=== PATIENT | female | born 1930 | race Asian ===

== ENCOUNTER 2016-07-27 07:17 | Inpatient (IN) | payer OTHER ==
[2016-07-27 07:22] VITALS: BMI 31.5
[2016-07-27] MEDS ORDERED: ALBUTEROL SO4 2.5/IPRATROPIUM 0.5 INH SOL 3 ML VIAL.NEB. NEB ONE ×2 (07:46)
--- NOTE | 2016-07-27 07:49 | PDOC ---
History of Present Illness <Sosa Bean - Last Filed: 07/27/16 10:01> - General History Source: Patient Exam Limitations: No Limitations - History of Present Illness Initial Comments: 07/27/16 07:47 86y F hx of htn, dm, hl, ckd, presents with sob. The patient has beeen feeling SOB with SOTO for the psat 2 weeks, 2 weeks ago she had cp/sob, was admitted to [facility] for a cardiac workup, had a negative stress and was d/c home to fu with PMD. The pt fu with PMD a few days ago and was given a neb. The pt states her sob worsened significantly last night and there was no significant improvement with her nebulizer. Pt states he gets the wheezing and sob when she ambulates short distances as well as up stairs which is new. The pt denies any associated cp (no cp since last admission to [place]), fever/chills. pt does endorse a mild nonproductive cough, orthopnea, mild lower extermity edema. PMD dr. Mendoza <Ralph Angel - Last Filed: 07/28/16 09:26> - General Chief Complaint: Asthma Stated Complaint: ASTHMA Time Seen by Provider: 07/27/16 07:30 Past History <Sosa Bean - Last Filed: 07/27/16 10:01> - Past Medical History Asthma: Yes Diabetes: Yes Dialysis: No (cri) HTN: Yes Hypercholesterolemia: Yes - Psycho/Social/Smoking Cessation Hx Anxiety: No Suicidal Ideation: No Smoking History: Never smoked Have you smoked in the past 12 months: No Information on smoking cessation initiated: No Hx Alcohol Use: No Drug/Substance Use Hx: No Substance Use Type: None <Ralph Angel - Last Filed: 07/28/16 09:26> - Past Medical History Allergies/Adverse Reactions: Allergies Allergy/AdvReac Type Severity Reaction Status Date / Time No Known Allergies Allergy Verified 07/27/16 07:19 Home Medications: Ambulatory Orders Amlodipine Besylate 10 mg PO DAILY 07/27/16 Calcitriol [Rocaltrol] 0.5 mcg PO DAILY 07/27/16 Glipizide [Glipizide ER] 5 mg PO DAILY 07/27/16 Linagliptin [Tradjenta] 5 mg PO DAILY 07/27/16 Losartan/Hydrochlorothiazide [Losartan-Hctz 100-25 mg Tab] 1 tablet PO DAILY 04/02 Metoprolol Succinate [Toprol Xl] 100 mg PO DAILY 07/27/16 Simvastatin [Zocor] 10 mg PO HS 07/27/16 Review of Systems - Review of Systems Able to Perform ROS?: Yes Comments:: 07/27/16 08:10 Constitutional - no reported Fever, Chills, weakness, HEENT: no reported vision changes, sore throat Respiratory: +sob, SOTO, mild cough no reported hemoptysis Cardiac: no reported chest pain, palpitations, light headedness, leg swelling Abd/GI: no reported abd pain, nausea, vomiting, blood per rectum, melena, diarrhea : no reported dysuria, frequency, discharge Musculskelatal +leg swelling no reported back pain, joint swelling skin - no reported bruising, erythema, rash neurological: no reported headache, numbness, focal weakness, tingling, ataxia, weakness hematologic: no reported anemia, easy bruising, easy bleeding <Ralph Angel - Last Filed: 07/28/16 09:26> *Physical Exam - Vital Signs Last Vital Signs Temp Pulse Resp BP Pulse Ox 98.3 F 82 22 184/68 97 07/27/16 07:19 07/27/16 07:19 07/27/16 07:19 07/27/16 07:19 07/27/16 07:19 <Sosa Bean - Last Filed: 07/27/16 10:01> - Vital Signs Last Vital Signs Temp Pulse Resp BP Pulse Ox 98.3 F 82 22 184/68 97 07/27/16 07:19 07/27/16 07:19 07/27/16 07:19 07/27/16 07:19 07/27/16 07:19 - Physical Exam Comments: 07/27/16 08:24 GENERAL: The patient is awake, alert, and fully oriented, Nontoxic - in no acute distress. HEAD: Normocephalic, atraumatic. EYES: extraocular movements intact, sclera anicteric, conjunctiva clear. ENT: Normal voice, Moist mucous membranes. NECK: Normal range of motion, supple LUNGS: mild wheezing and deminished breath sounds bilaterally HEART: Regular rate and rhythm, normal S1 and S2 without murmur, rub or gallop. ABDOMEN: Soft, nontender, normoactive bowel sounds. No guarding, no rebound. . No CVA tenderness EXTREMITIES: Normal range of motion, +2pitting edema R>L with negative homans NEUROLOGICAL: No facial assymetry, Normal speech, PSYCH: Normal mood, normal affect. SKIN: Warm, Dry, normal turgor, <Ralph Angel - Last Filed: 07/28/16 09:26> Heart Score/ECG Review - ECG Impressions Comment:: 07/27/16 08:25 Twelve-lead EKG was performed and reviewed by me. There is normal sinus rhythm with a normal rate. Rate of 70 The axis is normal. The intervals are normal. There is normal R wave progression There are no ST or T wave abnormalities. Impression: Normal twelve-lead EKG <Ralph Angel - Last Filed: 07/28/16 09:26> ED Treatment Course - LABORATORY CBC & Chemistry Diagram: 07/27/16 07:56 07/27/16 07:56 - ADDITIONAL ORDERS Additional order review: Laboratory Results 07/27/16 07/27/16 07:56 07:56 INR 1.19 H Sodium 140 Potassium 3.9 Chloride 104 Carbon Dioxide 25 Anion Gap 11 BUN 43 H Creatinine 2.8 H Creat Clearance w eGFR 16.10 Random Glucose 227 H Calcium 8.9 Phosphorus 4.7 Magnesium 2.1 Total Bilirubin 0.3 AST 20 ALT 30 Alkaline Phosphatase 104 Creatine Kinase 146 Troponin I < 0.02 B-Natriuretic Peptide 1614.88 H Total Protein 6.8 Albumin 3.3 L 07/27/16 07:56 RBC 3.48 L MCV 83.7 MCHC 33.1 RDW 13.2 MPV 7.7 Neutrophils % 63.8 Lymphocytes % 24.8 Monocytes % 8.8 Eosinophils % 1.8 Basophils % 0.8 - Medications Given in the ED: ED Medications Discontinued Medications Generic Name Dose Route Start Last Admin Trade Name Freq PRN Reason Stop Dose Admin Albuterol/Ipratropium 2 amp 07/27/16 07:46 07/27/16 07:40 Duoneb - NEB 07/27/16 07:47 2 amp ONCE ONE Administration <Sosa Bean - Last Filed: 07/27/16 10:01> - LABORATORY CBC & Chemistry Diagram: 07/28/16 06:00 07/28/16 06:00 - RADIOLOGY Radiology Studies Ordered: Category Date Time Status CHEST X-RAY PORTABLE* [RAD] Stat Radiology 07/27/16 07:46 Ordered DUPLEX VASCUL US-2LEGS [US] Stat Ultrasound 07/27/16 07:46 Ordered <Ralph Angel - Last Filed: 07/28/16 09:26> Medical Decision Making - Medical Decision Making 07/27/16 09:31 A page was sent to Dr. Matti Leigh at [phone]. Awaiting call back. 07/27/16 09:[address] Matti Leigh. Case discussed at 09:40. Accept Case. Reuetss that Labor Standards Director,Dr. John Valerio and Developer Relations Manager, Dr. Duane Garcia to be consulted. 07/27/16 09:57 Placed a consult to Labor Standards Director, Dr. John Valerio. 07/27/16 09:57 Placed a call to Developer Relations Manager, Dr. Duane Garcia at [phone]. Immediate response. Case was discussed. Accepts case. <Sosa Bean - Last Filed: 07/27/16 10:01> - Medical Decision Making 07/27/16 08:25 86-year-old female history of hypertension, diabetes, high cholesterol, CAD presents with 2 weeks of sob/wheezing and SOTO, without associated chest pain. Recent cardiac workup when she was admitted to [facility]. On exam the pt is in no acute distress but does have deminished breath sounds with scattered wheezing and LE edema. ?CHF vs asthma vs fluid overload due to her ckd less likely acs, consider DVT/ PE as she also has some assymetric leg swelling however the pts daugther states her R side is always slightly larger than her left. will ck cbc, cmp, cxr, ekg, trops, duplex US will give a neb jade reassess 07/27/16 09:24 The patient's chest x-ray appears congested, bibasilar atelectasis,m more in the R than left. The patient clinically does not have any symptoms for pneumonia also without fever, white count. Suspect that the patient's symptoms are secondary to congestion/fluid overload. ?chf will give pt a dose of lasix Will discuss with Dr. Cosby regarding admission for further workup an dpt woul dlikely benefit from echo. 07/27/16 10:[address] alva and dr. garcia per dr. garcia, last echo was in 2013 and was normal lv function with mild pulm and mitral regurgitation dr. mendoza requests telemetry agree with management dr. mendoza requests consultation w/ dr. garcia, dr. valerio, and dr. pollard. Case discussed in detail with admitting physician including history, physical exam and ancillary studies. Admitting physician has assumed care for the patient, will follow all pending diagnostics and will complete the evaluation and treatment. <Ralph Angel - Last Filed: 07/28/16 09:26> *DC/Admit/Observation/Transfer - Attestations Scribe Attestion: 07/27/16 09:33 Documentation prepared by Sosa Bean, acting as medical payment poster for Ralph Angel MD. <Sosa Bean - Last Filed: 07/27/16 10:01> - Discharge Dispostion Admit: Yes <Ralph Angel - Last Filed: 07/28/16 09:26> Diagnosis at time of Disposition: SOB (shortness of breath) on exertion, Pulmonary vascular congestion CKD (chronic kidney disease) Qualifiers: Chronic kidney disease stage: unspecified stage Qualified Code(s): N18.9 - Chronic kidney disease, unspecified - Discharge Dispostion Condition at time of disposition: Stable
[2016-07-27 08:21] LABS: BASOPHIL 0.8 % (0-2.0); EOSINOPHIL 1.8 % (0-4.5); MCH 27.7 pg (25.7-33.7); MCHC 33.1 g/dl (32.0-36.0); MEAN CELL VOLUME 83.7 fl (80-96); MEAN PLT VOLUME 7.7 fl (7.5-11.1); NEUTROPHILS 63.8 % (42.8-82.8); PLATELET COUNT 272 K/MM3 (134-434); RDW 13.2 % (11.6-15.6); WHITE BLOOD COUNT 11.6 K/mm3 (4.0-10.0)
[2016-07-27 08:38] LABS: ALBUMIN 3.3 g/dl (3.4-5.0); ANION GAP 11 (8-16); BILIRUBIN,TOTAL 0.3 mg/dL (0.2-1.0); CALCIUM 8.9 mg/dL (8.5-10.1); CO2 25 mmol/L (21-32); CREATININE 2.8 mg/dL (0.55-1.02); GLUCOSE,RANDOM 227 mg/dL (74-106); MAGNESIUM 2.1 mg/dL (1.8-2.4); PHOSPHOROUS 4.7 mg/dL (2.5-4.9); SGOT/AST 20 U/L (15-37); SGPT/ALT 30 U/L (12-78); TOT PROT 6.8 g/dl (6.4-8.2)
[2016-07-27 08:41] LABS: ALK PHOS 104 U/L (45-117); TROPONIN I < 0.02 ng/ml (0.00-0.05)
[2016-07-27] MEDS ORDERED: FUROSEMIDE 40 MG/4 ML INJECTABLE VIAL IVPUSH ONE (08:46)
[2016-07-27 08:48] LABS: INR 1.19 (0.82-1.09); PROTHROMBIN TIME (PATIENT) 13.1 SEC (9.98-11.88)
[2016-07-27] MEDS ORDERED: FUROSEMIDE 40 MG/4 ML INJECTABLE VIAL ONE (09:25)
--- NOTE | 2016-07-27 10:29 | EKG ---
Test Reason : Blood Pressure : / mmHG Vent. Rate : 070 BPM Atrial Rate : 070 BPM P-R Int : 202 ms QRS Dur : 076 ms QT Int : 432 ms P-R-T Axes : 027 042 066 degrees QTc Int : 466 ms SINUS RHYTHM WITH PREMATURE ATRIAL COMPLEXES NO PREVIOUS ECGS AVAILABLE Confirmed by CARLOS BRITO MD ([id number]) on 07/27/2016 10:28:37 AM Referred By: Confirmed By:CARLOS BRITO MD
[2016-07-27 10:37] LABS: URINE APPEARANCE SLCLOUDY; URINE BILIRUBIN NEGATIVE (NEGATIVE); URINE COLOR STRAW; URINE GLUCOSE (UA) 1+ (NEGATIVE); URINE KETONE NEGATIVE (NEGATIVE); URINE LEUK ESTERASE NEGATIVE (NEGATIVE); URINE NITRITE NEGATIVE (NEGATIVE); URINE UROBILINOGEN NEGATIVE E.U./dl (0.2-1.0)
[2016-07-27 11:35] LABS: URINE BLOOD 1+ (NEGATIVE); URINE PROTEIN 2+ (NEGATIVE)
[2016-07-27 11:36] LABS: URINE BACTERIA RARE /hpf (NONE SEEN); URINE MUCUS RARE; URINE RBC 4 /hpf (0-3); URINE WBC 3 /hpf (3-5); YEAST RARE
--- NOTE | 2016-07-27 14:34 | CONSULT ---
Consult Consult Specialty:: Nephrology Reason for Consultation:: CKD - History of Present Illness Chief Complaint: shortness of breath History of Present Illness: Pt is an 86 year old female with pmhx of HTN, DM, CKD and hyperlipidemia who presents to the ER complaining of shortness of breath has been getting worse. She also complains of wheezing. She denies chest pain or palpitations. She took a nebulizer for the SOB however it did not improve. She feels more short of breath while ambulating. She was found to have elevated creatinine and I was called to see her. She follows with Dr Ayala in the office for CKD. Her baseline creatinine is about 2.7. She denies dysuria or hematuria. - History Source History Provided By: Patient, Family Member - Past Medical History Cardio/Vascular: Yes: HTN, Hyperlipdemia Renal/: Yes: Renal Inusuff Endocrine: Yes: Diabetes Mellitus - Alcohol/Substance Use Hx Alcohol Use: No - Smoking History Smoking history: Never smoked Have you smoked in the past 12 months: No Home Medications - Allergies Allergies/Adverse Reactions: Allergies Allergy/AdvReac Type Severity Reaction Status Date / Time No Known Allergies Allergy Verified 07/27/16 07:19 - Home Medications Home Medications: Ambulatory Orders Amlodipine Besylate 10 mg PO DAILY 07/27/16 Calcitriol [Rocaltrol] 0.5 mcg PO DAILY 07/27/16 Glipizide [Glipizide ER] 5 mg PO DAILY 07/27/16 Linagliptin [Tradjenta] 5 mg PO DAILY 07/27/16 Losartan/Hydrochlorothiazide [Losartan-Hctz 100-25 mg Tab] 1 tablet PO DAILY 04/02 Metoprolol Succinate [Toprol Xl] 100 mg PO DAILY 07/27/16 Simvastatin [Zocor] 10 mg PO HS 07/27/16 Family Disease History - Family Disease History Family History: Denies Review of Systems - Review of Systems Constitutional: denies: Chills, Fever Eyes: reports: No Symptoms HENT: reports: No Symptoms Neck: reports: No Symptoms Cardiovascular: reports: Shortness of Breath Respiratory: reports: Cough, SOB, SOB on Exertion, Wheezing Genitourinary: reports: No Symptoms Musculoskeletal: reports: No Symptoms Integumentary: reports: No Symptoms Neurological: reports: No Symptoms Endocrine: reports: No Symptoms Hematology/Lymphatic: reports: No Symptoms Psychiatric: reports: No Symptoms Physical Exam Vital Signs: Vital Signs Temperature 98.3 F 07/27/16 07:19 Pulse Rate 82 07/27/16 07:19 Respiratory Rate 22 07/27/16 07:19 Blood Pressure 184/68 07/27/16 07:19 O2 Sat by Pulse Oximetry (%) 99 07/27/16 07:20 Constitutional: Yes: Calm Eyes: Yes: Conjunctiva Clear HENT: Yes: Atraumatic Neck: Yes: Supple Cardiovascular: Yes: S1, S2 Respiratory: Yes: CTA Bilaterally, On Nasal O2 Gastrointestinal: Yes: Normal Bowel Sounds, Soft, Abdomen, Obese Renal/: Yes: WNL Musculoskeletal: Yes: WNL Edema: Yes Edema: LLE: Trace, RLE: Trace Neurological: Yes: Oriented Psychiatric: Yes: Oriented Labs: Laboratory Tests 07/27/16 07/27/16 07/27/16 07:56 07:56 10:15 WBC 11.6 H Hgb 9.6 L Plt Count 272 Sodium 140 Potassium 3.9 Chloride 104 Carbon Dioxide 25 Anion Gap 11 BUN 43 H Creatinine 2.8 H Creat Clearance w eGFR 16.10 Random Glucose 227 H Urine Color Straw Urine Appearance Slcloudy Urine pH 6.0 Ur Specific [place] 1.005 Urine Protein 2+ H Urine Glucose (UA) 1+ H Urine Ketones Negative Urine Blood 1+ H Urine Nitrite Negative Urine Bilirubin Negative Urine Urobilinogen Negative Ur Leukocyte Esterase Negative Imaging - Results Chest X-ray: Report Reviewed Ultrasound: Report Reviewed (neg for dvt) Problem List - Problems (1) CKD (chronic kidney disease) Code(s): N18.9 - CHRONIC KIDNEY DISEASE, UNSPECIFIED Qualifiers: Chronic kidney disease stage: unspecified stage Qualified Code(s): N18.9 - Chronic kidney disease, unspecified (2) Pulmonary vascular congestion Code(s): R09.89 - OTH SYMPTOMS AND SIGNS INVOLVING THE CIRC AND RESP SYSTEMS (3) SOB (shortness of breath) on exertion Code(s): R06.02 - SHORTNESS OF BREATH (4) Hypertension Code(s): I10 - ESSENTIAL (PRIMARY) HYPERTENSION (5) Diabetes 1.5, managed as type 1 Code(s): E13.9 - OTHER SPECIFIED DIABETES MELLITUS WITHOUT COMPLICATIONS Assessment/Plan Impression 1. CKD 2. HTN 3. DM 4. dyspnea 5. hyperlipidemia 6. anemia Plan - renal function is not far from baseline - recommend trial of lasix to see if shortness of breath improves - resume home meds - monitor pulse ox - repeat labs in am - admit for further workup - [address] Fleming
[2016-07-27] MEDS ORDERED: METOPROLOL SUCCINATE 100 MG TAB.SR.24H (FP) PO SCH (17:15)
[2016-07-27] MEDS ORDERED: LOSARTAN 50MG/HCTZ 12.5MG 1 TAB (FP) PO SCH (17:15)
--- NOTE | 2016-07-27 17:19 | CON.CARD ---
Consult Consult Specialty:: cardiology Reason for Consultation:: shortness of breath - History of Present Illness Chief Complaint: shortness of breath History of Present Illness: 86y woman (b. Maira) with PM hx of [id number] HTN; DM;hyperlipidemia ; CKD, who now presents with sob. The patient has been feeling SOB with SOTO which began two weeks ago; she was admitted to [facility] for a cardiac workup, had a negative EKG (per daughter)and was d/chinmay home from ER. The pt fu with PMD a few days ago and was given a nebulizer. The pt states her sob worsened significantly last night; here was no significant improvement with the nebulizer. Pt states she gets the wheezing and sob when she ambulates short distances as well as up stairs, which is new (pt's daughter says she was able to walk slowly in the house on a regular basis without dyspnea until the past few weeks). The pt denies any associated cp (no cp since last admission to [place]), fever/chills. pt does endorse a mild nonproductive cough, orthopnea, mild lower extermity edema; denies fever. Stress test 2 months ago negative for myocardial ischemia or arrhythmias. PMD dr. Mendoza Assistant Hairstylist: Dr. Ayala. - History Source History Provided By: Patient, Family Member, Medical Record Limitations to Obtaining History: Poor Historian - Past Medical History Cardio/Vascular: Yes: CHF (diastolic), HTN, Hyperlipdemia Renal/: Yes: Renal Inusuff Reproductive: Yes: Postmenopausal ...: No Heme/Onc: Yes: Anemia Endocrine: Yes: Diabetes Mellitus - Alcohol/Substance Use Hx Alcohol Use: No - Smoking History Smoking history: Never smoked Have you smoked in the past 12 months: No - Social History Usual Living Arrangement: With Child Place of : Other Home Medications - Allergies Allergies/Adverse Reactions: Allergies Allergy/AdvReac Type Severity Reaction Status Date / Time No Known Allergies Allergy Verified 07/27/16 07:19 - Home Medications Home Medications: Ambulatory Orders Amlodipine Besylate 10 mg PO DAILY 07/27/16 Calcitriol [Rocaltrol] 0.5 mcg PO DAILY 07/27/16 Glipizide [Glipizide ER] 5 mg PO DAILY 07/27/16 Linagliptin [Tradjenta] 5 mg PO DAILY 07/27/16 Losartan/Hydrochlorothiazide [Losartan-Hctz 100-25 mg Tab] 1 tablet PO DAILY 04/02 Metoprolol Succinate [Toprol Xl] 100 mg PO DAILY 07/27/16 Simvastatin [Zocor] 10 mg PO HS 07/27/16 Family Disease History - Family Disease History Family History: Denies Review of Systems - Review of Systems Constitutional: reports: Other (dyspnea) Eyes: reports: No Symptoms HENT: reports: No Symptoms Neck: reports: No Symptoms Cardiovascular: reports: Shortness of Breath Respiratory: reports: SOB on Exertion, Wheezing Gastrointestinal: reports: No Symptoms Genitourinary: reports: No Symptoms Breasts: reports: No Symptoms Reported Musculoskeletal: reports: Muscle Weakness Integumentary: reports: No Symptoms Neurological: reports: Weakness Psychiatric: reports: No Symptoms - Risk Factors Known Risk Factors: Yes: Age, Hypercholesterolemia, Hypertension, Physical Inactivity Vital Signs: Vital Signs Temperature 98.2 F 07/27/16 16:52 Pulse Rate 100 H 07/27/16 16:52 Respiratory Rate 18 07/27/16 16:52 Blood Pressure 180/93 07/27/16 16:52 O2 Sat by Pulse Oximetry (%) 100 07/27/16 16:52 Constitutional: Yes: Calm Eyes: Yes: WNL HENT: Yes: WNL Neck: Yes: WNL Respiratory: Yes: Diminished, Rales, Wheezes (mild; expiratory; clear with cough ) Gastrointestinal: Yes: Soft Renal/: No: Anuria Cardiovascular: Yes: Regular Rate and Rhythm (periocs of tachycardia) JVD: Yes Heart Sounds: Yes: S1, S2, S4 Murmur: Yes: Systolic Murmur, Grade 2 Musculoskeletal: Yes: Muscle Weakness Extremities: Yes: Cool Edema: Yes Edema: LLE: Trace, RLE: Trace Peripheral Pulses WNL: No Peripheral Pulses: 1+ Left Doralis Pedis, 1+ Right Dorsalis Pedis Neurological: Yes: Alert, Oriented, Weakness Psychiatric: Yes: Alert, Oriented - Other Data Labs, Other Data: INR, PTT INR 1.19 (0.82-1.09) H 07/27/16 07:56 Abnormal Lab Results 07/27/16 07/27/16 07/27/16 07:56 07:56 07:56 WBC 11.6 H RBC 3.48 L Hgb 9.6 L Hct 29.1 L INR 1.19 H BUN 43 H Creatinine 2.8 H Random Glucose 227 H CK-MB (CK-2) B-Natriuretic Peptide 1614.88 H Albumin 3.3 L Urine Protein Urine Glucose (UA) Urine Blood 07/27/16 07/27/16 10:15 18:55 WBC RBC Hgb Hct INR BUN Creatinine Random Glucose CK-MB (CK-2) 3.794 H B-Natriuretic Peptide Albumin Urine Protein 2+ H Urine Glucose (UA) 1+ H Urine Blood 1+ H Echo: Report Reviewed (normal LVEF; moderately severe pulmonary HTN) Ejection Fraction %: LVEF > or = 40 % Imaging - Results Chest X-ray: Image Reviewed (mild-moderate CHF; pleural effusion) EKG: Image Reviewed (NSR) Problem List - Problems (1) CKD (chronic kidney disease) Assessment/Plan: As discussed with Binu Fleming and Jamie, losartan (at 50 mg daily) may be continued while Cr remains at baseline (2.8). Furosemide IV bid 40 mg started, with good urine output and respiratory improvement; HCTZ held (likely less effective with increased Cr). Code(s): N18.9 - CHRONIC KIDNEY DISEASE, UNSPECIFIED Qualifiers: Chronic kidney disease stage: unspecified stage Qualified Code(s): N18.9 - Chronic kidney disease, unspecified (2) Hypertension Assessment/Plan: As discussed with Dr. Ayala, pt's HTN has proven difficult to control. Metoprolol held due to concern from family that wheezing started at some point after the medication was begun (however, she apparently had no respiratory distress until the past two weeks, and had been having upward titration from 25 mg to the present 100 mg without ill effect). Would carefully evaluate, and use it again if needed for HR and BP control. Hydralazine + Imdur started. Continue amlodipine. Now on furosemide. F/u BUN/Cr, electrolytes. ECHO: normal LVEF; moderate-severe pulmonary HTN. Code(s): I10 - ESSENTIAL (PRIMARY) HYPERTENSION (3) Pulmonary vascular congestion Code(s): R09.89 - OTH SYMPTOMS AND SIGNS INVOLVING THE CIRC AND RESP SYSTEMS (4) SOB (shortness of breath) on exertion Code(s): R06.02 - SHORTNESS OF BREATH (5) Acute on chronic diastolic CHF (congestive heart failure) Code(s): I50.33 - ACUTE ON CHRONIC DIASTOLIC (CONGESTIVE) HEART FAILURE
[2016-07-27] MEDS ORDERED: ALBUTEROL SO4 0.083% IH SOL 2.5 MG/3 ML VIAL.NEB. NEB PRN (17:54)
[2016-07-27] MEDS: ALBUTEROL SO4 0.083% IH SOL 2.5 MG/3 ML VIAL.NEB. NEB PRN ×2 (18:05→22:35)
[2016-07-27] MEDS: amLODIPine BESYLATE 10 MG TABLET (FP) PO SCH (18:49)
[2016-07-27] MEDS: sitaGLIPtin PHOSPHATE 25 MG TABLET (FP) PO SCH (18:49)
[2016-07-27] MEDS: CALCITRIOL 0.25 MCG CAPSULE (FP) PO SCH (18:49)
[2016-07-27] MEDS: LOSARTAN POTASSIUM 50 MG TABLET (FP) PO SCH (18:52)
[2016-07-27] MEDS: ISOSORBIDE MONONITRATE 30 MG TAB.SR.24H (FP) PO SCH (18:52)
[2016-07-27] MEDS: hydrALAZINE HCL 25 MG TABLET (FP) PO SCH ×2 (18:52→22:14)
[2016-07-27 19:50] LABS: TROPONIN I < 0.02 ng/ml (0.00-0.05)
[2016-07-27] MEDS: INSULIN DETEMIR 100 UNITS/ML MDV SQ SCH (22:14)
[2016-07-27] MEDS: ATORVASTATIN CA 10 MG TABLET (FP) PO SCH (22:14)
[2016-07-28] MEDS: ALBUTEROL SO4 0.083% IH SOL 2.5 MG/3 ML VIAL.NEB. NEB PRN ×2 (02:31→06:06)
[2016-07-28] MEDS: INSULIN SLIDING SCALE (NOVOLOG) 1 VIAL SQ SCH ×2 (06:44→17:19)
[2016-07-28] MEDS: INSULIN DETEMIR 100 UNITS/ML MDV SQ SCH ×2 (06:45→21:36)
[2016-07-28] MEDS: sitaGLIPtin PHOSPHATE 25 MG TABLET (FP) PO SCH (06:46)
[2016-07-28 07:47] LABS: BASOPHIL 0.7 % (0-2.0); EOSINOPHIL 2.5 % (0-4.5); MCH 27.7 pg (25.7-33.7); MCHC 33.3 g/dl (32.0-36.0); MEAN CELL VOLUME 83.3 fl (80-96); MEAN PLT VOLUME 7.9 fl (7.5-11.1); NEUTROPHILS 55.6 % (42.8-82.8); PLATELET COUNT 253 K/MM3 (134-434); RDW 13.2 % (11.6-15.6); WHITE BLOOD COUNT 10.8 K/mm3 (4.0-10.0)
[2016-07-28 08:17] LABS: ALBUMIN 2.9 g/dl (3.4-5.0); BILIRUBIN,TOTAL 0.3 mg/dL (0.2-1.0); CALCIUM 8.3 mg/dL (8.5-10.1); CREATININE 3.3 mg/dL (0.55-1.02); TOT PROT 6.1 g/dl (6.4-8.2)
[2016-07-28 08:21] LABS: TROPONIN I < 0.02 ng/ml (0.00-0.05)
--- NOTE | 2016-07-28 09:02 | PN ---
Progress Note, Physician Chief Complaint: Pt seen and examined Cardiology note appreciated - Current Medication List Current Medications: Active Medications Albuterol Sulfate (Ventolin 0.083% Nebulizer Soln -) 1 amp NEB Q4H PRN PRN Reason: SHORT OF BREATH/WHEEZING Last Admin: 07/28/16 06:06 Dose: 1 amp Amlodipine Besylate (Norvasc -) 10 mg PO DAILY [facility] Last Admin: 07/27/16 18:49 Dose: 10 mg Atorvastatin Calcium (Lipitor -) 10 mg PO HS [facility] Last Admin: 07/27/16 22:14 Dose: 10 mg Calcitriol (Rocaltrol -) 0.5 mcg PO DAILY [facility] Last Admin: 07/27/16 18:49 Dose: 0.5 mcg Hydralazine HCl (Apresoline -) 25 mg PO BID [facility] Last Admin: 07/27/16 22:14 Dose: 25 mg Insulin Aspart (Novolog Vial Sliding Scale -) 1 vial SQ BIDAC [facility] PRN Reason: Protocol Last Admin: 07/28/16 06:44 Dose: 6 units Insulin Detemir (Levemir Vial) 18 units SQ BID@0700,2200 [facility] Last Admin: 07/28/16 06:45 Dose: 18 units Isosorbide Mononitrate (Imdur -) 30 mg PO DAILY [facility] Last Admin: 07/27/16 18:52 Dose: 30 mg Losartan Potassium (Cozaar -) 50 mg PO DAILY [facility] Last Admin: 07/27/16 18:52 Dose: 50 mg Sitagliptin Phosphate (Januvia -) 25 mg PO DAILY@0700 [facility] Last Admin: 07/28/16 06:46 Dose: 25 mg - Objective Vital Signs: Vital Signs Temperature 98.8 F 07/28/16 07:43 Pulse Rate 72 07/28/16 07:43 Respiratory Rate 18 07/28/16 07:43 Blood Pressure 124/60 07/28/16 07:43 O2 Sat by Pulse Oximetry (%) 100 07/27/16 23:34 Constitutional: Yes: No Distress Eyes: Yes: Conjunctiva Clear HENT: Yes: Atraumatic Cardiovascular: Yes: Regular Rate and Rhythm Respiratory: Yes: Regular, Wheezes Gastrointestinal: Yes: Normal Bowel Sounds, Soft Musculoskeletal: Yes: WNL Extremities: Yes: WNL Edema: LLE: Trace, RLE: Trace Peripheral Pulses WNL: Yes Neurological: Yes: Oriented Psychiatric: Yes: Alert Labs: CBC, BMP 07/28/16 06:00 07/28/16 06:00 INR, PTT INR 1.19 (0.82-1.09) H 07/27/16 07:56 - ....Imaging Chest X-ray: Report Reviewed Ultrasound: Report Reviewed Assessment/Plan CKD SOB/acute on chronic CHF HTN,Hypercholestrolemia Pulmonary vascular congestion DM PLAN Continue albuteroll Continue BP medications Monitor BUN/creatinine Monitor sugar Will f/u cardiology and renal rec regarding Medidcation
[2016-07-28] MEDS: amLODIPine BESYLATE 10 MG TABLET (FP) PO SCH (09:45)
[2016-07-28] MEDS: LOSARTAN POTASSIUM 50 MG TABLET (FP) PO SCH (09:45)
[2016-07-28] MEDS: hydrALAZINE HCL 25 MG TABLET (FP) PO SCH ×2 (09:45→21:36)
[2016-07-28] MEDS: CALCITRIOL 0.25 MCG CAPSULE (FP) PO SCH (09:45)
[2016-07-28] MEDS: ISOSORBIDE MONONITRATE 30 MG TAB.SR.24H (FP) PO SCH (09:45)
--- NOTE | 2016-07-28 10:34 | PN ---
Progress Note, Physician Chief Complaint: Cardiology for Radha History of Present Illness: sitting in bed, family member at bedside Per family, she is feeling slightly better but still wheezing. TELE: NSR with rare APCs Beta blockers d/c'd yesterday for possible wheezing, BP stable on Imdur/Hydral combo - Current Medication List Current Medications: Active Medications Albuterol Sulfate (Ventolin 0.083% Nebulizer Soln -) 1 amp NEB Q4H PRN PRN Reason: SHORT OF BREATH/WHEEZING Last Admin: 07/28/16 06:06 Dose: 1 amp Amlodipine Besylate (Norvasc -) 10 mg PO DAILY [facility] Last Admin: 07/28/16 09:45 Dose: 10 mg Atorvastatin Calcium (Lipitor -) 10 mg PO HS [facility] Last Admin: 07/27/16 22:14 Dose: 10 mg Calcitriol (Rocaltrol -) 0.5 mcg PO DAILY [facility] Last Admin: 07/28/16 09:45 Dose: 0.5 mcg Hydralazine HCl (Apresoline -) 25 mg PO BID [facility] Last Admin: 07/28/16 09:45 Dose: 25 mg Insulin Aspart (Novolog Vial Sliding Scale -) 1 vial SQ BIDAC [facility] PRN Reason: Protocol Last Admin: 07/28/16 06:44 Dose: 6 units Insulin Detemir (Levemir Vial) 18 units SQ BID@0700,2200 [facility] Last Admin: 07/28/16 06:45 Dose: 18 units Isosorbide Mononitrate (Imdur -) 30 mg PO DAILY [facility] Last Admin: 07/28/16 09:45 Dose: 30 mg Losartan Potassium (Cozaar -) 50 mg PO DAILY [facility] Last Admin: 07/28/16 09:45 Dose: 50 mg Sitagliptin Phosphate (Januvia -) 25 mg PO DAILY@0700 [facility] Last Admin: 07/28/16 06:46 Dose: 25 mg - Objective Vital Signs: Vital Signs Temperature 98.8 F 07/28/16 07:43 Pulse Rate 72 07/28/16 07:43 Respiratory Rate 18 07/28/16 07:43 Blood Pressure 124/60 07/28/16 07:43 O2 Sat by Pulse Oximetry (%) 100 07/27/16 23:34 Constitutional: Yes: No Distress Cardiovascular: Yes: Regular Rate and Rhythm Respiratory: Yes: Other (decreased basilar breath sounds and mild expiratory wheezing) Gastrointestinal: Yes: Soft Edema: Yes Edema: LLE: 1+, RLE: 1+ Neurological: Yes: Alert ...Motor Strength: WNL Labs: CBC, BMP 07/28/16 06:00 07/28/16 06:00 INR, PTT INR 1.19 (0.82-1.09) H 07/27/16 07:56 Laboratory Tests 07/27/16 07/27/16 07/28/16 07:56 18:55 06:00 WBC 10.8 H Hgb 8.8 L Hct 26.3 L Plt Count 253 Sodium Potassium BUN Creatinine Creatine Kinase 170 Troponin I < 0.02 < 0.02 07/28/16 07/28/16 06:00 06:00 WBC Hgb Hct Plt Count Sodium 141 Potassium 4.0 BUN 49 H Creatinine 3.3 H Creatine Kinase 143 Troponin I < 0.02 - ....Imaging EKG: Image Reviewed Assessment/Plan Problem List - Problems (1) CKD (chronic kidney disease) Assessment/Plan: May need to d/c Losartan as creatinine up to 3.3. Given IV Lasix yesterday, now not ordered. (2) Hypertension Assessment/Plan: BP controlled with switch to Imdur + Hydral Beta amanda discontinued yesterday for possible wheezing, although wheezing likely due to CHF Code(s): I10 - ESSENTIAL (PRIMARY) HYPERTENSION (3) Pulmonary vascular congestion secondary to acute on chronic diastolic CHF Would probably hold ARB and give trial of daily Lasix IV with close monitoring of renal fxn as she still appears volume overloaded on exam.
--- NOTE | 2016-07-28 11:04 | PN ---
Progress Note (short form) - Note Progress Note: RENAL Pt is awake and alert daughter by bedside getting a nebulizer treatment Last Vital Signs Temp Pulse Resp BP Pulse Ox 98.8 F 72 18 124/60 100 07/28/16 07:43 07/28/16 07:43 07/28/16 07:43 07/28/16 07:43 07/27/16 23:34 Current Medications Generic Name Dose Route Start Last Admin Trade Name Freq PRN Reason Stop Dose Admin Albuterol Sulfate 1 amp 07/27/16 17:10 07/28/16 06:06 Ventolin 0.083% Nebulizer Soln - NEB 1 amp Q4H PRN Administration SHORT OF BREATH/WHEEZING Amlodipine Besylate 10 mg 07/27/16 17:15 07/28/16 09:45 Norvasc - PO 10 mg DAILY [facility] Administration Atorvastatin Calcium 10 mg 07/27/16 22:00 07/27/16 22:14 Lipitor - PO 10 mg HS [facility] Administration Calcitriol 0.5 mcg 07/27/16 18:00 07/28/16 09:45 Rocaltrol - PO 0.5 mcg DAILY [facility] Administration Hydralazine HCl 25 mg 07/27/16 18:30 07/28/16 09:45 Apresoline - PO 25 mg BID [facility] Administration Insulin Aspart 1 vial 07/28/16 07:00 07/28/16 06:44 Novolog Vial Sliding Scale - SQ 6 units BIDAC [facility] Administration Protocol Insulin Detemir 18 units 07/27/16 22:00 07/28/16 06:45 Levemir Vial SQ 18 units BID@0700,2200 [facility] Administration Isosorbide Mononitrate 30 mg 07/27/16 18:30 07/28/16 09:45 Imdur - PO 30 mg DAILY [facility] Administration Losartan Potassium 50 mg 07/27/16 18:30 07/28/16 09:45 Cozaar - PO 50 mg DAILY [facility] Administration Sitagliptin Phosphate 25 mg 07/27/16 18:00 07/28/16 06:46 Januvia - PO 25 mg DAILY@0700 [facility] Administration lungs some wheezing and rhonchi cvs s1s2 rr abd soft ext +edema neuro a+o skin no rash noted CBC, BMP 07/28/16 06:00 07/28/16 06:00 Impression 1. CKD ow with zachary 2. HTN 3. DM 4. dyspnea- ?asthma vs diastolic dysf 5. hyperlipidemia 6. anemia Plan -hold diuretics - anemia evaluation -?trial of steroids/pulm eval - 2 gram sodium diet MV
--- NOTE | 2016-07-28 11:21 | PN ---
Progress Note (short form) - Note Progress Note: PULMONARY CONSULTATION DICTATED 07/28/16 IMP DECOMPENSATED DIASTOLIC CHF PUL HTN ACUTE ON CHRONIC KIDNEY DISEASE DM HTN PLAN IV LASIX INHALED BRONCHODILATORS SUPPLEMENTAL O2 DVT PROPHYLAXIS CHEST CT DAILY WTS F/U CHEST X-RAYS DR ESPOSITO Problem List - Problems (1) Acute on chronic diastolic CHF (congestive heart failure) Code(s): I50.33 - ACUTE ON CHRONIC DIASTOLIC (CONGESTIVE) HEART FAILURE (2) CKD (chronic kidney disease) Code(s): N18.9 - CHRONIC KIDNEY DISEASE, UNSPECIFIED Qualifiers: Chronic kidney disease stage: unspecified stage Qualified Code(s): N18.9 - Chronic kidney disease, unspecified (3) Diabetes 1.5, managed as type 1 Code(s): E13.9 - OTHER SPECIFIED DIABETES MELLITUS WITHOUT COMPLICATIONS (4) Hypertension Code(s): I10 - ESSENTIAL (PRIMARY) HYPERTENSION (5) Pulmonary vascular congestion Code(s): R09.89 - OTH SYMPTOMS AND SIGNS INVOLVING THE CIRC AND RESP SYSTEMS (6) SOB (shortness of breath) on exertion Code(s): R06.02 - SHORTNESS OF BREATH (7) Pulmonary hypertension Code(s): I27.2 - OTHER SECONDARY PULMONARY HYPERTENSION
[2016-07-28] MEDS ORDERED: ALBUTEROL SO4 2.5/IPRATROPIUM 0.5 INH SOL 3 ML VIAL.NEB. NEB PRN (11:25)
[2016-07-28] MEDS ORDERED: HEPARIN NA (PORCINE) 5,000 UNITS/ML 1ML VIAL SQ SCH (11:30)
[2016-07-28] MEDS: ALBUTEROL SO4 2.5/IPRATROPIUM 0.5 INH SOL 3 ML VIAL.NEB. NEB SCH ×2 (17:49→21:40)
[2016-07-28] MEDS ORDERED: dilTIAZem HCL 50 MG/10 ML - 10 ML VIAL IVPUSH ONE (18:09)
[2016-07-28] MEDS ORDERED: FUROSEMIDE 40 MG/4 ML INJECTABLE VIAL IVPUSH ONE (18:10)
[2016-07-28] MEDS ORDERED: HEPARIN NA (PORCINE) 5,000 UNITS/ML 1ML VIAL IVPUSH PRN (18:11)
[2016-07-28] MEDS ORDERED: HEPARIN NA (PORCINE) 5,000 UNITS/ML 1ML VIAL IVPUSH ONE (18:13)
[2016-07-28] MEDS ORDERED: HEPARIN INFUSION - 500 ML IVPB ONE (18:30)
--- NOTE | 2016-07-28 18:32 | HOSP ---
Subjective - Review of Symptoms Events since last encounter: called to evaluate patient with tachycardia . pt seen and examined. HAs no SOB or CP , denies any palpitations. On exam : BP 148/78, HR 145 , RR 15 , afebrile . NAD , siting in bed eating . HEENT: MMM, no facial droop . JVD CV: irreg irreg. no murmurs appreciated , b/l JVD Lungs : generalized wheezes and crackles. Ext : 1+ pitting edema on feet and legs . TTP over R calf no erythema or increased circumference Labs reviewed. significant for Cr of 3.3 Cxray with evidence of pulm edema Echo reviewed: with NL EF . some valvular abnormalities EKG : Afib A/P: 86 y/o pleasant lady with h/o Dm , HTN, CHF , who is being admitted and treated for SAIDA and CHF impression : 1- New onset A fib with RVR 2- pulm edema 2/2 #1 plan : - Give 10 mg of IV cardizem . if response seen will place on 30 q 6 h - if no response will start cardizem gtt - [id number] score 6 ---> 9.7 % yearly risk for stroke . will start heparin gtt . - Risk of AC including spontaneous life threatening bleed is discussed . benefits of reducing stroke risk were also discussed. she had no GI bleed or other serious bleed before. family ( daughter and pt ) are agreeable to AC . - give 40 mg of IV lasix and start lasix daily - hold losartan - US of LE with no evidence of DVT. still PE might be in DDx as a cause of A fib. can't perform CTA due to renal failure . will order VQ scan . any way pt to be started on AC - case d/w Dr. Snyder - CCT 30 min Physical Examination Vital Signs: Vital Signs Temperature 98.8 F 07/28/16 07:43 Pulse Rate 63 07/28/16 10:00 Respiratory Rate 20 07/28/16 10:00 Blood Pressure 148/57 07/28/16 10:00 O2 Sat by Pulse Oximetry (%) 99 07/28/16 10:00 Labs: CBC, BMP 07/28/16 06:00 07/28/16 06:00
[2016-07-28] MEDS: dilTIAZem HCL 30 MG TABLET (FP) PO SCH (18:42)
[2016-07-28] MEDS: HEPARIN - 25,000 UNIT in SODIUM CHLORIDE 495 ML IV SCH (18:43)
[2016-07-28] MEDS: ATORVASTATIN CA 10 MG TABLET (FP) PO SCH (21:37)
[2016-07-29] MEDS: dilTIAZem HCL 30 MG TABLET (FP) PO SCH ×2 (00:04→06:26)
[2016-07-29] MEDS: ALBUTEROL SO4 2.5/IPRATROPIUM 0.5 INH SOL 3 ML VIAL.NEB. NEB SCH ×6 (02:15→21:45)
[2016-07-29] MEDS: sitaGLIPtin PHOSPHATE 25 MG TABLET (FP) PO SCH (06:26)
[2016-07-29] MEDS: INSULIN DETEMIR 100 UNITS/ML MDV SQ SCH ×2 (06:27→21:47)
[2016-07-29] MEDS: INSULIN SLIDING SCALE (NOVOLOG) 1 VIAL SQ SCH ×2 (08:51→17:52)
--- NOTE | 2016-07-29 10:04 | PN ---
Progress Note, Physician - Current Medication List Current Medications: Active Medications Albuterol/Ipratropium (Duoneb -) 1 amp NEB Q4HPO [facility] Last Admin: 07/29/16 06:35 Dose: 1 amp Amlodipine Besylate (Norvasc -) 10 mg PO DAILY [facility] Last Admin: 07/28/16 09:45 Dose: 10 mg Atorvastatin Calcium (Lipitor -) 10 mg PO HS [facility] Last Admin: 07/28/16 21:37 Dose: 10 mg Calcitriol (Rocaltrol -) 0.5 mcg PO DAILY [facility] Last Admin: 07/28/16 09:45 Dose: 0.5 mcg Diltiazem HCl (Cardizem -) 30 mg PO Q6HPO [facility] Last Admin: 07/29/16 06:26 Dose: 30 mg Furosemide (Lasix Injection -) 40 mg IVPUSH DAILY [facility] Heparin Sodium (Porcine) (Heparin -) 1,000 unit IVPUSH PRN PRN PRN Reason: Heparin Heparin Sodium (Porcine) (Heparin -) 5,000 unit IVPUSH PRN PRN PRN Reason: Heparin Hydralazine HCl (Apresoline -) 25 mg PO BID [facility] Last Admin: 07/28/16 21:36 Dose: 25 mg Heparin Sodium (Porcine) 25, (000 unit/ Sodium Chloride) 500 mls @ 20 mls/hr IV TITR [facility]; 1,000 UNIT/HR PRN Reason: Protocol Last Admin: 07/28/16 18:43 Dose: 20 mls/hr Insulin Aspart (Novolog Vial Sliding Scale -) 1 vial SQ BIDAC [facility] PRN Reason: Protocol Last Admin: 07/29/16 08:51 Dose: Not Given Insulin Detemir (Levemir Vial) 18 units SQ BID@0700,2200 [facility] Last Admin: 07/29/16 06:27 Dose: 18 units Isosorbide Mononitrate (Imdur -) 30 mg PO DAILY [facility] Last Admin: 07/28/16 09:45 Dose: 30 mg Sitagliptin Phosphate (Januvia -) 25 mg PO DAILY@0700 [facility] Last Admin: 07/29/16 06:26 Dose: 25 mg - Objective Vital Signs: Vital Signs Temperature 98.5 F 07/29/16 06:00 Pulse Rate 122 H 07/29/16 06:00 Respiratory Rate 18 07/29/16 06:00 Blood Pressure 128/69 07/29/16 06:00 O2 Sat by Pulse Oximetry (%) 99 07/28/16 21:00 Labs: CBC, BMP 07/28/16 06:00 07/28/16 06:00 INR, PTT INR 1.19 (0.82-1.09) H 07/27/16 07:56 Laboratory Tests 07/27/16 07/28/16 07/28/16 18:55 06:00 06:00 WBC 10.8 H Hgb 8.8 L Hct 26.3 L Plt Count 253 PTT (Actin FS) Troponin I < 0.02 < 0.02 07/29/16 08:22 WBC Hgb Hct Plt Count PTT (Actin FS) 71.1 H D Troponin I
[2016-07-29] MEDS: FUROSEMIDE 40 MG/4 ML INJECTABLE VIAL IVPUSH SCH (10:07)
[2016-07-29] MEDS: CALCITRIOL 0.25 MCG CAPSULE (FP) PO SCH (10:07)
[2016-07-29] MEDS: amLODIPine BESYLATE 10 MG TABLET (FP) PO SCH (10:07)
[2016-07-29] MEDS: hydrALAZINE HCL 25 MG TABLET (FP) PO SCH ×2 (10:07→21:43)
[2016-07-29] MEDS: ISOSORBIDE MONONITRATE 30 MG TAB.SR.24H (FP) PO SCH (10:07)
--- NOTE | 2016-07-29 10:09 | PN ---
Progress Note, Physician Chief Complaint: last evening developed rapid AF Started on heparin gtts, given cardizem for rate control and given additional dose IV Lasix as it was felt she was in worsened CHF Based on exam this morning, agree that volume status seems worse with rales on exam History of Present Illness: TELE: AF with average rate 118bpm, rare bursts to 140s - Current Medication List Current Medications: Active Medications Albuterol/Ipratropium (Duoneb -) 1 amp NEB Q4HPO [facility] Last Admin: 07/29/16 06:35 Dose: 1 amp Amlodipine Besylate (Norvasc -) 10 mg PO DAILY [facility] Last Admin: 07/28/16 09:45 Dose: 10 mg Atorvastatin Calcium (Lipitor -) 10 mg PO HS [facility] Last Admin: 07/28/16 21:37 Dose: 10 mg Calcitriol (Rocaltrol -) 0.5 mcg PO DAILY [facility] Last Admin: 07/28/16 09:45 Dose: 0.5 mcg Diltiazem HCl (Cardizem -) 30 mg PO Q6HPO [facility] Last Admin: 07/29/16 06:26 Dose: 30 mg Furosemide (Lasix Injection -) 40 mg IVPUSH DAILY [facility] Heparin Sodium (Porcine) (Heparin -) 1,000 unit IVPUSH PRN PRN PRN Reason: Heparin Heparin Sodium (Porcine) (Heparin -) 5,000 unit IVPUSH PRN PRN PRN Reason: Heparin Hydralazine HCl (Apresoline -) 25 mg PO BID [facility] Last Admin: 07/28/16 21:36 Dose: 25 mg Heparin Sodium (Porcine) 25, (000 unit/ Sodium Chloride) 500 mls @ 20 mls/hr IV TITR [facility]; 1,000 UNIT/HR PRN Reason: Protocol Last Admin: 07/28/16 18:43 Dose: 20 mls/hr Insulin Aspart (Novolog Vial Sliding Scale -) 1 vial SQ BIDAC [facility] PRN Reason: Protocol Last Admin: 07/29/16 08:51 Dose: Not Given Insulin Detemir (Levemir Vial) 18 units SQ BID@0700,2200 [facility] Last Admin: 07/29/16 06:27 Dose: 18 units Isosorbide Mononitrate (Imdur -) 30 mg PO DAILY [facility] Last Admin: 07/28/16 09:45 Dose: 30 mg Sitagliptin Phosphate (Januvia -) 25 mg PO DAILY@0700 [facility] Last Admin: 07/29/16 06:26 Dose: 25 mg - Objective Vital Signs: Vital Signs Temperature 98.5 F 07/29/16 06:00 Pulse Rate 122 H 07/29/16 06:00 Respiratory Rate 18 07/29/16 06:00 Blood Pressure 128/69 07/29/16 06:00 O2 Sat by Pulse Oximetry (%) 99 07/28/16 21:00 Constitutional: Yes: No Distress Eyes: Yes: Conjunctiva Clear Cardiovascular: Yes: Pulse Irregular Respiratory: Yes: Other (bibasilar rales 1/3 up) Gastrointestinal: Yes: Soft Edema: Yes Edema: LLE: 2+, RLE: 2+ Labs: CBC, BMP 07/28/16 06:00 07/28/16 06:00 INR, PTT INR 1.19 (0.82-1.09) H 07/27/16 07:56 - ....Imaging EKG: Image Reviewed Assessment/Plan IMP: Acute on chronic diatolic CHF CKD PAF REC: 1. Trial of IV lasix, check BMP today -Temporarily hold Losartan while we diurese 2. Heparin gtts (elevated CHADS 2- Vasc score) 3. Continue Cardizem, d/c Norvasc. Titrate Cardizem 60 q6 Beta blockers held initially for concern of wheezing, likely due to CHF. 4. Plan for V/Q scan to rule out PE
--- NOTE | 2016-07-29 11:06 | PN ---
Progress Note, Physician History of Present Illness: PULMONARY ALERT,NAD,LESS CONGESTED - Current Medication List Current Medications: Active Medications Albuterol/Ipratropium (Duoneb -) 1 amp NEB Q4HPO [facility] Last Admin: 07/29/16 06:35 Dose: 1 amp Atorvastatin Calcium (Lipitor -) 10 mg PO HS [facility] Last Admin: 07/28/16 21:37 Dose: 10 mg Calcitriol (Rocaltrol -) 0.5 mcg PO DAILY [facility] Last Admin: 07/29/16 10:07 Dose: 0.5 mcg Diltiazem HCl (Cardizem -) 60 mg PO QID [facility] Furosemide (Lasix Injection -) 40 mg IVPUSH DAILY [facility] Last Admin: 07/29/16 10:07 Dose: 40 mg Heparin Sodium (Porcine) (Heparin -) 1,000 unit IVPUSH PRN PRN PRN Reason: Heparin Heparin Sodium (Porcine) (Heparin -) 5,000 unit IVPUSH PRN PRN PRN Reason: Heparin Hydralazine HCl (Apresoline -) 25 mg PO BID [facility] Last Admin: 07/29/16 10:07 Dose: 25 mg Heparin Sodium (Porcine) 25, (000 unit/ Sodium Chloride) 500 mls @ 20 mls/hr IV TITR [facility]; 1,000 UNIT/HR PRN Reason: Protocol Last Admin: 07/28/16 18:43 Dose: 20 mls/hr Insulin Aspart (Novolog Vial Sliding Scale -) 1 vial SQ BIDAC [facility] PRN Reason: Protocol Last Admin: 07/29/16 08:51 Dose: Not Given Insulin Detemir (Levemir Vial) 18 units SQ BID@0700,2200 [facility] Last Admin: 07/29/16 06:27 Dose: 18 units Isosorbide Mononitrate (Imdur -) 30 mg PO DAILY [facility] Last Admin: 07/29/16 10:07 Dose: 30 mg Sitagliptin Phosphate (Januvia -) 25 mg PO DAILY@0700 [facility] Last Admin: 07/29/16 06:26 Dose: 25 mg - Objective Vital Signs: Vital Signs Temperature 98.5 F 07/29/16 06:00 Pulse Rate 122 H 07/29/16 06:00 Respiratory Rate 18 07/29/16 06:00 Blood Pressure 128/69 07/29/16 06:00 O2 Sat by Pulse Oximetry (%) 99 02/11/17 21:00 Constitutional: Yes: Well Nourished, Calm Eyes: Yes: WNL HENT: Yes: WNL Neck: Yes: WNL Cardiovascular: Yes: Pulse Irregular, S1, S2 Respiratory: Yes: Wheezes (SCATTERED AGUSTINA WHEEZES) Gastrointestinal: Yes: Normal Bowel Sounds, Soft Extremities: Yes: WNL Edema: No Labs: CBC, BMP Problem List - Problems (1) Acute on chronic diastolic CHF (congestive heart failure) Code(s): I50.33 - ACUTE ON CHRONIC DIASTOLIC (CONGESTIVE) HEART FAILURE (2) CKD (chronic kidney disease) Code(s): N18.9 - CHRONIC KIDNEY DISEASE, UNSPECIFIED Qualifiers: Chronic kidney disease stage: unspecified stage Qualified Code(s): N18.9 - Chronic kidney disease, unspecified (3) Diabetes 1.5, managed as type 1 Code(s): E13.9 - OTHER SPECIFIED DIABETES MELLITUS WITHOUT COMPLICATIONS (4) Hypertension Code(s): I10 - ESSENTIAL (PRIMARY) HYPERTENSION (5) Pulmonary vascular congestion Code(s): R09.89 - OTH SYMPTOMS AND SIGNS INVOLVING THE CIRC AND RESP SYSTEMS (6) SOB (shortness of breath) on exertion Code(s): R06.02 - SHORTNESS OF BREATH (7) Pulmonary hypertension Code(s): I27.2 - OTHER SECONDARY PULMONARY HYPERTENSION Assessment/Plan IMP DECOMPENSATED DIASTOLIC CHF PUL HTN ACUTE ON CHRONIC KIDNEY DISEASE DM HTN AFIB PLAN IV LASIX INHALED BRONCHODILATORS SUPPLEMENTAL O2 DVT PROPHYLAXIS ANTICOAGULATION RATE CONTROL CHEST CT DAILY WTS F/U CHEST X-RAYS DR ESPOSITO Problem List - Problems (1) Acute on chronic diastolic CHF (congestive heart failure) Code(s): I50.33 - ACUTE ON CHRONIC DIASTOLIC (CONGESTIVE) HEART FAILURE (2) CKD (chronic kidney disease) Code(s): N18.9 - CHRONIC KIDNEY DISEASE, UNSPECIFIED Qualifiers: Chronic kidney disease stage: unspecified stage Qualified Code(s): N18.9 - Chronic kidney disease, unspecified (3) Diabetes 1.5, managed as type 1 Code(s): E13.9 - OTHER SPECIFIED DIABETES MELLITUS WITHOUT COMPLICATIONS (4) Hypertension Code(s): I10 - ESSENTIAL (PRIMARY) HYPERTENSION (5) Pulmonary vascular congestion Code(s): R09.89 - OTH SYMPTOMS AND SIGNS INVOLVING THE CIRC AND RESP SYSTEMS (6) SOB (shortness of breath) on exertion Code(s): R06.02 - SHORTNESS OF BREATH (7) Pulmonary hypertension Code(s): I27.2 - OTHER SECONDARY PULMONARY HYPERTENSION
[2016-07-29 11:46] LABS: CALCIUM 8.4 mg/dL (8.5-10.1); CREATININE 3.6 mg/dL (0.55-1.02)
--- NOTE | 2016-07-29 11:51 | PN ---
Progress Note (short form) - Note Progress Note: RENAL Pt is awake and alert daughter by bedside comfortable Last Vital Signs Temp Pulse Resp BP Pulse Ox 98.5 F 122 H 18 128/69 99 07/29/16 06:00 07/29/16 06:00 07/29/16 06:00 07/29/16 06:00 07/28/16 21:00 Current Medications Generic Name Dose Route Start Last Admin Trade Name Freq PRN Reason Stop Dose Admin Albuterol/Ipratropium 1 amp 07/28/16 12:53 07/29/16 06:35 Duoneb - NEB 1 amp Q4HPO [facility] Administration Atorvastatin Calcium 10 mg 07/27/16 22:00 07/28/16 21:37 Lipitor - PO 10 mg HS [facility] Administration Calcitriol 0.5 mcg 07/27/16 18:00 07/29/16 10:07 Rocaltrol - PO 0.5 mcg DAILY [facility] Administration Diltiazem HCl 60 mg 07/29/16 14:00 Cardizem - PO QID [facility] Furosemide 40 mg 07/29/16 10:00 07/29/16 10:07 Lasix Injection - IVPUSH 40 mg DAILY [facility] Administration Heparin Sodium (Porcine) 1,000 unit 07/28/16 18:11 Heparin - IVPUSH PRN PRN Heparin Heparin Sodium (Porcine) 5,000 unit 07/28/16 18:11 Heparin - IVPUSH PRN PRN Heparin Hydralazine HCl 25 mg 07/27/16 18:30 07/29/16 10:07 Apresoline - PO 25 mg BID [facility] Administration Heparin Sodium (Porcine) 25, 500 mls @ 20 mls/hr 07/28/16 18:15 07/28/16 18:43 000 unit/ Sodium Chloride IV 20 mls/hr TITR [facility] Administration Protocol 1,000 UNIT/HR Insulin Aspart 1 vial 07/28/16 07:00 07/29/16 08:51 Novolog Vial Sliding Scale - SQ Not Given BIDAC [facility] Protocol Insulin Detemir 18 units 07/27/16 22:00 07/29/16 06:27 Levemir Vial SQ 18 units BID@0700,2200 [facility] Administration Isosorbide Mononitrate 30 mg 07/27/16 18:30 07/29/16 10:07 Imdur - PO 30 mg DAILY [facility] Administration Sitagliptin Phosphate 25 mg 07/27/16 18:00 07/29/16 06:26 Januvia - PO 25 mg DAILY@0700 [facility] Administration lungs crackles at left base cvs s1s2 rr abd soft ext +edema neuro a+o skin no rash noted CBC, BMP 07/28/16 06:00 07/29/16 06:20 Impression 1. CKD ow with zachary 2. HTN 3. DM 4. dyspnea- ?asthma vs diastolic dysf 5. hyperlipidemia 6. anemia Plan agree with diuretics in view of her dyspnea continue bronchodilators MV
[2016-07-29] MEDS: dilTIAZem HCL 60 MG TABLET (FP) PO SCH ×3 (14:16→21:43)
--- NOTE | 2016-07-29 14:44 | PN ---
Progress Note, Physician Chief Complaint: Pt seen and examined Last day evening pt developed atrial fibrillation ,rate controlled with cardiazem Pt is on IV heparin Cardiology,RENAl,pul note appreciated note appreciated Losartan on hold - Current Medication List Current Medications: Active Medications Albuterol/Ipratropium (Duoneb -) 1 amp NEB Q4HPO [facility] Last Admin: 07/29/16 14:19 Dose: 1 amp Atorvastatin Calcium (Lipitor -) 10 mg PO HS [facility] Last Admin: 07/28/16 21:37 Dose: 10 mg Calcitriol (Rocaltrol -) 0.5 mcg PO DAILY [facility] Last Admin: 07/29/16 10:07 Dose: 0.5 mcg Diltiazem HCl (Cardizem -) 60 mg PO QID [facility] Last Admin: 07/29/16 14:16 Dose: 60 mg Furosemide (Lasix Injection -) 40 mg IVPUSH DAILY [facility] Last Admin: 07/29/16 10:07 Dose: 40 mg Heparin Sodium (Porcine) (Heparin -) 1,000 unit IVPUSH PRN PRN PRN Reason: Heparin Heparin Sodium (Porcine) (Heparin -) 5,000 unit IVPUSH PRN PRN PRN Reason: Heparin Hydralazine HCl (Apresoline -) 25 mg PO BID [facility] Last Admin: 07/29/16 10:07 Dose: 25 mg Heparin Sodium (Porcine) 25, (000 unit/ Sodium Chloride) 500 mls @ 20 mls/hr IV TITR [facility]; 1,000 UNIT/HR PRN Reason: Protocol Last Admin: 07/28/16 18:43 Dose: 20 mls/hr Insulin Aspart (Novolog Vial Sliding Scale -) 1 vial SQ BIDAC [facility] PRN Reason: Protocol Last Admin: 07/29/16 08:51 Dose: Not Given Insulin Detemir (Levemir Vial) 18 units SQ BID@0700,2200 [facility] Last Admin: 07/29/16 06:27 Dose: 18 units Isosorbide Mononitrate (Imdur -) 30 mg PO DAILY [facility] Last Admin: 07/29/16 10:07 Dose: 30 mg Sitagliptin Phosphate (Januvia -) 25 mg PO DAILY@0700 [facility] Last Admin: 07/29/16 06:26 Dose: 25 mg - Objective Vital Signs: Vital Signs Temperature 98.5 F 07/29/16 06:00 Pulse Rate 104 H 07/29/16 10:00 Respiratory Rate 20 07/29/16 10:00 Blood Pressure 138/72 07/29/16 10:00 O2 Sat by Pulse Oximetry (%) 98 07/29/16 10:00 Constitutional: Yes: No Distress Eyes: Yes: Conjunctiva Clear HENT: Yes: Atraumatic Neck: Yes: Supple Cardiovascular: Yes: Pulse Irregular Respiratory: Yes: Regular, Diminished, Wheezes (Lung base) Gastrointestinal: Yes: Normal Bowel Sounds Musculoskeletal: Yes: WNL Edema: Yes Edema: LLE: Trace, RLE: Trace Peripheral Pulses WNL: Yes Neurological: Yes: Oriented Labs: CBC, BMP 07/28/16 06:00 07/29/16 06:20 INR, PTT INR 1.19 (0.82-1.09) H 07/27/16 07:56 - ....Imaging Chest X-ray: Report Reviewed Assessment/Plan CKD PAF SOB/acute on chronic CHF HTN,Hypercholestrolemia Pulmonary vascular congestion DM PLAN Continue bronchodialators Continue BP medications Monitor BUN/creatinine Monitor sugar Will f/u cardiology and renal rec regarding Medication Heparin as per protocol
--- NOTE | 2016-07-29 15:42 | HP ---
DATE OF ADMISSION: 07/27/2016 The patient is an 86-year-old female with a past medical history of chronic renal disease, diabetes, hypertension, hypercholesterolemia, coronary artery disease, came to the emergency room with complaints of shortness of breath. Patient has been feeling short of breath and for the past 2 weeks. Two weeks ago patient had chest pain and shortness of breath and was admitted to [facility] and had a cardiac workup and patient had a negative stress test and was discharged home and recommended to follow with cardiology and primary physician. The patient was seen in the office a few days ago with shortness of breath and prescribed albuterol nebulizer treatment but there was no relief even after the nebulizer treatment and, as per the patient, the shortness of breath was worsening significantly and the symptoms got worse and so patient returned to the emergency room for further evaluation. As per the patient, the shortness of breath is getting worse while she ambulates short distance and climbs up stairs. No chest pain, no palpitation, no fever, no nausea, no vomiting, no dizziness. Mild cough present. Regarding the past medical history, history of diabetes, chronic renal disease, hypertension, hypercholesterolemia. No known drug allergy. SURGICAL HISTORY: Nothing significant. The patient is taking medication: Calcitriol, amlodipine, glipizide ER, Trajenta, losartan, hydrochlorothiazide, metoprolol ER, simvastatin, Lantus, and Humalog sliding scale. Patient lives with the family. PERSONAL HISTORY: Nothing significant. REVIEW OF SYSTEMS: Constitutional: No reported fever, chills. Head and Neck: No reported vision change or sore throat. Respiratory: Shortness of breath present, mild cough present. No hemoptysis. Cardiac: No reported chest pain, palpitation, lightheadedness. Gastrointestinal: No abdominal pain, nausea, vomiting. Genitourinary: Nothing significant. Musculoskeletal: Patient has mild swelling, both feet. Neurological: No headache, no focal neurological symptoms. No bruising. PHYSICAL EXAMINATION: Vital Signs: Temperature 98.3. Pulse rate 82. Respiration 22. Blood pressure 184/68. Saturation 99% on oxygen. General: Patient alert, awake, and fully oriented, no apparent distress. Head and Neck: Normocephalic, atraumatic. Pupils equally reactive to light and accommodation. Neck supple. No JVD. Lungs: Mild wheezing and diminished breath sounds bilaterally, especially on the lung base. Heart: First and 2nd sound regular. No murmur, no gallop. Abdomen: Soft and nontender, normotensive. Bowel sounds present. No guarding, no rigidity. Extremities: Normal range of movement. Pitting edema present, right more than left. Neurological: No apparent motor or sensory deficit. Normal speech. Skin: Warm and dry. LABORATORIES: EKG shows sinus rhythm, with a normal rate, rate of [address]-T wave changes. Occasional paroxysmal atrial contractions present. Chest x-ray shows cardiomegaly with suggestion of mild pulmonary vascular congestion, bibasilar atelectasis, airspace disease, more on the right side than left, minimal pleural effusion present, cardiomegaly present. Venous Doppler of both legs: No evidence of DVT. Regarding the lab, sodium 140, potassium 3.9, chloride 104, bicarbonate 25, BUN 43, creatinine 2.8, sugar 227. CBC: WBC 11.6, hemoglobin 9.6, hematocrit 29.1, platelets 272. BNP 1614. Cardiac enzymes: Troponin x1 normal. ALT, AST normal. INR 1.19, Urine shows protein 2+, glucose 1+, urine blood 1+, WBCs 3. DIAGNOSES: Patient admitted with admitting diagnosis of pulmonary vascular congestion, chronic kidney disease, shortness of breath, hypertension, diabetes, anemia, hypercholesterolemia. PLAN: Patient admitted in telemetry. Continue the home medications. IV Lasix given. Pulmonary, Cardiology, and Renal consults called. Patient stable on the floor. Jeanette [id number]
[2016-07-29] MEDS: POLYETHYLENE GLYCOL 3350 119 GM BTL PO SCH (15:52)
[2016-07-29] MEDS ORDERED: HEPARIN INFUSION - 500 ML IVPB ONE (21:36)
[2016-07-29] MEDS: HEPARIN - 25,000 UNIT in SODIUM CHLORIDE 495 ML IV SCH (21:41)
[2016-07-29] MEDS: ATORVASTATIN CA 10 MG TABLET (FP) PO SCH (21:43)
[2016-07-30] MEDS: ALBUTEROL SO4 2.5/IPRATROPIUM 0.5 INH SOL 3 ML VIAL.NEB. NEB SCH ×3 (01:11→09:50)
[2016-07-30] MEDS: INSULIN DETEMIR 100 UNITS/ML MDV SQ SCH ×2 (06:24→22:02)
[2016-07-30] MEDS: sitaGLIPtin PHOSPHATE 25 MG TABLET (FP) PO SCH (06:24)
[2016-07-30] MEDS: INSULIN SLIDING SCALE (NOVOLOG) 1 VIAL SQ SCH ×2 (06:25→17:14)
[2016-07-30 07:12] LABS: MCH 27.8 pg (25.7-33.7); MCHC 33.6 g/dl (32.0-36.0); MEAN CELL VOLUME 82.7 fl (80-96); PLATELET COUNT 237 K/MM3 (134-434); RDW 13.1 % (11.6-15.6); WHITE BLOOD COUNT 12.9 K/mm3 (4.0-10.0)
[2016-07-30] MEDS: HEPARIN NA (PORCINE) 5,000 UNITS/ML 1ML VIAL IVPUSH PRN ×2 (08:11→16:36)
[2016-07-30] MEDS: HEPARIN - 25,000 UNIT in SODIUM CHLORIDE 495 ML IV SCH ×2 (08:12→16:36)
--- NOTE | 2016-07-30 09:34 | HP ---
DATE OF ADMISSION: DATE OF DICTATION: 07/27/2016 HISTORY OF PRESENT ILLNESS: The patient is an 86-year-old female with past medical history of hypertension, diabetes, hypercholesterolemia, chronic kidney disease, CAD, came to the emergency room with complaints of shortness of breath and dyspnea with exertion for the past 2 weeks. Two weeks ago, the patient had similar complaint and chest pain and was admitted to [facility] for a cardiac workup and it was negative. The patient had a cardiac stress test done on June 25, 2016 and it was negative. The patient was seen in the office for the shortness of breath and prescribed a nebulizer treatment, but even after using nebulizer treatment, the shortness of breath was worsening significantly and there was no significant improvement. Therefore, the patient states she gets the wheezing and shortness of breath when she ambulates just short distances, laughing or climbing stairs. There is no associated palpitation or chest pain. Mild nonproductive cough present and mild lower extremity edema and orthopnea present. No fever. No history of recent travel. 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 SOCIAL HISTORY: Nothing significant. PAST SURGICAL HISTORY: Nothing significant. ALLERGIES: No known allergies. MEDICATIONS: The patient is on calcitriol 0.5 mcg p.o. daily, simvastatin 10 mg daily, amlodipine 10 gm p.o. daily, glipizide ER 5 mg p.o. daily, Tradjenta 5 mg p.o. daily, losartan/hydrochlorothiazide 50/12.5 mg p.o. daily, metoprolol ER 50 mg 2 tablets p.o. daily, Lantus 18 units b.i.d. and Humalog sliding scale according to the blood sugar. PERSONAL HISTORY: No history of smoking. The patient lives with the family. On examination in the emergency room, vital signs were temperature 98.3, pulse rate 82, respirations 22, blood pressure 184/68, saturation 99% on oxygen. REVIEW OF SYSTEMS: Constitutional: No reported fever, no chills, no weakness. Head and Neck: No reported vision changes or sore throat. Respiratory: Shortness of breath and dyspnea with exertion, mild cough present. No hemoptysis. Cardiac: No chest pain or palpitations. No lightheadedness. Mild present. Gastrointestinal: No abdomen pain, nausea, vomiting. Genitourinary: No urinary symptom. Musculature: Mild leg swelling, nontender. Neurologic: No associated headache, numbness, focal weakness or dizziness, ataxia. Hematology: Mild anemia present. Renal: History of chronic kidney disease. PHYSICAL EXAMINATION: Vital Signs: Temperature 98.3, pulse 82, respirations 22, blood pressure 184/68, pulse oximetry 97%. General: The patient is awake, alert, and fully oriented. Head and Neck: Supple, no JVD. Pupils reactive to light and accommodation. Lungs: Mild wheezing and diminished breath sounds in the lung bases. Heart: Regular heart rhythm, S1 S2 normal without murmur. Abdomen: Soft, nontender, nondistended. Bowel sounds present. Extremities: Mild pedal edema present. Neurologic: Normal. No focal asymmetry. No apparent motor or sensory deficit. Deep tendon reflexes are normal. Skin: Warm. Normal turgor. EKG done shows sinus rhythm indeterminant with paroxysmal atrial contractions. Chest x-ray: Cardiomegaly, suggestive of mild pulmonary venous congestion, bibasilar atelectasis and airspace disease, right more than left with a small to moderate right and minimal left pleural effusion. Venous Doppler of both legs showed no evidence of DVT. Comprehensive panel: Sodium 140, potassium 3.9, BUN 43, creatinine 2.8, sugar 227. WBC 11.6, hemoglobin 9.6, hematocrit 29.1 and platelets 272. BMP 1,614.88, alkaline phosphatase 104, AST and ALT normal. INR 1.19. Troponin normal less than 0.2. Urine shows protein 2+, glucose 1+, urine blood 1+, WBC 3. ASSESSMENT: The patient is admitted to telemetry with admitting diagnoses of shortness of breath, dyspnea with exertion, pulmonary vascular congestion, chronic kidney disease, hypertension, diabetes, anemia. PLAN: Lasix was given in the emergency room. Renal, cardiology and pulmonology consults were called. Oxygen recommended. Home medications resumed. Monitor the blood sugar. Cardiac enzymes to be monitored. The patient admitted to telemetry, stable. KISHORE GOLDSTEIN M.D. [id number]
[2016-07-30] MEDS: ISOSORBIDE MONONITRATE 30 MG TAB.SR.24H (FP) PO SCH (09:38)
[2016-07-30] MEDS: dilTIAZem HCL 60 MG TABLET (FP) PO SCH ×4 (09:38→22:01)
[2016-07-30] MEDS: hydrALAZINE HCL 25 MG TABLET (FP) PO SCH ×2 (09:38→22:01)
[2016-07-30] MEDS: FUROSEMIDE 40 MG/4 ML INJECTABLE VIAL IVPUSH SCH (09:38)
[2016-07-30] MEDS: POLYETHYLENE GLYCOL 3350 119 GM BTL PO SCH (09:39)
[2016-07-30] MEDS: CALCITRIOL 0.25 MCG CAPSULE (FP) PO SCH (09:39)
--- NOTE | 2016-07-30 09:39 | PN ---
Progress Note, Physician Chief Complaint: Pt seen and examined Ct chest report pending Pt is on IV heparin Cardiology,RENAl,pul note appreciated note appreciated - Current Medication List Current Medications: Active Medications Albuterol/Ipratropium (Duoneb -) 1 amp NEB Q4HPO [facility] Last Admin: 07/30/16 05:39 Dose: 1 amp Atorvastatin Calcium (Lipitor -) 10 mg PO HS [facility] Last Admin: 07/29/16 21:43 Dose: 10 mg Calcitriol (Rocaltrol -) 0.5 mcg PO DAILY [facility] Last Admin: 07/29/16 10:07 Dose: 0.5 mcg Diltiazem HCl (Cardizem -) 60 mg PO QID [facility] Last Admin: 07/29/16 21:43 Dose: 60 mg Furosemide (Lasix Injection -) 40 mg IVPUSH DAILY [facility] Last Admin: 07/29/16 10:07 Dose: 40 mg Heparin Sodium (Porcine) (Heparin -) 1,000 unit IVPUSH PRN PRN PRN Reason: Heparin Last Admin: 07/30/16 08:11 Dose: 1,000 unit Heparin Sodium (Porcine) (Heparin -) 5,000 unit IVPUSH PRN PRN PRN Reason: Heparin Hydralazine HCl (Apresoline -) 25 mg PO BID [facility] Last Admin: 07/29/16 21:43 Dose: 25 mg Heparin Sodium (Porcine) 25, (000 unit/ Sodium Chloride) 500 mls @ 20 mls/hr IV TITR [facility]; 1,000 UNIT/HR PRN Reason: Protocol Last Admin: 07/30/16 08:12 Dose: 16 mls/hr Insulin Aspart (Novolog Vial Sliding Scale -) 1 vial SQ BIDAC [facility] PRN Reason: Protocol Last Admin: 07/30/16 06:25 Dose: 12 units Insulin Detemir (Levemir Vial) 18 units SQ BID@0700,2200 [facility] Last Admin: 07/30/16 06:24 Dose: 18 units Isosorbide Mononitrate (Imdur -) 30 mg PO DAILY [facility] Last Admin: 07/29/16 10:07 Dose: 30 mg Polyethylene Glycol (Miralax (For Daily Use) -) 17 gm PO DAILY [facility] Last Admin: 07/29/16 15:52 Dose: 17 gm Sitagliptin Phosphate (Januvia -) 25 mg PO DAILY@0700 [facility] Last Admin: 07/30/16 06:24 Dose: 25 mg - Objective Vital Signs: Vital Signs Temperature 97.2 F L 07/30/16 06:00 Pulse Rate 80 07/30/16 06:00 Respiratory Rate 20 07/30/16 06:00 Blood Pressure 155/65 07/30/16 06:00 O2 Sat by Pulse Oximetry (%) 97 07/29/16 21:00 Constitutional: Yes: No Distress Eyes: Yes: Conjunctiva Clear HENT: Yes: Atraumatic, Normocephalic Neck: Yes: Supple, Trachea Midline Cardiovascular: Yes: Pulse Irregular Respiratory: Yes: Regular, Diminished (Lung base), Wheezes Gastrointestinal: Yes: Normal Bowel Sounds, Soft Musculoskeletal: Yes: WNL Edema: Yes Edema: LLE: Trace, RLE: Trace Peripheral Pulses WNL: Yes Neurological: Yes: Alert, Oriented Psychiatric: Yes: Alert, Oriented Labs: CBC, BMP 07/30/16 05:35 07/29/16 06:20 INR, PTT INR 1.19 (0.82-1.09) H 07/27/16 07:56 Laboratory Results - last 24 hr 07/29/16 07/29/16 07/29/16 06:20 17:45 21:47 WBC RBC Hgb Hct MCV MCHC RDW Plt Count MPV PTT (Actin FS) Sodium 139 Potassium 3.7 Chloride 102 Carbon Dioxide 25 Anion Gap 12 BUN 53 H Creatinine 3.6 H POC Glucometer 337 186 Random Glucose 198 H Calcium 8.4 L 07/30/16 07/30/16 07/30/16 05:35 05:35 06:23 WBC 12.9 H RBC 3.16 L Hgb 8.8 L Hct 26.2 L MCV 82.7 MCHC 33.6 RDW 13.1 Plt Count 237 MPV 8.0 PTT (Actin FS) 43.8 H D Sodium Potassium Chloride Carbon Dioxide Anion Gap BUN Creatinine POC Glucometer 311 Random Glucose Calcium Assessment/Plan CKD PAF SOB/acute on chronic CHF HTN,Hypercholestrolemia Pulmonary vascular congestion DM PLAN Continue bronchodialators Continue BP medications Monitor BUN/creatinine Monitor sugar Will f/u cardiology and renal rec regarding Medication Heparin as per protocol will f/u CT chest report
--- NOTE | 2016-07-30 10:41 | PN ---
Progress Note, Physician History of Present Illness: PULMONARY ALERT,OOB-CHAIR,LESS DYSPNEIC - Current Medication List Current Medications: Active Medications Albuterol/Ipratropium (Duoneb -) 1 amp NEB Q4HPO [facility] Last Admin: 07/30/16 09:50 Dose: 1 amp Atorvastatin Calcium (Lipitor -) 10 mg PO HS [facility] Last Admin: 07/29/16 21:43 Dose: 10 mg Calcitriol (Rocaltrol -) 0.5 mcg PO DAILY [facility] Last Admin: 07/30/16 09:39 Dose: 0.5 mcg Diltiazem HCl (Cardizem -) 60 mg PO QID [facility] Last Admin: 07/30/16 09:38 Dose: 60 mg Furosemide (Lasix Injection -) 40 mg IVPUSH DAILY [facility] Last Admin: 07/30/16 09:38 Dose: 40 mg Heparin Sodium (Porcine) (Heparin -) 1,000 unit IVPUSH PRN PRN PRN Reason: Heparin Last Admin: 07/30/16 08:11 Dose: 1,000 unit Heparin Sodium (Porcine) (Heparin -) 5,000 unit IVPUSH PRN PRN PRN Reason: Heparin Hydralazine HCl (Apresoline -) 25 mg PO BID [facility] Last Admin: 07/30/16 09:38 Dose: 25 mg Heparin Sodium (Porcine) 25, (000 unit/ Sodium Chloride) 500 mls @ 20 mls/hr IV TITR [facility]; 1,000 UNIT/HR PRN Reason: Protocol Last Admin: 07/30/16 08:12 Dose: 16 mls/hr Insulin Aspart ([facility] Vial Sliding Scale -) [facility] Reason: [facility] Last Admin: 07/30/16 06:25 Dose: 12 units Insulin Detemir (Levemir Vial) 18 units SQ BID@0700,2200 [facility] Last Admin: 07/30/16 06:24 Dose: 18 units Isosorbide Mononitrate (Imdur -) 30 mg PO DAILY [facility] Last Admin: 07/30/16 09:38 Dose: 30 mg Polyethylene Glycol (Miralax (For Daily Use) -) 17 gm PO DAILY [facility] Last Admin: 07/30/16 09:39 Dose: 17 gm Sitagliptin Phosphate (Januvia -) 25 mg PO DAILY@0700 [facility] Last Admin: 07/30/16 06:24 Dose: 25 mg - Objective Vital Signs: Vital Signs Temperature 97.2 F L 07/30/16 06:00 Pulse Rate 85 07/30/16 09:50 Respiratory Rate 20 07/30/16 06:00 Blood Pressure 155/65 07/30/16 06:00 O2 Sat by Pulse Oximetry (%) 100 07/30/16 09:50 Constitutional: Yes: Well Nourished, Calm Eyes: Yes: WNL HENT: Yes: WNL Neck: Yes: WNL Cardiovascular: Yes: Pulse Irregular, S1, S2 Respiratory: Yes: Rales, Wheezes (FEW BIBASILAR CRACKLES,LESS WHEEZES) Gastrointestinal: Yes: Normal Bowel Sounds, Soft Extremities: Yes: WNL Edema: No Labs: CBC, BMP 07/30/16 05:35 07/29/16 06:20 INR, PTT INR 1.19 (0.82-1.09) H 07/27/16 07:56 - ....Imaging Cat Scan: Report Reviewed, Image Reviewed (BILATERAL PLEURAL EFFUSIONS) Problem List - Problems (1) Acute on chronic diastolic CHF (congestive heart failure) Code(s): I50.33 - ACUTE ON CHRONIC DIASTOLIC (CONGESTIVE) HEART FAILURE (2) CKD (chronic kidney disease) Code(s): N18.9 - CHRONIC KIDNEY DISEASE, UNSPECIFIED Qualifiers: Chronic kidney disease stage: unspecified stage Qualified Code(s): N18.9 - Chronic kidney disease, unspecified (3) Diabetes 1.5, managed as type 1 Code(s): E13.9 - OTHER SPECIFIED DIABETES MELLITUS WITHOUT COMPLICATIONS (4) Hypertension Code(s): I10 - ESSENTIAL (PRIMARY) HYPERTENSION (5) Pulmonary vascular congestion Code(s): R09.89 - OTH SYMPTOMS AND SIGNS INVOLVING THE CIRC AND RESP SYSTEMS (6) SOB (shortness of breath) on exertion Code(s): R06.02 - SHORTNESS OF BREATH (7) Pulmonary hypertension Code(s): I27.2 - OTHER SECONDARY PULMONARY HYPERTENSION Assessment/Plan IMP DECOMPENSATED DIASTOLIC CHF clinically improving PUL HTN ACUTE ON CHRONIC KIDNEY DISEASE DM HTN AFIB PLAN IV LASIX INHALED BRONCHODILATORS SUPPLEMENTAL O2 DVT PROPHYLAXIS MONITOR RENAL FUNCTION ANTICOAGULATION RATE CONTROL DAILY WTS F/U CHEST X-RAYS PFTS OUTPATIENT DR ESPOSITO Problem List - Problems (1) Acute on chronic diastolic CHF (congestive heart failure) Code(s): I50.33 - ACUTE ON CHRONIC DIASTOLIC (CONGESTIVE) HEART FAILURE (2) CKD (chronic kidney disease) Code(s): N18.9 - CHRONIC KIDNEY DISEASE, UNSPECIFIED Qualifiers: Chronic kidney disease stage: unspecified stage Qualified Code(s): N18.9 - Chronic kidney disease, unspecified (3) Diabetes 1.5, managed as type 1 Code(s): E13.9 - OTHER SPECIFIED DIABETES MELLITUS WITHOUT COMPLICATIONS (4) Hypertension Code(s): I10 - ESSENTIAL (PRIMARY) HYPERTENSION (5) Pulmonary vascular congestion Code(s): R09.89 - OTH SYMPTOMS AND SIGNS INVOLVING THE CIRC AND RESP SYSTEMS (6) SOB (shortness of breath) on exertion Code(s): R06.02 - SHORTNESS OF BREATH (7) Pulmonary hypertension Code(s): I27.2 - OTHER SECONDARY PULMONARY HYPERTENSION
[2016-07-30] MEDS: methylPREDNISolone NA SUCC 40 MG/1 ML VIAL IVPB SCH ×3 (11:25→22:02)
[2016-07-30] MEDS: ALBUTEROL SO4 2.5/IPRATROPIUM 0.5 INH SOL 3 ML VIAL.NEB. NEB PRN ×2 (14:18→23:09)
--- NOTE | 2016-07-30 14:34 | PN ---
Progress Note, Physician History of Present Illness: 86y woman (b. Maira) with PM hx of [id number] HTN; DM;hyperlipidemia ; CKD, who now presents with sob. The patient has been feeling SOB with SOTO which began two weeks ago; she was admitted to [facility] for a cardiac workup, had a negative EKG (per daughter)and was d/chinmay home from ER. The pt fu with PMD a few days ago and was given a nebulizer. The pt states her sob worsened significantly last night; here was no significant improvement with the nebulizer. Pt states she gets the wheezing and sob when she ambulates short distances as well as up stairs, which is new (pt's daughter says she was able to walk slowly in the house on a regular basis without dyspnea until the past few weeks). The pt denies any associated cp (no cp since last admission to [facility]), fever/chills. pt does endorse a mild nonproductive cough, orthopnea, mild lower extermity edema; denies fever. Stress test 2 months ago negative for myocardial ischemia or arrhythmias. - Current Medication List Current Medications: Active Medications Albuterol/Ipratropium (Duoneb -) 1 amp NEB Q4H PRN PRN Reason: SHORTNESS OF BREATH Last Admin: 07/30/16 14:18 Dose: 1 amp Atorvastatin Calcium (Lipitor -) 10 mg PO HS [facility] Last Admin: 07/29/16 21:43 Dose: 10 mg Calcitriol (Rocaltrol -) 0.5 mcg PO DAILY [facility] Last Admin: 07/30/16 09:39 Dose: 0.5 mcg Diltiazem HCl (Cardizem -) 60 mg PO QID [facility] Last Admin: 07/30/16 09:38 Dose: 60 mg Furosemide (Lasix Injection -) 40 mg IVPUSH DAILY [facility] Last Admin: 07/30/16 09:38 Dose: 40 mg Heparin Sodium (Porcine) (Heparin -) 1,000 unit IVPUSH PRN PRN PRN Reason: Heparin Last Admin: 07/30/16 08:11 Dose: 1,000 unit Heparin Sodium (Porcine) (Heparin -) 5,000 unit IVPUSH PRN PRN PRN Reason: Heparin Hydralazine HCl (Apresoline -) 25 mg PO BID [facility] Last Admin: 07/30/16 09:38 Dose: 25 mg Heparin Sodium (Porcine) 25, (000 unit/ Sodium Chloride) 500 mls @ 20 mls/hr IV TITR [facility]; 1,000 UNIT/HR PRN Reason: Protocol Last Admin: 07/30/16 08:12 Dose: 16 mls/hr Insulin Aspart (Novolog Vial Sliding Scale -) 1 vial SQ BIDAC [facility] PRN Reason: Protocol Last Admin: 07/30/16 06:25 Dose: 12 units Insulin Detemir (Levemir Vial) 18 units SQ BID@0700,2200 [facility] Last Admin: 07/30/16 06:24 Dose: 18 units Isosorbide Mononitrate (Imdur -) 30 mg PO DAILY [facility] Last Admin: 07/30/16 09:38 Dose: 30 mg Methylprednisolone Sodium Succinate (Solu-Medrol -) 40 mg IVPB Q6H-IV [facility] Stop: 08/01/16 12:00 Last Admin: 07/30/16 11:25 Dose: 40 mg Polyethylene Glycol (Miralax (For Daily Use) -) 17 gm PO DAILY [facility] Last Admin: 07/30/16 09:39 Dose: 17 gm Sitagliptin Phosphate (Januvia -) 25 mg PO DAILY@0700 [facility] Last Admin: 07/30/16 06:24 Dose: 25 mg - Objective Vital Signs: Vital Signs Temperature 98.2 F 07/30/16 10:00 Pulse Rate 84 07/30/16 10:00 Respiratory Rate 18 07/30/16 10:00 Blood Pressure 148/66 07/30/16 10:00 O2 Sat by Pulse Oximetry (%) 100 07/30/16 09:50 Eyes: Yes: WNL, Conjunctiva Clear, EOM Intact HENT: Yes: WNL, Atraumatic, Normocephalic Neck: Yes: WNL, Supple, Trachea Midline Cardiovascular: Yes: WNL, Regular Rate and Rhythm Respiratory: Yes: WNL, Regular, CTA Bilaterally Gastrointestinal: Yes: WNL, Normal Bowel Sounds Genitourinary: Yes: WNL Musculoskeletal: Yes: WNL Extremities: Yes: WNL Edema: No Integumentary: Yes: WNL Neurological: Yes: WNL, Alert, Oriented ...Motor Strength: WNL Psychiatric: Yes: WNL Labs: CBC, BMP 07/30/16 05:35 07/29/16 06:20 INR, PTT INR 1.19 (0.82-1.09) H 07/27/16 07:56 Problem List - Problems (1) Acute on chronic diastolic CHF (congestive heart failure) Code(s): I50.33 - ACUTE ON CHRONIC DIASTOLIC (CONGESTIVE) HEART FAILURE (2) CKD (chronic kidney disease) Code(s): N18.9 - CHRONIC KIDNEY DISEASE, UNSPECIFIED Qualifiers: Chronic kidney disease stage: unspecified stage Qualified Code(s): N18.9 - Chronic kidney disease, unspecified (3) Diabetes 1.5, managed as type 1 Code(s): E13.9 - OTHER SPECIFIED DIABETES MELLITUS WITHOUT COMPLICATIONS (4) Hypertension Code(s): I10 - ESSENTIAL (PRIMARY) HYPERTENSION (5) Pulmonary hypertension Code(s): I27.2 - OTHER SECONDARY PULMONARY HYPERTENSION (6) Pulmonary vascular congestion Code(s): R09.89 - OTH SYMPTOMS AND SIGNS INVOLVING THE CIRC AND RESP SYSTEMS (7) SOB (shortness of breath) on exertion Code(s): R06.02 - SHORTNESS OF BREATH Assessment/Plan Acute on chronic diatolic CHF CKD PAF REC: 1.cont IV lasix, check BMP today -Temporarily hold Losartan while we diurese 2. Heparin gtts (elevated CHADS 2- Vasc score) 3. Continue Cardizem, Titrate Cardizem 60 q6 Beta blockers held initially for concern of wheezing, likely due to CHF. 4. Plan for V/Q scan to rule out PE
--- NOTE | 2016-07-30 14:46 | PN ---
Progress Note, Physician History of Present Illness: Pt seen and examined at bedside. She is awake and alert. She complains of shortness of breath. - Current Medication List Current Medications: Active Medications Albuterol/Ipratropium (Duoneb -) 1 amp NEB Q4H PRN PRN Reason: SHORTNESS OF BREATH Last Admin: 07/30/16 14:18 Dose: 1 amp Atorvastatin Calcium (Lipitor -) 10 mg PO HS [facility] Last Admin: 07/29/16 21:43 Dose: 10 mg Calcitriol (Rocaltrol -) 0.5 mcg PO DAILY [facility] Last Admin: 07/30/16 09:39 Dose: 0.5 mcg Diltiazem HCl (Cardizem -) 60 mg PO QID [facility] Last Admin: 07/30/16 14:41 Dose: 60 mg Furosemide (Lasix Injection -) 40 mg IVPUSH DAILY [facility] Last Admin: 07/30/16 09:38 Dose: 40 mg Heparin Sodium (Porcine) (Heparin -) 1,000 unit IVPUSH PRN PRN PRN Reason: Heparin Last Admin: 07/30/16 08:11 Dose: 1,000 unit Heparin Sodium (Porcine) (Heparin -) 5,000 unit IVPUSH PRN PRN PRN Reason: Heparin Hydralazine HCl (Apresoline -) 25 mg PO BID [facility] Last Admin: 07/30/16 09:38 Dose: 25 mg Heparin Sodium (Porcine) 25, (000 unit/ Sodium Chloride) 500 mls @ 20 mls/hr IV TITR [facility]; 1,000 UNIT/HR PRN Reason: Protocol Last Admin: 07/30/16 08:12 Dose: 16 mls/hr Insulin Aspart (Novolog Vial Sliding Scale -) 1 vial SQ BIDAC [facility] PRN Reason: Protocol Last Admin: 07/30/16 06:25 Dose: 12 units Insulin Detemir (Levemir Vial) 18 units SQ BID@0700,2200 [facility] Last Admin: 07/30/16 06:24 Dose: 18 units Isosorbide Mononitrate (Imdur -) 30 mg PO DAILY [facility] Last Admin: 07/30/16 09:38 Dose: 30 mg Methylprednisolone Sodium Succinate (Solu-Medrol -) 40 mg IVPB Q6H-IV [facility] Stop: 08/01/16 12:00 Last Admin: 07/30/16 14:41 Dose: 40 mg Polyethylene Glycol (Miralax (For Daily Use) -) 17 gm PO DAILY [facility] Last Admin: 07/30/16 09:39 Dose: 17 gm Sitagliptin Phosphate (Januvia -) 25 mg PO DAILY@0700 [facility] Last Admin: 07/30/16 06:24 Dose: 25 mg - Objective Vital Signs: Vital Signs Temperature 98.2 F 07/30/16 10:00 Pulse Rate 84 07/30/16 10:00 Respiratory Rate 18 07/30/16 10:00 Blood Pressure 148/66 07/30/16 10:00 O2 Sat by Pulse Oximetry (%) 100 07/30/16 09:50 Constitutional: Yes: Anxious Eyes: Yes: Conjunctiva Clear Cardiovascular: Yes: S1, S2 Respiratory: Yes: Diminished, On Nasal O2 Gastrointestinal: Yes: Abdomen, Obese Genitourinary: Yes: WNL Musculoskeletal: Yes: WNL Edema: Yes Edema: LLE: 1+, RLE: 1+ Neurological: Yes: Oriented Psychiatric: Yes: Oriented Labs: CBC, BMP 07/30/16 05:35 07/29/16 06:20 INR, PTT INR 1.19 (0.82-1.09) H 07/27/16 07:56 Problem List - Problems (1) CKD (chronic kidney disease) Code(s): N18.9 - CHRONIC KIDNEY DISEASE, UNSPECIFIED Qualifiers: Chronic kidney disease stage: unspecified stage Qualified Code(s): N18.9 - Chronic kidney disease, unspecified (2) Pulmonary vascular congestion Code(s): R09.89 - OTH SYMPTOMS AND SIGNS INVOLVING THE CIRC AND RESP SYSTEMS (3) SOB (shortness of breath) on exertion Code(s): R06.02 - SHORTNESS OF BREATH (4) Hypertension Code(s): I10 - ESSENTIAL (PRIMARY) HYPERTENSION (5) Diabetes 1.5, managed as type 1 Code(s): E13.9 - OTHER SPECIFIED DIABETES MELLITUS WITHOUT COMPLICATIONS Assessment/Plan Current Medications Generic Name Dose Route Start Last Admin Trade Name Freq PRN Reason Stop Dose Admin Albuterol/Ipratropium 1 amp 07/30/16 10:41 07/30/16 14:18 Duoneb - NEB 1 amp Q4H PRN Administration SHORTNESS OF BREATH Atorvastatin Calcium 10 mg 07/27/16 22:00 07/29/16 21:43 Lipitor - PO 10 mg HS VANI Administration Calcitriol 0.5 mcg 07/27/16 18:00 07/30/16 09:39 Rocaltrol - PO 0.5 mcg DAILY [facility] Administration Diltiazem HCl 60 mg 07/29/16 14:00 07/30/16 14:41 Cardizem - PO 60 mg QID [facility] Administration Furosemide 40 mg 07/29/16 10:00 07/30/16 09:38 Lasix Injection - IVPUSH 40 mg DAILY [facility] Administration Heparin Sodium (Porcine) 1,000 unit 07/28/16 18:11 07/30/16 08:11 Heparin - IVPUSH 1,000 unit PRN PRN Administration Heparin Heparin Sodium (Porcine) 5,000 unit 07/28/16 18:11 Heparin - IVPUSH PRN PRN Heparin Hydralazine HCl 25 mg 07/27/16 18:30 07/30/16 09:38 Apresoline - PO 25 mg BID [facility] Administration Heparin Sodium (Porcine) 25, 500 mls @ 20 mls/hr 07/28/16 18:15 07/30/16 08:12 000 unit/ Sodium Chloride IV 16 mls/hr TITR [facility]ANI Administration Protocol 1,000 UNIT/HR Insulin Aspart 1 vial 07/28/16 07:00 07/30/16 06:25 Novolog Vial Sliding Scale - SQ 12 units BIDAC [facility] Administration Protocol Insulin Detemir 18 units 07/27/16 22:00 07/30/16 06:24 Levemir Vial SQ 18 units BID@0700,2200 [facility] Administration Isosorbide Mononitrate 30 mg 07/27/16 18:30 07/30/16 09:38 Imdur - PO 30 mg DAILY [facility] Administration Methylprednisolone Sodium Succinate 40 mg 07/30/16 11:00 07/30/16 14:41 Solu-Medrol - IVPB 08/01/16 12:00 40 mg Q6H-IV [facility] Administration Polyethylene Glycol 17 gm 07/29/16 15:15 07/30/16 09:39 Miralax (For Daily Use) - PO 17 gm DAILY [facility] Administration Sitagliptin Phosphate 25 mg 07/27/16 18:00 07/30/16 06:24 Januvia - PO 25 mg DAILY@0700 [facility] Administration Impression 1. CKD 2. HTN 3. DM 4. dyspnea 5. hyperlipidemia 6. anemia Plan - renal function continues to worsen - place [facility] - check bmp as no labs today, will need to monitor renal function daily - cardio input appreciated - cont with lasix - will follow Dr Fleming
--- NOTE | 2016-07-30 16:16 | EKG ---
Test Reason : Blood Pressure : / mmHG Vent. Rate : 121 BPM Atrial Rate : 111 BPM P-R Int : 000 ms QRS Dur : 070 ms QT Int : 338 ms P-R-T Axes : 000 065 -06 degrees QTc Int : 479 ms ATRIAL FIBRILLATION WITH RAPID VENTRICULAR RESPONSE NONSPECIFIC ST AND T WAVE ABNORMALITY ABNORMAL ECG WHEN COMPARED WITH ECG OF 27-JUL-2016 08:00, ATRIAL FIBRILLATION HAS REPLACED SINUS RHYTHM VENT. RATE HAS INCREASED BY 51 BPM Confirmed by AROLDO RESENDEZ MD ([id number]) on 07/30/2016 4:16:03 PM Referred By: JOHNNIE Confirmed By:AROLDO RESENDEZ MD
[2016-07-30 16:44] LABS: CALCIUM 8.5 mg/dL (8.5-10.1)
[2016-07-30 16:46] LABS: CREATININE 3.8 mg/dL (0.55-1.02)
[2016-07-30] MEDS: ATORVASTATIN CA 10 MG TABLET (FP) PO SCH (22:02)
[2016-07-30] MEDS: ZOLPIDEM TARTRATE 5 MG TABLET PO PRN (23:48)
[2016-07-31] MEDS: ALBUTEROL SO4 2.5/IPRATROPIUM 0.5 INH SOL 3 ML VIAL.NEB. NEB PRN ×4 (04:31→22:41)
[2016-07-31] MEDS: methylPREDNISolone NA SUCC 40 MG/1 ML VIAL IVPB SCH ×3 (04:53→14:06)
[2016-07-31] MEDS: HEPARIN - 25,000 UNIT in SODIUM CHLORIDE 495 ML IV SCH (04:56)
[2016-07-31] MEDS: INSULIN DETEMIR 100 UNITS/ML MDV SQ SCH ×2 (06:42→22:05)
[2016-07-31] MEDS: sitaGLIPtin PHOSPHATE 25 MG TABLET (FP) PO SCH (06:42)
[2016-07-31] MEDS: INSULIN SLIDING SCALE (NOVOLOG) 1 VIAL SQ SCH ×3 (06:43→22:00)
[2016-07-31 08:21] LABS: BASOPHIL 0.2 % (0-2.0); MCHC 33.7 g/dl (32.0-36.0); MEAN CELL VOLUME 83.1 fl (80-96); MEAN PLT VOLUME 8.2 fl (7.5-11.1); NEUTROPHILS 83.8 % (42.8-82.8); PLATELET COUNT 244 K/MM3 (134-434); RDW 13.1 % (11.6-15.6); WHITE BLOOD COUNT 10.3 K/mm3 (4.0-10.0)
[2016-07-31 08:49] LABS: ALBUMIN 3.4 g/dl (3.4-5.0); BILIRUBIN,TOTAL 0.4 mg/dL (0.2-1.0); CALCIUM 8.3 mg/dL (8.5-10.1); CREATININE 4.4 mg/dL (0.55-1.02); TOT PROT 7.2 g/dl (6.4-8.2)
--- NOTE | 2016-07-31 10:04 | PN ---
Progress Note, Physician Chief Complaint: Pt seen and examined Ct chest report noted Pt is on IV heparin Cardiology,RENAl,pul note appreciated note appreciated - Current Medication List Current Medications: Active Medications Acetaminophen (Tylenol -) 650 mg PO Q6H PRN PRN Reason: FEVER OR PAIN Albuterol/Ipratropium (Duoneb -) 1 amp NEB Q4H PRN PRN Reason: SHORTNESS OF BREATH Last Admin: 07/31/16 04:31 Dose: 1 amp Atorvastatin Calcium (Lipitor -) 10 mg PO HS [facility] Last Admin: 07/30/16 22:02 Dose: 10 mg Calcitriol (Rocaltrol -) 0.5 mcg PO DAILY [facility] Last Admin: 07/30/16 09:39 Dose: 0.5 mcg Diltiazem HCl (Cardizem -) 60 mg PO QID [facility] Last Admin: 07/30/16 22:01 Dose: 60 mg Furosemide (Lasix Injection -) 40 mg IVPUSH DAILY [facility] Last Admin: 07/30/16 09:38 Dose: 40 mg Heparin Sodium (Porcine) (Heparin -) 1,000 unit IVPUSH PRN PRN PRN Reason: Heparin Last Admin: 07/30/16 16:36 Dose: 1,000 unit Heparin Sodium (Porcine) (Heparin -) 5,000 unit IVPUSH PRN PRN PRN Reason: Heparin Hydralazine HCl (Apresoline -) 25 mg PO BID [facility] Last Admin: 07/30/16 22:01 Dose: 25 mg Heparin Sodium (Porcine) 25, (000 unit/ Sodium Chloride) 500 mls @ 20 mls/hr IV TITR VANI; 1,000 UNIT/HR PRN Reason: Protocol Last Admin: 07/31/16 04:56 Dose: 18 mls/hr Insulin Aspart (Novolog Vial Sliding Scale -) 1 vial SQ BIDAC [facility] PRN Reason: Protocol Last Admin: 07/31/16 06:43 Dose: 15 units Insulin Detemir (Levemir Vial) 18 units SQ BID@0700,2200 [facility] Last Admin: 07/31/16 06:42 Dose: 18 units Isosorbide Mononitrate (Imdur -) 30 mg PO DAILY [facility] Last Admin: 07/30/16 09:38 Dose: 30 mg Methylprednisolone Sodium Succinate (Solu-Medrol -) 40 mg IVPB Q6H-IV [facility] Stop: 08/01/16 12:00 Last Admin: 07/31/16 08:17 Dose: 40 mg Polyethylene Glycol (Miralax (For Daily Use) -) 17 gm PO DAILY [facility] Last Admin: 07/30/16 09:39 Dose: 17 gm Sitagliptin Phosphate (Januvia -) 25 mg PO DAILY@0700 [facility] Last Admin: 07/31/16 06:42 Dose: 25 mg Zolpidem Tartrate (Ambien -) 5 mg PO HS PRN Last Admin: 07/30/16 23:48 Dose: 5 mg - Objective Vital Signs: Vital Signs Temperature 98.1 F 07/31/16 08:58 Pulse Rate 80 07/31/16 08:58 Respiratory Rate 18 07/31/16 08:58 Blood Pressure 143/63 07/31/16 08:58 O2 Sat by Pulse Oximetry (%) 95 07/31/16 08:58 Constitutional: Yes: No Distress Eyes: Yes: Conjunctiva Clear HENT: Yes: Atraumatic Neck: Yes: Supple, Trachea Midline Cardiovascular: Yes: Pulse Irregular Respiratory: Yes: Regular, Diminished (lung base), Wheezes Gastrointestinal: Yes: Normal Bowel Sounds, Soft Edema: Yes Edema: LLE: Trace, RLE: Trace Peripheral Pulses WNL: Yes Psychiatric: Yes: Alert, Oriented Labs: CBC, BMP 07/31/16 05:45 07/31/16 05:45 INR, PTT INR 1.19 (0.82-1.09) H 07/27/16 07:56 Assessment/Plan CKD PAF SOB/acute on chronic CHF HTN,Hypercholestrolemia Pulmonary vascular congestion DM PLAN Continue bronchodialators Continue BP medications Monitor BUN/creatinine Monitor sugar Will f/u cardiology and renal rec regarding Medication Heparin as per protocol endocrine consult
[2016-07-31] MEDS: CALCITRIOL 0.25 MCG CAPSULE (FP) PO SCH (10:07)
[2016-07-31] MEDS: POLYETHYLENE GLYCOL 3350 119 GM BTL PO SCH (10:08)
[2016-07-31] MEDS: hydrALAZINE HCL 25 MG TABLET (FP) PO SCH ×2 (10:08→22:05)
[2016-07-31] MEDS: ISOSORBIDE MONONITRATE 30 MG TAB.SR.24H (FP) PO SCH (10:08)
[2016-07-31] MEDS: dilTIAZem HCL 60 MG TABLET (FP) PO SCH ×4 (10:08→22:05)
[2016-07-31] MEDS: FUROSEMIDE 40 MG/4 ML INJECTABLE VIAL IVPUSH SCH (10:47)
[2016-07-31] MEDS ORDERED: INSULIN (NOVOLOG) ASPART 100 UNITS/ML 10ML VIAL SQ ONE (11:00)
--- NOTE | 2016-07-31 12:37 | CONSULT ---
Consult Consult Specialty:: Endocrinology Referred by:: Dr Leigh Reason for Consultation:: Hyperglycemia - History of Present Illness Chief Complaint: SOB History of Present Illness: This is an 86y F with hx of HTN, T2DM for 29 years, HLD, CKD who presented to ED with c/o SOB. The patient had been feeling SOB with SOTO for the past 2 weeks. Two weeks ago she was admitted to [facility] for a cardiac workup, had a negative stress and was d/chinmay home to fu with PMD. She was seen by her PMD a few days ago and was given a nebulizer. Pt came to ED as SOB worsened. Pt started on steroid with worsening of hyperglycemia and referred for mangaement. Pt's last A1C in the office was 9.1 down from 10.2 a few months ago. Pt still SOB with wheezing but feels better. BGM at home 100 to 200s with no hypos recently. - History Source History Provided By: Patient, Family Member, Medical Record Limitations to Obtaining History: Language Barrier - Past Medical History Cardio/Vascular: Yes: CHF (diastolic), HTN, Hyperlipdemia Renal/: Yes: Renal Inusuff ...: No Endocrine: Yes: Diabetes Mellitus - Alcohol/Substance Use Hx Alcohol Use: No - Smoking History Smoking history: Never smoked Have you smoked in the past 12 months: No - Social History Usual Living Arrangement: With Child Home Medications - Allergies Allergies/Adverse Reactions: Allergies Allergy/AdvReac Type Severity Reaction Status Date / Time No Known Allergies Allergy Verified 07/27/16 07:19 - Home Medications Home Medications: Ambulatory Orders Amlodipine Besylate 10 mg PO DAILY 07/27/16 Calcitriol [Rocaltrol] 0.5 mcg PO DAILY 07/27/16 Glipizide [Glipizide ER] 5 mg PO DAILY 07/27/16 Linagliptin [Tradjenta] 5 mg PO DAILY 07/27/16 Losartan/Hydrochlorothiazide [Losartan-Hctz 100-25 mg Tab] 1 tablet PO DAILY 04/02 Metoprolol Succinate [Toprol Xl] 100 mg PO DAILY 07/27/16 Simvastatin [Zocor] 10 mg PO HS 07/27/16 Review of Systems - Review of Systems Constitutional: reports: Malaise Eyes: reports: No Symptoms HENT: reports: No Symptoms Neck: reports: No Symptoms Cardiovascular: reports: Shortness of Breath Respiratory: reports: SOB, SOB on Exertion, Wheezing Gastrointestinal: reports: No Symptoms Genitourinary: reports: No Symptoms Breasts: reports: No Symptoms Reported Musculoskeletal: reports: No Symptoms Endocrine: reports: No Symptoms Psychiatric: reports: No Symptoms Physical Exam Vital Signs: Vital Signs Temperature 98.1 F 07/31/16 08:58 Pulse Rate 99 H 07/31/16 10:20 Respiratory Rate 18 07/31/16 08:58 Blood Pressure 143/63 07/31/16 08:58 O2 Sat by Pulse Oximetry (%) 95 07/31/16 10:20 Constitutional: Yes: Mild Distress Eyes: Yes: Conjunctiva Clear, EOM Intact HENT: Yes: Atraumatic, Normocephalic Neck: Yes: Supple, Trachea Midline Cardiovascular: Yes: Regular Rate and Rhythm Respiratory: Yes: Regular, Rhonchi (Bilateral and scattered), Wheezes Gastrointestinal: Yes: WNL Renal/: Yes: WNL Musculoskeletal: Yes: WNL Edema: Yes Neurological: Yes: Alert, Oriented Labs: CBC, BMP 07/31/16 05:45 07/31/16 05:45 Imaging - Results Chest X-ray: Report Reviewed Problem List - Problems (1) CKD (chronic kidney disease) Code(s): N18.9 - CHRONIC KIDNEY DISEASE, UNSPECIFIED Qualifiers: Chronic kidney disease stage: unspecified stage Qualified Code(s): N18.9 - Chronic kidney disease, unspecified (2) Hypertension Code(s): I10 - ESSENTIAL (PRIMARY) HYPERTENSION (3) SOB (shortness of breath) on exertion Code(s): R06.02 - SHORTNESS OF BREATH Assessment/Plan AP: DM CHF CKD HTN HLD Januvia 25 mg QD Levemir 18 BID Increase Novolog coverage ACHS Monitor BGM ACHS, Adjust Insulin dose as necessary depending on BGM and Steroid dosing. Will F/U
--- NOTE | 2016-07-31 14:01 | PN ---
Progress Note, Physician Chief Complaint: Pt's daughters at bedside. Shehas cough with phlegm; anxious. History of Present Illness: 86y woman (b. Maira) with PM hx of [id number] HTN; DM;hyperlipidemia ; CKD, who now presents with SOB. The patient has been feeling SOB with SOTO which began two weeks ago; she was admitted to [facility] for a cardiac workup, had a negative EKG (per daughter)and was d/chinmay home from ER. The pt fu with PMD a few days ago and was given a nebulizer. The pt states her sob worsened significantly last night; here was no significant improvement with the nebulizer. Pt states she gets the wheezing and sob when she ambulates short distances as well as up stairs, which is new (pt's daughter says she was able to walk slowly in the house on a regular basis without dyspnea until the past few weeks). The pt denies any associated cp (no cp since last admission to [place]), fever/chills. pt does endorse a mild nonproductive cough, orthopnea, mild lower extermity edema; denies fever. Stress test 2 months ago negative for myocardial ischemia or arrhythmias. PMD dr. Mendoza Quantitative Analyst: Dr. Ayala. - Current Medication List Current Medications: Active Medications Acetaminophen (Tylenol -) 650 mg PO Q6H PRN PRN Reason: FEVER OR PAIN Albuterol/Ipratropium (Duoneb -) 1 amp NEB Q4H PRN PRN Reason: SHORTNESS OF BREATH Last Admin: 07/31/16 10:20 Dose: 1 amp Atorvastatin Calcium (Lipitor -) 10 mg PO HS [facility] Last Admin: 07/30/16 22:02 Dose: 10 mg Calcitriol (Rocaltrol -) 0.5 mcg PO DAILY [facility] Last Admin: 07/31/16 10:07 Dose: 0.5 mcg Diltiazem HCl (Cardizem -) 60 mg PO QID [facility] Last Admin: 07/31/16 10:08 Dose: 60 mg Furosemide (Lasix Injection -) 40 mg IVPUSH DAILY [facility] Last Admin: 07/31/16 10:47 Dose: 40 mg Heparin Sodium (Porcine) (Heparin -) 1,000 unit IVPUSH PRN PRN PRN Reason: Heparin Last Admin: 07/30/16 16:36 Dose: 1,000 unit Heparin Sodium (Porcine) (Heparin -) 5,000 unit IVPUSH PRN PRN PRN Reason: Heparin Hydralazine HCl (Apresoline -) 25 mg PO BID [facility] Last Admin: 07/31/16 10:08 Dose: 25 mg Heparin Sodium (Porcine) 25, (000 unit/ Sodium Chloride) 500 mls @ 20 mls/hr IV TITR [facility]; 1,000 UNIT/HR PRN Reason: Protocol Last Admin: 07/31/16 04:56 Dose: 18 mls/hr Insulin Aspart (Novolog Vial Sliding Scale -) 1 vial SQ TIDAC [facility] PRN Reason: Protocol Insulin Aspart (Novolog Vial Sliding Scale -) 1 vial SQ HS [facility] PRN Reason: Protocol Insulin Detemir (Levemir Vial) 18 units SQ BID@0700,2200 [facility] Last Admin: 07/31/16 06:42 Dose: 18 units Isosorbide Mononitrate (Imdur -) 30 mg PO DAILY [facility] Last Admin: 07/31/16 10:08 Dose: 30 mg Methylprednisolone Sodium Succinate (Solu-Medrol -) 40 mg IVPB Q6H-IV [facility] Stop: 08/01/16 12:00 Last Admin: 07/31/16 08:17 Dose: 40 mg Polyethylene Glycol (Miralax (For Daily Use) -) 17 gm PO DAILY [facility] Last Admin: 07/31/16 10:08 Dose: 17 gm Sitagliptin Phosphate (Januvia -) 25 mg PO DAILY@0700 [facility] Last Admin: 07/31/16 06:42 Dose: 25 mg Zolpidem Tartrate (Ambien -) 5 mg PO HS [facility] Last Admin: 07/30/16 23:48 Dose: 5 mg - Objective Vital Signs: Vital Signs Temperature 98.1 F 07/31/16 08:58 Pulse Rate 99 H 07/31/16 10:20 Respiratory Rate 18 07/31/16 08:58 Blood Pressure 143/63 07/31/16 08:58 O2 Sat by Pulse Oximetry (%) 95 07/31/16 10:20 Constitutional: Yes: Anxious, Mild Distress Eyes: Yes: WNL HENT: Yes: WNL Neck: Yes: WNL Cardiovascular: Yes: Pulse Irregular Respiratory: Yes: Diminished Gastrointestinal: Yes: Soft, Abdomen, Obese, Tenderness (mildly) ...Rectal Exam: Yes: Deferred Genitourinary: No: Anuria Breast(s): Yes: WNL Musculoskeletal: Yes: Muscle Weakness Extremities: Yes: Cool Edema: No Peripheral Pulses WNL: No Peripheral Pulses: Left Doralis Pedis: 1+, Right Dorsalis Pedis: 1+ Integumentary: Yes: WNL Neurological: Yes: Alert, Weakness Psychiatric: Yes: Other (anxious) Labs: CBC, BMP 07/31/16 05:45 07/31/16 05:45 INR, PTT INR 1.19 (0.82-1.09) H 07/27/16 07:56 Abnormal Lab Results 07/30/16 07/30/16 07/30/16 14:35 15:15 22:00 WBC RBC Hgb Hct Neutrophils % Monocytes % PTT (Actin FS) 47.6 H 67.2 H D Sodium 131 L Chloride 93 L BUN 52 H Creatinine 3.8 H Random Glucose 316 H* D Calcium 07/31/16 07/31/16 07/31/16 05:45 05:45 05:45 WBC 10.3 H RBC 3.14 L Hgb 8.8 L Hct 26.1 L Neutrophils % 83.8 H D Monocytes % 1.6 L D PTT (Actin FS) 64.6 H Sodium 127 L Chloride 90 L BUN 62 H Creatinine 4.4 H Random Glucose 420 H* D Calcium 8.3 L - ....Imaging Chest X-ray: Image Reviewed (shallow breath makes interpretation problematic; ? small pleural effusion) Problem List - Problems (1) CKD (chronic kidney disease) Assessment/Plan: Increasing BUN/Cr has led to stopping losartan. Hyponatremic (though elevated glucose a contributor). As discused with Dr. Fleming, will hold furosemide. Code(s): N18.9 - CHRONIC KIDNEY DISEASE, UNSPECIFIED Qualifiers: Chronic kidney disease stage: unspecified stage Qualified Code(s): N18.9 - Chronic kidney disease, unspecified (2) Hypertension Assessment/Plan: Now well-controlled on diltiazem, Hydralazine + Imdur, and amlodipine. Losartan and furosemide held, however, due to deteriorating renal function. F/u BP and HR. ECHO: normal LVEF; moderate-severe pulmonary HTN. Code(s): I10 - ESSENTIAL (PRIMARY) HYPERTENSION (3) Pulmonary vascular congestion Code(s): R09.89 - OTH SYMPTOMS AND SIGNS INVOLVING THE CIRC AND RESP SYSTEMS (4) SOB (shortness of breath) on exertion Assessment/Plan: leukocytosis (on steroids); afebrile; still with productive cough. No JVD. CXR: shallow inspiration makes interpretation problematic; ?infiltrated and pleural effusion. Code(s): R06.02 - SHORTNESS OF BREATH (5) Acute on chronic diastolic CHF (congestive heart failure) Code(s): I50.33 - ACUTE ON CHRONIC DIASTOLIC (CONGESTIVE) HEART FAILURE (6) Diabetes Assessment/Plan: markedly elevated glucose; now on steroids. F/u with aerospace mechanic. Code(s): E11.9 - TYPE 2 DIABETES MELLITUS WITHOUT COMPLICATIONS
--- NOTE | 2016-07-31 15:12 | PN ---
Progress Note, Physician History of Present Illness: Pt seen and examined at bedside. She is awake and appears more comfortable than she did yesterday. She still gets shortness of breath. - Current Medication List Current Medications: Active Medications Acetaminophen (Tylenol -) 650 mg PO Q6H PRN PRN Reason: FEVER OR PAIN Albuterol/Ipratropium (Duoneb -) 1 amp NEB Q4H PRN PRN Reason: SHORTNESS OF BREATH Last Admin: 07/31/16 14:23 Dose: 1 amp Atorvastatin Calcium (Lipitor -) 10 mg PO HS [facility] Last Admin: 07/30/16 22:02 Dose: 10 mg Calcitriol (Rocaltrol -) 0.5 mcg PO DAILY [facility] Last Admin: 07/31/16 10:07 Dose: 0.5 mcg Diltiazem HCl (Cardizem -) 60 mg PO QID [facility] Last Admin: 07/31/16 14:06 Dose: 60 mg Furosemide (Lasix Injection -) 40 mg IVPUSH DAILY [facility] Last Admin: 07/31/16 10:47 Dose: 40 mg Heparin Sodium (Porcine) (Heparin -) 1,000 unit IVPUSH PRN PRN PRN Reason: Heparin Last Admin: 07/30/16 16:36 Dose: 1,000 unit Heparin Sodium (Porcine) (Heparin -) 5,000 unit IVPUSH PRN PRN PRN Reason: Heparin Hydralazine HCl (Apresoline -) 25 mg PO BID [facility] Last Admin: 07/31/16 10:08 Dose: 25 mg Heparin Sodium (Porcine) 25, (000 unit/ Sodium Chloride) 500 mls @ 20 mls/hr IV TITR VANI; 1,000 UNIT/HR PRN Reason: Protocol Last Admin: 07/31/16 04:56 Dose: 18 mls/hr Insulin Aspart (Novolog Vial Sliding Scale -) 1 vial SQ TIDAC [facility] PRN Reason: Protocol Insulin Aspart (Novolog Vial Sliding Scale -) 1 vial SQ HS [facility] PRN Reason: Protocol Insulin Detemir (Levemir Vial) 18 units SQ BID@0700,2200 [facility] Last Admin: 07/31/16 06:42 Dose: 18 units Isosorbide Mononitrate (Imdur -) 30 mg PO DAILY [facility] Last Admin: 07/31/16 10:08 Dose: 30 mg Methylprednisolone Sodium Succinate (Solu-Medrol -) 40 mg IVPB Q6H-IV [facility]ANI Stop: 08/01/16 12:00 Last Admin: 07/31/16 14:06 Dose: 40 mg Polyethylene Glycol (Miralax (For Daily Use) -) 17 gm PO DAILY [facility] Last Admin: 07/31/16 10:08 Dose: 17 gm Sitagliptin Phosphate (Januvia -) 25 mg PO DAILY@0700 [facility] Last Admin: 07/31/16 06:42 Dose: 25 mg Zolpidem Tartrate (Ambien -) 5 mg PO HS PRN Last Admin: 07/30/16 23:48 Dose: 5 mg - Objective Vital Signs: Vital Signs Temperature 98.1 F 07/31/16 08:58 Pulse Rate 99 H 07/31/16 10:20 Respiratory Rate 18 07/31/16 08:58 Blood Pressure 143/63 07/31/16 08:58 O2 Sat by Pulse Oximetry (%) 95 07/31/16 10:20 Constitutional: Yes: Anxious Eyes: Yes: Conjunctiva Clear HENT: Yes: Atraumatic Neck: Yes: Supple Cardiovascular: Yes: S1, S2 Respiratory: Yes: Diminished, On Nasal O2 Gastrointestinal: Yes: Soft, Abdomen, Obese Genitourinary: Yes: Blount Present Musculoskeletal: Yes: WNL Edema: Yes Edema: LLE: Trace, RLE: Trace Neurological: Yes: Oriented Psychiatric: Yes: Oriented Labs: CBC, BMP 07/31/16 05:45 07/31/16 05:45 INR, PTT INR 1.19 (0.82-1.09) H 07/27/16 07:56 - ....Imaging Chest X-ray: Report Reviewed Problem List - Problems (1) CKD (chronic kidney disease) Code(s): N18.9 - CHRONIC KIDNEY DISEASE, UNSPECIFIED Qualifiers: Chronic kidney disease stage: unspecified stage Qualified Code(s): N18.9 - Chronic kidney disease, unspecified (2) Pulmonary vascular congestion Code(s): R09.89 - OTH SYMPTOMS AND SIGNS INVOLVING THE CIRC AND RESP SYSTEMS (3) SOB (shortness of breath) on exertion Code(s): R06.02 - SHORTNESS OF BREATH (4) Hypertension Code(s): I10 - ESSENTIAL (PRIMARY) HYPERTENSION (5) Diabetes 1.5, managed as type 1 Code(s): E13.9 - OTHER SPECIFIED DIABETES MELLITUS WITHOUT COMPLICATIONS Assessment/Plan Current Medications Generic Name Dose Route Start Last Admin Trade Name Freq PRN Reason Stop Dose Admin Acetaminophen 650 mg 07/30/16 15:50 Tylenol - PO Q6H PRN FEVER OR PAIN Albuterol/Ipratropium 1 amp 07/30/16 10:41 07/31/16 14:23 Duoneb - NEB 1 amp Q4H PRN Administration SHORTNESS OF BREATH Atorvastatin Calcium 10 mg 07/27/16 22:00 07/30/16 22:02 Lipitor - PO 10 mg HS [facility]ANI Administration Calcitriol 0.5 mcg 07/27/16 18:00 07/31/16 10:07 Rocaltrol - PO 0.5 mcg DAILY [facility] Administration Diltiazem HCl 60 mg 07/29/16 14:00 07/31/16 14:06 Cardizem - PO 60 mg QID [facility]ANI Administration Furosemide 40 mg 07/29/16 10:00 07/31/16 10:47 Lasix Injection - IVPUSH 40 mg DAILY [facility] Administration Heparin Sodium (Porcine) 1,000 unit 07/28/16 18:11 07/30/16 16:36 Heparin - IVPUSH 1,000 unit PRN PRN Administration Heparin Heparin Sodium (Porcine) 5,000 unit 07/28/16 18:11 Heparin - IVPUSH PRN PRN Heparin Hydralazine HCl 25 mg 07/27/16 18:30 07/31/16 10:08 Apresoline - PO 25 mg BID [facility]ANI Administration Heparin Sodium (Porcine) 25, 500 mls @ 20 mls/hr 07/28/16 18:15 07/31/16 04:56 000 unit/ Sodium Chloride IV 18 mls/hr TITR VANI Administration Protocol 1,000 UNIT/HR Insulin Aspart 1 vial 07/31/16 16:30 Novolog Vial Sliding Scale - SQ TIDAC [facility] Protocol Insulin Aspart 1 vial 07/31/16 22:00 Novolog Vial Sliding Scale - SQ HS [facility] Protocol Insulin Detemir 18 units 07/27/16 22:00 07/31/16 06:42 Levemir Vial SQ 18 units BID@0700,2200 [facility] Administration Isosorbide Mononitrate 30 mg 07/27/16 18:30 07/31/16 10:08 Imdur - PO 30 mg DAILY [facility] Administration Methylprednisolone Sodium Succinate 40 mg 07/30/16 11:00 07/31/16 14:06 Solu-Medrol - IVPB 08/01/16 12:00 40 mg Q6H-IV [facility]ANI Administration Polyethylene Glycol 17 gm 07/29/16 15:15 07/31/16 10:08 Miralax (For Daily Use) - PO 17 gm DAILY [facility] Administration Sitagliptin Phosphate 25 mg 07/27/16 18:00 07/31/16 06:42 Januvia - PO 25 mg DAILY@0700 [facility] Administration Zolpidem Tartrate 5 mg 07/30/16 23:27 07/30/16 23:48 Ambien - PO 5 mg HS PRN Administration Impression 1. CKD 2. HTN 3. DM 4. dyspnea 5. hyperlipidemia 6. anemia 7. hyponatremia - corrected serum sodium is about 132 Plan - renal function is worse today - will repeat urine studies and lytes - monitor blount output - discussed with cardiology today, will hold lasix - will need better glucose control - repeat labs in am - will follow Dr Fleming
--- NOTE | 2016-07-31 15:16 | PN ---
Progress Note (short form) - Note Progress Note: Resting in NAD on NC O2. Some dry cough. No CP. Intake & Output 07/28/16 07/29/16 07/30/16 07/31/16 23:59 23:59 23:59 23:59 Intake Total 200 884 728 50 Output Total 450 100 Balance 200 884 278 -50 Weight 158 lb 12.8 oz Last Vital Signs Temp Pulse Resp BP Pulse Ox 98.1 F 99 H 18 143/63 95 07/31/16 08:58 07/31/16 10:20 07/31/16 08:58 07/31/16 08:58 07/31/16 10:20 Active Medications Acetaminophen (Tylenol -) 650 mg PO Q6H PRN PRN Reason: FEVER OR PAIN Albuterol/Ipratropium (Duoneb -) 1 amp NEB Q4H PRN PRN Reason: SHORTNESS OF BREATH Last Admin: 07/31/16 14:23 Dose: 1 amp Atorvastatin Calcium (Lipitor -) 10 mg PO HS [facility] Last Admin: 07/30/16 22:02 Dose: 10 mg Calcitriol (Rocaltrol -) 0.5 mcg PO DAILY [facility] Last Admin: 07/31/16 10:07 Dose: 0.5 mcg Diltiazem HCl (Cardizem -) 60 mg PO QID [facility] Last Admin: 07/31/16 14:06 Dose: 60 mg Furosemide (Lasix Injection -) 40 mg IVPUSH DAILY [facility] Last Admin: 07/31/16 10:47 Dose: 40 mg Heparin Sodium (Porcine) (Heparin -) 1,000 unit IVPUSH PRN PRN PRN Reason: Heparin Last Admin: 07/30/16 16:36 Dose: 1,000 unit Heparin Sodium (Porcine) (Heparin -) 5,000 unit IVPUSH PRN PRN PRN Reason: Heparin Hydralazine HCl (Apresoline -) 25 mg PO BID [facility] Last Admin: 07/31/16 10:08 Dose: 25 mg Heparin Sodium (Porcine) 25, (000 unit/ Sodium Chloride) 500 mls @ 20 mls/hr IV TITR VANI; 1,000 UNIT/HR PRN Reason: Protocol Last Admin: 07/31/16 04:56 Dose: 18 mls/hr Insulin Aspart (Novolog Vial Sliding Scale -) 1 vial SQ TIDAC [facility] PRN Reason: Protocol Insulin Aspart (Novolog Vial Sliding Scale -) 1 vial SQ [facility] PRN Reason: Protocol Insulin Detemir (Levemir Vial) 18 units SQ BID@0700,2200 [facility] Last Admin: 07/31/16 06:42 Dose: 18 units Isosorbide Mononitrate (Imdur -) 30 mg PO DAILY [facility] Last Admin: 07/31/16 10:08 Dose: 30 mg Polyethylene Glycol (Miralax (For Daily Use) -) 17 gm PO DAILY [facility] Last Admin: 07/31/16 10:08 Dose: 17 gm Sitagliptin Phosphate (Januvia -) 25 mg PO DAILY@0700 [facility] Last Admin: 07/31/16 06:42 Dose: 25 mg Zolpidem Tartrate (Ambien -) 5 mg PO PRN Last Admin: 07/30/16 23:48 Dose: 5 mg Constitutional: Yes: NAD Eyes: Yes: WNL HENT: Yes: WNL Neck: Yes: WNL Cardiovascular: Yes: Pulse Irregular, S1, S2 Respiratory: Yes: Bibasilar Rales / rhonchi Gastrointestinal: Yes: Normal Bowel Sounds, Soft Extremities: Yes: WNL Edema: No Labs: Laboratory Results - last 24 hr 07/30/16 07/30/16 07/30/16 14:35 15:15 17:12 WBC RBC Hgb Hct MCV MCHC RDW Plt Count MPV Neutrophils % Lymphocytes % Monocytes % Eosinophils % Basophils % PTT (Actin FS) 47.6 H Sodium 131 L Potassium 4.1 Chloride 93 L Carbon Dioxide 25 Anion Gap 13 BUN 52 H Creatinine 3.8 H Creat Clearance w eGFR POC Glucometer 367 Random Glucose 316 H* D Calcium 8.5 Total Bilirubin AST ALT Alkaline Phosphatase Total Protein Albumin 07/30/16 07/30/16 07/31/16 21:15 22:00 05:45 WBC RBC Hgb Hct MCV MCHC RDW Plt Count MPV Neutrophils % Lymphocytes % Monocytes % Eosinophils % Basophils % PTT (Actin FS) 67.2 H D 64.6 H Sodium Potassium Chloride Carbon Dioxide Anion Gap BUN Creatinine Creat Clearance w eGFR POC Glucometer 370 Random Glucose Calcium Total Bilirubin AST ALT Alkaline Phosphatase Total Protein Albumin 07/31/16 07/31/16 05:45 05:45 WBC 10.3 H RBC 3.14 L Hgb 8.8 L Hct 26.1 L MCV 83.1 MCHC 33.7 RDW 13.1 Plt Count 244 MPV 8.2 Neutrophils % 83.8 H D Lymphocytes % 14.4 D Monocytes % 1.6 L D Eosinophils % 0.0 D Basophils % 0.2 PTT (Actin FS) Sodium 127 L Potassium 4.5 Chloride 90 L Carbon Dioxide 22 Anion Gap 15 BUN 62 H Creatinine 4.4 H Creat Clearance w eGFR 9.56 POC Glucometer Random Glucose 420 H* D Calcium 8.3 L Total Bilirubin 0.4 D AST 15 ALT 22 Alkaline Phosphatase 95 Total Protein 7.2 Albumin 3.4 Problem List - Problems (1) Acute on chronic diastolic CHF (congestive heart failure) Code(s): I50.33 - ACUTE ON CHRONIC DIASTOLIC (CONGESTIVE) HEART FAILURE (2) CKD (chronic kidney disease) Code(s): N18.9 - CHRONIC KIDNEY DISEASE, UNSPECIFIED Qualifiers: Chronic kidney disease stage: unspecified stage Qualified Code(s): N18.9 - Chronic kidney disease, unspecified (3) Diabetes 1.5, managed as type 1 Code(s): E13.9 - OTHER SPECIFIED DIABETES MELLITUS WITHOUT COMPLICATIONS (4) Hypertension Code(s): I10 - ESSENTIAL (PRIMARY) HYPERTENSION (5) Pulmonary vascular congestion Code(s): R09.89 - OTH SYMPTOMS AND SIGNS INVOLVING THE CIRC AND RESP SYSTEMS (6) SOB (shortness of breath) on exertion Code(s): R06.02 - SHORTNESS OF BREATH (7) Pulmonary hypertension Code(s): I27.2 - OTHER SECONDARY PULMONARY HYPERTENSION Assessment/Plan IMP DECOMPENSATED DIASTOLIC CHF clinically improving PUL HTN ACUTE ON CHRONIC KIDNEY DISEASE DM HTN AFIB PLAN IV LASIX INHALED BRONCHODILATORS SUPPLEMENTAL O2 MONITOR RENAL FUNCTION ANTICOAGULATION RATE CONTROL DAILY WTS D/C SYSTEMIC STEROIDS PFTS OUTPATIENT DR KAUFMAN
[2016-07-31] MEDS: ATORVASTATIN CA 10 MG TABLET (FP) PO SCH (22:05)
[2016-07-31] MEDS: ZOLPIDEM TARTRATE 5 MG TABLET PO PRN (22:05)
[2016-07-31 22:31] LABS: URINE APPEARANCE CLOUDY; URINE BILIRUBIN NEGATIVE (NEGATIVE); URINE COLOR YELLOW; URINE GLUCOSE (UA) 3+ (NEGATIVE); URINE KETONE NEGATIVE (NEGATIVE); URINE NITRITE NEGATIVE (NEGATIVE); URINE UROBILINOGEN NEGATIVE E.U./dl (0.2-1.0)
[2016-07-31 22:32] LABS: URINE BLOOD 3+ (NEGATIVE); URINE LEUK ESTERASE 1+ (NEGATIVE); URINE PROTEIN 3+ (NEGATIVE)
[2016-07-31 22:37] LABS: URINE BACTERIA RARE /hpf (NONE SEEN); URINE HYALINE CAST 4 /lpf; URINE MUCUS RARE; URINE RBC 352 /hpf (0-3); URINE WBC 26 /hpf (3-5)
[2016-07-31 22:41] LABS: CHLORIDE,RANDOM URINE < 10 MMOL/L; SODIUM,RANDOM URINE 9 MMOL/L
[2016-08-01] MEDS: ALBUTEROL SO4 2.5/IPRATROPIUM 0.5 INH SOL 3 ML VIAL.NEB. NEB PRN ×4 (04:06→22:45)
[2016-08-01] MEDS: INSULIN SLIDING SCALE (NOVOLOG) 1 VIAL SQ SCH ×3 (06:59→22:55)
[2016-08-01] MEDS: INSULIN DETEMIR 100 UNITS/ML MDV SQ SCH (06:59)
[2016-08-01] MEDS: sitaGLIPtin PHOSPHATE 25 MG TABLET (FP) PO SCH (06:59)
[2016-08-01 07:18] LABS: MCH 27.6 pg (25.7-33.7); MCHC 33.4 g/dl (32.0-36.0); MEAN CELL VOLUME 82.7 fl (80-96); MEAN PLT VOLUME 8.4 fl (7.5-11.1); PLATELET COUNT 235 K/MM3 (134-434); WHITE BLOOD COUNT 15.3 K/mm3 (4.0-10.0)
[2016-08-01 08:15] LABS: ALBUMIN 3.6 g/dl (3.4-5.0); BILIRUBIN,TOTAL 0.4 mg/dL (0.2-1.0); CALCIUM 7.8 mg/dL (8.5-10.1); CREATININE 5.1 mg/dL (0.55-1.02)
--- NOTE | 2016-08-01 09:11 | PN ---
Progress Note (short form) - Note Progress Note: mild SOB,cough BGM 300s No hypos Off Steroids since yesterday Vital Signs Period Temp Pulse Resp BP Sys/[place] Pulse Ox Last 24 Hr 97 F-98.2 F 74-99 18-20 133-154/66-77 95-98 PE: AOX3 Neck: Supple, No JVD HEENT: PERRL, EOMI Lungs: B/L scattered rhonchi CVS: S1S2 Abd: Benign Ext: 1+Edema Neuro: No focal deficit CMP Sodium 124 mmol/L (136-145) L* 08/01/16 05:35 Potassium 5.0 mmol/L (3.5-5.1) 08/01/16 05:35 Chloride 88 mmol/L (98-107) L 08/01/16 05:35 Carbon Dioxide 23 mmol/L (21-32) 08/01/16 05:35 Anion Gap 13 (8-16) 08/01/16 05:35 BUN 79 mg/dL (7-18) H D 08/01/16 05:35 Creatinine 5.1 mg/dL (0.55-1.02) H 08/01/16 05:35 Creat Clearance w eGFR 8.06 (>60) 08/01/16 05:35 POC Glucometer 375 UNITS (()) 08/01/16 05:36 Random Glucose 355 mg/dL (74-106) H* 08/01/16 05:35 Calcium 7.8 mg/dL (8.5-10.1) L 08/01/16 05:35 Phosphorus 4.7 mg/dL (2.5-4.9) 07/27/16 07:56 Magnesium 2.1 mg/dL (1.8-2.4) 07/27/16 07:56 Total Bilirubin 0.4 mg/dL (0.2-1.0) 08/01/16 05:35 AST 20 U/L (15-37) D 08/01/16 05:35 ALT 26 U/L (12-78) 08/01/16 05:35 Alkaline Phosphatase 81 U/L (45-117) 08/01/16 05:35 Creatine Kinase 143 IU/L (26-192) 07/28/16 06:00 CK-MB (CK-2) 3.794 ng/ml (0.5-3.6) H 07/27/16 18:55 Troponin I < 0.02 ng/ml (0.00-0.05) 07/28/16 06:00 B-Natriuretic Peptide 1614.88 pg/ml (5-450) H 07/27/16 07:56 Total Protein 7.0 g/dl (6.4-8.2) 08/01/16 05:35 Albumin 3.6 g/dl (3.4-5.0) 08/01/16 05:35 TSH 3.03 uIU/ml (0.358-3.74) 07/27/16 18:55 Current Medications Generic Name Dose Route Start Last Admin Trade Name Freq PRN Reason Stop Dose Admin Acetaminophen 650 mg 07/30/16 15:50 Tylenol - PO Q6H PRN FEVER OR PAIN Albuterol/Ipratropium 1 amp 07/30/16 10:41 08/01/16 04:06 Duoneb - NEB 1 amp Q4H PRN Administration SHORTNESS OF BREATH Atorvastatin Calcium 10 mg 07/27/16 22:00 07/31/16 22:05 Lipitor - PO 10 mg HS [facility]ANI Administration Calcitriol 0.5 mcg 07/27/16 18:00 07/31/16 10:07 Rocaltrol - PO 0.5 mcg DAILY [facility] Administration Diltiazem HCl 60 mg 07/29/16 14:00 07/31/16 22:05 Cardizem - PO 60 mg QID [facility] Administration Heparin Sodium (Porcine) 1,000 unit 07/28/16 18:11 07/30/16 16:36 Heparin - IVPUSH 1,000 unit PRN PRN Administration Heparin Heparin Sodium (Porcine) 5,000 unit 07/28/16 18:11 Heparin - IVPUSH PRN PRN Heparin Hydralazine HCl 25 mg 07/27/16 18:30 07/31/16 22:05 Apresoline - PO 25 mg BID [facility] Administration Heparin Sodium (Porcine) 25, 500 mls @ 20 mls/hr 07/28/16 18:15 07/31/16 04:56 000 unit/ Sodium Chloride IV 18 mls/hr TITR [facility]ANI Administration Protocol 1,000 UNIT/HR Insulin Aspart 1 vial 07/31/16 16:30 02/15/17 06:59 Novolog Vial Sliding Scale - SQ 14 units TIDAC [facility]ANI Administration Protocol Insulin Aspart 1 vial 07/31/16 22:00 07/31/16 22:00 Novolog Vial Sliding Scale - SQ 10 units HS [facility] Administration Protocol Insulin Detemir 18 units 07/27/16 22:00 08/01/16 06:59 Levemir Vial SQ 18 units BID@0700,2200 [facility] Administration Isosorbide Mononitrate 30 mg 07/27/16 18:30 07/31/16 10:08 Imdur - PO 30 mg DAILY [facility] Administration Polyethylene Glycol 17 gm 07/29/16 15:15 07/31/16 10:08 Miralax (For Daily Use) - PO 17 gm DAILY [facility] Administration Sitagliptin Phosphate 25 mg 07/27/16 18:00 08/01/16 06:59 Januvia - PO 25 mg DAILY@0700 [facility] Administration Zolpidem Tartrate 5 mg 07/30/16 23:27 07/31/16 22:05 Ambien - PO 5 mg HS PRN Administration AP: DM: uncontrolled Monitor BGM Levemir 18 BID Increase Novolog Coverage Will F/U CHF CKD HTN HLD Problem List - Problems (1) CKD (chronic kidney disease) Code(s): N18.9 - CHRONIC KIDNEY DISEASE, UNSPECIFIED Qualifiers: Chronic kidney disease stage: unspecified stage Qualified Code(s): N18.9 - Chronic kidney disease, unspecified (2) Hypertension Code(s): I10 - ESSENTIAL (PRIMARY) HYPERTENSION (3) SOB (shortness of breath) on exertion Code(s): R06.02 - SHORTNESS OF BREATH
[2016-08-01] MEDS: HEPARIN - 25,000 UNIT in SODIUM CHLORIDE 495 ML IV SCH (09:50)
[2016-08-01] MEDS: POLYETHYLENE GLYCOL 3350 119 GM BTL PO SCH (09:51)
[2016-08-01] MEDS: hydrALAZINE HCL 25 MG TABLET (FP) PO SCH ×2 (09:51→22:51)
[2016-08-01] MEDS: dilTIAZem HCL 60 MG TABLET (FP) PO SCH ×4 (09:51→22:51)
[2016-08-01] MEDS: CALCITRIOL 0.25 MCG CAPSULE (FP) PO SCH (09:51)
[2016-08-01] MEDS: ISOSORBIDE MONONITRATE 30 MG TAB.SR.24H (FP) PO SCH (09:51)
--- NOTE | 2016-08-01 09:54 | PN ---
Progress Note, Physician Chief Complaint: Pt seen and examined chest x farrar report noted pt is OFF steroids and lasix Worsening renal function Pt is on IV heparin Cardiology,RENAl,pul note appreciated note appreciated - Current Medication List Current Medications: Active Medications Acetaminophen (Tylenol -) 650 mg PO Q6H PRN PRN Reason: FEVER OR PAIN Albuterol/Ipratropium (Duoneb -) 1 amp NEB Q4H PRN PRN Reason: SHORTNESS OF BREATH Last Admin: 08/01/16 04:06 Dose: 1 amp Atorvastatin Calcium (Lipitor -) 10 mg PO HS [facility] Last Admin: 07/31/16 22:05 Dose: 10 mg Calcitriol (Rocaltrol -) 0.5 mcg PO DAILY [facility] Last Admin: 07/31/16 10:07 Dose: 0.5 mcg Diltiazem HCl (Cardizem -) 60 mg PO QID [facility] Last Admin: 07/31/16 22:05 Dose: 60 mg Heparin Sodium (Porcine) (Heparin -) 1,000 unit IVPUSH PRN PRN PRN Reason: Heparin Last Admin: 07/30/16 16:36 Dose: 1,000 unit Heparin Sodium (Porcine) (Heparin -) 5,000 unit IVPUSH PRN PRN PRN Reason: Heparin Hydralazine HCl (Apresoline -) 25 mg PO BID [facility] Last Admin: 07/31/16 22:05 Dose: 25 mg Heparin Sodium (Porcine) 25, (000 unit/ Sodium Chloride) 500 mls @ 20 mls/hr IV TITR VANI; 1,000 UNIT/HR PRN Reason: Protocol Last Admin: 07/31/16 04:56 Dose: 18 mls/hr Insulin Aspart (Novolog Vial Sliding Scale -) 1 vial SQ TIDAC [facility] PRN Reason: Protocol Last Admin: 08/01/16 06:59 Dose: 14 units Insulin Aspart (Novolog Vial Sliding Scale -) 1 vial SQ HS [facility] PRN Reason: Protocol Last Admin: 07/31/16 22:00 Dose: 10 units Insulin Detemir (Levemir Vial) 18 units SQ BID@0700,2200 [facility] Last Admin: 08/01/16 06:59 Dose: 18 units Isosorbide Mononitrate (Imdur -) 30 mg PO DAILY [facility] Last Admin: 07/31/16 10:08 Dose: 30 mg Polyethylene Glycol (Miralax (For Daily Use) -) 17 gm PO DAILY [facility] Last Admin: 07/31/16 10:08 Dose: 17 gm Sitagliptin Phosphate (Januvia -) 25 mg PO DAILY@0700 [facility] Last Admin: 08/01/16 06:59 Dose: 25 mg Zolpidem Tartrate (Ambien -) 5 mg PO HS PRN Last Admin: 07/31/16 22:05 Dose: 5 mg - Objective Vital Signs: Vital Signs Temperature 98 F 08/01/16 05:54 Pulse Rate 80 08/01/16 05:54 Respiratory Rate 20 08/01/16 05:54 Blood Pressure 144/70 08/01/16 05:54 O2 Sat by Pulse Oximetry (%) 98 07/31/16 21:00 Constitutional: Yes: No Distress Eyes: Yes: Conjunctiva Clear HENT: Yes: Atraumatic, Normocephalic Neck: Yes: Supple, Trachea Midline Cardiovascular: Yes: Pulse Irregular Respiratory: Yes: Regular, On Nasal O2, Rales (bilateral lung base) Gastrointestinal: Yes: Normal Bowel Sounds, Soft Edema: Yes Edema: LLE: Trace, RLE: Trace Peripheral Pulses WNL: Yes Neurological: Yes: Alert Psychiatric: Yes: Alert, Oriented Labs: CBC, BMP 08/01/16 05:35 08/01/16 05:35 INR, PTT INR 1.19 (0.82-1.09) H 07/27/16 07:56 Laboratory Results - last 24 hr 07/31/16 07/31/16 07/31/16 21:27 21:45 21:45 WBC RBC Hgb Hct MCV MCHC RDW Plt Count MPV PTT (Actin FS) Sodium Potassium Chloride Carbon Dioxide Anion Gap BUN Creatinine Creat Clearance w eGFR POC Glucometer 382 Random Glucose Calcium Total Bilirubin AST ALT Alkaline Phosphatase Total Protein Albumin Urine Color Yellow Urine Appearance Cloudy Urine pH 5.0 Ur Specific [place] 1.012 Urine Protein 3+ H Urine Glucose (UA) 3+ H D Urine Ketones Negative Urine Blood 3+ H Urine Nitrite Negative Urine Bilirubin Negative Urine Urobilinogen Negative Ur Leukocyte Esterase 1+ H Urine RBC 352 Urine WBC 26 Ur Epithelial Cells Rare Urine Bacteria Rare Hyaline Casts 4 Urine Mucus Rare Ur Random Sodium 9 Ur Random Potassium 35.1 Ur Random Chloride < 10 Urine Creatinine 07/31/16 08/01/16 08/01/16 21:45 05:35 05:35 WBC 15.3 H D RBC 3.02 L Hgb 8.3 L Hct 25.0 L MCV 82.7 MCHC 33.4 RDW 13.0 Plt Count 235 MPV 8.4 PTT (Actin FS) 49.2 H Sodium Potassium Chloride Carbon Dioxide Anion Gap BUN Creatinine Creat Clearance w eGFR POC Glucometer Random Glucose Calcium Total Bilirubin AST ALT Alkaline Phosphatase Total Protein Albumin Urine Color Urine Appearance Urine pH Ur Specific [place] Urine Protein Urine Glucose (UA) Urine Ketones Urine Blood Urine Nitrite Urine Bilirubin Urine Urobilinogen Ur Leukocyte Esterase Urine RBC Urine WBC Ur Epithelial Cells Urine Bacteria Hyaline Casts Urine Mucus Ur Random Sodium Ur Random Potassium Ur Random Chloride Urine Creatinine 145.0 08/01/16 08/01/16 05:35 05:36 WBC RBC Hgb Hct MCV MCHC RDW Plt Count MPV PTT (Actin FS) Sodium 124 L* Potassium 5.0 Chloride 88 L Carbon Dioxide 23 Anion Gap 13 BUN 79 H D Creatinine 5.1 H Creat Clearance w eGFR 8.06 POC Glucometer 375 Random Glucose 355 H* Calcium 7.8 L Total Bilirubin 0.4 AST 20 D ALT 26 Alkaline Phosphatase 81 Total Protein 7.0 Albumin 3.6 Urine Color Urine Appearance Urine pH Ur Specific [place] Urine Protein Urine Glucose (UA) Urine Ketones Urine Blood Urine Nitrite Urine Bilirubin Urine Urobilinogen Ur Leukocyte Esterase Urine RBC Urine WBC Ur Epithelial Cells Urine Bacteria Hyaline Casts Urine Mucus Ur Random Sodium Ur Random Potassium Ur Random Chloride Urine Creatinine Assessment/Plan Acute on chronic ckd PAF SOB/acute on chronic CHF HTN,Hypercholestrolemia Pulmonary vascular congestion DM PLAN Continue bronchodialators Continue BP medications Monitor BUN/creatinine Monitor sugar Will f/u cardiology and renal rec regarding Medication Heparin as per protocol endocrine F/u
--- NOTE | 2016-08-01 11:09 | PN ---
Progress Note, Physician History of Present Illness: 86y woman (b. Maira) with PM hx of [id number] HTN; DM;hyperlipidemia ; CKD, who now presents with sob. The patient has been feeling SOB with SOTO which began two weeks ago; she was admitted to [facility] for a cardiac workup, had a negative EKG (per daughter)and was d/chinmay home from ER. The pt fu with PMD a few days ago and was given a nebulizer. The pt states her sob worsened significantly last night; here was no significant improvement with the nebulizer. Pt states she gets the wheezing and sob when she ambulates short distances as well as up stairs, which is new (pt's daughter says she was able to walk slowly in the house on a regular basis without dyspnea until the past few weeks). The pt denies any associated cp (no cp since last admission to [place]), fever/chills. pt does endorse a mild nonproductive cough, orthopnea, mild lower extermity edema; denies fever. Stress test 2 months ago negative for myocardial ischemia or arrhythmias. - Current Medication List Current Medications: Active Medications Acetaminophen (Tylenol -) 650 mg PO Q6H PRN PRN Reason: FEVER OR PAIN Albuterol/Ipratropium (Duoneb -) 1 amp NEB Q4H PRN PRN Reason: SHORTNESS OF BREATH Last Admin: 08/01/16 10:33 Dose: 1 amp Atorvastatin Calcium (Lipitor -) 10 mg PO HS [facility] Last Admin: 07/31/16 22:05 Dose: 10 mg Calcitriol (Rocaltrol -) 0.5 mcg PO DAILY [facility] Last Admin: 08/01/16 09:51 Dose: 0.5 mcg Diltiazem HCl (Cardizem -) 60 mg PO QID [facility] Last Admin: 08/01/16 09:51 Dose: 60 mg Heparin Sodium (Porcine) (Heparin -) 1,000 unit IVPUSH PRN PRN PRN Reason: Heparin Last Admin: 07/30/16 16:36 Dose: 1,000 unit Heparin Sodium (Porcine) (Heparin -) 5,000 unit IVPUSH PRN PRN PRN Reason: Heparin Hydralazine HCl (Apresoline -) 25 mg PO BID [facility] Last Admin: 08/01/16 09:51 Dose: 25 mg Heparin Sodium (Porcine) 25, (000 unit/ Sodium Chloride) 500 mls @ 20 mls/hr IV TITR VANI; 1,000 UNIT/HR PRN Reason: Protocol Last Admin: 08/01/16 09:50 Dose: 18 mls/hr Insulin Aspart (Novolog Vial Sliding Scale -) 1 vial SQ TIDAC [facility] PRN Reason: Protocol Last Admin: 08/01/16 06:59 Dose: 14 units Insulin Aspart (Novolog Vial Sliding Scale -) 1 vial SQ HS [facility] PRN Reason: Protocol Last Admin: 07/31/16 22:00 Dose: 10 units Insulin Detemir (Levemir Vial) 18 units SQ BID@0700,2200 [facility] Last Admin: 08/01/16 06:59 Dose: 18 units Isosorbide Mononitrate (Imdur -) 30 mg PO DAILY [facility] Last Admin: 08/01/16 09:51 Dose: 30 mg Polyethylene Glycol (Miralax (For Daily Use) -) 17 gm PO DAILY [facility] Last Admin: 08/01/16 09:51 Dose: 17 gm Sitagliptin Phosphate (Januvia -) 25 mg PO DAILY@0700 [facility] Last Admin: 08/01/16 06:59 Dose: 25 mg Zolpidem Tartrate (Ambien -) 5 mg PO PRN Last Admin: 07/31/16 22:05 Dose: 5 mg - Objective Vital Signs: Vital Signs Temperature 98 F 08/01/16 05:54 Pulse Rate 81 08/01/16 10:01 Respiratory Rate 20 08/01/16 05:54 Blood Pressure 144/70 08/01/16 05:54 O2 Sat by Pulse Oximetry (%) 96 08/01/16 10:01 Eyes: Yes: WNL, Conjunctiva Clear, EOM Intact HENT: Yes: WNL, Atraumatic, Normocephalic Neck: Yes: WNL, Supple, Trachea Midline Cardiovascular: Yes: WNL, Regular Rate and Rhythm Respiratory: Yes: WNL, Regular, CTA Bilaterally Gastrointestinal: Yes: WNL, Normal Bowel Sounds Genitourinary: Yes: WNL Musculoskeletal: Yes: WNL Extremities: Yes: WNL Edema: No Integumentary: Yes: WNL Neurological: Yes: WNL, Alert, Oriented ...Motor Strength: WNL Psychiatric: Yes: WNL Labs: CBC, BMP 08/01/16 05:35 08/01/16 05:35 INR, PTT INR 1.19 (0.82-1.09) H 07/27/16 07:56 Problem List - Problems (1) Acute on chronic diastolic CHF (congestive heart failure) Code(s): I50.33 - ACUTE ON CHRONIC DIASTOLIC (CONGESTIVE) HEART FAILURE (2) CKD (chronic kidney disease) Code(s): N18.9 - CHRONIC KIDNEY DISEASE, UNSPECIFIED Qualifiers: Chronic kidney disease stage: unspecified stage Qualified Code(s): N18.9 - Chronic kidney disease, unspecified (3) Diabetes 1.5, managed as type 1 Code(s): E13.9 - OTHER SPECIFIED DIABETES MELLITUS WITHOUT COMPLICATIONS (4) Hypertension Code(s): I10 - ESSENTIAL (PRIMARY) HYPERTENSION (5) Pulmonary hypertension Code(s): I27.2 - OTHER SECONDARY PULMONARY HYPERTENSION (6) Pulmonary vascular congestion Code(s): R09.89 - OTH SYMPTOMS AND SIGNS INVOLVING THE CIRC AND RESP SYSTEMS (7) SOB (shortness of breath) on exertion Code(s): R06.02 - SHORTNESS OF BREATH Assessment/Plan - Problems (1) CKD (chronic kidney disease) Assessment/Plan: Increasing BUN/Cr has led to stopping losartan. Hyponatremic (though elevated glucose a contributor). As discused with Dr. Fleming, will hold furosemide. Code(s): N18.9 - CHRONIC KIDNEY DISEASE, UNSPECIFIED Qualifiers: Chronic kidney disease stage: unspecified stage Qualified Code(s): N18.9 - Chronic kidney disease, unspecified (2) Hypertension Assessment/Plan: Now well-controlled on diltiazem, Hydralazine + Imdur, and amlodipine. Losartan and furosemide held, however, due to deteriorating renal function. F/u BP and HR. ECHO: normal LVEF; moderate-severe pulmonary HTN. Code(s): I10 - ESSENTIAL (PRIMARY) HYPERTENSION (3) Pulmonary vascular congestion Code(s): R09.89 - OTH SYMPTOMS AND SIGNS INVOLVING THE CIRC AND RESP SYSTEMS (4) SOB (shortness of breath) on exertion Assessment/Plan: leukocytosis (on steroids); afebrile; still with productive cough. No JVD. CXR: shallow inspiration makes interpretation problematic; ?infiltrated and pleural effusion. Code(s): R06.02 - SHORTNESS OF BREATH (5) Acute on chronic diastolic CHF (congestive heart failure) Code(s): I50.33 - ACUTE ON CHRONIC DIASTOLIC (CONGESTIVE) HEART FAILURE (6) Diabetes Assessment/Plan: markedly elevated glucose; now on steroids. F/u with corporate administrator. Code(s): E11.9 - TYPE 2 DIABETES MELLITUS WITHOUT COMPLICATIONS
[2016-08-01] MEDS ORDERED: INSULIN (NOVOLOG) ASPART 100 UNITS/ML 10ML VIAL ONE ×2 (11:56→16:54)
[2016-08-01] MEDS ORDERED: SODIUM CHLORIDE 250 ML IV STA (12:30)
--- NOTE | 2016-08-01 12:30 | PN ---
Progress Note, Physician History of Present Illness: Pt seen and examined at bedside. She still has shortness of breath that has not changed much despite diuretics and steroids. - Current Medication List Current Medications: Active Medications Acetaminophen (Tylenol -) 650 mg PO Q6H PRN PRN Reason: FEVER OR PAIN Albuterol/Ipratropium (Duoneb -) 1 amp NEB Q4H PRN PRN Reason: SHORTNESS OF BREATH Last Admin: 08/01/16 10:33 Dose: 1 amp Atorvastatin Calcium (Lipitor -) 10 mg PO HS [facility] Last Admin: 07/31/16 22:05 Dose: 10 mg Calcitriol (Rocaltrol -) 0.5 mcg PO DAILY [facility] Last Admin: 08/01/16 09:51 Dose: 0.5 mcg Diltiazem HCl (Cardizem -) 60 mg PO QID [facility] Last Admin: 08/01/16 09:51 Dose: 60 mg Heparin Sodium (Porcine) (Heparin -) 1,000 unit IVPUSH PRN PRN PRN Reason: Heparin Last Admin: 07/30/16 16:36 Dose: 1,000 unit Heparin Sodium (Porcine) (Heparin -) 5,000 unit IVPUSH PRN PRN PRN Reason: Heparin Hydralazine HCl (Apresoline -) 25 mg PO BID [facility] Last Admin: 08/01/16 09:51 Dose: 25 mg Heparin Sodium (Porcine) 25, (000 unit/ Sodium Chloride) 500 mls @ 20 mls/hr IV TITR VANI; 1,000 UNIT/HR PRN Reason: Protocol Last Admin: 08/01/16 09:50 Dose: 18 mls/hr Insulin Aspart (Novolog Vial Sliding Scale -) 1 vial SQ TIDAC [facility] PRN Reason: Protocol Last Admin: 08/01/16 11:46 Dose: 14 units Insulin Aspart (Novolog Vial Sliding Scale -) 1 vial SQ HS [facility] PRN Reason: Protocol Last Admin: 07/31/16 22:00 Dose: 10 units Insulin Detemir (Levemir Vial) 18 units SQ BID@0700,2200 [facility] Last Admin: 08/01/16 06:59 Dose: 18 units Isosorbide Mononitrate (Imdur -) 30 mg PO DAILY [facility] Last Admin: 08/01/16 09:51 Dose: 30 mg Polyethylene Glycol (Miralax (For Daily Use) -) 17 gm PO DAILY [facility] Last Admin: 08/01/16 09:51 Dose: 17 gm Sitagliptin Phosphate (Januvia -) 25 mg PO DAILY@0700 [facility] Last Admin: 08/01/16 06:59 Dose: 25 mg Zolpidem Tartrate (Ambien -) 5 mg PO HS PRN Last Admin: 07/31/16 22:05 Dose: 5 mg - Objective Vital Signs: Vital Signs Temperature 98.3 F 08/01/16 10:00 Pulse Rate 81 08/01/16 10:01 Respiratory Rate 20 08/01/16 10:00 Blood Pressure 117/64 08/01/16 10:00 O2 Sat by Pulse Oximetry (%) 96 08/01/16 10:01 Constitutional: Yes: Calm Eyes: Yes: Conjunctiva Clear HENT: Yes: Atraumatic Neck: Yes: Supple Cardiovascular: Yes: S1, S2 Respiratory: Yes: Diminished, On Nasal O2 Gastrointestinal: Yes: Soft, Abdomen, Obese Genitourinary: Yes: Blount Present, Oliguria Musculoskeletal: Yes: WNL Edema: Yes Edema: LLE: Trace, RLE: Trace Neurological: Yes: Oriented Psychiatric: Yes: Oriented Labs: CBC, BMP 08/01/16 05:35 08/01/16 05:35 INR, PTT INR 1.19 (0.82-1.09) H 07/27/16 07:56 Problem List - Problems (1) CKD (chronic kidney disease) Code(s): N18.9 - CHRONIC KIDNEY DISEASE, UNSPECIFIED Qualifiers: Chronic kidney disease stage: unspecified stage Qualified Code(s): N18.9 - Chronic kidney disease, unspecified (2) Pulmonary vascular congestion Code(s): R09.89 - OTH SYMPTOMS AND SIGNS INVOLVING THE CIRC AND RESP SYSTEMS (3) SOB (shortness of breath) on exertion Code(s): R06.02 - SHORTNESS OF BREATH (4) Hypertension Code(s): I10 - ESSENTIAL (PRIMARY) HYPERTENSION (5) Diabetes 1.5, managed as type 1 Code(s): E13.9 - OTHER SPECIFIED DIABETES MELLITUS WITHOUT COMPLICATIONS Assessment/Plan Current Medications Generic Name Dose Route Start Last Admin Trade Name Freq PRN Reason Stop Dose Admin Acetaminophen 650 mg 07/30/16 15:50 Tylenol - PO Q6H PRN FEVER OR PAIN Albuterol/Ipratropium 1 amp 07/30/16 10:41 08/01/16 10:33 Duoneb - NEB 1 amp Q4H PRN Administration SHORTNESS OF BREATH Atorvastatin Calcium 10 mg 07/27/16 22:00 07/31/16 22:05 Lipitor - PO 10 mg HS VANI Administration Calcitriol 0.5 mcg 07/27/16 18:00 08/01/16 09:51 Rocaltrol - PO 0.5 mcg DAILY VANI Administration Diltiazem HCl 60 mg 07/29/16 14:00 08/01/16 09:51 Cardizem - PO 60 mg QID VANI Administration Heparin Sodium (Porcine) 1,000 unit 07/28/16 18:11 07/30/16 16:36 Heparin - IVPUSH 1,000 unit PRN PRN Administration Heparin Heparin Sodium (Porcine) 5,000 unit 07/28/16 18:11 Heparin - IVPUSH PRN PRN Heparin Hydralazine HCl 25 mg 07/27/16 18:30 08/01/16 09:51 Apresoline - PO 25 mg BID VANI Administration Heparin Sodium (Porcine) 25, 500 mls @ 20 mls/hr 07/28/16 18:15 08/01/16 09:50 000 unit/ Sodium Chloride IV 18 mls/hr TITR VANI Administration Protocol 1,000 UNIT/HR Insulin Aspart 1 vial 07/31/16 16:30 08/01/16 11:46 Novolog Vial Sliding Scale - SQ 14 units TIDAC [facility] Administration Protocol Insulin Aspart 1 vial 07/31/16 22:00 07/31/16 22:00 Novolog Vial Sliding Scale - SQ 10 units HS [facility] Administration Protocol Insulin Detemir 18 units 07/27/16 22:00 08/01/16 06:59 Levemir Vial SQ 18 units BID@0700,2200 [facility] Administration Isosorbide Mononitrate 30 mg 07/27/16 18:30 08/01/16 09:51 Imdur - PO 30 mg DAILY [facility] Administration Polyethylene Glycol 17 gm 07/29/16 15:15 08/01/16 09:51 Miralax (For Daily Use) - PO 17 gm DAILY [facility] Administration Sitagliptin Phosphate 25 mg 07/27/16 18:00 08/01/16 06:59 Januvia - PO 25 mg DAILY@0700 [facility] Administration Zolpidem Tartrate 5 mg 07/30/16 23:27 07/31/16 22:05 Ambien - PO 5 mg HS PRN Administration Impression 1. CKD 2. HTN 3. DM 4. dyspnea 5. hyperlipidemia 6. anemia 7. hyponatremia 8. pulmonary htn Plan - renal function continues to worsen - renal workup is in progress - urine sodium is low which suggests pre-renal disease - monitor blount output - pt did get a ramirez of lasix yesterday however it is held today - she has poor PO intake, will give 250 cc of saline - will need better control of glucose as it is contributing to the hyponatremia - pulmonary input appreciated - get stat CXR - discussed possibility of dialysis with family, will re-evaluate daily - will follow through the course of the day as well - repeat labs in am - will follow Dr Fleming
--- NOTE | 2016-08-01 16:27 | PN ---
Progress Note (short form) - Note Progress Note: PULMONARY AWAKE/APPEARS UNCOMFORTABLE COUGH/SOB OOB TO CHAIR/COMPLAINING ABOUT FOLES VSS/AFEBRILE ANICTERIC DIMINSHED BREATH SOUNDS BILATERALLY S1S2 OBESE EDEMA LOWER EXT LABS/MEDS/NOTES/IMAGING/MICRO REVIEWED IMP DECOMPENSATED DIASTOLIC CHF PUL HTN ACUTE ON CHRONIC KIDNEY DISEASE WORSENING HYPONATREMIA DM POORLY CONTROLLED HTN AFIB PLAN IV LASIX ON HOLD INHALED BRONCHODILATORS SUPPLEMENTAL O2 MONITOR RENAL FUNCTION ANTICOAGULATION RATE CONTROL DAILY WTS MAY NEED DIALYSIS/ICU CLOSE MONITORING ON TELE John WEST MD
[2016-08-01] MEDS ORDERED: INSULIN SLIDING SCALE (NOVOLOG) 1 VIAL SQ SCH (16:59)
[2016-08-01] MEDS: ATORVASTATIN CA 10 MG TABLET (FP) PO SCH (22:51)
[2016-08-01] MEDS: ZOLPIDEM TARTRATE 5 MG TABLET PO PRN (22:51)
[2016-08-02] MEDS: ALBUTEROL SO4 2.5/IPRATROPIUM 0.5 INH SOL 3 ML VIAL.NEB. NEB PRN ×4 (02:31→22:31)
[2016-08-02] MEDS ORDERED: PT OWN MED DRAWER 7, Y5N ONE (05:50)
[2016-08-02] MEDS: HEPARIN - 25,000 UNIT in SODIUM CHLORIDE 495 ML IV SCH ×2 (06:00→10:30)
[2016-08-02 06:57] LABS: MCH 27.4 pg (25.7-33.7); MCHC 33.2 g/dl (32.0-36.0); MEAN CELL VOLUME 82.4 fl (80-96); MEAN PLT VOLUME 8.5 fl (7.5-11.1); PLATELET COUNT 250 K/MM3 (134-434); RDW 13.2 % (11.6-15.6); WHITE BLOOD COUNT 18.2 K/mm3 (4.0-10.0)
[2016-08-02 07:32] LABS: ALBUMIN 3.7 g/dl (3.4-5.0); BILIRUBIN,TOTAL 0.3 mg/dL (0.2-1.0); CALCIUM 7.7 mg/dL (8.5-10.1); CREATININE 5.3 mg/dL (0.55-1.02); TOT PROT 6.9 g/dl (6.4-8.2)
--- NOTE | 2016-08-02 08:46 | PN ---
Progress Note (short form) - Note Progress Note: Still SOB with wheezing BGM improving No hypos Apetite poor Vital Signs Period Temp Pulse Resp BP Sys/[place] Pulse Ox Last 24 Hr 97.0 F-98.3 F 74-97 18-20 117-152/61-81 96-98 PE: AOX3 Neck: Supple, No JVD HEENT: PERRL, EOMI Lungs: B/L scattered rhonchi CVS: S1S2 Abd: Benign Ext: 1+Edema Neuro: No focal deficit CMP Sodium 125 mmol/L (136-145) L 08/02/16 05:35 Potassium 4.6 mmol/L (3.5-5.1) 08/02/16 05:35 Chloride 88 mmol/L (98-107) L 08/02/16 05:35 Carbon Dioxide 22 mmol/L (21-32) 08/02/16 05:35 Anion Gap 15 (8-16) 08/02/16 05:35 BUN 85 mg/dL (7-18) H 08/02/16 05:35 Creatinine 5.3 mg/dL (0.55-1.02) H 08/02/16 05:35 Creat Clearance w eGFR 7.71 (>60) 08/02/16 05:35 POC Glucometer 218 UNITS (()) 08/02/16 05:47 Random Glucose 198 mg/dL (74-106) H D 08/02/16 05:35 Calcium 7.7 mg/dL (8.5-10.1) L 08/02/16 05:35 Phosphorus 4.7 mg/dL (2.5-4.9) 07/27/16 07:56 Magnesium 2.1 mg/dL (1.8-2.4) 07/27/16 07:56 Total Bilirubin 0.3 mg/dL (0.2-1.0) D 08/02/16 05:35 AST 29 U/L (15-37) D 08/02/16 05:35 ALT 36 U/L (12-78) D 08/02/16 05:35 Alkaline Phosphatase 74 U/L (45-117) 08/02/16 05:35 Creatine Kinase 143 IU/L (26-192) 07/28/16 06:00 CK-MB (CK-2) 3.794 ng/ml (0.5-3.6) H 07/27/16 18:55 Troponin I < 0.02 ng/ml (0.00-0.05) 07/28/16 06:00 B-Natriuretic Peptide 1614.88 pg/ml (5-450) H 07/27/16 07:56 Total Protein 6.9 g/dl (6.4-8.2) 08/02/16 05:35 Albumin 3.7 g/dl (3.4-5.0) 08/02/16 05:35 Ywbuq-9-Mipoixdbf (%) Cancelled 08/01/16 13:02 Oxjlk-8-Cdhfljdcr (%) Cancelled 08/01/16 13:02 Beta Globulins (%) Cancelled 08/01/16 13:02 Gamma Globulins (%) Cancelled 08/01/16 13:02 M-Constantin % Cancelled 08/01/16 13:02 TSH 3.03 uIU/ml (0.358-3.74) 07/27/16 18:55 Current Medications Generic Name Dose Route Start Last Admin Trade Name Freq PRN Reason Stop Dose Admin Acetaminophen 650 mg 07/30/16 15:50 Tylenol - PO Q6H PRN FEVER OR PAIN Albuterol/Ipratropium 1 amp 07/30/16 10:41 08/02/16 02:31 Duoneb - NEB 1 amp Q4H PRN Administration SHORTNESS OF BREATH Atorvastatin Calcium 10 mg 07/27/16 22:00 08/01/16 22:51 Lipitor - PO 10 mg HS [facility]ANI Administration Calcitriol 0.5 mcg 07/27/16 18:00 08/01/16 09:51 Rocaltrol - PO 0.5 mcg DAILY [facility] Administration Diltiazem HCl 60 mg 07/29/16 14:00 08/01/16 22:51 Cardizem - PO 60 mg QID [facility] Administration Heparin Sodium (Porcine) 1,000 unit 07/28/16 18:11 07/30/16 16:36 Heparin - IVPUSH 1,000 unit PRN PRN Administration Heparin Heparin Sodium (Porcine) 5,000 unit 07/28/16 18:11 Heparin - IVPUSH PRN PRN Heparin Hydralazine HCl 25 mg 07/27/16 18:30 08/01/16 22:51 Apresoline - PO 25 mg BID [facility] Administration Heparin Sodium (Porcine) 25, 500 mls @ 20 mls/hr 07/28/16 18:15 08/02/16 06:00 000 unit/ Sodium Chloride IV 18 mls/hr TITR [facility]ANI Administration Protocol 1,000 UNIT/HR Insulin Aspart 1 vial 07/31/16 22:00 08/01/16 22:55 Novolog Vial Sliding Scale - SQ Not Given HS [facility] Protocol Insulin Aspart 1 vial 08/01/16 17:15 Novolog Vial Sliding Scale - SQ TIDAC [facility] Protocol Insulin Detemir 18 units 07/27/16 22:00 08/01/16 06:59 Levemir Vial SQ 18 units BID@0700,2200 [facility] Administration Isosorbide Mononitrate 30 mg 07/27/16 18:30 08/01/16 09:51 Imdur - PO 30 mg DAILY [facility] Administration Polyethylene Glycol 17 gm 07/29/16 15:15 08/01/16 09:51 Miralax (For Daily Use) - PO 17 gm DAILY [facility] Administration Sitagliptin Phosphate 25 mg 07/27/16 18:00 08/01/16 06:59 Januvia - PO 25 mg DAILY@0700 [facility] Administration Zolpidem Tartrate 5 mg 07/30/16 23:27 08/01/16 22:51 Ambien - PO 5 mg HS PRN Administration AP: DM: uncontrolled Monitor BGM Levemir 18 BID Continue Novolog Coverage Will F/U CHF Acute on Chronic renal insufficiency HTN HLD Problem List - Problems (1) CKD (chronic kidney disease) Code(s): N18.9 - CHRONIC KIDNEY DISEASE, UNSPECIFIED Qualifiers: Chronic kidney disease stage: unspecified stage Qualified Code(s): N18.9 - Chronic kidney disease, unspecified (2) Hypertension Code(s): I10 - ESSENTIAL (PRIMARY) HYPERTENSION (3) SOB (shortness of breath) on exertion Code(s): R06.02 - SHORTNESS OF BREATH
--- NOTE | 2016-08-02 09:08 | PN ---
Progress Note, Physician Chief Complaint: Pt seen and examined SOB present,cough present chest x farrar report noted pt is OFF steroids and lasix,leukocytosis Worsening renal function Pt is on IV heparin abdominal distention present,lack of appetite Cardiology,RENAl,pul note appreciated note appreciated - Current Medication List Current Medications: Active Medications Acetaminophen (Tylenol -) 650 mg PO Q6H PRN PRN Reason: FEVER OR PAIN Albuterol/Ipratropium (Duoneb -) 1 amp NEB Q4H PRN PRN Reason: SHORTNESS OF BREATH Last Admin: 08/02/16 02:31 Dose: 1 amp Atorvastatin Calcium (Lipitor -) 10 mg PO HS [facility] Last Admin: 08/01/16 22:51 Dose: 10 mg Calcitriol (Rocaltrol -) 0.5 mcg PO DAILY [facility] Last Admin: 08/01/16 09:51 Dose: 0.5 mcg Diltiazem HCl (Cardizem -) 60 mg PO QID [facility] Last Admin: 08/01/16 22:51 Dose: 60 mg Heparin Sodium (Porcine) (Heparin -) 1,000 unit IVPUSH PRN PRN PRN Reason: Heparin Last Admin: 07/30/16 16:36 Dose: 1,000 unit Heparin Sodium (Porcine) (Heparin -) 5,000 unit IVPUSH PRN PRN PRN Reason: Heparin Hydralazine HCl (Apresoline -) 25 mg PO BID [facility] Last Admin: 08/01/16 22:51 Dose: 25 mg Heparin Sodium (Porcine) 25, (000 unit/ Sodium Chloride) 500 mls @ 20 mls/hr IV TITR VANI; 1,000 UNIT/HR PRN Reason: Protocol Last Admin: 08/02/16 06:00 Dose: 18 mls/hr Insulin Aspart (Novolog Vial Sliding Scale -) 1 vial SQ HS [facility] PRN Reason: Protocol Last Admin: 08/01/16 22:55 Dose: Not Given Insulin Aspart (Novolog Vial Sliding Scale -) 1 vial SQ TIDAC [facility] PRN Reason: Protocol Insulin Detemir (Levemir Vial) 18 units SQ BID@0700,2200 [facility] Last Admin: 08/01/16 06:59 Dose: 18 units Isosorbide Mononitrate (Imdur -) 30 mg PO DAILY [facility] Last Admin: 08/01/16 09:51 Dose: 30 mg Polyethylene Glycol (Miralax (For Daily Use) -) 17 gm PO DAILY [facility] Last Admin: 08/01/16 09:51 Dose: 17 gm Sitagliptin Phosphate (Januvia -) 25 mg PO DAILY@0700 [facility] Last Admin: 08/01/16 06:59 Dose: 25 mg Zolpidem Tartrate (Ambien -) 5 mg PO HS PRN Last Admin: 08/01/16 22:51 Dose: 5 mg - Objective Vital Signs: Vital Signs Temperature 97.9 F 08/02/16 06:20 Pulse Rate 97 H 08/02/16 06:20 Respiratory Rate 20 08/02/16 06:20 Blood Pressure 150/66 08/02/16 06:20 O2 Sat by Pulse Oximetry (%) 98 08/02/16 03:01 Constitutional: Yes: No Distress Eyes: Yes: Conjunctiva Clear HENT: Yes: Atraumatic, Normocephalic Neck: Yes: Supple, Trachea Midline Cardiovascular: Yes: Pulse Irregular Respiratory: Yes: Regular, Diminished, Rales (LUNG base) Gastrointestinal: Yes: Soft, Abdomen, Obese Edema: Yes Edema: LLE: Trace, RLE: Trace Peripheral Pulses WNL: Yes Neurological: Yes: Alert, Oriented Psychiatric: Yes: Alert, Oriented Labs: CBC, BMP 08/02/16 05:35 08/02/16 05:35 INR, PTT INR 1.19 (0.82-1.09) H 07/27/16 07:56 Laboratory Results - last 24 hr 07/31/16 07/31/16 07/31/16 06:34 10:38 16:54 WBC RBC Hgb Hct MCV MCHC RDW Plt Count MPV PTT (Actin FS) Sodium Potassium Chloride Carbon Dioxide Anion Gap BUN Creatinine Creat Clearance w eGFR POC Glucometer 425 423 409 Random Glucose Calcium Total Bilirubin AST ALT Alkaline Phosphatase Total Protein Albumin Xaqsu-5-Cxlgztpau (%) Vwsgu-7-Trtripyoe (%) Beta Globulins (%) Gamma Globulins (%) M-Constantin % Ref Test Comments 08/01/16 08/01/16 08/01/16 13:02 17:05 21:28 WBC RBC Hgb Hct MCV MCHC RDW Plt Count MPV PTT (Actin FS) Sodium Potassium Chloride Carbon Dioxide Anion Gap BUN Creatinine Creat Clearance w eGFR POC Glucometer 354 198 Random Glucose Calcium Total Bilirubin AST ALT Alkaline Phosphatase Total Protein Albumin Ksaii-3-Jbvzrqbxu (%) Cancelled Cqnlr-8-Vimknhimg (%) Cancelled Beta Globulins (%) Cancelled Gamma Globulins (%) Cancelled M-Constantin % Cancelled Ref Test Comments Cancelled 08/02/16 08/02/16 08/02/16 05:35 05:35 05:35 WBC 18.2 H RBC 3.14 L Hgb 8.6 L Hct 25.8 L MCV 82.4 MCHC 33.2 RDW 13.2 Plt Count 250 MPV 8.5 PTT (Actin FS) 41.0 H Sodium 125 L Potassium 4.6 Chloride 88 L Carbon Dioxide 22 Anion Gap 15 BUN 85 H Creatinine 5.3 H Creat Clearance w eGFR 7.71 POC Glucometer Random Glucose 198 H D Calcium 7.7 L Total Bilirubin 0.3 D AST 29 D ALT 36 D Alkaline Phosphatase 74 Total Protein 6.9 Albumin 3.7 Pidhb-2-Urhbbqzou (%) Uhuye-5-Nihfsiumr (%) Beta Globulins (%) Gamma Globulins (%) M-Constantin % Ref Test Comments 08/02/16 05:47 WBC RBC Hgb Hct MCV MCHC RDW Plt Count MPV PTT (Actin FS) Sodium Potassium Chloride Carbon Dioxide Anion Gap BUN Creatinine Creat Clearance w eGFR POC Glucometer 218 Random Glucose Calcium Total Bilirubin AST ALT Alkaline Phosphatase Total Protein Albumin Jxmix-9-Hamhvrrys (%) Oczfu-7-Eylmbsagq (%) Beta Globulins (%) Gamma Globulins (%) M-Constantin % Ref Test Comments - ....Imaging X-ray: Report Reviewed Assessment/Plan Acute on chronic ckd PAF Leukocytosis abdominal distention SOB/acute on chronic CHF HTN,Hypercholestrolemia Pulmonary vascular congestion DM PLAN Continue bronchodialators Continue BP medications Monitor BUN/creatinine Monitor sugar Will f/u cardiology and renal rec regarding Medication Heparin as per protocol GI and ID consult
--- NOTE | 2016-08-02 09:49 | PN ---
Progress Note, Physician Chief Complaint: Pt's daughter at bedside. OOB in chair; easily dyspneic. History of Present Illness: 86y woman (b. Maira) with PM hx of [id number] HTN; DM;hyperlipidemia ; CKD, who now presents with SOB. The patient has been feeling SOB with SOTO which began two weeks ago; she was admitted to [facility] for a cardiac workup, had a negative EKG (per daughter)and was d/chinmay home from ER. The pt fu with PMD a few days ago and was given a nebulizer. The pt states her sob worsened significantly last night; here was no significant improvement with the nebulizer. Pt states she gets the wheezing and sob when she ambulates short distances as well as up stairs, which is new (pt's daughter says she was able to walk slowly in the house on a regular basis without dyspnea until the past few weeks). The pt denies any associated cp (no cp since last admission to [place]), fever/chills. pt does endorse a mild nonproductive cough, orthopnea, mild lower extermity edema; denies fever. Stress test 2 months ago negative for myocardial ischemia or arrhythmias. PMD dr. Mendoza Wrapper Stemmer Hand: Dr. Ayala. - Current Medication List Current Medications: Active Medications Acetaminophen (Tylenol -) 650 mg PO Q6H PRN PRN Reason: FEVER OR PAIN Albuterol/Ipratropium (Duoneb -) 1 amp NEB Q4H PRN PRN Reason: SHORTNESS OF BREATH Last Admin: 08/02/16 02:31 Dose: 1 amp Atorvastatin Calcium (Lipitor -) 10 mg PO HS [facility] Last Admin: 08/01/16 22:51 Dose: 10 mg Calcitriol (Rocaltrol -) 0.5 mcg PO DAILY [facility] Last Admin: 08/01/16 09:51 Dose: 0.5 mcg Diltiazem HCl (Cardizem -) 60 mg PO QID [facility] Last Admin: 08/01/16 22:51 Dose: 60 mg Heparin Sodium (Porcine) (Heparin -) 1,000 unit IVPUSH PRN PRN PRN Reason: Heparin Last Admin: 07/30/16 16:36 Dose: 1,000 unit Heparin Sodium (Porcine) (Heparin -) 5,000 unit IVPUSH PRN PRN PRN Reason: Heparin Hydralazine HCl (Apresoline -) 25 mg PO BID [facility] Last Admin: 08/01/16 22:51 Dose: 25 mg Heparin Sodium (Porcine) 25, (000 unit/ Sodium Chloride) 500 mls @ 20 mls/hr IV TITR [facility]; 1,000 UNIT/HR PRN Reason: Protocol Last Admin: 08/02/16 06:00 Dose: 18 mls/hr Insulin Aspart (Novolog Vial Sliding Scale -) 1 vial SQ HS [facility] PRN Reason: Protocol Last Admin: 08/01/16 22:55 Dose: Not Given Insulin Aspart (Novolog Vial Sliding Scale -) 1 vial SQ TIDAC [facility] PRN Reason: Protocol Insulin Detemir (Levemir Vial) 18 units SQ BID@0700,2200 [facility] Last Admin: 08/01/16 06:59 Dose: 18 units Isosorbide Mononitrate (Imdur -) 30 mg PO DAILY [facility] Last Admin: 08/01/16 09:51 Dose: 30 mg Polyethylene Glycol (Miralax (For Daily Use) -) 17 gm PO DAILY [facility] Last Admin: 08/01/16 09:51 Dose: 17 gm Sitagliptin Phosphate (Januvia -) 25 mg PO DAILY@0700 [facility] Last Admin: 08/01/16 06:59 Dose: 25 mg Zolpidem Tartrate (Ambien -) 5 mg PO PRN Last Admin: 08/01/16 22:51 Dose: 5 mg - Objective Vital Signs: Vital Signs Temperature 97.9 F 08/02/16 06:20 Pulse Rate 97 H 08/02/16 06:20 Respiratory Rate 20 08/02/16 06:20 Blood Pressure 150/66 08/02/16 06:20 O2 Sat by Pulse Oximetry (%) 98 08/02/16 03:01 Constitutional: Yes: Calm Eyes: Yes: WNL HENT: Yes: WNL Neck: Yes: Supple Cardiovascular: Yes: Pulse Irregular Respiratory: Yes: Diminished, SOB, Tachypnea Gastrointestinal: Yes: Soft ...Rectal Exam: Yes: Deferred Genitourinary: No: Anuria Breast(s): Yes: WNL Musculoskeletal: Yes: Muscle Weakness Extremities: Yes: Cool Edema: No Peripheral Pulses WNL: No Peripheral Pulses: Left Doralis Pedis: 1+, Right Dorsalis Pedis: 1+ Integumentary: Yes: WNL Neurological: Yes: Alert, Weakness Psychiatric: Yes: Alert Labs: CBC, BMP 08/02/16 05:35 08/02/16 05:35 INR, PTT INR 1.19 (0.82-1.09) H 07/27/16 07:56 Abnormal Lab Results 08/02/16 08/02/16 08/02/16 05:35 05:35 05:35 WBC 18.2 H RBC 3.14 L Hgb 8.6 L Hct 25.8 L PTT (Actin FS) 41.0 H Sodium 125 L Chloride 88 L BUN 85 H Creatinine 5.3 H Random Glucose 198 H D Calcium 7.7 L - ....Imaging Chest X-ray: Image Reviewed (mkld pulmonary vascular congestion; small bilateral pleural effusions) Other: Image Reviewed (telemetry: AF; periods of RVR) Problem List - Problems (1) CKD (chronic kidney disease) Assessment/Plan: Increasing BUN/Cr has led to stopping losartan. Hyponatremic (though elevated glucose a contributor). As discussed with Dr. Fleming, plans for hemodialysis tomorrow if pt does not respond well to furosemide today. Code(s): N18.9 - CHRONIC KIDNEY DISEASE, UNSPECIFIED Qualifiers: Chronic kidney disease stage: unspecified stage Qualified Code(s): N18.9 - Chronic kidney disease, unspecified (2) Hypertension Assessment/Plan: Now well-controlled on diltiazem, Hydralazine + Imdur, and amlodipine. Losartan held due to deteriorating renal function. F/u BP and HR; after holding furosemide for 48 hrs, it was restarted today. ECHO: normal LVEF; moderate-severe pulmonary HTN. Code(s): I10 - ESSENTIAL (PRIMARY) HYPERTENSION (3) Pulmonary vascular congestion Code(s): R09.89 - OTH SYMPTOMS AND SIGNS INVOLVING THE CIRC AND RESP SYSTEMS (4) SOB (shortness of breath) on exertion Assessment/Plan: leukocytosis (on steroids); afebrile; still with productive cough. Furosemide restarted; may require hemodialysis. Code(s): R06.02 - SHORTNESS OF BREATH (5) Acute on chronic diastolic CHF (congestive heart failure) Code(s): I50.33 - ACUTE ON CHRONIC DIASTOLIC (CONGESTIVE) HEART FAILURE (6) Diabetes Assessment/Plan: markedly elevated glucose; now on steroids again for pulmonary dysfunction. F/u with tier lift operator. Code(s): E11.9 - TYPE 2 DIABETES MELLITUS WITHOUT COMPLICATIONS (7) Atrial fibrillation Assessment/Plan: On diltiazem for HR control. On IV heparin for systemic anticoagulation. Code(s): I48.91 - UNSPECIFIED ATRIAL FIBRILLATION (8) Pulmonary hypertension Assessment/Plan: Moderate to severe pulmonary HTN; pt with mild MR and MA, (+) diastolic dysfunction; leukocytosis (on steroids earlier). Consider PE, though on IV heparin. Code(s): I27.2 - OTHER SECONDARY PULMONARY HYPERTENSION
[2016-08-02] MEDS: hydrALAZINE HCL 25 MG TABLET (FP) PO SCH ×2 (10:31→21:27)
[2016-08-02] MEDS: dilTIAZem HCL 60 MG TABLET (FP) PO SCH ×4 (10:31→21:27)
[2016-08-02] MEDS: ISOSORBIDE MONONITRATE 30 MG TAB.SR.24H (FP) PO SCH (10:31)
[2016-08-02] MEDS: INSULIN DETEMIR 100 UNITS/ML MDV SQ SCH ×2 (10:36→21:28)
[2016-08-02] MEDS: CALCITRIOL 0.25 MCG CAPSULE (FP) PO SCH (10:36)
[2016-08-02] MEDS: POLYETHYLENE GLYCOL 3350 119 GM BTL PO SCH (10:36)
[2016-08-02] MEDS: sitaGLIPtin PHOSPHATE 25 MG TABLET (FP) PO SCH (10:36)
[2016-08-02] MEDS: HEPARIN NA (PORCINE) 5,000 UNITS/ML 1ML VIAL IVPUSH PRN (10:36)
--- NOTE | 2016-08-02 10:49 | PN ---
Progress Note, Physician History of Present Illness: pulmnonary awake,oob-chair,+ramirez,+bronchospasm - Current Medication List Current Medications: Active Medications Acetaminophen (Tylenol -) 650 mg PO Q6H PRN PRN Reason: FEVER OR PAIN Albuterol/Ipratropium (Duoneb -) 1 amp NEB Q4H PRN PRN Reason: SHORTNESS OF BREATH Last Admin: 08/02/16 02:31 Dose: 1 amp Atorvastatin Calcium (Lipitor -) 10 mg PO HS [facility] Last Admin: 08/01/16 22:51 Dose: 10 mg Calcitriol (Rocaltrol -) 0.5 mcg PO DAILY [facility] Last Admin: 08/02/16 10:36 Dose: 0.5 mcg Diltiazem HCl (Cardizem -) 60 mg PO QID [facility] Last Admin: 08/02/16 10:31 Dose: 60 mg Heparin Sodium (Porcine) (Heparin -) 1,000 unit IVPUSH PRN PRN PRN Reason: Heparin Last Admin: 08/02/16 10:36 Dose: 1,000 unit Heparin Sodium (Porcine) (Heparin -) 5,000 unit IVPUSH PRN PRN PRN Reason: Heparin Hydralazine HCl (Apresoline -) 25 mg PO BID [facility] Last Admin: 08/02/16 10:31 Dose: 25 mg Heparin Sodium (Porcine) 25, (000 unit/ Sodium Chloride) 500 mls @ 20 mls/hr IV TITR [facility]; 1,000 UNIT/HR PRN Reason: Protocol Last Admin: 08/02/16 10:30 Dose: 20 mls/hr Insulin Aspart (Novolog Vial Sliding Scale -) 1 vial SQ HS [facility] PRN Reason: Protocol Last Admin: 08/01/16 22:55 Dose: Not Given Insulin Aspart (Novolog Vial Sliding Scale -) 1 vial SQ TIDAC [facility] PRN Reason: Protocol Insulin Detemir (Levemir Vial) 18 units SQ BID@0700,2200 [facility] Last Admin: 08/02/16 10:36 Dose: Not Given Isosorbide Mononitrate (Imdur -) 30 mg PO DAILY [facility] Last Admin: 08/02/16 10:31 Dose: 30 mg Polyethylene Glycol (Miralax (For Daily Use) -) 17 gm PO DAILY [facility] Last Admin: 08/02/16 10:36 Dose: Not Given Sitagliptin Phosphate (Januvia -) 25 mg PO DAILY@0700 [facility] Last Admin: 08/02/16 10:36 Dose: Not Given Zolpidem Tartrate (Ambien -) 5 mg PO HS PRN Last Admin: 08/01/16 22:51 Dose: 5 mg - Objective Vital Signs: Vital Signs Temperature 97.9 F 08/02/16 06:20 Pulse Rate 97 H 08/02/16 06:20 Respiratory Rate 20 08/02/16 06:20 Blood Pressure 150/66 08/02/16 06:20 O2 Sat by Pulse Oximetry (%) 98 08/02/16 03:01 Constitutional: Yes: Well Nourished, Calm Eyes: Yes: WNL HENT: Yes: WNL Neck: Yes: WNL Cardiovascular: Yes: Pulse Irregular, S1, S2 Respiratory: Yes: Wheezes (scattered jenny wheezes) Gastrointestinal: Yes: Normal Bowel Sounds, Soft Extremities: Yes: WNL Edema: Yes Labs: CBC, BMP 08/02/16 05:35 08/02/16 05:35 INR, PTT INR 1.19 (0.82-1.09) H 07/27/16 07:56 - ....Imaging Chest X-ray: Report Reviewed, Image Reviewed Problem List - Problems (1) Acute on chronic diastolic CHF (congestive heart failure) Code(s): I50.33 - ACUTE ON CHRONIC DIASTOLIC (CONGESTIVE) HEART FAILURE (2) CKD (chronic kidney disease) Code(s): N18.9 - CHRONIC KIDNEY DISEASE, UNSPECIFIED Qualifiers: Chronic kidney disease stage: unspecified stage Qualified Code(s): N18.9 - Chronic kidney disease, unspecified (3) Diabetes 1.5, managed as type 1 Code(s): E13.9 - OTHER SPECIFIED DIABETES MELLITUS WITHOUT COMPLICATIONS (4) Hypertension Code(s): I10 - ESSENTIAL (PRIMARY) HYPERTENSION (5) Pulmonary vascular congestion Code(s): R09.89 - OTH SYMPTOMS AND SIGNS INVOLVING THE CIRC AND RESP SYSTEMS (6) SOB (shortness of breath) on exertion Code(s): R06.02 - SHORTNESS OF BREATH (7) Pulmonary hypertension Code(s): I27.2 - OTHER SECONDARY PULMONARY HYPERTENSION Assessment/Plan IMP DECOMPENSATED DIASTOLIC CHF clinically improving PUL HTN ACUTE ON CHRONIC KIDNEY DISEASE DM HTN AFIB PLAN INHALED BRONCHODILATORS SUPPLEMENTAL O2 DVT PROPHYLAXIS MONITOR RENAL FUNCTION ANTICOAGULATION RATE CONTROL DAILY WTS F/U CHEST X-RAYS SOLUMEDROL X 48Hrs DR ESPOSITO Problem List - Problems (1) Acute on chronic diastolic CHF (congestive heart failure) Code(s): I50.33 - ACUTE ON CHRONIC DIASTOLIC (CONGESTIVE) HEART FAILURE (2) CKD (chronic kidney disease) Code(s): N18.9 - CHRONIC KIDNEY DISEASE, UNSPECIFIED Qualifiers: Chronic kidney disease stage: unspecified stage Qualified Code(s): N18.9 - Chronic kidney disease, unspecified (3) Diabetes 1.5, managed as type 1 Code(s): E13.9 - OTHER SPECIFIED DIABETES MELLITUS WITHOUT COMPLICATIONS (4) Hypertension Code(s): I10 - ESSENTIAL (PRIMARY) HYPERTENSION (5) Pulmonary vascular congestion Code(s): R09.89 - OTH SYMPTOMS AND SIGNS INVOLVING THE CIRC AND RESP SYSTEMS (6) SOB (shortness of breath) on exertion Code(s): R06.02 - SHORTNESS OF BREATH (7) Pulmonary hypertension Code(s): I27.2 - OTHER SECONDARY PULMONARY HYPERTENSION
--- NOTE | 2016-08-02 10:53 | PN ---
Progress Note (short form) - Note Progress Note: ID Consult dictated Leukocytosis- likely steroid-induced CHF/ COPD Doubt pneumonia Renal failure Will obtain blood c/s Observe off antibiotics
--- NOTE | 2016-08-02 13:06 | CONS ---
INFECTIOUS DISEASE CONSULTATION DATE OF CONSULTATION: DATE OF DICTATION: 08/02/2016 The patient is an 86-year-old female evaluated for leukocytosis. History was obtained from the chart and patient's daughter present at the time of the examination. She was recently admitted to [facility] with shortness of breath. She was treated for COPD and congestive heart failure. A stress test at that time was reportedly negative. She was admitted to [facility] on July 27, 2016, with worsening shortness of breath for 1-2 weeks prior to admission. She was again diagnosed with congestive heart failure and COPD. Her course has now been complicated by elevated white blood cell count to 18,000. She did receive a short course of corticosteroids. She is awake and alert. She is mildly short of breath at rest with audible wheezing. She denies any chest pain, cough, sputum production, or hemoptysis. No reported fever or chills. A CAT scan of the chest performed this admission shows bilateral pleural effusions with no evidence of pneumonia. She denies any vomiting or diarrhea. No dysuria or hematuria. PAST MEDICAL HISTORY: Positive for hypertension, pulmonary hypertension, diabetes mellitus, hyperlipidemia, chronic kidney disease. ALLERGIES: No known allergies. MEDICATIONS: Norvasc, glipizide, losartan, Toprol, Zocor. SOCIAL HISTORY: She lives at home with family members. No tobacco or alcohol use. SYSTEMS REVIEW: Neurologic: No loss of consciousness, seizure activity, or focal weakness. Cardiac: Negative chest pain, palpitations. Respiratory: As per HPI. Gastrointestinal: Negative vomiting or diarrhea. Genitourinary: Negative for urinary tract infection. LABORATORY DATA: White count 18.2, hematocrit 25.8, platelet count 251. BUN 85, creatinine 5.3. Urinalysis 26 white cells. Chest x-ray shows increased markings bilaterally. CAT scan of the chest shows bilateral pleural effusions. No infiltrate. PHYSICAL EXAMINATION: General: She is out of bed to chair. She is short of breath at rest on nasal cannula O2 with audible wheezing. Vital Signs: Temperature 97.9; blood pressure 150/66; pulse 97, regular; respirations 20 per minute. HEENT: Sclerae are anicteric. Dry mucous membranes. Heart: Sounds S1 and S2. Lungs: Diminished breath sounds at the bases bilaterally. Scattered rhonchi and wheeze. Abdomen: Obese. No tenderness elicited. No mass, rebound, or rigidity. Extremities: Positive for edema. IMPRESSION: 1. Decompensated congestive heart failure. 2. Acute exacerbation of chronic obstructive pulmonary disease. 3. Leukocytosis, likely steroid induced. 4. Renal failure. No clinical or radiographic evidence to suggest acute pneumonia. No obvious secondary focus of infection. Will obtain blood cultures, observe off antibiotic therapy, continue treatment for CHF and COPD. Thank you for the kind referral. CARLOS VALERIO M.D. [id number]
--- NOTE | 2016-08-02 13:09 | PN ---
Progress Note, Physician History of Present Illness: Pt seen and examined at bedside. No acute changes overnight. - Current Medication List Current Medications: Active Medications Acetaminophen (Tylenol -) 650 mg PO Q6H PRN PRN Reason: FEVER OR PAIN Albuterol/Ipratropium (Duoneb -) 1 amp NEB Q4H PRN PRN Reason: SHORTNESS OF BREATH Last Admin: 08/02/16 02:31 Dose: 1 amp Atorvastatin Calcium (Lipitor -) 10 mg PO HS [facility] Last Admin: 08/01/16 22:51 Dose: 10 mg Calcitriol (Rocaltrol -) 0.5 mcg PO DAILY [facility] Last Admin: 08/02/16 10:36 Dose: 0.5 mcg Diltiazem HCl (Cardizem -) 60 mg PO QID [facility] Last Admin: 08/02/16 10:31 Dose: 60 mg Heparin Sodium (Porcine) (Heparin -) 1,000 unit IVPUSH PRN PRN PRN Reason: Heparin Last Admin: 08/02/16 10:36 Dose: 1,000 unit Heparin Sodium (Porcine) (Heparin -) 5,000 unit IVPUSH PRN PRN PRN Reason: Heparin Hydralazine HCl (Apresoline -) 25 mg PO BID [facility] Last Admin: 08/02/16 10:31 Dose: 25 mg Heparin Sodium (Porcine) 25, (000 unit/ Sodium Chloride) 500 mls @ 20 mls/hr IV TITR [facility]; 1,000 UNIT/HR PRN Reason: Protocol Last Admin: 08/02/16 10:30 Dose: 20 mls/hr Insulin Aspart (Novolog Vial Sliding Scale -) 1 vial SQ HS [facility] PRN Reason: Protocol Last Admin: 08/01/16 22:55 Dose: Not Given Insulin Aspart (Novolog Vial Sliding Scale -) 1 vial SQ TIDAC [facility] PRN Reason: Protocol Insulin Detemir (Levemir Vial) 18 units SQ BID@0700,2200 [facility] Last Admin: 08/02/16 10:36 Dose: Not Given Isosorbide Mononitrate (Imdur -) 30 mg PO DAILY [facility] Last Admin: 08/02/16 10:31 Dose: 30 mg Methylprednisolone Sodium Succinate (Solu-Medrol -) 40 mg IVPB Q6H-IV [facility] Polyethylene Glycol (Miralax (For Daily Use) -) 17 gm PO DAILY [facility] Last Admin: 08/02/16 10:36 Dose: Not Given Sitagliptin Phosphate (Januvia -) 25 mg PO DAILY@0700 [facility] Last Admin: 08/02/16 10:36 Dose: Not Given Zolpidem Tartrate (Ambien -) 5 mg PO HS [facility] Last Admin: 08/01/16 22:51 Dose: 5 mg - Objective Vital Signs: Vital Signs Temperature 97.9 F 08/02/16 06:20 Pulse Rate 97 H 08/02/16 06:20 Respiratory Rate 20 08/02/16 06:20 Blood Pressure 150/66 08/02/16 06:20 O2 Sat by Pulse Oximetry (%) 98 08/02/16 03:01 Constitutional: Yes: Calm Eyes: Yes: Conjunctiva Clear HENT: Yes: Atraumatic Cardiovascular: Yes: S1, S2 Respiratory: Yes: On Nasal O2, Wheezes Gastrointestinal: Yes: Soft, Abdomen, Obese Genitourinary: Yes: [place] Present Edema: Yes Edema: LLE: 2+, RLE: 2+ Neurological: Yes: Oriented Psychiatric: Yes: Oriented Labs: CBC, BMP 08/02/16 05:35 08/02/16 05:35 INR, PTT INR 1.19 (0.82-1.09) H 07/27/16 07:56 Problem List - Problems (1) CKD (chronic kidney disease) Code(s): N18.9 - CHRONIC KIDNEY DISEASE, UNSPECIFIED Qualifiers: Chronic kidney disease stage: unspecified stage Qualified Code(s): N18.9 - Chronic kidney disease, unspecified (2) Pulmonary vascular congestion Code(s): R09.89 - OTH SYMPTOMS AND SIGNS INVOLVING THE CIRC AND RESP SYSTEMS (3) SOB (shortness of breath) on exertion Code(s): R06.02 - SHORTNESS OF BREATH (4) Hypertension Code(s): I10 - ESSENTIAL (PRIMARY) HYPERTENSION (5) Diabetes 1.5, managed as type 1 Code(s): E13.9 - OTHER SPECIFIED DIABETES MELLITUS WITHOUT COMPLICATIONS Assessment/Plan Current Medications Generic Name Dose Route Start Last Admin Trade Name Freq PRN Reason Stop Dose Admin Acetaminophen 650 mg 07/30/16 15:50 Tylenol - PO Q6H PRN FEVER OR PAIN Albuterol/Ipratropium 1 amp 07/30/16 10:41 08/02/16 02:31 Duoneb - NEB 1 amp Q4H PRN Administration SHORTNESS OF BREATH Atorvastatin Calcium 10 mg 07/27/16 22:00 08/01/16 22:51 Lipitor - PO 10 mg HS [facility] Administration Calcitriol 0.5 mcg 07/27/16 18:00 08/02/16 10:36 Rocaltrol - PO 0.5 mcg DAILY [facility] Administration Diltiazem HCl 60 mg 07/29/16 14:00 08/02/16 10:31 Cardizem - PO 60 mg QID [facility] Administration Heparin Sodium (Porcine) 1,000 unit 07/28/16 18:11 08/02/16 10:36 Heparin - IVPUSH 1,000 unit PRN PRN Administration Heparin Heparin Sodium (Porcine) 5,000 unit 07/28/16 18:11 Heparin - IVPUSH PRN PRN Heparin Hydralazine HCl 25 mg 07/27/16 18:30 08/02/16 10:31 Apresoline - PO 25 mg BID [facility] Administration Heparin Sodium (Porcine) 25, 500 mls @ 20 mls/hr 07/28/16 18:15 08/02/16 10:30 000 unit/ Sodium Chloride IV 20 mls/hr TITR [facility] Administration Protocol 1,000 UNIT/HR Insulin Aspart 1 vial 07/31/16 22:00 08/01/16 22:55 Novolog Vial Sliding Scale - SQ Not Given HS [facility] Protocol Insulin Aspart 1 vial 08/01/16 17:15 Novolog Vial Sliding Scale - SQ TIDAC [facility] Protocol Insulin Detemir 18 units 07/27/16 22:00 08/02/16 10:36 Levemir Vial SQ Not Given BID@0700,2200 [facility] Isosorbide Mononitrate 30 mg 07/27/16 18:30 08/02/16 10:31 Imdur - PO 30 mg DAILY [facility] Administration Methylprednisolone Sodium Succinate 40 mg 08/02/16 11:00 Solu-Medrol - IVPB Q6H-IV [facility] Polyethylene Glycol 17 gm 07/29/16 15:15 08/02/16 10:36 Miralax (For Daily Use) - PO Not Given DAILY [facility] Sitagliptin Phosphate 25 mg 07/27/16 18:00 08/02/16 10:36 Januvia - PO Not Given DAILY@0700 [facility] Zolpidem Tartrate 5 mg 07/30/16 23:27 08/01/16 22:51 Ambien - PO 5 mg HS PRN Administration Laboratory Tests 08/01/16 13:02 Prot Electrophoresis Pending Serum Total Protein Pending EITAN M-Constantin Pending KRISTEN Screen Pending Double Strand DNA Ab Pending Glomerular Base Memb Ab Pending Hepatitis A Ab Total Pending Hep Bs Antigen Pending Hep Bs Antibody Pending Hep B Core Total Ab Pending Impression 1. CKD 2. HTN 3. DM 4. dyspnea 5. hyperlipidemia 6. anemia 7. hyponatremia 8. pulmonary htn Plan - renal function worsening - I offered HD to the family. I had a long discussion with Manny (pts son) and they would like to hold off for now - repeat labs in am - discussed with cardiology and will restart lasix - cont steroids for now, spoke to pulmonary - hyponatremia workup in progress - renal workup is in progress - will need better control of glucose as it is contributing to the hyponatremia - stat CXR reviewed - repeat labs in am - will follow Dr Fleming
[2016-08-02] MEDS: INSULIN SLIDING SCALE (NOVOLOG) 1 VIAL SQ SCH ×3 (13:32→21:28)
[2016-08-02] MEDS: methylPREDNISolone NA SUCC 40 MG/1 ML VIAL IVPB SCH ×3 (13:32→21:28)
--- NOTE | 2016-08-02 13:36 | CON.GI ---
Consult Consult Specialty:: GI Referred by:: Dr. Matti Leigh Reason for Consultation:: Poor appetite and ? abdominal distention - History of Present Illness Chief Complaint: Shortness of breath History of Present Illness: Patient's son and niece present at bedside. They helped translate and give history as she speaks Malayalam. 86F admitted on 07/27 for SOB. She is being evaluated by pulmonary and cardiology and being treated for COPD / CHF / episodes of A. Fib w/ RVR. She is being evaluated by Nephrology for renal failure and family is contemplating HD. Called to evaluate poor appetite. Also with ? of abdominal distention. She denies abdominal pain. there has been no reported vomiting. She is having small formed bowel movements. There has been no reported rectal bleeding or melena. She has never had an upper endoscopy or colonoscopy. She continues to be quite dyspnic with audible wheezing and cough. - History Source History Provided By: Family Member, Medical Record Limitations to Obtaining History: Language Barrier - Past Medical History Cardio/Vascular: Yes: CHF (diastolic), HTN, Hyperlipdemia Renal/: Yes: Renal Inusuff ...: No Endocrine: Yes: Diabetes Mellitus - Past Surgical History Additional Surgical History: None - Alcohol/Substance Use Hx Alcohol Use: No - Smoking History Smoking history: Never smoked Have you smoked in the past 12 months: No - Social History Usual Living Arrangement: With Child ADL: Family Assistance Place of : Other ([place]) Came to [place]year[place] multiple years prior History of Recent Travel: No Home Medications - Allergies Allergies/Adverse Reactions: Allergies Allergy/AdvReac Type Severity Reaction Status Date / Time No Known Allergies Allergy Verified 07/27/16 07:19 - Home Medications Home Medications: Ambulatory Orders Amlodipine Besylate 10 mg PO DAILY 07/27/16 Calcitriol [Rocaltrol] 0.5 mcg PO DAILY 07/27/16 Glipizide [Glipizide ER] 5 mg PO DAILY 07/27/16 Linagliptin [Tradjenta] 5 mg PO DAILY 07/27/16 Losartan/Hydrochlorothiazide [Losartan-Hctz 100-25 mg Tab] 1 tablet PO DAILY 04/02 Metoprolol Succinate [Toprol Xl] 100 mg PO DAILY 07/27/16 Simvastatin [Zocor] 10 mg PO HS 07/27/16 Family Disease History - Family Disease History Family Disease History: Other: Son (1 son: healthy), Daughter (5 daughters: some with DM II) Other Family History: No family history of colorectal cancer or other GI malignancy Review of Systems - Review of Systems Constitutional: reports: Loss of Appetite. denies: Unintentional Wgt. Loss Cardiovascular: reports: Shortness of Breath Respiratory: reports: Cough, SOB, Wheezing Gastrointestinal: denies: Abdominal Pain, Diarrhea, Rectal Bleeding, Vomiting Physical Exam-GI Vital Signs: Vital Signs Temperature 97.9 F 08/02/16 06:20 Pulse Rate 97 H 08/02/16 06:20 Respiratory Rate 20 08/02/16 06:20 Blood Pressure 150/66 08/02/16 06:20 O2 Sat by Pulse Oximetry (%) 98 08/02/16 03:01 Constitutional: Yes: Calm Eyes: No: Sclera Icterus Cardiovascular: Yes: Regular Rate and Rhythm. No: Murmur Respiratory: Yes: Accessory Muscle Use, Rhonchi (bases b/l), Wheezes ( expiratory B/L) Gastrointestinal Inspection: Yes: Other (protuberant abdomen). No: Scars ...Auscultate: Yes: Normoactive Bowel Sounds ...Palpate: No: Hepatomegaly, Splenomegaly, Tenderness ...Percussion: No: Fluid Wave, Tympanitic ...Rectal Exam: Yes: Guaiac Negative (light mclean stool) Edema: Yes (trace b/l LE edema) Labs: CBC, BMP 08/02/16 05:35 08/02/16 05:35 INR, PTT INR 1.19 (0.82-1.09) H 07/27/16 07:56 Hepatic Panel Total Bilirubin 0.3 mg/dL (0.2-1.0) D 08/02/16 05:35 AST 29 U/L (15-37) D 08/02/16 05:35 ALT 36 U/L (12-78) D 08/02/16 05:35 Alkaline Phosphatase 74 U/L (45-117) 08/02/16 05:35 Albumin 3.7 g/dl (3.4-5.0) 08/02/16 05:35 Problem List - Problems (1) Lack of appetite Assessment/Plan: Question if secondary to the multiple ongoing systemic processes she is dealing with right now I have ordered and abdominal X-Ray to assess bowel anatomy as well as abdominal US to assess for ascites in the setting of renal failure Liquid dietary supplements with meals Added Ranitidine 150mg once daily Code(s): R63.0 - ANOREXIA
[2016-08-02] MEDS ORDERED: FUROSEMIDE 40 MG/4 ML INJECTABLE VIAL IVPB ONE (14:00)
[2016-08-02] MEDS: ATORVASTATIN CA 10 MG TABLET (FP) PO SCH (21:27)
[2016-08-02] MEDS: ACETAMINOPHEN 325 MG TABLET (FP) PO PRN (23:40)
[2016-08-03 00:07] LABS: A/G RATIO 0.9 (0.7-1.7); ALBUMIN 3.3 g/dL (2.9-4.4); GLOBULIN, TOTAL 3.6 g/dL (2.2-3.9); M-SPIKE Not Observed g/dL (Not Observed); TOTAL PROTEIN 6.9 g/dL (6.0-8.5)
[2016-08-03] MEDS: methylPREDNISolone NA SUCC 40 MG/1 ML VIAL IVPB SCH ×4 (03:53→17:27)
[2016-08-03 06:06] LABS: HEP B SURFACE AB Reactive (.)
[2016-08-03] MEDS: ALBUTEROL SO4 2.5/IPRATROPIUM 0.5 INH SOL 3 ML VIAL.NEB. NEB PRN (06:30)
[2016-08-03] MEDS: sitaGLIPtin PHOSPHATE 25 MG TABLET (FP) PO SCH (06:50)
[2016-08-03] MEDS: INSULIN DETEMIR 100 UNITS/ML MDV SQ SCH ×2 (06:51→22:25)
[2016-08-03] MEDS: INSULIN SLIDING SCALE (NOVOLOG) 1 VIAL SQ SCH ×5 (06:51→22:26)
[2016-08-03] MEDS ORDERED: PT OWN MED DRAWER 7, Y5N ONE (07:47)
[2016-08-03 08:15] LABS: MCH 27.6 pg (25.7-33.7); MCHC 33.4 g/dl (32.0-36.0); MEAN CELL VOLUME 82.7 fl (80-96); MEAN PLT VOLUME 8.7 fl (7.5-11.1); PLATELET COUNT 247 K/MM3 (134-434); RDW 13.2 % (11.6-15.6); WHITE BLOOD COUNT 13.8 K/mm3 (4.0-10.0)
--- NOTE | 2016-08-03 08:46 | PN ---
Progress Note, Physician Chief Complaint: Pt's daughter at bedside; pt had a "bad night", with insomnia, dyspnea on minimal exertion. History of Present Illness: 86y woman (b. Maira) with PM hx of xfshxdidf-tg-ntodlyf HTN; DM;hyperlipidemia ; CKD, who now presents with SOB. The patient has been feeling SOB with SOTO which began two weeks ago; she was admitted to [facility] for a cardiac workup, had a negative EKG (per daughter)and was d/chinmay home from ER. The pt fu with PMD a few days ago and was given a nebulizer. The pt states her sob worsened significantly last night; here was no significant improvement with the nebulizer. Pt states she gets the wheezing and sob when she ambulates short distances as well as up stairs, which is new (pt's daughter says she was able to walk slowly in the house on a regular basis without dyspnea until the past few weeks). The pt denies any associated cp (no cp since last admission to [place]), fever/chills. pt does endorse a mild nonproductive cough, orthopnea, mild lower extermity edema; denies fever. Stress test 2 months ago negative for myocardial ischemia or arrhythmias. PMD dr. Mendoza Brass Chaser: Dr. Ayala. - Current Medication List Current Medications: Active Medications Acetaminophen (Tylenol -) 650 mg PO Q6H PRN PRN Reason: FEVER OR PAIN Last Admin: 08/02/16 23:40 Dose: 650 mg Albuterol/Ipratropium (Duoneb -) 1 amp NEB Q4H PRN PRN Reason: SHORTNESS OF BREATH Last Admin: 08/03/16 06:30 Dose: 1 amp Atorvastatin Calcium (Lipitor -) 10 mg PO HS [facility] Last Admin: 08/02/16 21:27 Dose: 10 mg Calcitriol (Rocaltrol -) 0.5 mcg PO DAILY VANI Last Admin: 08/02/16 10:36 Dose: 0.5 mcg Diltiazem HCl (Cardizem -) 60 mg PO QID [facility] Last Admin: 08/02/16 21:27 Dose: 60 mg Heparin Sodium (Porcine) (Heparin -) 1,000 unit IVPUSH PRN PRN PRN Reason: Heparin Last Admin: 08/02/16 10:36 Dose: 1,000 unit Heparin Sodium (Porcine) (Heparin -) 5,000 unit IVPUSH PRN PRN PRN Reason: Heparin Hydralazine HCl (Apresoline -) 25 mg PO BID [facility] Last Admin: 08/02/16 21:27 Dose: 25 mg Heparin Sodium (Porcine) 25, (000 unit/ Sodium Chloride) 500 mls @ 20 mls/hr IV TITR VANI; 1,000 UNIT/HR PRN Reason: Protocol Last Admin: 08/02/16 10:30 Dose: 20 mls/hr Insulin Aspart (Novolog Vial Sliding Scale -) 1 vial SQ HS VANI PRN Reason: Protocol Last Admin: 08/02/16 21:28 Dose: 6 units Insulin Aspart (Novolog Vial Sliding Scale -) 1 vial SQ TIDAC VANI PRN Reason: Protocol Last Admin: 08/03/16 06:51 Dose: 16 units Insulin Detemir (Levemir Vial) 20 units SQ BID@0700,2200 [facility] Last Admin: 08/03/16 06:51 Dose: 20 units Isosorbide Mononitrate (Imdur -) 30 mg PO DAILY [facility] Last Admin: 08/02/16 10:31 Dose: 30 mg Methylprednisolone Sodium Succinate (Solu-Medrol -) 40 mg IVPB Q6H-IV [facility] Last Admin: 08/03/16 03:53 Dose: 40 mg Polyethylene Glycol (Miralax (For Daily Use) -) 17 gm PO DAILY [facility] Last Admin: 08/02/16 10:36 Dose: Not Given Sitagliptin Phosphate (Januvia -) 25 mg PO DAILY@0700 [facility] Last Admin: 08/03/16 06:50 Dose: 25 mg - Objective Vital Signs: Vital Signs Temperature 98.7 F 08/03/16 07:58 Pulse Rate 76 08/03/16 07:58 Respiratory Rate 18 08/03/16 07:58 Blood Pressure 147/67 08/03/16 07:58 O2 Sat by Pulse Oximetry (%) 97 08/03/16 07:00 Constitutional: Yes: Anxious, Moderate Distress Eyes: Yes: WNL HENT: Yes: Nasal Congestion Neck: Yes: WNL Cardiovascular: Yes: Regular Rate and Rhythm, S1 (split) Respiratory: Yes: Diminished. No: Wheezes Gastrointestinal: Yes: Soft ...Rectal Exam: Yes: Deferred Genitourinary: No: Anuria Breast(s): Yes: WNL Extremities: Yes: Cool Edema: Yes Edema: LLE: Trace, RLE: Trace Peripheral Pulses WNL: No Peripheral Pulses: Left Doralis Pedis: 1+, Right Dorsalis Pedis: 1+ Neurological: Yes: Alert, Weakness Psychiatric: Yes: Alert, Other (anxious) Labs: INR, PTT INR 1.19 (0.82-1.09) H 07/27/16 07:56 Abnormal Lab Results 08/01/16 08/03/16 08/03/16 13:02 06:10 06:10 WBC RBC Hgb Hct Neutrophils % PTT (Actin FS) 64.9 H Sodium 128 L Chloride 91 L Carbon Dioxide 19 L Anion Gap 18 H BUN 97 H Creatinine 5.1 H Random Glucose 300 H D Calcium 7.7 L Guzpa-2-Iajeohvdm 1.1 H Hepatitis A Ab Total Positive H 08/03/16 06:10 WBC 13.8 H RBC 3.20 L Hgb 8.8 L Hct 26.5 L Neutrophils % 87.0 H PTT (Actin FS) Sodium Chloride Carbon Dioxide Anion Gap BUN Creatinine Random Glucose Calcium Bdnjm-7-Lmorqinnn Hepatitis A Ab Total - ....Imaging EKG: Image Reviewed (NSR; 1st degree AV block; no acute ST-T changes) Problem List - Problems (1) CKD (chronic kidney disease) Assessment/Plan: Increasing BUN/Cr has led to stopping losartan. On furosemide again; f/u electrolytes, BUN/Cr, daily weight, Is and Os. Family defers hemodialysis presently. Code(s): N18.9 - CHRONIC KIDNEY DISEASE, UNSPECIFIED Qualifiers: Chronic kidney disease stage: unspecified stage Qualified Code(s): N18.9 - Chronic kidney disease, unspecified (2) Hypertension Assessment/Plan: Now well-controlled on diltiazem, Hydralazine + Imdur, and amlodipine. Losartan held due to deteriorating renal function. F/u BP and HR; after holding furosemide for 48 hrs, it was restarted today. ECHO: normal LVEF; moderate-severe pulmonary HTN. Code(s): I10 - ESSENTIAL (PRIMARY) HYPERTENSION (3) Pulmonary vascular congestion Code(s): R09.89 - OTH SYMPTOMS AND SIGNS INVOLVING THE CIRC AND RESP SYSTEMS (4) SOB (shortness of breath) on exertion Assessment/Plan: leukocytosis (on steroids); afebrile; still with productive cough. Furosemide restarted; may require hemodialysis (family presently not in favor of this). Code(s): R06.02 - SHORTNESS OF BREATH (5) Acute on chronic diastolic CHF (congestive heart failure) Code(s): I50.33 - ACUTE ON CHRONIC DIASTOLIC (CONGESTIVE) HEART FAILURE (6) Diabetes Code(s): E11.9 - TYPE 2 DIABETES MELLITUS WITHOUT COMPLICATIONS (7) Atrial fibrillation Assessment/Plan: On diltiazem for HR control. On IV heparin for systemic anticoagulation. Code(s): I48.91 - UNSPECIFIED ATRIAL FIBRILLATION (8) Pulmonary hypertension Assessment/Plan: Moderate to severe pulmonary HTN; pt with mild MR and NH, (+) diastolic dysfunction; leukocytosis (on steroids earlier). Consider PE, though on IV heparin. Code(s): I27.2 - OTHER SECONDARY PULMONARY HYPERTENSION
--- NOTE | 2016-08-03 08:52 | PN ---
Progress Note (short form) - Note Progress Note: Still SOB. No wheezing BGM still 200 to 300s on steroids again No hypos Apetite poor Vital Signs Period Temp Pulse Resp BP Sys/Clayton Pulse Ox Last 24 Hr 97.2 F-98.7 F 64-80 18-20 134-152/61-89 96-97 PE: AOX3 Neck: Supple, No JVD HEENT: PERRL, EOMI Lungs: CTA CVS: S1S2 Abd: Benign Ext: 1+Edema Neuro: No focal deficit CMP Sodium 125 mmol/L (136-145) L 08/02/16 05:35 Potassium 4.6 mmol/L (3.5-5.1) 08/02/16 05:35 Chloride 88 mmol/L (98-107) L 08/02/16 05:35 Carbon Dioxide 22 mmol/L (21-32) 08/02/16 05:35 Anion Gap 15 (8-16) 08/02/16 05:35 BUN 85 mg/dL (7-18) H 08/02/16 05:35 Creatinine 5.3 mg/dL (0.55-1.02) H 08/02/16 05:35 Creat Clearance w eGFR 7.71 (>60) 08/02/16 05:35 POC Glucometer 311 UNITS (()) 08/03/16 05:28 Random Glucose 198 mg/dL (74-106) H D 08/02/16 05:35 Calcium 7.7 mg/dL (8.5-10.1) L 08/02/16 05:35 Phosphorus 4.7 mg/dL (2.5-4.9) 07/27/16 07:56 Magnesium 2.1 mg/dL (1.8-2.4) 07/27/16 07:56 Total Bilirubin 0.3 mg/dL (0.2-1.0) D 08/02/16 05:35 AST 29 U/L (15-37) D 08/02/16 05:35 ALT 36 U/L (12-78) D 08/02/16 05:35 Alkaline Phosphatase 74 U/L (45-117) 08/02/16 05:35 Creatine Kinase 143 IU/L (26-192) 07/28/16 06:00 CK-MB (CK-2) 3.794 ng/ml (0.5-3.6) H 07/27/16 18:55 Troponin I < 0.02 ng/ml (0.00-0.05) 07/28/16 06:00 B-Natriuretic Peptide 1614.88 pg/ml (5-450) H 07/27/16 07:56 Prot Electrophoresis (.) 08/01/16 13:02 Serum Total Protein 6.9 g/dL (6.0-8.5) 08/01/16 13:02 Total Protein 6.9 g/dl (6.4-8.2) 08/02/16 05:35 Albumin 3.7 g/dl (3.4-5.0) 08/02/16 05:35 Globulin 3.6 g/dL (2.2-3.9) 08/01/16 13:02 Albumin/Globulin Ratio 0.9 (0.7-1.7) 08/01/16 13:02 Xtchj-4-Gtdpfcrhu 0.3 gm/dL (0.0-0.4) 08/01/16 13:02 Iyjbk-6-Fycvnygva 1.1 gm/dL (0.4-1.0) H 08/01/16 13:02 Beta Globulins 1.0 gm/dL (0.7-1.3) 08/01/16 13:02 Gamma Globulins 1.2 gm/dL (0.4-1.8) 08/01/16 13:02 TSH 3.03 uIU/ml (0.358-3.74) 07/27/16 18:55 Current Medications Generic Name Dose Route Start Last Admin Trade Name Freq PRN Reason Stop Dose Admin Acetaminophen 650 mg 07/30/16 15:50 08/02/16 23:40 Tylenol - PO 650 mg Q6H PRN Administration FEVER OR PAIN Albuterol/Ipratropium 1 amp 07/30/16 10:41 08/03/16 06:30 Duoneb - NEB 1 amp Q4H PRN Administration SHORTNESS OF BREATH Atorvastatin Calcium 10 mg 07/27/16 22:00 08/02/16 21:27 Lipitor - PO 10 mg HS VANI Administration Calcitriol 0.5 mcg 07/27/16 18:00 08/02/16 10:36 Rocaltrol - PO 0.5 mcg DAILY VANI Administration Diltiazem HCl 60 mg 07/29/16 14:00 08/02/16 21:27 Cardizem - PO 60 mg QID VANI Administration Heparin Sodium (Porcine) 1,000 unit 07/28/16 18:11 08/02/16 10:36 Heparin - IVPUSH 1,000 unit PRN PRN Administration Heparin Heparin Sodium (Porcine) 5,000 unit 07/28/16 18:11 Heparin - IVPUSH PRN PRN Heparin Hydralazine HCl 25 mg 07/27/16 18:30 08/02/16 21:27 Apresoline - PO 25 mg BID VANI Administration Heparin Sodium (Porcine) 25, 500 mls @ 20 mls/hr 07/28/16 18:15 08/02/16 10:30 000 unit/ Sodium Chloride IV 20 mls/hr TITR VANI Administration Protocol 1,000 UNIT/HR Insulin Aspart 1 vial 07/31/16 22:00 08/02/16 21:28 Novolog Vial Sliding Scale - SQ 6 units HS VANI Administration Protocol Insulin Aspart 1 vial 08/01/16 17:15 08/03/16 06:51 Novolog Vial Sliding Scale - SQ 16 units TIDAC [facility] Administration Protocol Insulin Detemir 20 units 08/02/16 22:00 08/03/16 06:51 Levemir Vial SQ 20 units BID@0700,2200 VANI Administration Isosorbide Mononitrate 30 mg 07/27/16 18:30 08/02/16 10:31 Imdur - PO 30 mg DAILY VANI Administration Methylprednisolone Sodium Succinate 40 mg 08/02/16 11:00 08/03/16 03:53 Solu-Medrol - IVPB 40 mg Q6H-IV VANI Administration Polyethylene Glycol 17 gm 07/29/16 15:15 08/02/16 10:36 Miralax (For Daily Use) - PO Not Given DAILY VANI Sitagliptin Phosphate 25 mg 07/27/16 18:00 08/03/16 06:50 Januvia - PO 25 mg DAILY@0700 VANI Administration AP: DM: uncontrolled Monitor BGM Increase Levemir 22 BID Increase Novolog Coverage Will F/U CHF Acute on Chronic renal insufficiency HTN HLD Problem List - Problems (1) CKD (chronic kidney disease) Code(s): N18.9 - CHRONIC KIDNEY DISEASE, UNSPECIFIED Qualifiers: Chronic kidney disease stage: unspecified stage Qualified Code(s): N18.9 - Chronic kidney disease, unspecified (2) Hypertension Code(s): I10 - ESSENTIAL (PRIMARY) HYPERTENSION (3) SOB (shortness of breath) on exertion Code(s): R06.02 - SHORTNESS OF BREATH
[2016-08-03 09:01] LABS: ALBUMIN 3.5 g/dl (3.4-5.0); BILIRUBIN,TOTAL 0.5 mg/dL (0.2-1.0); CALCIUM 7.7 mg/dL (8.5-10.1); CREATININE 5.1 mg/dL (0.55-1.02); TOT PROT 7.1 g/dl (6.4-8.2)
[2016-08-03] MEDS: dilTIAZem HCL 60 MG TABLET (FP) PO SCH ×4 (09:51→22:25)
[2016-08-03] MEDS: ISOSORBIDE MONONITRATE 30 MG TAB.SR.24H (FP) PO SCH (09:51)
[2016-08-03] MEDS: hydrALAZINE HCL 25 MG TABLET (FP) PO SCH ×2 (09:51→22:25)
[2016-08-03] MEDS: HEPARIN - 25,000 UNIT in SODIUM CHLORIDE 495 ML IV SCH (09:52)
[2016-08-03] MEDS: CALCITRIOL 0.25 MCG CAPSULE (FP) PO SCH (09:53)
[2016-08-03] MEDS: POLYETHYLENE GLYCOL 3350 119 GM BTL PO SCH (09:53)
--- NOTE | 2016-08-03 09:59 | EKG ---
Test Reason : Blood Pressure : / mmHG Vent. Rate : 076 BPM Atrial Rate : 076 BPM P-R Int : 214 ms QRS Dur : 086 ms QT Int : 422 ms P-R-T Axes : 070 053 079 degrees QTc Int : 474 ms SINUS RHYTHM WITH 1ST DEGREE A-V BLOCK WHEN COMPARED WITH ECG OF 28-JUL-2016 17:50, SINUS RHYTHM HAS REPLACED ATRIAL FIBRILLATION VENT. RATE HAS DECREASED BY 45 BPM NON-SPECIFIC CHANGE IN ST SEGMENT IN ANTERIOR LEADS NONSPECIFIC T WAVE ABNORMALITY NO LONGER EVIDENT IN LATERAL LEADS Confirmed by CARLOS BRITO MD ([id number]) on 08/03/2016 9:58:52 AM Referred By: CHARLA BURTON Confirmed By:CARLOS BRITO MD
[2016-08-03 10:10] LABS: PLATELET ESTIMATE ADEQUATE (NORMAL)
--- NOTE | 2016-08-03 10:13 | PN ---
Progress Note, Physician Chief Complaint: Pt seen and examined SOB present,cough present chest x farrar report noted pt is OFF steroids and lasix,leukocytosis Worsening renal function Pt is on IV heparin abdominal distention present,lack of appetite Cardiology,RENAl,pul note appreciated note appreciated GI f/u and ID rec noted - Current Medication List Current Medications: Active Medications Acetaminophen (Tylenol -) 650 mg PO Q6H PRN PRN Reason: FEVER OR PAIN Last Admin: 08/02/16 23:40 Dose: 650 mg Albuterol/Ipratropium (Duoneb -) 1 amp NEB Q4H PRN PRN Reason: SHORTNESS OF BREATH Last Admin: 08/03/16 06:30 Dose: 1 amp Atorvastatin Calcium (Lipitor -) 10 mg PO HS [facility] Last Admin: 08/02/16 21:27 Dose: 10 mg Calcitriol (Rocaltrol -) 0.5 mcg PO DAILY [facility] Last Admin: 08/03/16 09:53 Dose: 0.5 mcg Diltiazem HCl (Cardizem -) 60 mg PO QID [facility] Last Admin: 08/03/16 09:51 Dose: 60 mg Heparin Sodium (Porcine) (Heparin -) 1,000 unit IVPUSH PRN PRN PRN Reason: Heparin Last Admin: 08/02/16 10:36 Dose: 1,000 unit Heparin Sodium (Porcine) (Heparin -) 5,000 unit IVPUSH PRN PRN PRN Reason: Heparin Hydralazine HCl (Apresoline -) 25 mg PO BID [facility] Last Admin: 08/03/16 09:51 Dose: 25 mg Heparin Sodium (Porcine) 25, (000 unit/ Sodium Chloride) 500 mls @ 20 mls/hr IV TITR VANI; 1,000 UNIT/HR PRN Reason: Protocol Last Admin: 08/03/16 09:52 Dose: 20 mls/hr Insulin Aspart (Novolog Vial Sliding Scale -) 1 vial SQ HS VANI PRN Reason: Protocol Last Admin: 08/02/16 21:28 Dose: 6 units Insulin Aspart (Novolog Vial Sliding Scale -) 1 vial SQ TIDAC VANI PRN Reason: Protocol Last Admin: 08/03/16 09:51 Dose: Not Given Insulin Detemir (Levemir Vial) 22 units SQ BID@0700,2200 [facility] Isosorbide Mononitrate (Imdur -) 30 mg PO DAILY [facility] Last Admin: 08/03/16 09:51 Dose: 30 mg Methylprednisolone Sodium Succinate (Solu-Medrol -) 40 mg IVPB Q6H-IV [facility] Last Admin: 08/03/16 09:51 Dose: 40 mg Polyethylene Glycol (Miralax (For Daily Use) -) 17 gm PO DAILY [facility] Last Admin: 08/03/16 09:53 Dose: 17 gm Sitagliptin Phosphate (Januvia -) 25 mg PO DAILY@0700 [facility] Last Admin: 08/03/16 06:50 Dose: 25 mg - Objective Vital Signs: Vital Signs Temperature 98.7 F 08/03/16 07:58 Pulse Rate 76 08/03/16 07:58 Respiratory Rate 18 08/03/16 07:58 Blood Pressure 147/67 08/03/16 07:58 O2 Sat by Pulse Oximetry (%) 97 08/03/16 07:00 Constitutional: Yes: No Distress Eyes: Yes: Conjunctiva Clear HENT: Yes: Atraumatic Neck: Yes: Supple, Trachea Midline Cardiovascular: Yes: Pulse Irregular Respiratory: Yes: Regular, CTA Bilaterally Gastrointestinal: Yes: Normal Bowel Sounds, Abdomen, Obese Extremities: Yes: WNL Edema: LLE: Trace, RLE: Trace Peripheral Pulses WNL: Yes Neurological: Yes: Alert, Oriented Labs: CBC, BMP 08/03/16 06:10 08/03/16 06:10 INR, PTT INR 1.19 (0.82-1.09) H 07/27/16 07:56 Laboratory Results - last 24 hr 08/01/16 08/01/16 08/02/16 11:41 13:02 12:52 WBC RBC Hgb Hct MCV MCHC RDW Plt Count MPV Neutrophils % Lymphocytes % Myelocytes Platelet Estimate PTT (Actin FS) Sodium Potassium Chloride Carbon Dioxide Anion Gap BUN Creatinine Creat Clearance w eGFR POC Glucometer 411 294 Random Glucose Calcium Total Bilirubin AST ALT Alkaline Phosphatase Prot Electrophoresis Serum Total Protein 6.9 Total Protein Albumin 3.3 Globulin 3.6 Albumin/Globulin Ratio 0.9 Sdpij-9-Cfquioyke 0.3 Zehtx-5-Gmmagnfsp (%) Cancelled Uesrj-3-Rmxmblbob 1.1 H Vlobb-1-Bjgotpoix (%) Cancelled Beta Globulins 1.0 Beta Globulins (%) Cancelled Gamma Globulins 1.2 Gamma Globulins (%) Cancelled M-Constantin % Cancelled EITAN M-Constantin Not observed KRISTEN Screen Negative Double Strand DNA Ab <1 Hep A IgM Ab Confirm Negative Hepatitis A Ab Total Positive H Hep Bs Antigen Negative Hep Bs Antibody Reactive Hep B Core Total Ab Negative Ref Test Comments Cancelled 08/02/16 08/02/16 08/02/16 17:00 17:16 21:24 WBC RBC Hgb Hct MCV MCHC RDW Plt Count MPV Neutrophils % Lymphocytes % Myelocytes Platelet Estimate PTT (Actin FS) 52.0 H Sodium Potassium Chloride Carbon Dioxide Anion Gap BUN Creatinine Creat Clearance w eGFR POC Glucometer 286 270 Random Glucose Calcium Total Bilirubin AST ALT Alkaline Phosphatase Prot Electrophoresis Serum Total Protein Total Protein Albumin Globulin Albumin/Globulin Ratio Zasmq-1-Gbxjujito Nkirs-5-Gwzmzpvwi (%) Exxaw-0-Rwwmrqnki Citrx-1-Rczyjrkue (%) Beta Globulins Beta Globulins (%) Gamma Globulins Gamma Globulins (%) M-Constantin % EITAN M-Constantin KRISTEN Screen Double Strand DNA Ab Hep A IgM Ab Confirm Hepatitis A Ab Total Hep Bs Antigen Hep Bs Antibody Hep B Core Total Ab Ref Test Comments 08/03/16 08/03/16 08/03/16 05:28 06:10 06:10 WBC RBC Hgb Hct MCV MCHC RDW Plt Count MPV Neutrophils % Lymphocytes % Myelocytes Platelet Estimate PTT (Actin FS) 64.9 H Sodium 128 L Potassium 5.0 Chloride 91 L Carbon Dioxide 19 L Anion Gap 18 H BUN 97 H Creatinine 5.1 H Creat Clearance w eGFR 8.06 POC Glucometer 311 Random Glucose 300 H D Calcium 7.7 L Total Bilirubin 0.5 D AST 34 ALT 56 D Alkaline Phosphatase 85 Prot Electrophoresis Serum Total Protein Total Protein 7.1 Albumin 3.5 Globulin Albumin/Globulin Ratio Huopa-5-Sceskibtu Gxfyt-5-Wuzbbtnac (%) Czxlw-3-Qzfjfvcug Ekvux-6-Eydunymhu (%) Beta Globulins Beta Globulins (%) Gamma Globulins Gamma Globulins (%) M-Constantin % EITAN M-Constantin KRISTEN Screen Double Strand DNA Ab Hep A IgM Ab Confirm Hepatitis A Ab Total Hep Bs Antigen Hep Bs Antibody Hep B Core Total Ab Ref Test Comments 08/03/16 06:10 WBC 13.8 H RBC 3.20 L Hgb 8.8 L Hct 26.5 L MCV 82.7 MCHC 33.4 RDW 13.2 Plt Count 247 MPV 8.7 Neutrophils % 87.0 H Lymphocytes % 12.0 Myelocytes 1 Platelet Estimate Adequate PTT (Actin FS) Sodium Potassium Chloride Carbon Dioxide Anion Gap BUN Creatinine Creat Clearance w eGFR POC Glucometer Random Glucose Calcium Total Bilirubin AST ALT Alkaline Phosphatase Prot Electrophoresis Serum Total Protein Total Protein Albumin Globulin Albumin/Globulin Ratio Prniw-3-Xhlgoawbl Jmvjv-5-Muwwdbwfu (%) Aqvvi-4-Fldudrsgg Qlbqn-4-Rvnvwwyok (%) Beta Globulins Beta Globulins (%) Gamma Globulins Gamma Globulins (%) M-Constantin % EITAN M-Constantin KRISTEN Screen Double Strand DNA Ab Hep A IgM Ab Confirm Hepatitis A Ab Total Hep Bs Antigen Hep Bs Antibody Hep B Core Total Ab Ref Test Comments - ....Imaging Chest X-ray: Report Reviewed X-ray: Report Reviewed Ultrasound: Report Reviewed EKG: Report Reviewed Assessment/Plan Acute on chronic ckd PAF Leukocytosis abdominal distention SOB/acute on chronic CHF HTN,Hypercholestrolemia Pulmonary vascular congestion DM PLAN Continue bronchodialators Continue BP medications Monitor BUN/creatinine Monitor sugar Will f/u cardiology and renal rec regarding Medication Heparin as per protocol
[2016-08-03] MEDS ORDERED: INSULIN (NOVOLOG) ASPART 100 UNITS/ML 10ML VIAL ONE (11:08)
--- NOTE | 2016-08-03 11:10 | PN ---
Progress Note (short form) - Note Progress Note: PULMONARY AWAKE/APPEARS UNCOMFORTABLE COUGH/SOB OOB TO CHAIR/ VSS/AFEBRILE ANICTERIC DIMINSHED BREATH SOUNDS BILATERALLY S1S2 OBESE EDEMA LOWER EXT LABS/MEDS/NOTES/IMAGING/MICRO REVIEWED IMP DECOMPENSATED DIASTOLIC CHF PUL HTN ACUTE ON CHRONIC KIDNEY DISEASE WORSENING HYPONATREMIA DM POORLY CONTROLLED HTN AFIB PLAN IV LASIX ON HOLD INHALED BRONCHODILATORS/STEROIDS SUPPLEMENTAL O2 MONITOR RENAL FUNCTION ANTICOAGULATION RATE CONTROL DAILY WTS NEEDS DIALYSIS /FAMILY TO DECIDE CLOSE MONITORING ON TELE John WEST MD
[2016-08-03] MEDS: ACETAMINOPHEN 325 MG TABLET (FP) PO PRN (11:30)
--- NOTE | 2016-08-03 12:51 | PN ---
Progress Note, Physician History of Present Illness: Pt seen and examined at bedside. She responded to the lasix yesterday. She feels that her breathing is better today. She complains of abdominal wall edema. - Current Medication List Current Medications: Active Medications Acetaminophen (Tylenol -) 650 mg PO Q6H PRN PRN Reason: FEVER OR PAIN Last Admin: 08/03/16 11:30 Dose: 650 mg Albuterol/Ipratropium (Duoneb -) 1 amp NEB Q4H PRN PRN Reason: SHORTNESS OF BREATH Last Admin: 08/03/16 06:30 Dose: 1 amp Atorvastatin Calcium (Lipitor -) 10 mg PO HS [facility] Last Admin: 08/02/16 21:27 Dose: 10 mg Calcitriol (Rocaltrol -) 0.5 mcg PO DAILY [facility] Last Admin: 08/03/16 09:53 Dose: 0.5 mcg Diltiazem HCl (Cardizem -) 60 mg PO QID [facility] Last Admin: 08/03/16 09:51 Dose: 60 mg Heparin Sodium (Porcine) (Heparin -) 1,000 unit IVPUSH PRN PRN PRN Reason: Heparin Last Admin: 08/02/16 10:36 Dose: 1,000 unit Heparin Sodium (Porcine) (Heparin -) 5,000 unit IVPUSH PRN PRN PRN Reason: Heparin Hydralazine HCl (Apresoline -) 25 mg PO BID [facility] Last Admin: 08/03/16 09:51 Dose: 25 mg Heparin Sodium (Porcine) 25, (000 unit/ Sodium Chloride) 500 mls @ 20 mls/hr IV TITR [facility]; 1,000 UNIT/HR PRN Reason: Protocol Last Admin: 08/03/16 09:52 Dose: 20 mls/hr Insulin Aspart (Novolog Vial Sliding Scale -) 1 vial SQ HS [facility] PRN Reason: Protocol Last Admin: 08/02/16 21:28 Dose: 6 units Insulin Aspart (Novolog Vial Sliding Scale -) 1 vial SQ TIDAC [facility] PRN Reason: Protocol Last Admin: 08/03/16 11:27 Dose: 20 units Insulin Detemir (Levemir Vial) 22 units SQ BID@0700,2200 [facility] Isosorbide Mononitrate (Imdur -) 30 mg PO DAILY [facility] Last Admin: 08/03/16 09:51 Dose: 30 mg Methylprednisolone Sodium Succinate (Solu-Medrol -) 40 mg IVPB Q6H-IV [facility] Last Admin: 08/03/16 09:51 Dose: 40 mg Polyethylene Glycol (Miralax (For Daily Use) -) 17 gm PO DAILY [facility] Last Admin: 08/03/16 09:53 Dose: 17 gm Sitagliptin Phosphate (Januvia -) 25 mg PO DAILY@0700 [facility] Last Admin: 08/03/16 06:50 Dose: 25 mg - Objective Vital Signs: Vital Signs Temperature 98.7 F 08/03/16 07:58 Pulse Rate 78 08/03/16 11:30 Respiratory Rate 20 08/03/16 08:00 Blood Pressure 147/67 08/03/16 07:58 O2 Sat by Pulse Oximetry (%) 98 08/03/16 11:30 Constitutional: Yes: Calm Eyes: Yes: Conjunctiva Clear HENT: Yes: Atraumatic Neck: Yes: Supple Cardiovascular: Yes: S1, S2 Respiratory: Yes: Diminished, On Nasal O2, Wheezes Gastrointestinal: Yes: Soft, Abdomen, Obese Genitourinary: Yes: Helton Present Musculoskeletal: Yes: Muscle Weakness Edema: Yes Edema: LLE: 1+, RLE: 1+ Neurological: Yes: Oriented Psychiatric: Yes: Oriented Labs: CBC, BMP 08/03/16 06:10 08/03/16 06:10 INR, PTT INR 1.19 (0.82-1.09) H 07/27/16 07:56 Problem List - Problems (1) CKD (chronic kidney disease) Code(s): N18.9 - CHRONIC KIDNEY DISEASE, UNSPECIFIED Qualifiers: Chronic kidney disease stage: unspecified stage Qualified Code(s): N18.9 - Chronic kidney disease, unspecified (2) Pulmonary vascular congestion Code(s): R09.89 - OTH SYMPTOMS AND SIGNS INVOLVING THE CIRC AND RESP SYSTEMS (3) SOB (shortness of breath) on exertion Code(s): R06.02 - SHORTNESS OF BREATH (4) Hypertension Code(s): I10 - ESSENTIAL (PRIMARY) HYPERTENSION (5) Diabetes 1.5, managed as type 1 Code(s): E13.9 - OTHER SPECIFIED DIABETES MELLITUS WITHOUT COMPLICATIONS Assessment/Plan Current Medications Generic Name Dose Route Start Last Admin Trade Name Freq PRN Reason Stop Dose Admin Acetaminophen 650 mg 07/30/16 15:50 02/17/17 11:30 Tylenol - PO 650 mg Q6H PRN Administration FEVER OR PAIN Albuterol/Ipratropium 1 amp 07/30/16 10:41 08/03/16 06:30 Duoneb - NEB 1 amp Q4H PRN Administration SHORTNESS OF BREATH Atorvastatin Calcium 10 mg 07/27/16 22:00 08/02/16 21:27 Lipitor - PO 10 mg HS [facility] Administration Calcitriol 0.5 mcg 07/27/16 18:00 08/03/16 09:53 Rocaltrol - PO 0.5 mcg DAILY [facility] Administration Diltiazem HCl 60 mg 07/29/16 14:00 08/03/16 09:51 Cardizem - PO 60 mg QID [facility] Administration Heparin Sodium (Porcine) 1,000 unit 07/28/16 18:11 08/02/16 10:36 Heparin - IVPUSH 1,000 unit PRN PRN Administration Heparin Heparin Sodium (Porcine) 5,000 unit 07/28/16 18:11 Heparin - IVPUSH PRN PRN Heparin Hydralazine HCl 25 mg 07/27/16 18:30 08/03/16 09:51 Apresoline - PO 25 mg BID [facility] Administration Heparin Sodium (Porcine) 25, 500 mls @ 20 mls/hr 07/28/16 18:15 08/03/16 09:52 000 unit/ Sodium Chloride IV 20 mls/hr TITR [facility] Administration Protocol 1,000 UNIT/HR Insulin Aspart 1 vial 07/31/16 22:00 08/02/16 21:28 Novolog Vial Sliding Scale - SQ 6 units HS [facility] Administration Protocol Insulin Aspart 1 vial 08/03/16 09:00 08/03/16 11:27 Novolog Vial Sliding Scale - SQ 20 units TIDAC [facility] Administration Protocol Insulin Detemir 22 units 08/03/16 22:00 Levemir Vial SQ BID@0700,2200 [facility] Isosorbide Mononitrate 30 mg 07/27/16 18:30 08/03/16 09:51 Imdur - PO 30 mg DAILY [facility] Administration Methylprednisolone Sodium Succinate 40 mg 08/02/16 11:00 08/03/16 09:51 Solu-Medrol - IVPB 40 mg Q6H-IV [facility] Administration Polyethylene Glycol 17 gm 07/29/16 15:15 08/03/16 09:53 Miralax (For Daily Use) - PO 17 gm DAILY [facility] Administration Sitagliptin Phosphate 25 mg 07/27/16 18:00 08/03/16 06:50 Januvia - PO 25 mg DAILY@0700 [facility] Administration Laboratory Tests 08/01/16 13:02 KRISTEN Screen Negative Double Strand DNA Ab <1 Glomerular Base Memb Ab Pending Hep Bs Antigen Negative Hep Bs Antibody Reactive Hep B Core Total Ab Negative Impression 1. CKD 2. HTN 3. DM 4. dyspnea 5. hyperlipidemia 6. anemia 7. hyponatremia 8. pulmonary htn Plan - pt tolerated and responded to dose of lasix yesterday - will give another dose today - repeat labs in am - creatinine is starting to improve - elevated steroids in part from steroids - re-evaluate for HD in am - hyponatremia workup in progress - renal workup is in progress - will order repeat cxr for am - repeat labs in am - will follow Dr Fleming
[2016-08-03] MEDS ORDERED: FUROSEMIDE 100 MG/10 ML INJECTABLE VIAL IVPB ONE ×2 (13:01→20:00)
[2016-08-03] MEDS ORDERED: ONDANSETRON 4 MG/2 ML VIAL IVPUSH PRN (18:45)
[2016-08-03] MEDS: ATORVASTATIN CA 10 MG TABLET (FP) PO SCH (22:25)
[2016-08-04] MEDS: methylPREDNISolone NA SUCC 40 MG/1 ML VIAL IVPB SCH ×3 (01:32→17:34)
[2016-08-04] MEDS: INSULIN DETEMIR 100 UNITS/ML MDV SQ SCH (06:21)
[2016-08-04] MEDS: INSULIN SLIDING SCALE (NOVOLOG) 1 VIAL SQ SCH ×6 (06:21→22:40)
[2016-08-04] MEDS: sitaGLIPtin PHOSPHATE 25 MG TABLET (FP) PO SCH (06:23)
[2016-08-04] MEDS: ACETAMINOPHEN 325 MG TABLET (FP) PO PRN (06:26)
[2016-08-04] MEDS: HEPARIN - 25,000 UNIT in SODIUM CHLORIDE 495 ML IV SCH (08:58)
[2016-08-04] MEDS: dilTIAZem HCL 60 MG TABLET (FP) PO SCH ×4 (09:00→22:40)
[2016-08-04] MEDS: ISOSORBIDE MONONITRATE 30 MG TAB.SR.24H (FP) PO SCH (09:00)
[2016-08-04] MEDS: hydrALAZINE HCL 25 MG TABLET (FP) PO SCH ×2 (09:00→22:40)
[2016-08-04] MEDS: POLYETHYLENE GLYCOL 3350 119 GM BTL PO SCH (09:01)
[2016-08-04] MEDS: CALCITRIOL 0.25 MCG CAPSULE (FP) PO SCH (09:01)
--- NOTE | 2016-08-04 10:06 | PN ---
Progress Note, Physician History of Present Illness: seen and examined today in nad. daughter at bedside. no overnight events. no new complaints. - Current Medication List Current Medications: Active Medications Acetaminophen (Tylenol -) 650 mg PO Q6H PRN PRN Reason: FEVER OR PAIN Last Admin: 08/04/16 06:26 Dose: 650 mg Albuterol/Ipratropium (Duoneb -) 1 amp NEB Q4H PRN PRN Reason: SHORTNESS OF BREATH Last Admin: 08/03/16 06:30 Dose: 1 amp Atorvastatin Calcium (Lipitor -) 10 mg PO HS [facility] Last Admin: 08/03/16 22:25 Dose: 10 mg Calcitriol (Rocaltrol -) 0.5 mcg PO DAILY [facility] Last Admin: 08/04/16 09:01 Dose: 0.5 mcg Diltiazem HCl (Cardizem -) 60 mg PO QID [facility] Last Admin: 08/04/16 09:00 Dose: 60 mg Heparin Sodium (Porcine) (Heparin -) 1,000 unit IVPUSH PRN PRN PRN Reason: Heparin Last Admin: 08/02/16 10:36 Dose: 1,000 unit Heparin Sodium (Porcine) (Heparin -) 5,000 unit IVPUSH PRN PRN PRN Reason: Heparin Hydralazine HCl (Apresoline -) 25 mg PO BID [facility] Last Admin: 08/04/16 09:00 Dose: 25 mg Heparin Sodium (Porcine) 25, (000 unit/ Sodium Chloride) 500 mls @ 20 mls/hr IV TITR [facility]; 1,000 UNIT/HR PRN Reason: Protocol Last Admin: 08/04/16 08:58 Dose: 20 mls/hr Insulin Aspart (Novolog Vial Sliding Scale -) 1 vial SQ HS [facility] PRN Reason: Protocol Last Admin: 08/03/16 22:26 Dose: 4 units Insulin Aspart (Novolog Vial Sliding Scale -) 1 vial SQ TIDAC [facility] PRN Reason: Protocol Last Admin: 08/04/16 06:21 Dose: 8 units Insulin Detemir (Levemir Vial) 22 units SQ BID@0700,2200 [facility] Last Admin: 08/04/16 06:21 Dose: 22 units Isosorbide Mononitrate (Imdur -) 30 mg PO DAILY [facility] Last Admin: 08/04/16 09:00 Dose: 30 mg Methylprednisolone Sodium Succinate (Solu-Medrol -) 40 mg IVPB Q8H-IV [facility] Last Admin: 08/04/16 09:00 Dose: 40 mg Ondansetron HCl (Zofran Injection) 4 mg IVPUSH Q4H PRN PRN Reason: NAUSEA AND/OR VOMITING Polyethylene Glycol (Miralax (For Daily Use) -) 17 gm PO DAILY [facility] Last Admin: 08/04/16 09:01 Dose: Not Given Sitagliptin Phosphate (Januvia -) 25 mg PO DAILY@0700 [facility] Last Admin: 08/04/16 06:23 Dose: 25 mg - Objective Vital Signs: Vital Signs Temperature 98 F 08/04/16 08:57 Pulse Rate 106 H 08/04/16 08:57 Respiratory Rate 22 08/04/16 08:57 Blood Pressure 148/75 08/04/16 08:57 O2 Sat by Pulse Oximetry (%) 96 08/04/16 06:00 Constitutional: Yes: No Distress, Calm, Obese Eyes: Yes: WNL, Conjunctiva Clear, EOM Intact, PERRL HENT: Yes: WNL, Atraumatic, Normocephalic Neck: Yes: WNL, Supple, Trachea Midline Cardiovascular: Yes: Pulse Irregular, S1, S2. No: Bradycardia, Tachycardia, Bruit, JVD, Gallop, Murmur, Rub, S3, S4, Varicosities Respiratory: Yes: Regular, Diminished, On Nasal O2, Rales, SOB. No: Rhonchi, Wheezes Gastrointestinal: Yes: WNL, Normal Bowel Sounds, Soft. No: Distention, Tenderness Musculoskeletal: Yes: WNL Extremities: Yes: WNL Edema: Yes Edema: LLE: 2+, RLE: 2+ Peripheral Pulses WNL: Yes Peripheral Pulses: Left Doralis Pedis: 2+, Right Dorsalis Pedis: 2+ Integumentary: Yes: WNL Neurological: Yes: Alert, Oriented Psychiatric: Yes: Alert, Oriented Labs: CBC, BMP 08/03/16 06:10 08/03/16 06:10 INR, PTT INR 1.19 (0.82-1.09) H 07/27/16 07:56 - ....Imaging Chest X-ray: Report Reviewed, Image Reviewed EKG: Report Reviewed, Image Reviewed Other: Report Reviewed, Image Reviewed (tele-nsr, pafib HR controlled, apcs) Assessment/Plan 86 year old woman with a history of HTN, HLD, DMII, CKD, admitted with sob, cough, orthopnea, LE edema. SOB-acute on chronic diastolic CHF in setting of CKD -stress test 2 months ago reportedly showed no ischemia -echo showed normal LV systolic function, mod-sev Pulm HTN -pt and family reluctant to start HD -appears to be responding to diuretics with good urine output -would cont diuresis with IV Lasix if ok with nephrology -monitor strict I/Os and daily weights, monitor labs closely Atrial fibrillation-paroxysmal, HR controlled -cont cardizem -cont heparin gtt until decision made on if she will need procedures, if none then can transition to oral AC HTN-above goal but adequate for now -cont current medical regimen for now with plan to uptitrate as needed
--- NOTE | 2016-08-04 11:06 | PN ---
Progress Note, Physician Chief Complaint: Renal F/U Pt c/o abdominal discomfort and had some nausea and vomiting yesterday Lipase > 2K and Amylase only 230 with SAIDA Last Cr slightly better with increased Na as of yesterday BUN rising on the steroids and lasix Abd/Pelvic Ct Scan pancreas was not inflammed Alk Phos not elevated yesterday - Current Medication List Current Medications: Active Medications Acetaminophen (Tylenol -) 650 mg PO Q6H PRN PRN Reason: FEVER OR PAIN Last Admin: 08/04/16 06:26 Dose: 650 mg Atorvastatin Calcium (Lipitor -) 10 mg PO HS [facility] Last Admin: 08/03/16 22:25 Dose: 10 mg Calcitriol (Rocaltrol -) 0.5 mcg PO DAILY [facility] Last Admin: 08/04/16 09:01 Dose: 0.5 mcg Diltiazem HCl (Cardizem -) 60 mg PO QID [facility] Last Admin: 08/04/16 09:00 Dose: 60 mg Heparin Sodium (Porcine) (Heparin -) 1,000 unit IVPUSH PRN PRN PRN Reason: Heparin Last Admin: 08/02/16 10:36 Dose: 1,000 unit Heparin Sodium (Porcine) (Heparin -) 5,000 unit IVPUSH PRN PRN PRN Reason: Heparin Hydralazine HCl (Apresoline -) 25 mg PO BID [facility] Last Admin: 08/04/16 09:00 Dose: 25 mg Heparin Sodium (Porcine) 25, (000 unit/ Sodium Chloride) 500 mls @ 20 mls/hr IV TITR [facility]; 1,000 UNIT/HR PRN Reason: Protocol Last Admin: 08/04/16 08:58 Dose: 20 mls/hr Insulin Aspart (Novolog Vial Sliding Scale -) 1 vial SQ HS [facility] PRN Reason: Protocol Last Admin: 08/03/16 22:26 Dose: 4 units Insulin Aspart (Novolog Vial Sliding Scale -) 1 vial SQ TIDAC [facility] PRN Reason: Protocol Last Admin: 08/04/16 06:21 Dose: 8 units Insulin Detemir (Levemir Vial) 22 units SQ BID@0700,2200 [facility] Last Admin: 08/04/16 06:21 Dose: 22 units Isosorbide Mononitrate (Imdur -) 30 mg PO DAILY [facility] Last Admin: 08/04/16 09:00 Dose: 30 mg Methylprednisolone Sodium Succinate (Solu-Medrol -) 40 mg IVPB Q8H-IV [facility] Last Admin: 08/04/16 09:00 Dose: 40 mg Ondansetron HCl (Zofran Injection) 4 mg IVPUSH Q4H PRN PRN Reason: NAUSEA AND/OR VOMITING Polyethylene Glycol (Miralax (For Daily Use) -) 17 gm PO DAILY [facility] Last Admin: 08/04/16 09:01 Dose: Not Given Sitagliptin Phosphate (Januvia -) 25 mg PO DAILY@0700 [facility] Last Admin: 08/04/16 06:23 Dose: 25 mg - Objective Vital Signs: Vital Signs Temperature 98 F 08/04/16 08:57 Pulse Rate 106 H 08/04/16 08:57 Respiratory Rate 22 08/04/16 08:57 Blood Pressure 148/75 08/04/16 08:57 O2 Sat by Pulse Oximetry (%) 96 08/04/16 08:00 Constitutional: Yes: Mild Distress Cardiovascular: Yes: JVD, S1, S2. No: Murmur, Rub Respiratory: Yes: Other (Decreased BS at the bases) Gastrointestinal: Yes: Soft, Distention, Tenderness, Other (No rebound) Genitourinary: Yes: Helton Present Edema: LLE: 3+, RLE: 3+ Neurological: Yes: Alert Labs: CBC, BMP 08/03/16 06:10 INR, PTT INR 1.19 (0.82-1.09) H 07/27/16 07:56 Laboratory Tests 08/03/16 08/04/16 06:10 05:45 Sodium 128 L Potassium 5.0 Chloride 91 L Carbon Dioxide 19 L BUN 97 H Creatinine 5.1 H Creat Clearance w eGFR 8.06 Random Glucose 300 H D Calcium 7.7 L AST 34 ALT 56 D Alkaline Phosphatase 85 Total Protein 7.1 Albumin 3.5 Total Amylase 230 H Lipase 2448 H Assessment/Plan Impression Fluid overload in pt with HFpEF, Moderate PHTN, NS with Acute on CKD Pancreatitis Hyponatremia improving with diuresis Hypermagnesemia HTN DM A Fib on Heparin Hyperlipidemia Anemia Plan Lasix 80 mgs IV x1 now and again in 6 hours to reduce fluid overload and magnesium Abdominal sonogram- To check bilary tree - I had radiology review yesterday's CT Scan and pancreas and biliary tree was neg for gall stone, CBD dilatation or pancreatic swelling. Discussed with GI and to continue with clear liquids as tolerated for now Discussed with family members(Sons, Dtr, Son in law and 2 Granchildren one of which is in the medical field) and they are aware of the plan To hold on dialysis at this time Dr Ayala
[2016-08-04 11:07] LABS: CALCIUM 8.2 mg/dL (8.5-10.1); CREATININE 4.5 mg/dL (0.55-1.02); MAGNESIUM 2.7 mg/dL (1.8-2.4)
--- NOTE | 2016-08-04 11:25 | PN ---
Progress Note (short form) - Note Progress Note: PULMONARY AWAKE/ABD PAIN COUGH/SOB IMPROVED W SOLUMEDROL OOB TO CHAIR/ VSS/AFEBRILE ANICTERIC DIMINSHED BREATH SOUNDS BILATERALLY S1S2 OBESE EDEMA LOWER EXT LABS/MEDS/NOTES/IMAGING/MICRO REVIEWED IMP DECOMPENSATED DIASTOLIC CHF PUL HTN ACUTE ON CHRONIC KIDNEY DISEASE IMPROVING W LASIX ELEVATED LIPASE ETIOLOGY TO BE DETERMINED HYPONATREMIA IMPROVING DM POORLY CONTROLLED(STEROIDS) HTN AFIB PLAN IV LASIX PER RENAL INHALED BRONCHODILATORS/STEROIDS SUPPLEMENTAL O2 MONITOR RENAL FUNCTION ANTICOAGULATION RATE CONTROL DAILY [facility] HD ON HOLD FOR NOW CLOSE MONITORING ON TELE John WEST MD
[2016-08-04] MEDS ORDERED: FUROSEMIDE 40 MG/4 ML INJECTABLE VIAL IVPB ONE (11:37)
[2016-08-04] MEDS ORDERED: ALBUTEROL SO4 0.083% IH SOL 2.5 MG/3 ML VIAL.NEB. NEB ONE (11:42)
--- NOTE | 2016-08-04 12:16 | PN ---
Progress Note (short form) - Note Progress Note: Still SOB. No wheezing C/O abd pain No NV BGM better today No hypos Apetite very poor Moved Bowels today Vital Signs Period Temp Pulse Resp BP Sys/Clayton Pulse Ox Last 24 Hr 97.3 F-98 F 68-106 18-22 138-156/56-75 96-97 PE: AOX3 Neck: Supple, No JVD HEENT: PERRL, EOMI Lungs: CTA CVS: S1S2 Abd: Benign, +BS Ext: 1+Edema Neuro: No focal deficit CMP Sodium 130 mmol/L (136-145) L 08/04/16 05:45 Potassium 3.8 mmol/L (3.5-5.1) D 08/04/16 05:45 Chloride 90 mmol/L (98-107) L 08/04/16 05:45 Carbon Dioxide 24 mmol/L (21-32) D 08/04/16 05:45 Anion Gap 16 (8-16) 08/04/16 05:45 BUN 101 mg/dL (7-18) H 08/04/16 05:45 Creatinine 4.5 mg/dL (0.55-1.02) H 08/04/16 05:45 Creat Clearance w eGFR 8.06 (>60) 08/03/16 06:10 POC Glucometer 208 UNITS (()) 08/04/16 11:25 Random Glucose 175 mg/dL (74-106) H D 08/04/16 05:45 Calcium 8.2 mg/dL (8.5-10.1) L 08/04/16 05:45 Phosphorus 4.7 mg/dL (2.5-4.9) 07/27/16 07:56 Magnesium 2.7 mg/dL (1.8-2.4) H D 08/04/16 05:45 Total Bilirubin 0.5 mg/dL (0.2-1.0) D 08/03/16 06:10 AST 34 U/L (15-37) 08/03/16 06:10 ALT 56 U/L (12-78) D 08/03/16 06:10 Alkaline Phosphatase 85 U/L (45-117) 08/03/16 06:10 Creatine Kinase 143 IU/L (26-192) 07/28/16 06:00 CK-MB (CK-2) 3.794 ng/ml (0.5-3.6) H 07/27/16 18:55 Troponin I < 0.02 ng/ml (0.00-0.05) 07/28/16 06:00 B-Natriuretic Peptide 1614.88 pg/ml (5-450) H 07/27/16 07:56 Prot Electrophoresis (.) 08/01/16 13:02 Serum Total Protein 6.9 g/dL (6.0-8.5) 08/01/16 13:02 Total Protein 7.1 g/dl (6.4-8.2) 08/03/16 06:10 Albumin 3.5 g/dl (3.4-5.0) 08/03/16 06:10 Globulin 3.6 g/dL (2.2-3.9) 08/01/16 13:02 Albumin/Globulin Ratio 0.9 (0.7-1.7) 08/01/16 13:02 Nblbb-0-Ekhawncpk 0.3 gm/dL (0.0-0.4) 08/01/16 13:02 Liopn-4-Ajipqotxg 1.1 gm/dL (0.4-1.0) H 08/01/16 13:02 Beta Globulins 1.0 gm/dL (0.7-1.3) 08/01/16 13:02 Gamma Globulins 1.2 gm/dL (0.4-1.8) 08/01/16 13:02 Total Amylase 230 U/L (25-115) H 08/04/16 05:45 Lipase 2448 U/L (73-393) H 08/04/16 05:45 TSH 3.03 uIU/ml (0.358-3.74) 07/27/16 18:55 Current Medications Generic Name Dose Route Start Last Admin Trade Name Freq PRN Reason Stop Dose Admin Acetaminophen 650 mg 07/30/16 15:50 08/04/16 06:26 Tylenol - PO 650 mg Q6H PRN Administration FEVER OR PAIN Atorvastatin Calcium 10 mg 07/27/16 22:00 08/03/16 22:25 Lipitor - PO 10 mg HS [facility] Administration Calcitriol 0.5 mcg 07/27/16 18:00 08/04/16 09:01 Rocaltrol - PO 0.5 mcg DAILY [facility] Administration Diltiazem HCl 60 mg 07/29/16 14:00 08/04/16 09:00 Cardizem - PO 60 mg QID [facility] Administration Heparin Sodium (Porcine) 1,000 unit 07/28/16 18:11 08/02/16 10:36 Heparin - IVPUSH 1,000 unit PRN PRN Administration Heparin Heparin Sodium (Porcine) 5,000 unit 07/28/16 18:11 Heparin - IVPUSH PRN PRN Heparin Hydralazine HCl 25 mg 07/27/16 18:30 08/04/16 09:00 Apresoline - PO 25 mg BID [facility] Administration Heparin Sodium (Porcine) 25, 500 mls @ 20 mls/hr 07/28/16 18:15 08/04/16 08:58 000 unit/ Sodium Chloride IV 20 mls/hr TITR [facility] Administration Protocol 1,000 UNIT/HR Insulin Aspart 1 vial 07/31/16 22:00 08/03/16 22:26 Novolog Vial Sliding Scale - SQ 4 units HS [facility] Administration Protocol Insulin Aspart 1 vial 08/03/16 09:00 08/04/16 11:28 Novolog Vial Sliding Scale - SQ 12 units TIDAC [facility] Administration Protocol Insulin Detemir 22 units 08/03/16 22:00 08/04/16 06:21 Levemir Vial SQ 22 units BID@0700,2200 [facility] Administration Isosorbide Mononitrate 30 mg 07/27/16 18:30 08/04/16 09:00 Imdur - PO 30 mg DAILY [facility] Administration Methylprednisolone Sodium Succinate 40 mg 08/03/16 13:15 08/04/16 09:00 Solu-Medrol - IVPB 40 mg Q8H-IV [facility] Administration Ondansetron HCl 4 mg 08/03/16 18:45 Zofran Injection IVPUSH Q4H PRN NAUSEA AND/OR VOMITING Polyethylene Glycol 17 gm 07/29/16 15:15 08/04/16 09:01 Miralax (For Daily Use) - PO Not Given DAILY [facility] AP: DM: uncontrolled but improving On Methylprednisolone 40 Q8 hrs Monitor BGM Q4 hrs D/C Levemir 22 BID Novolog Coverage Q4hrs Will F/U Elevated lipase and Amylase with normal Pancreas on CT ?Pancreatitis Pt has multiple possible reasons for elevated Lipase including renal failure and use of Januvia, Methylprednosolone and Furosemide. Will D/C Januvia for now. CHF Acute on Chronic renal insufficiency HTN HLD Problem List - Problems (1) CKD (chronic kidney disease) Code(s): N18.9 - CHRONIC KIDNEY DISEASE, UNSPECIFIED Qualifiers: Chronic kidney disease stage: unspecified stage Qualified Code(s): N18.9 - Chronic kidney disease, unspecified (2) Hypertension Code(s): I10 - ESSENTIAL (PRIMARY) HYPERTENSION (3) SOB (shortness of breath) on exertion Code(s): R06.02 - SHORTNESS OF BREATH
--- NOTE | 2016-08-04 12:24 | PN ---
Progress Note, Physician Chief Complaint: Pt seen and examined SOB present,cough present chest x farrar report noted Worsening renal function Pt is on IV heparin abdominal distention present,lack of appetite Cardiology,RENAl,pul GI note appreciated Elevated Lipase level Ct abdomen and pelvis no evidence of Pancreatitis,bilateral ple effusion, mesentric edema,no acute pathology in abdomen Januvia on hold - Current Medication List Current Medications: Active Medications Acetaminophen (Tylenol -) 650 mg PO Q6H PRN PRN Reason: FEVER OR PAIN Last Admin: 08/04/16 06:26 Dose: 650 mg Atorvastatin Calcium (Lipitor -) 10 mg PO HS [facility] Last Admin: 08/03/16 22:25 Dose: 10 mg Calcitriol (Rocaltrol -) 0.5 mcg PO DAILY [facility] Last Admin: 08/04/16 09:01 Dose: 0.5 mcg Diltiazem HCl (Cardizem -) 60 mg PO QID [facility] Last Admin: 08/04/16 09:00 Dose: 60 mg Heparin Sodium (Porcine) (Heparin -) 1,000 unit IVPUSH PRN PRN PRN Reason: Heparin Last Admin: 08/02/16 10:36 Dose: 1,000 unit Heparin Sodium (Porcine) (Heparin -) 5,000 unit IVPUSH PRN PRN PRN Reason: Heparin Hydralazine HCl (Apresoline -) 25 mg PO BID [facility] Last Admin: 08/04/16 09:00 Dose: 25 mg Heparin Sodium (Porcine) 25, (000 unit/ Sodium Chloride) 500 mls @ 20 mls/hr IV TITR [facility]; 1,000 UNIT/HR PRN Reason: Protocol Last Admin: 08/04/16 08:58 Dose: 20 mls/hr Insulin Aspart (Novolog Vial Sliding Scale -) 1 vial SQ HS [facility] PRN Reason: Protocol Last Admin: 08/03/16 22:26 Dose: 4 units Insulin Aspart (Novolog Vial Sliding Scale -) 1 vial SQ TIDAC [facility] PRN Reason: Protocol Last Admin: 08/04/16 11:28 Dose: 12 units Insulin Detemir (Levemir Vial) 22 units SQ BID@0700,2200 [facility] Last Admin: 08/04/16 06:21 Dose: 22 units Isosorbide Mononitrate (Imdur -) 30 mg PO DAILY [facility] Last Admin: 08/04/16 09:00 Dose: 30 mg Methylprednisolone Sodium Succinate (Solu-Medrol -) 40 mg IVPB Q8H-IV [facility] Last Admin: 08/04/16 09:00 Dose: 40 mg Ondansetron HCl (Zofran Injection) 4 mg IVPUSH Q4H PRN PRN Reason: NAUSEA AND/OR VOMITING Polyethylene Glycol (Miralax (For Daily Use) -) 17 gm PO DAILY [facility] Last Admin: 08/04/16 09:01 Dose: Not Given - Objective Vital Signs: Vital Signs Temperature 98 F 08/04/16 08:57 Pulse Rate 106 H 08/04/16 08:57 Respiratory Rate 22 08/04/16 08:57 Blood Pressure 148/75 08/04/16 08:57 O2 Sat by Pulse Oximetry (%) 96 08/04/16 08:00 Eyes: Yes: Conjunctiva Clear HENT: Yes: Atraumatic, Normocephalic Neck: Yes: Supple Cardiovascular: Yes: Regular Rate and Rhythm, Bradycardia, Pulse Irregular Respiratory: Yes: Diminished, Other (lung base) Gastrointestinal: Yes: Abdomen, Obese Edema: No Peripheral Pulses WNL: Yes Neurological: Yes: Alert Labs: CBC, BMP 08/03/16 06:10 08/04/16 05:45 INR, PTT INR 1.19 (0.82-1.09) H 07/27/16 07:56 Laboratory Results - last 24 hr 08/01/16 08/03/16 08/03/16 13:02 17:26 21:13 PTT (Actin FS) Sodium Potassium Chloride Carbon Dioxide Anion Gap BUN Creatinine POC Glucometer 302 206 Random Glucose Calcium Magnesium Total Amylase Lipase Glomerular Base Memb Ab 3 08/04/16 08/04/16 08/04/16 05:45 05:45 06:17 PTT (Actin FS) 70.9 H Sodium 130 L Potassium 3.8 D Chloride 90 L Carbon Dioxide 24 D Anion Gap 16 BUN 101 H Creatinine 4.5 H POC Glucometer 185 Random Glucose 175 H D Calcium 8.2 L Magnesium 2.7 H D Total Amylase 230 H Lipase 2448 H Glomerular Base Memb Ab 08/04/16 11:25 PTT (Actin FS) Sodium Potassium Chloride Carbon Dioxide Anion Gap BUN Creatinine POC Glucometer 208 Random Glucose Calcium Magnesium Total Amylase Lipase Glomerular Base Memb Ab - ....Imaging Chest X-ray: Report Reviewed Cat Scan: Report Reviewed Assessment/Plan Acute on chronic ckd PAF abdominal distention elevated lipase r/o pancreatitis SOB/acute on chronic CHF HTN,Hypercholestrolemia Pulmonary vascular congestion DM PLAN Continue bronchodialators Continue BP medications Monitor BUN/creatinine Monitor sugar Will f/u cardiology and renal ,endocrine,pul rec regarding Medication Heparin as per protocol corey on hold
[2016-08-04 12:37] LABS: ALLENS TEST POSITIVE; ART PUNCT SITE RIGHT RADIAL; ARTERIAL BLD GAS O2 SATURATION 93.9 % (90-98.9); ARTERIAL BLOOD GAS BASE EXCESS 0.2 meq/l (-2-2); ARTERIAL BLOOD GAS HCO3 23.9 meq/L (22-26); ARTERIAL BLOOD GAS PO2 70.6 mmHg (68-100); ARTERIAL BLOOD GAS pH 7.43 (7.35-7.45); LPM/O2% 2L; PT. ON O2? YES; TYPE OF O2 NASAL
--- NOTE | 2016-08-04 15:06 | PN ---
GI Progress Note Subjective: Events from yesterday noted. patient had abdominal pain and vomited yesterday Currently improved abdominal pain Continued cough and labored breathing - Objective Vital Signs: Vital Signs Temperature 98 F 08/04/16 08:57 Pulse Rate 106 H 08/04/16 08:57 Respiratory Rate 22 08/04/16 08:57 Blood Pressure 148/75 08/04/16 08:57 O2 Sat by Pulse Oximetry (%) 96 08/04/16 08:00 Constitutional: Calm Cardiovascular: Yes: Regular Rate and Rhythm Respiratory: Yes: Diminished (at bases b/l), Rhonchi Gastrointestinal Inspection: Yes: Other (protuberant abdomen). No: Distention ...Auscultate: Yes: Normoactive Bowel Sounds ...Palpate: Yes: Tenderness (very mild TTP mid abdomen). No: Guarding, Tenderness, Rebound ...Percussion: No: Tympanitic Labs: CBC, BMP 08/03/16 06:10 08/04/16 05:45 INR, PTT INR 1.19 (0.82-1.09) H 07/27/16 07:56 Laboratory Tests 08/04/16 05:45 Total Amylase 230 H Lipase 2448 H Hepatic Panel Total Bilirubin 0.5 mg/dL (0.2-1.0) D 08/03/16 06:10 AST 34 U/L (15-37) 08/03/16 06:10 ALT 56 U/L (12-78) D 08/03/16 06:10 Alkaline Phosphatase 85 U/L (45-117) 08/03/16 06:10 Albumin 3.5 g/dl (3.4-5.0) 08/03/16 06:10 - ....Imaging Cat Scan: Report Reviewed, Image Reviewed Problem List - Problems (1) Lack of appetite Assessment/Plan: Abdominal pain seems improved when compared to previous ? mild pancreatitis: Janivia has been discontinued Repeat abdominal US ordered. LFT's from yesterday not reflective of obstructive pattern Repeat amylase / lipase in Clear liquids for now. Seems to be toleraitng this MiraLAX 17g once daily Ranitidine 75mg once daily Code(s): R63.0 - ANOREXIA
[2016-08-04] MEDS ORDERED: FUROSEMIDE 40 MG/4 ML INJECTABLE VIAL IVPUSH ONE (18:30)
[2016-08-04] MEDS: ATORVASTATIN CA 10 MG TABLET (FP) PO SCH (22:40)
[2016-08-05] MEDS: INSULIN SLIDING SCALE (NOVOLOG) 1 VIAL SQ SCH ×6 (03:21→21:38)
[2016-08-05] MEDS: methylPREDNISolone NA SUCC 40 MG/1 ML VIAL IVPB SCH ×3 (03:22→19:02)
[2016-08-05 08:28] LABS: MCH 27.6 pg (25.7-33.7); MCHC 33.6 g/dl (32.0-36.0); MEAN CELL VOLUME 82.3 fl (80-96); MEAN PLT VOLUME 8.5 fl (7.5-11.1); PLATELET COUNT 246 K/MM3 (134-434); RDW 13.3 % (11.6-15.6); WHITE BLOOD COUNT 21.6 K/mm3 (4.0-10.0)
[2016-08-05 09:34] LABS: CREATININE 4.2 mg/dL (0.55-1.02); MAGNESIUM 2.5 mg/dL (1.8-2.4); PHOSPHOROUS 7.4 mg/dL (2.5-4.9)
[2016-08-05 09:38] LABS: BILIRUBIN,TOTAL 0.4 mg/dL (0.2-1.0); TOT PROT 5.9 g/dl (6.4-8.2)
--- NOTE | 2016-08-05 10:13 | PN ---
Progress Note, Physician History of Present Illness: seen and examined today in [facility]. no overnight events. no new complaints. - Current Medication List Current Medications: Active Medications Acetaminophen (Tylenol -) 650 mg PO Q6H PRN PRN Reason: FEVER OR PAIN Last Admin: 08/04/16 06:26 Dose: 650 mg Albuterol/Ipratropium (Duoneb -) 1 amp NEB Q4H PRN PRN Reason: SHORTNESS OF BREATH Atorvastatin Calcium (Lipitor -) 10 mg PO HS [facility] Last Admin: 08/04/16 22:40 Dose: 10 mg Calcitriol (Rocaltrol -) 0.5 mcg PO DAILY [facility] Last Admin: 08/04/16 09:01 Dose: 0.5 mcg Diltiazem HCl (Cardizem -) 60 mg PO QID [facility] Last Admin: 08/04/16 22:40 Dose: 60 mg Hydralazine HCl (Apresoline -) 25 mg PO BID [facility] Last Admin: 08/04/16 22:40 Dose: 25 mg Insulin Aspart (Novolog Vial Sliding Scale -) 1 vial SQ Q4HPO [facility] PRN Reason: Protocol Last Admin: 08/05/16 06:36 Dose: 6 units Isosorbide Mononitrate (Imdur -) 30 mg PO DAILY [facility] Last Admin: 08/04/16 09:00 Dose: 30 mg Methylprednisolone Sodium Succinate (Solu-Medrol -) 40 mg IVPB Q8H-IV [facility] Last Admin: 08/05/16 03:22 Dose: 40 mg Ondansetron HCl (Zofran Injection) 4 mg IVPUSH Q4H PRN PRN Reason: NAUSEA AND/OR VOMITING Polyethylene Glycol (Miralax (For Daily Use) -) 17 gm PO DAILY [facility] Last Admin: 08/04/16 09:01 Dose: Not Given Ranitidine HCl (Zantac -) 75 mg PO DAILY [facility] - Objective Vital Signs: Vital Signs Temperature 97.8 F 08/05/16 01:55 Pulse Rate 94 H 08/05/16 08:42 Respiratory Rate 20 08/05/16 08:42 Blood Pressure 152/64 08/05/16 08:42 O2 Sat by Pulse Oximetry (%) 96 08/04/16 20:48 Constitutional: Yes: No Distress, Calm, Obese Eyes: Yes: WNL, Conjunctiva Clear, EOM Intact, PERRL HENT: Yes: WNL, Atraumatic, Normocephalic Neck: Yes: WNL, Supple, Trachea Midline Cardiovascular: Yes: Pulse Irregular, S1, S2. No: Bradycardia, Tachycardia, Bruit, JVD, Gallop, Murmur, Rub, S3, S4, Varicosities Respiratory: Yes: Regular, Diminished, On Nasal O2, Rales, Rhonchi. No: SOB, Wheezes Gastrointestinal: Yes: WNL, Normal Bowel Sounds, Soft. No: Distention, Tenderness Extremities: Yes: WNL Edema: Yes Edema: LLE: 1+, RLE: 1+ Peripheral Pulses WNL: Yes Peripheral Pulses: Left Doralis Pedis: 2+, Right Dorsalis Pedis: 2+ Integumentary: Yes: WNL Neurological: Yes: Alert, Oriented Psychiatric: Yes: Alert, Oriented Labs: CBC, BMP 08/05/16 05:45 08/05/16 05:45 INR, PTT INR 1.19 (0.82-1.09) H 07/27/16 07:56 - ....Imaging Chest X-ray: Report Reviewed, Image Reviewed EKG: Report Reviewed, Image Reviewed Other: Report Reviewed, Image Reviewed (tele-afib HR controlled) Assessment/Plan 86 year old woman with a history of HTN, HLD, DMII, CKD, admitted with sob, cough, orthopnea, LE edema. SOB-acute on chronic diastolic CHF in setting of CKD -stress test 2 months ago reportedly showed no ischemia -echo showed normal LV systolic function, mod-sev Pulm HTN -continues to respond to diuretics with good urine output -bun rising but creatinine trending down, elevated bun in part due to steroids -given additional Lasix yesterday, monitor urine output this am and will likely benefit from additional lasix today -monitor strict I/Os and daily weights, monitor labs closely Atrial fibrillation-paroxysmal, HR controlled -cont cardizem -cont heparin gtt until decision made on if she will need procedures, if none then can transition to oral AC HTN-slightly above goal at times but overall adequate for now -cont current medical regimen for now with plan to uptitrate as needed
[2016-08-05] MEDS: hydrALAZINE HCL 25 MG TABLET (FP) PO SCH ×2 (11:07→21:31)
[2016-08-05] MEDS: dilTIAZem HCL 60 MG TABLET (FP) PO SCH ×4 (11:08→21:31)
[2016-08-05] MEDS: RANITIDINE HCL 150 MG TABLET (FP) PO SCH (11:08)
[2016-08-05] MEDS: ISOSORBIDE MONONITRATE 30 MG TAB.SR.24H (FP) PO SCH (11:08)
[2016-08-05] MEDS: CALCITRIOL 0.25 MCG CAPSULE (FP) PO SCH (11:11)
[2016-08-05] MEDS: POLYETHYLENE GLYCOL 3350 119 GM BTL PO SCH (11:22)
[2016-08-05] MEDS: ALBUTEROL SO4 2.5/IPRATROPIUM 0.5 INH SOL 3 ML VIAL.NEB. NEB PRN (11:45)
--- NOTE | 2016-08-05 12:06 | PN ---
Progress Note (short form) - Note Progress Note: Feels better Less abd pain No vomiting Tolerating liquid diet BGMimproving Vital Signs Period Temp Pulse Resp BP Sys/[place] Pulse Ox Last 24 Hr 97.3 F-99 F 83-96 18-20 121-152/60-74 96 PE: AOX3 Neck: Supple, No JVD HEENT: PERRL, EOMI Lungs: CTA CVS: S1S2 Abd: Benign, +BS Mild LLQ and epigastric tenderness Ext: 1+Edema Neuro: No focal deficit CMP Sodium 132 mmol/L (136-145) L 08/05/16 05:45 Potassium 3.3 mmol/L (3.5-5.1) L 08/05/16 05:45 Chloride 90 mmol/L (98-107) L 08/05/16 05:45 Carbon Dioxide 25 mmol/L (21-32) 08/05/16 05:45 Anion Gap 17 (8-16) H 08/05/16 05:45 BUN 104 mg/dL (7-18) H 08/05/16 05:45 Creatinine 4.2 mg/dL (0.55-1.02) H 08/05/16 05:45 Creat Clearance w eGFR 10.08 (>60) 08/05/16 05:45 POC Glucometer 285 UNITS (()) 08/05/16 11:33 Random Glucose 186 mg/dL (74-106) H 08/05/16 05:45 Calcium 8.0 mg/dL (8.5-10.1) L 08/05/16 05:45 Phosphorus 7.4 mg/dL (2.5-4.9) H D 08/05/16 05:45 Magnesium 2.5 mg/dL (1.8-2.4) H 08/05/16 05:45 Total Bilirubin 0.4 mg/dL (0.2-1.0) 08/05/16 05:45 AST 19 U/L (15-37) D 08/05/16 05:45 ALT 53 U/L (12-78) 08/05/16 05:45 Alkaline Phosphatase 66 U/L (45-117) D 08/05/16 05:45 Creatine Kinase 143 IU/L (26-192) 07/28/16 06:00 CK-MB (CK-2) 3.794 ng/ml (0.5-3.6) H 07/27/16 18:55 Troponin I < 0.02 ng/ml (0.00-0.05) 07/28/16 06:00 B-Natriuretic Peptide 1614.88 pg/ml (5-450) H 07/27/16 07:56 Prot Electrophoresis (.) 08/01/16 13:02 Serum Total Protein 6.9 g/dL (6.0-8.5) 08/01/16 13:02 Total Protein 5.9 g/dl (6.4-8.2) L 08/05/16 05:45 Albumin 3.0 g/dl (3.4-5.0) L 08/05/16 05:45 Globulin 3.6 g/dL (2.2-3.9) 08/01/16 13:02 Albumin/Globulin Ratio 0.9 (0.7-1.7) 08/01/16 13:02 Rqnhv-8-Pmihufyos 0.3 gm/dL (0.0-0.4) 08/01/16 13:02 Mdrie-8-Byevodwtz 1.1 gm/dL (0.4-1.0) H 08/01/16 13:02 Beta Globulins 1.0 gm/dL (0.7-1.3) 08/01/16 13:02 Gamma Globulins 1.2 gm/dL (0.4-1.8) 08/01/16 13:02 Total Amylase 230 U/L (25-115) H 08/04/16 05:45 Lipase 2059 U/L (73-393) H 08/05/16 05:45 TSH 3.03 uIU/ml (0.358-3.74) 07/27/16 18:55 Current Medications Generic Name Dose Route Start Last Admin Trade Name Freq PRN Reason Stop Dose Admin Acetaminophen 650 mg 07/30/16 15:50 08/04/16 06:26 Tylenol - PO 650 mg Q6H PRN Administration FEVER OR PAIN Albuterol/Ipratropium 1 amp 08/04/16 13:11 Duoneb - NEB Q4H PRN SHORTNESS OF BREATH Atorvastatin Calcium 10 mg 07/27/16 22:00 08/04/16 22:40 Lipitor - PO 10 mg HS VANI Administration Calcitriol 0.5 mcg 07/27/16 18:00 08/05/16 11:11 Rocaltrol - PO 0.5 mcg DAILY VANI Administration Diltiazem HCl 60 mg 07/29/16 14:00 08/05/16 11:08 Cardizem - PO 60 mg QID VANI Administration Hydralazine HCl 25 mg 07/27/16 18:30 08/05/16 11:07 Apresoline - PO 25 mg BID VANI Administration Insulin Aspart 1 vial 08/04/16 12:30 08/05/16 06:36 Novolog Vial Sliding Scale - SQ 6 units Q4HPO VANI Administration Protocol Isosorbide Mononitrate 30 mg 07/27/16 18:30 08/05/16 11:08 Imdur - PO 30 mg DAILY [facility] Administration Methylprednisolone Sodium Succinate 40 mg 08/03/16 13:15 08/05/16 11:11 Solu-Medrol - IVPB 40 mg Q8H-IV [facility] Administration Ondansetron HCl 4 mg 08/03/16 18:45 Zofran Injection IVPUSH Q4H PRN NAUSEA AND/OR VOMITING Polyethylene Glycol 17 gm 07/29/16 15:15 08/05/16 11:22 Miralax (For Daily Use) - PO Not Given DAILY [facility] Ranitidine HCl 75 mg 08/05/16 10:00 08/05/16 11:08 Zantac - PO 75 mg DAILY [facility] Administration AP: DM: improving blood sugar On Methylprednisolone 40 Q8 hrs Monitor BGM Q4 hrs off Levemir Novolog Coverage Q4hrs Will F/U Elevated lipase slightly lowrer at 2058. Normal Pancreas on CT ?Pancreatitis Pt has multiple possible reasons for elevated Lipase including renal failure and use of Januvia, Methylprednosolone and Furosemide. Off Januvia now. CHF Acute on Chronic renal insufficiency. HTN HLD Problem List - Problems (1) CKD (chronic kidney disease) Code(s): N18.9 - CHRONIC KIDNEY DISEASE, UNSPECIFIED Qualifiers: Chronic kidney disease stage: unspecified stage Qualified Code(s): N18.9 - Chronic kidney disease, unspecified (2) Hypertension Code(s): I10 - ESSENTIAL (PRIMARY) HYPERTENSION (3) SOB (shortness of breath) on exertion Code(s): R06.02 - SHORTNESS OF BREATH
--- NOTE | 2016-08-05 12:20 | PN ---
Progress Note (short form) - Note Progress Note: PULMONARY AWAKE/ABD PAIN CONTINUES COUGH/SOB IMPROVED W SOLUMEDROL FAMILY PRESENT VSS/AFEBRILE ANICTERIC DIMINSHED BREATH SOUNDS BILATERALLY S1S2 OBESE EDEMA LOWER EXT LABS/MEDS/NOTES/IMAGING/MICRO REVIEWED WBC 21K LIPASE 2058 ABD US NOT HELPFUL NO HX OF JANUVIA IMP DECOMPENSATED DIASTOLIC CHF PUL HTN ACUTE ON CHRONIC KIDNEY DISEASE IMPROVING W LASIX ABD PAIN DM POORLY CONTROLLED(STEROIDS) HTN AFIB PLAN IV LASIX PER RENAL INHALED BRONCHODILATORS/STEROIDS SUPPLEMENTAL O2 MONITOR RENAL FUNCTION ANTICOAGULATION RATE CONTROL DAILY [facility] GI FOLLOW UP CLOSE MONITORING ON TELE John WEST MD
[2016-08-05] MEDS ORDERED: INSULIN (NOVOLOG) ASPART 100 UNITS/ML 10ML VIAL ONE ×2 (12:24→19:37)
[2016-08-05] MEDS ORDERED: HEPARIN NA (PORCINE) 5,000 UNITS/ML 1ML VIAL IVPUSH PRN ×2 (12:58)
--- NOTE | 2016-08-05 13:15 | PN ---
Progress Note, Physician Chief Complaint: Renal F/U Pt appears comfortable and in no distress at present with NC O2 in place Abd sonogram without evidence of gall stone related pancreatitis Januvia discontinued given the pancreatitis Tolerating some po liquids Cr down to 4.2 though BUN lagging behind on steroids and lasix - Current Medication List Current Medications: Active Medications Acetaminophen (Tylenol -) 650 mg PO Q6H PRN PRN Reason: FEVER OR PAIN Last Admin: 08/04/16 06:26 Dose: 650 mg Albuterol/Ipratropium (Duoneb -) 1 amp NEB Q4H PRN PRN Reason: SHORTNESS OF BREATH Last Admin: 08/05/16 11:45 Dose: 1 amp Atorvastatin Calcium (Lipitor -) 10 mg PO HS [facility] Last Admin: 08/04/16 22:40 Dose: 10 mg Calcitriol (Rocaltrol -) 0.5 mcg PO DAILY [facility] Last Admin: 08/05/16 11:11 Dose: 0.5 mcg Diltiazem HCl (Cardizem -) 60 mg PO QID [facility] Last Admin: 08/05/16 11:08 Dose: 60 mg Heparin Sodium (Porcine) (Heparin -) 5,000 unit IVPUSH PRN PRN Heparin Sodium (Porcine) (Heparin -) 1,000 unit IVPUSH PRN PRN Hydralazine HCl (Apresoline -) 25 mg PO BID [facility] Last Admin: 08/05/16 11:07 Dose: 25 mg Heparin Sodium (Porcine) 25, (000 unit/ Sodium Chloride) 500 mls @ 20 mls/hr IV TITR VANI; 1,000 UNIT/HR PRN Reason: Protocol Insulin Aspart (Novolog Vial Sliding Scale -) 1 vial SQ Q4HPO [facility] PRN Reason: Protocol Last Admin: 08/05/16 12:35 Dose: 8 units Isosorbide Mononitrate (Imdur -) 30 mg PO DAILY [facility] Last Admin: 08/05/16 11:08 Dose: 30 mg Methylprednisolone Sodium Succinate (Solu-Medrol -) 40 mg IVPB Q8H-IV [facility] Last Admin: 08/05/16 11:11 Dose: 40 mg Ondansetron HCl (Zofran Injection) 4 mg IVPUSH Q4H PRN PRN Reason: NAUSEA AND/OR VOMITING Polyethylene Glycol (Miralax (For Daily Use) -) 17 gm PO DAILY [facility] Last Admin: 08/05/16 11:22 Dose: Not Given Ranitidine HCl (Zantac -) 75 mg PO DAILY [facility] Last Admin: 08/05/16 11:08 Dose: 75 mg - Objective Vital Signs: Vital Signs Temperature 97.8 F 08/05/16 01:55 Pulse Rate 94 H 08/05/16 08:42 Respiratory Rate 20 08/05/16 08:42 Blood Pressure 152/64 08/05/16 08:42 O2 Sat by Pulse Oximetry (%) 96 08/04/16 20:48 Constitutional: Yes: No Distress Cardiovascular: Yes: JVD, S1, S2 Respiratory: Yes: Other (End expiratory wheezing) Gastrointestinal: Yes: Soft. No: Tenderness, Rebound Edema: LLE: 2+, RLE: 2+ Integumentary: Yes: Other (Pre sacral edema) Labs: CBC, BMP 08/05/16 05:45 08/05/16 05:45 INR, PTT INR 1.19 (0.82-1.09) H 07/27/16 07:56 Laboratory Tests 08/05/16 05:45 Lipase 9 H Laboratory Tests 08/05/16 05:45 Phosphorus 7.4 H D Magnesium 2.5 H Assessment/Plan Impression Fluid overload in pt with HFpEF, Moderate PHTN, NS with Acute on CKD Azotemia improving with the diuresis Pancreatitis attributed to Januvia Hyponatremia improving with diuresis Hypokalemia on BID lasix Hypermagnesemia better Hyperphosphatemia HTN DM A Fib on Heparin Hyperlipidemia Anemia Plan Additional Lasix 80 mgs IV x1 now and again in 6 hours after 20 Karen of IV KCL given before each dose Renvela TID pc Continue to hold on dialysis at this time Rpt labs in am including Mag and PO4 Plan discussed with pt's dtr and son in law (Ricci) Dr Ayala
[2016-08-05] MEDS ORDERED: FUROSEMIDE 40 MG/4 ML INJECTABLE VIAL IVPUSH ONE ×3 (13:22→22:00)
[2016-08-05] MEDS ORDERED: POTASSIUM CHLORIDE 20 MEQ PREMIX IVPB 100 ML IVPB ONE ×2 (13:26)
[2016-08-05] MEDS: KCL 10 MEQ IVPB 100 ML IVPB SCH ×4 (14:03→21:31)
[2016-08-05] MEDS: HEPARIN - 25,000 UNIT in SODIUM CHLORIDE 495 ML IV SCH (14:03)
--- NOTE | 2016-08-05 15:09 | PN ---
Progress Note, Physician Chief Complaint: Pt seen and examined chest x farrar report noted Pt is on IV heparin abdominal distention present,lack of appetite Cardiology,RENAl,pul GI note appreciated Elevated Lipase level Ct abdomen and pelvis no evidence of Pancreatitis,bilateral ple effusion, mesentric edema,no acute pathology in abdomen Januvia on hold Rpt u/s of abdomen no evidence of Gall stones - Current Medication List Current Medications: Active Medications Acetaminophen (Tylenol -) 650 mg PO Q6H PRN PRN Reason: FEVER OR PAIN Last Admin: 08/04/16 06:26 Dose: 650 mg Albuterol/Ipratropium (Duoneb -) 1 amp NEB Q4H PRN PRN Reason: SHORTNESS OF BREATH Last Admin: 08/05/16 11:45 Dose: 1 amp Atorvastatin Calcium (Lipitor -) 10 mg PO HS [facility] Last Admin: 08/04/16 22:40 Dose: 10 mg Calcitriol (Rocaltrol -) 0.5 mcg PO DAILY [facility] Last Admin: 08/05/16 11:11 Dose: 0.5 mcg Calcium Acetate (Phoslo -) 1,334 mg PO TIDCM [facility] Diltiazem HCl (Cardizem -) 60 mg PO QID [facility] Last Admin: 08/05/16 14:01 Dose: 60 mg Furosemide (Lasix Injection -) 80 mg IVPUSH ONCE ONE Stop: 08/05/16 15:31 Furosemide (Lasix Injection -) 80 mg IVPUSH ONCE ONE Stop: 08/05/16 22:01 Heparin Sodium (Porcine) (Heparin -) 5,000 unit IVPUSH PRN PRN Heparin Sodium (Porcine) (Heparin -) 1,000 unit IVPUSH PRN PRN Hydralazine HCl (Apresoline -) 25 mg PO BID [facility] Last Admin: 08/05/16 11:07 Dose: 25 mg Heparin Sodium (Porcine) 25, (000 unit/ Sodium Chloride) 500 mls @ 20 mls/hr IV TITR [facility]ANI; 1,000 UNIT/HR PRN Reason: Protocol Last Admin: 08/05/16 14:03 Dose: 17 mls/hr Potassium Chloride (Potassium Chloride 10 Meq Premix Ivpb -) 100 mls @ 100 mls/ hr IVPB Q1H [facility] Stop: 08/05/16 15:29 Last Admin: 08/05/16 14:03 Dose: 100 mls/hr Potassium Chloride (Potassium Chloride 10 Meq Premix Ivpb -) 100 mls @ 100 mls/ hr IVPB Q1H [facility] Stop: 08/05/16 21:59 Insulin Aspart (Novolog Vial Sliding Scale -) 1 vial SQ Q4HPO [facility] PRN Reason: Protocol Last Admin: 08/05/16 12:35 Dose: 8 units Isosorbide Mononitrate (Imdur -) 30 mg PO DAILY [facility] Last Admin: 08/05/16 11:08 Dose: 30 mg Methylprednisolone Sodium Succinate (Solu-Medrol -) 40 mg IVPB Q8H-IV [facility] Last Admin: 08/05/16 11:11 Dose: 40 mg Ondansetron HCl (Zofran Injection) 4 mg IVPUSH Q4H PRN PRN Reason: NAUSEA AND/OR VOMITING Polyethylene Glycol (Miralax (For Daily Use) -) 17 gm PO DAILY [facility] Last Admin: 08/05/16 11:22 Dose: Not Given Ranitidine HCl (Zantac -) 75 mg PO DAILY [facility] Last Admin: 08/05/16 11:08 Dose: 75 mg - Objective Vital Signs: Vital Signs Temperature 97.8 F 08/05/16 01:55 Pulse Rate 115 H 08/05/16 14:00 Respiratory Rate 20 08/05/16 14:00 Blood Pressure 158/62 08/05/16 14:00 O2 Sat by Pulse Oximetry (%) 96 08/04/16 20:48 Constitutional: Yes: No Distress Eyes: Yes: Conjunctiva Clear HENT: Yes: Atraumatic, Normocephalic Neck: Yes: Supple Cardiovascular: Yes: Regular Rate and Rhythm, Pulse Irregular Respiratory: Yes: Diminished, Rales (Lung base) Gastrointestinal: Yes: Normal Bowel Sounds, Soft Edema: No Peripheral Pulses WNL: Yes Neurological: Yes: Alert, Oriented Labs: CBC, BMP 08/05/16 05:45 08/05/16 05:45 INR, PTT INR 1.19 (0.82-1.09) H 07/27/16 07:56 Laboratory Results - last 24 hr 08/04/16 08/04/16 08/04/16 15:09 16:44 22:38 WBC RBC Hgb Hct MCV MCHC RDW Plt Count MPV Neutrophils % Lymphocytes % Monocytes % Myelocytes Differential Comment PTT (Actin FS) Sodium Potassium Chloride Carbon Dioxide Anion Gap BUN Creatinine Creat Clearance w eGFR POC Glucometer 170 139 136 Random Glucose Calcium Phosphorus Magnesium Total Bilirubin AST ALT Alkaline Phosphatase Total Protein Albumin Lipase 08/05/16 08/05/16 08/05/16 03:02 05:45 05:45 WBC 21.6 H D RBC 3.13 L Hgb 8.7 L Hct 25.8 L MCV 82.3 MCHC 33.6 RDW 13.3 Plt Count 246 MPV 8.5 Neutrophils % 81.0 Lymphocytes % Y Monocytes % 10.0 D Myelocytes 1 Differential Comment Manual diff done PTT (Actin FS) Sodium 132 L Potassium 3.3 L Chloride 90 L Carbon Dioxide 25 Anion Gap 17 H BUN 104 H Creatinine 4.2 H Creat Clearance w eGFR 10.08 POC Glucometer 177 Random Glucose 186 H Calcium 8.0 L Phosphorus 7.4 H D Magnesium 2.5 H Total Bilirubin 0.4 AST 19 D ALT 53 Alkaline Phosphatase 66 D Total Protein 5.9 L Albumin 3.0 L Lipase 2059 H 08/05/16 08/05/16 08/05/16 05:45 06:34 11:33 WBC RBC Hgb Hct MCV MCHC RDW Plt Count MPV Neutrophils % Lymphocytes % Monocytes % Myelocytes Differential Comment PTT (Actin FS) 95.1 H D Sodium Potassium Chloride Carbon Dioxide Anion Gap BUN Creatinine Creat Clearance w eGFR POC Glucometer 224 285 Random Glucose Calcium Phosphorus Magnesium Total Bilirubin AST ALT Alkaline Phosphatase Total Protein Albumin Lipase - ....Imaging Ultrasound: Report Reviewed Assessment/Plan Acute on chronic ckd PAF abdominal distention elevated lipase/ pancreatitis ? due to Abebeia SOB/acute on chronic CHF HTN,Hypercholestrolemia Pulmonary vascular congestion DM PLAN Continue bronchodialators Continue BP medications Monitor BUN/creatinine Monitor sugar Will f/u cardiology and renal ,endocrine,pul rec regarding Medication Heparin as per protocol corey on hold
[2016-08-05] MEDS ORDERED: FUROSEMIDE 40 MG/4 ML INJECTABLE VIAL ONE (18:47)
[2016-08-05] MEDS: CALCIUM ACETATE 667 MG CAPSULE (FP) PO SCH (19:01)
[2016-08-05] MEDS: ATORVASTATIN CA 10 MG TABLET (FP) PO SCH (21:31)
[2016-08-06] MEDS: methylPREDNISolone NA SUCC 40 MG/1 ML VIAL IVPB SCH ×2 (03:46→11:36)
[2016-08-06] MEDS: INSULIN SLIDING SCALE (NOVOLOG) 1 VIAL SQ SCH ×6 (03:47→22:03)
[2016-08-06 07:17] LABS: MCH 27.5 pg (25.7-33.7); MCHC 33.8 g/dl (32.0-36.0); MEAN CELL VOLUME 81.4 fl (80-96); MEAN PLT VOLUME 8.4 fl (7.5-11.1); PLATELET COUNT 241 K/MM3 (134-434); RDW 13.3 % (11.6-15.6)
[2016-08-06 07:27] LABS: INR 1.27 (0.82-1.09)
[2016-08-06 07:30] LABS: ACTIVATED PTT 66.2 SECONDS (26.9-34.4)
[2016-08-06] MEDS: CALCIUM ACETATE 667 MG CAPSULE (FP) PO SCH ×3 (08:06→17:47)
[2016-08-06 08:35] LABS: CALCIUM 8.2 mg/dL (8.5-10.1); CREATININE 3.9 mg/dL (0.55-1.02); MAGNESIUM 2.4 mg/dL (1.8-2.4); PHOSPHOROUS 5.8 mg/dL (2.5-4.9)
--- NOTE | 2016-08-06 09:57 | PN ---
Progress Note, Physician Chief Complaint: Pt seen and examined Pt is on IV heparin abdominal distention present,lack of appetite Cardiology,RENAl,pul GI note appreciated Elevated Lipase level Ct abdomen and pelvis no evidence of Pancreatitis,bilateral ple effusion, mesentric edema,no acute pathology in abdomen Januvia on hold Rpt u/s of abdomen no evidence of Gall stones - Current Medication List Current Medications: Active Medications Acetaminophen (Tylenol -) 650 mg PO Q6H PRN PRN Reason: FEVER OR PAIN Last Admin: 08/04/16 06:26 Dose: 650 mg Albuterol/Ipratropium (Duoneb -) 1 amp NEB Q4H PRN PRN Reason: SHORTNESS OF BREATH Last Admin: 08/05/16 11:45 Dose: 1 amp Atorvastatin Calcium (Lipitor -) 10 mg PO HS [facility] Last Admin: 08/05/16 21:31 Dose: 10 mg Calcitriol (Rocaltrol -) 0.5 mcg PO DAILY [facility] Last Admin: 08/05/16 11:11 Dose: 0.5 mcg Calcium Acetate (Phoslo -) 1,334 mg PO TIDCM [facility] Last Admin: 08/06/16 08:06 Dose: 1,334 mg Diltiazem HCl (Cardizem -) 60 mg PO QID [facility] Last Admin: 08/05/16 21:31 Dose: 60 mg Heparin Sodium (Porcine) (Heparin -) 5,000 unit IVPUSH PRN PRN Heparin Sodium (Porcine) (Heparin -) 1,000 unit IVPUSH PRN PRN Hydralazine HCl (Apresoline -) 25 mg PO BID [facility] Last Admin: 08/05/16 21:31 Dose: 25 mg Heparin Sodium (Porcine) 25, (000 unit/ Sodium Chloride) 500 mls @ 20 mls/hr IV TITR [facility]ANI; 1,000 UNIT/HR PRN Reason: Protocol Last Titration: 08/05/16 22:51 Dose: 700 unit/hr Insulin Aspart (Novolog Vial Sliding Scale -) 1 vial SQ Q4HPO [facility] PRN Reason: Protocol Last Admin: 08/06/16 06:19 Dose: 6 units Isosorbide Mononitrate (Imdur -) 30 mg PO DAILY [facility] Last Admin: 08/05/16 11:08 Dose: 30 mg Methylprednisolone Sodium Succinate (Solu-Medrol -) 40 mg IVPB Q8H-IV [facility] Last Admin: 08/06/16 03:46 Dose: 40 mg Ondansetron HCl (Zofran Injection) 4 mg IVPUSH Q4H PRN PRN Reason: NAUSEA AND/OR VOMITING Polyethylene Glycol (Miralax (For Daily Use) -) 17 gm PO DAILY [facility] Last Admin: 08/05/16 11:22 Dose: Not Given Ranitidine HCl (Zantac -) 75 mg PO DAILY [facility] Last Admin: 08/05/16 11:08 Dose: 75 mg - Objective Vital Signs: Vital Signs Temperature 97 F L 08/06/16 05:33 Pulse Rate 102 H 08/06/16 05:33 Respiratory Rate 19 08/06/16 05:33 Blood Pressure 135/72 08/06/16 05:33 O2 Sat by Pulse Oximetry (%) 97 08/05/16 22:00 Constitutional: Yes: No Distress Eyes: Yes: Conjunctiva Clear HENT: Yes: Atraumatic, Normocephalic Neck: Yes: Supple, Trachea Midline Cardiovascular: Yes: Pulse Irregular Gastrointestinal: Yes: Soft, Abdomen, Obese Genitourinary: Yes: [place] Present Edema: Yes Edema: RLE: Trace Peripheral Pulses WNL: Yes Neurological: Yes: Alert, Oriented Psychiatric: Yes: Alert, Oriented Labs: CBC, BMP 08/06/16 05:35 08/06/16 05:35 INR, PTT INR 1.27 (0.82-1.09) H 08/06/16 05:35 Laboratory Results - last 24 hr 08/05/16 08/05/16 08/05/16 05:45 11:33 17:44 WBC RBC Hgb Hct MCV MCHC RDW Plt Count MPV Neutrophils % 81.0 Lymphocytes % Monocytes % 10.0 D Myelocytes 1 Differential Comment Manual diff done INR PTT (Actin FS) Sodium Potassium Chloride Carbon Dioxide Anion Gap BUN Creatinine POC Glucometer 285 353 Random Glucose Calcium Phosphorus Magnesium Lipase 08/05/16 08/05/16 08/06/16 19:30 21:36 05:35 WBC 21.0 H RBC 3.05 L Hgb 8.4 L Hct 24.9 L MCV 81.4 MCHC 33.8 RDW 13.3 Plt Count 241 MPV 8.4 Neutrophils % Y Lymphocytes % Y Monocytes % Myelocytes Differential Comment INR PTT (Actin FS) 116.6 H Sodium Potassium Chloride Carbon Dioxide Anion Gap BUN Creatinine POC Glucometer 338 Random Glucose Calcium Phosphorus Magnesium Lipase 08/06/16 08/06/16 08/06/16 05:35 05:35 06:00 WBC RBC Hgb Hct MCV MCHC RDW Plt Count MPV Neutrophils % Lymphocytes % Monocytes % Myelocytes Differential Comment INR 1.27 H PTT (Actin FS) 66.2 H D Sodium 136 Potassium 3.5 Chloride 94 L Carbon Dioxide 29 Anion Gap 13 BUN 114 H* Creatinine 3.9 H POC Glucometer 242 Random Glucose 216 H Calcium 8.2 L Phosphorus 5.8 H D Magnesium 2.4 Lipase 2800 H Assessment/Plan Acute on chronic ckd PAF abdominal distention elevated lipase/ pancreatitis ? due to Januvia SOB/acute on chronic CHF HTN,Hypercholestrolemia Pulmonary vascular congestion DM PLAN Continue bronchodialators Continue BP medications Monitor BUN/creatinine Monitor sugar Will f/u cardiology and renal ,endocrine,pul rec regarding Medication Heparin as per protocol januvia on hold
--- NOTE | 2016-08-06 10:14 | PN ---
Progress Note, Physician History of Present Illness: PULMONARY AWAKE,NAD,-SOB,-CONGESTION. - Current Medication List Current Medications: Active Medications Acetaminophen (Tylenol -) 650 mg PO Q6H PRN PRN Reason: FEVER OR PAIN Last Admin: 08/04/16 06:26 Dose: 650 mg Albuterol/Ipratropium (Duoneb -) 1 amp NEB Q4H PRN PRN Reason: SHORTNESS OF BREATH Last Admin: 08/05/16 11:45 Dose: 1 amp Atorvastatin Calcium (Lipitor -) 10 mg PO HS [facility] Last Admin: 08/05/16 21:31 Dose: 10 mg Calcitriol (Rocaltrol -) 0.5 mcg PO DAILY [facility] Last Admin: 08/05/16 11:11 Dose: 0.5 mcg Calcium Acetate (Phoslo -) 1,334 mg PO TIDCM [facility] Last Admin: 08/06/16 08:06 Dose: 1,334 mg Diltiazem HCl (Cardizem -) 60 mg PO QID [facility] Last Admin: 08/05/16 21:31 Dose: 60 mg Heparin Sodium (Porcine) (Heparin -) 5,000 unit IVPUSH PRN PRN Heparin Sodium (Porcine) (Heparin -) 1,000 unit IVPUSH PRN PRN Hydralazine HCl (Apresoline -) 25 mg PO BID [facility] Last Admin: 08/05/16 21:31 Dose: 25 mg Heparin Sodium (Porcine) 25, (000 unit/ Sodium Chloride) 500 mls @ 20 mls/hr IV TITR VANI; 1,000 UNIT/HR PRN Reason: Protocol Last Titration: 08/05/16 22:51 Dose: 700 unit/hr Insulin Aspart (Novolog Vial Sliding Scale -) 1 vial SQ Q4HPO [facility] PRN Reason: Protocol Last Admin: 08/06/16 06:19 Dose: 6 units Isosorbide Mononitrate (Imdur -) 30 mg PO DAILY [facility] Last Admin: 08/05/16 11:08 Dose: 30 mg Methylprednisolone Sodium Succinate (Solu-Medrol -) 40 mg IVPB Q8H-IV [facility] Last Admin: 08/06/16 03:46 Dose: 40 mg Ondansetron HCl (Zofran Injection) 4 mg IVPUSH Q4H PRN PRN Reason: NAUSEA AND/OR VOMITING Polyethylene Glycol (Miralax (For Daily Use) -) 17 gm PO DAILY [facility] Last Admin: 08/05/16 11:22 Dose: Not Given Ranitidine HCl (Zantac -) 75 mg PO DAILY [facility] Last Admin: 08/05/16 11:08 Dose: 75 mg - Objective Vital Signs: Vital Signs Temperature 97 F L 08/06/16 05:33 Pulse Rate 102 H 08/06/16 05:33 Respiratory Rate 19 08/06/16 05:33 Blood Pressure 135/72 08/06/16 05:33 O2 Sat by Pulse Oximetry (%) 97 08/05/16 22:00 Constitutional: Yes: Well Nourished, Calm Eyes: Yes: WNL HENT: Yes: WNL Neck: Yes: WNL Cardiovascular: Yes: Pulse Irregular, S1, S2 Respiratory: Yes: Diminished Gastrointestinal: Yes: WNL Extremities: Yes: WNL Edema: Yes Labs: CBC, BMP 08/06/16 05:35 08/06/16 05:35 INR, PTT INR 1.27 (0.82-1.09) H 08/06/16 05:35 Problem List - Problems (1) Acute on chronic diastolic CHF (congestive heart failure) Code(s): I50.33 - ACUTE ON CHRONIC DIASTOLIC (CONGESTIVE) HEART FAILURE (2) CKD (chronic kidney disease) Code(s): N18.9 - CHRONIC KIDNEY DISEASE, UNSPECIFIED Qualifiers: Chronic kidney disease stage: unspecified stage Qualified Code(s): N18.9 - Chronic kidney disease, unspecified (3) Diabetes 1.5, managed as type 1 Code(s): E13.9 - OTHER SPECIFIED DIABETES MELLITUS WITHOUT COMPLICATIONS (4) Hypertension Code(s): I10 - ESSENTIAL (PRIMARY) HYPERTENSION (5) Pulmonary vascular congestion Code(s): R09.89 - OTH SYMPTOMS AND SIGNS INVOLVING THE CIRC AND RESP SYSTEMS (6) SOB (shortness of breath) on exertion Code(s): R06.02 - SHORTNESS OF BREATH (7) Pulmonary hypertension Code(s): I27.2 - OTHER SECONDARY PULMONARY HYPERTENSION Assessment/Plan IMP DECOMPENSATED DIASTOLIC CHF clinically improving PUL HTN ACUTE ON CHRONIC KIDNEY DISEASE DM HTN AFIB PLAN INHALED BRONCHODILATORS SUPPLEMENTAL O2 DVT PROPHYLAXIS MONITOR RENAL FUNCTION ANTICOAGULATION RATE CONTROL DAILY WTS F/U CHEST X-RAYS LASIX SOLUMEDROL TAPER DR ESPOSITO Problem List - Problems (1) Acute on chronic diastolic CHF (congestive heart failure) Code(s): I50.33 - ACUTE ON CHRONIC DIASTOLIC (CONGESTIVE) HEART FAILURE (2) CKD (chronic kidney disease) Code(s): N18.9 - CHRONIC KIDNEY DISEASE, UNSPECIFIED Qualifiers: Chronic kidney disease stage: unspecified stage Qualified Code(s): N18.9 - Chronic kidney disease, unspecified (3) Diabetes 1.5, managed as type 1 Code(s): E13.9 - OTHER SPECIFIED DIABETES MELLITUS WITHOUT COMPLICATIONS (4) Hypertension Code(s): I10 - ESSENTIAL (PRIMARY) HYPERTENSION (5) Pulmonary vascular congestion Code(s): R09.89 - OTH SYMPTOMS AND SIGNS INVOLVING THE CIRC AND RESP SYSTEMS (6) SOB (shortness of breath) on exertion Code(s): R06.02 - SHORTNESS OF BREATH (7) Pulmonary hypertension Code(s): I27.2 - OTHER SECONDARY PULMONARY HYPERTENSION
[2016-08-06] MEDS ORDERED: INSULIN (NOVOLOG) ASPART 100 UNITS/ML 10ML VIAL ONE ×2 (10:18→16:43)
[2016-08-06] MEDS: dilTIAZem HCL 60 MG TABLET (FP) PO SCH ×4 (10:25→21:26)
[2016-08-06] MEDS: hydrALAZINE HCL 25 MG TABLET (FP) PO SCH ×2 (10:25→21:26)
[2016-08-06] MEDS: ISOSORBIDE MONONITRATE 30 MG TAB.SR.24H (FP) PO SCH (10:25)
[2016-08-06] MEDS: POLYETHYLENE GLYCOL 3350 119 GM BTL PO SCH ×2 (10:26→21:27)
[2016-08-06] MEDS: RANITIDINE HCL 150 MG TABLET (FP) PO SCH (10:26)
[2016-08-06] MEDS: CALCITRIOL 0.25 MCG CAPSULE (FP) PO SCH (10:26)
[2016-08-06 10:36] LABS: PLATELET ESTIMATE ADEQUATE (NORMAL)
[2016-08-06] MEDS ORDERED: methylPREDNISolone NA SUCC 40 MG/1 ML VIAL IVPB SCH (10:45)
--- NOTE | 2016-08-06 11:17 | PN ---
Progress Note, Physician History of Present Illness: seen and examined today in nad. daughter in law at bedside. no overnight events. no new complaints. - Current Medication List Current Medications: Active Medications Acetaminophen (Tylenol -) 650 mg PO Q6H PRN PRN Reason: FEVER OR PAIN Last Admin: 08/04/16 06:26 Dose: 650 mg Albuterol/Ipratropium (Duoneb -) 1 amp NEB Q4H PRN PRN Reason: SHORTNESS OF BREATH Last Admin: 08/05/16 11:45 Dose: 1 amp Atorvastatin Calcium (Lipitor -) 10 mg PO HS [facility] Last Admin: 08/05/16 21:31 Dose: 10 mg Calcitriol (Rocaltrol -) 0.5 mcg PO DAILY [facility] Last Admin: 08/06/16 10:26 Dose: 0.5 mcg Calcium Acetate (Phoslo -) 1,334 mg PO TIDCM [facility] Last Admin: 08/06/16 08:06 Dose: 1,334 mg Diltiazem HCl (Cardizem -) 60 mg PO QID [facility] Last Admin: 08/06/16 10:25 Dose: 60 mg Heparin Sodium (Porcine) (Heparin -) 5,000 unit IVPUSH PRN PRN Heparin Sodium (Porcine) (Heparin -) 1,000 unit IVPUSH PRN PRN Hydralazine HCl (Apresoline -) 25 mg PO BID [facility] Last Admin: 08/06/16 10:25 Dose: 25 mg Heparin Sodium (Porcine) 25, (000 unit/ Sodium Chloride) 500 mls @ 20 mls/hr IV TITR VANI; 1,000 UNIT/HR PRN Reason: Protocol Last Titration: 08/05/16 22:51 Dose: 700 unit/hr Insulin Aspart (Novolog Vial Sliding Scale -) 1 vial SQ Q4HPO [facility] PRN Reason: Protocol Last Admin: 08/06/16 10:26 Dose: 8 units Isosorbide Mononitrate (Imdur -) 30 mg PO DAILY [facility] Last Admin: 08/06/16 10:25 Dose: 30 mg Methylprednisolone Sodium Succinate (Solu-Medrol -) 40 mg IVPB BID [facility] Ondansetron HCl (Zofran Injection) 4 mg IVPUSH Q4H PRN PRN Reason: NAUSEA AND/OR VOMITING Polyethylene Glycol (Miralax (For Daily Use) -) 17 gm PO DAILY [facility] Last Admin: 08/06/16 10:26 Dose: 17 gm Ranitidine HCl (Zantac -) 75 mg PO DAILY [facility] Last Admin: 08/06/16 10:26 Dose: 75 mg - Objective Vital Signs: Vital Signs Temperature 97 F L 08/06/16 05:33 Pulse Rate 102 H 08/06/16 05:33 Respiratory Rate 19 08/06/16 05:33 Blood Pressure 135/72 08/06/16 05:33 O2 Sat by Pulse Oximetry (%) 97 08/05/16 22:00 Constitutional: Yes: No Distress, Calm, Obese Eyes: Yes: WNL, Conjunctiva Clear, EOM Intact, PERRL HENT: Yes: WNL, Atraumatic, Normocephalic Neck: Yes: WNL, Supple, Trachea Midline Cardiovascular: Yes: Pulse Irregular, S1, S2. No: Bradycardia, Tachycardia, Bruit, JVD, Gallop, Murmur, Rub, S3, S4, Varicosities Respiratory: Yes: Regular, Diminished, On Nasal O2, Rales. No: Rhonchi, SOB, Wheezes Gastrointestinal: Yes: WNL, Normal Bowel Sounds, Soft. No: Distention, Tenderness Musculoskeletal: Yes: WNL Extremities: Yes: WNL Edema: Yes Edema: RLE: 1+ Peripheral Pulses WNL: Yes Peripheral Pulses: Left Doralis Pedis: 2+, Right Dorsalis Pedis: 2+ Integumentary: Yes: WNL Neurological: Yes: Alert, Oriented Psychiatric: Yes: Alert, Oriented Labs: CBC, BMP 08/06/16 05:35 08/06/16 05:35 INR, PTT INR 1.27 (0.82-1.09) H 08/06/16 05:35 - ....Imaging Chest X-ray: Report Reviewed, Image Reviewed EKG: Report Reviewed, Image Reviewed Other: Report Reviewed, Image Reviewed (tele-AFib, HR adequately controlled) Assessment/Plan 86 year old woman with a history of HTN, HLD, DMII, CKD, admitted with sob, cough, orthopnea, LE edema. SOB-acute on chronic diastolic CHF in setting of CKD -responding to diuretics with good urine output and improvement in LE edema and pulmonary edema -bun continues to rise as creatinine trends down, combination of steroids and diuresis -from a cardiac standpoint if HD not planned would benefit from continued diuresis if safe from a nephrology standpoint in terms of uremia -monitor strict I/Os and daily weights, monitor labs closely -stress test 2 months ago reportedly showed no ischemia -echo showed normal LV systolic function, mod-sev Pulm HTN Atrial fibrillation-paroxysmal, HR controlled -cont cardizem -cont heparin gtt until decision made on if she will need procedures, if none then can transition to oral AC HTN-slightly above goal at times but overall adequate for now -cont current medical regimen for now with plan to uptitrate as needed
--- NOTE | 2016-08-06 12:18 | PN ---
Progress Note (short form) - Note Progress Note: asked to f/u for leukocytosis daughter in law at bedside reports improved SOB has been having abdominal pain for one week, now improved episode vomiting yesterday now no nausea feels better Vital Signs Period Temp Pulse Resp BP Sys/[place] Pulse Ox Last 24 Hr 97 F-98.2 F 82-115 18-22 135-158/60-85 97-98 cor-rrr lungs bibasilar crackles abd firm, nt ext +edema +blount no phlebitis Microbiology 08/02/16 12:00 Blood Culture - Preliminary Blood - Peripheral Venous NO GROWTH OBTAINED AFTER 96 HOURS, INCUBATION TO CONTINUE FOR 1 DAYS. 08/02/16 11:15 Blood Culture - Preliminary Blood - Peripheral Venous NO GROWTH OBTAINED AFTER 96 HOURS, INCUBATION TO CONTINUE FOR 1 DAYS. cxray congestion with large heart sono- no gallstones, no cbd dilatation CBC, BMP 08/06/16 05:35 08/06/16 05:35 lipase 2800 Current Medications Acetaminophen (Tylenol -) 650 mg PO Q6H PRN PRN Reason: FEVER OR PAIN Last Admin: 08/04/16 06:26 Dose: 650 mg Albuterol/Ipratropium (Duoneb -) 1 amp NEB Q4H PRN PRN Reason: SHORTNESS OF BREATH Last Admin: 08/05/16 11:45 Dose: 1 amp Atorvastatin Calcium (Lipitor -) 10 mg PO HS [facility] Last Admin: 08/05/16 21:31 Dose: 10 mg Calcitriol (Rocaltrol -) 0.5 mcg PO DAILY [facility] Last Admin: 08/06/16 10:26 Dose: 0.5 mcg Calcium Acetate (Phoslo -) 1,334 mg PO TIDCM [facility] Last Admin: 08/06/16 12:14 Dose: 1,334 mg Diltiazem HCl (Cardizem -) 60 mg PO QID [facility] Last Admin: 08/06/16 10:25 Dose: 60 mg Heparin Sodium (Porcine) (Heparin -) 5,000 unit IVPUSH PRN PRN Heparin Sodium (Porcine) (Heparin -) 1,000 unit IVPUSH PRN PRN Hydralazine HCl (Apresoline -) 25 mg PO BID [facility] Last Admin: 08/06/16 10:25 Dose: 25 mg Heparin Sodium (Porcine) 25, (000 unit/ Sodium Chloride) 500 mls @ 20 mls/hr IV TITR VANI; 1,000 UNIT/HR PRN Reason: Protocol Last Titration: 08/05/16 22:51 Dose: 700 unit/hr Insulin Aspart (Novolog Vial Sliding Scale -) 1 vial SQ Q4HPO [facility] PRN Reason: Protocol Last Admin: 08/06/16 10:26 Dose: 8 units Isosorbide Mononitrate (Imdur -) 30 mg PO DAILY [facility] Last Admin: 08/06/16 10:25 Dose: 30 mg Methylprednisolone Sodium Succinate (Solu-Medrol -) 40 mg IVPB BID [facility] Last Admin: 08/06/16 10:45 Dose: 40 mg Ondansetron HCl (Zofran Injection) 4 mg IVPUSH Q4H PRN PRN Reason: NAUSEA AND/OR VOMITING Polyethylene Glycol (Miralax (For Daily Use) -) 17 gm PO DAILY [facility] Last Admin: 08/06/16 10:26 Dose: 17 gm Ranitidine HCl (Zantac -) 75 mg PO DAILY [facility] Last Admin: 08/06/16 10:26 Dose: 75 mg a/p leukocytosis- ?steroids check ua and urine culture, r/o catheter related uti blood cultures ?need for blount pancreatitis- no abd pain or vomiting today, no nausea afib diabetes CKD
[2016-08-06 13:50] LABS: URINE APPEARANCE SLCLOUDY; URINE BILIRUBIN NEGATIVE (NEGATIVE); URINE COLOR LTYELLOW; URINE GLUCOSE (UA) NEGATIVE (NEGATIVE); URINE KETONE NEGATIVE (NEGATIVE); URINE NITRITE NEGATIVE (NEGATIVE); URINE UROBILINOGEN NEGATIVE E.U./dl (0.2-1.0)
[2016-08-06 13:51] LABS: URINE BLOOD 1+ (NEGATIVE); URINE LEUK ESTERASE 1+ (NEGATIVE); URINE PROTEIN 1+ (NEGATIVE)
[2016-08-06 13:54] LABS: CALCIUM OXALATE CRYSTALS RARE /hpf (NONE SEEN); URINE BACTERIA MODERATE /hpf (NONE SEEN); URINE RBC 2 /hpf (0-3); URINE WBC 12 /hpf (3-5)
--- NOTE | 2016-08-06 13:57 | PN ---
Progress Note, Physician History of Present Illness: Pt seen and examined at bedside. She is awake and alert. She is out of bed to chair. She feels that her breathing is starting to improve. She feels that the abdominal wall swelling is improving. - Current Medication List Current Medications: Active Medications Acetaminophen (Tylenol -) 650 mg PO Q6H PRN PRN Reason: FEVER OR PAIN Last Admin: 08/04/16 06:26 Dose: 650 mg Albuterol/Ipratropium (Duoneb -) 1 amp NEB Q4H PRN PRN Reason: SHORTNESS OF BREATH Last Admin: 08/05/16 11:45 Dose: 1 amp Atorvastatin Calcium (Lipitor -) 10 mg PO HS [facility] Last Admin: 08/05/16 21:31 Dose: 10 mg Calcitriol (Rocaltrol -) 0.5 mcg PO DAILY [facility] Last Admin: 08/06/16 10:26 Dose: 0.5 mcg Calcium Acetate (Phoslo -) 1,334 mg PO TIDCM [facility] Last Admin: 08/06/16 12:14 Dose: 1,334 mg Diltiazem HCl (Cardizem -) 60 mg PO QID [facility] Last Admin: 08/06/16 10:25 Dose: 60 mg Heparin Sodium (Porcine) (Heparin -) 5,000 unit IVPUSH PRN PRN Heparin Sodium (Porcine) (Heparin -) 1,000 unit IVPUSH PRN PRN Hydralazine HCl (Apresoline -) 25 mg PO BID [facility] Last Admin: 08/06/16 10:25 Dose: 25 mg Heparin Sodium (Porcine) 25, (000 unit/ Sodium Chloride) 500 mls @ 20 mls/hr IV TITR [facility]ANI; 1,000 UNIT/HR PRN Reason: Protocol Last Titration: 08/05/16 22:51 Dose: 700 unit/hr Insulin Aspart (Novolog Vial Sliding Scale -) 1 vial SQ Q4HPO [facility] PRN Reason: Protocol Last Admin: 08/06/16 10:26 Dose: 8 units Isosorbide Mononitrate (Imdur -) 30 mg PO DAILY [facility] Last Admin: 08/06/16 10:25 Dose: 30 mg Methylprednisolone Sodium Succinate (Solu-Medrol -) 40 mg IVPB BID [facility] Last Admin: 08/06/16 10:45 Dose: 40 mg Ondansetron HCl (Zofran Injection) 4 mg IVPUSH Q4H PRN PRN Reason: NAUSEA AND/OR VOMITING Polyethylene Glycol (Miralax (For Daily Use) -) 17 gm PO DAILY [facility] Last Admin: 08/06/16 10:26 Dose: 17 gm Ranitidine HCl (Zantac -) 75 mg PO DAILY [facility] Last Admin: 08/06/16 10:26 Dose: 75 mg - Objective Vital Signs: Vital Signs Temperature 98.2 F 08/06/16 10:00 Pulse Rate 114 H 08/06/16 10:25 Respiratory Rate 22 08/06/16 10:00 Blood Pressure 145/85 08/06/16 10:00 O2 Sat by Pulse Oximetry (%) 98 08/06/16 10:25 Constitutional: Yes: Calm Eyes: Yes: Conjunctiva Clear HENT: Yes: Atraumatic Neck: Yes: Supple Cardiovascular: Yes: Pulse Irregular, S1, S2 Respiratory: Yes: Diminished, On Nasal O2 Gastrointestinal: Yes: Normal Bowel Sounds, Soft Genitourinary: Yes: WNL Musculoskeletal: Yes: WNL Edema: Yes (improved) Edema: LLE: Trace, RLE: Trace Neurological: Yes: Oriented Psychiatric: Yes: Oriented Labs: CBC, BMP 08/06/16 05:35 08/06/16 05:35 INR, PTT INR 1.27 (0.82-1.09) H 08/06/16 05:35 Problem List - Problems (1) CKD (chronic kidney disease) Code(s): N18.9 - CHRONIC KIDNEY DISEASE, UNSPECIFIED Qualifiers: Chronic kidney disease stage: unspecified stage Qualified Code(s): N18.9 - Chronic kidney disease, unspecified (2) Pulmonary vascular congestion Code(s): R09.89 - OTH SYMPTOMS AND SIGNS INVOLVING THE CIRC AND RESP SYSTEMS (3) SOB (shortness of breath) on exertion Code(s): R06.02 - SHORTNESS OF BREATH (4) Hypertension Code(s): I10 - ESSENTIAL (PRIMARY) HYPERTENSION (5) Diabetes 1.5, managed as type 1 Code(s): E13.9 - OTHER SPECIFIED DIABETES MELLITUS WITHOUT COMPLICATIONS Assessment/Plan Current Medications Generic Name Dose Route Start Last Admin Trade Name Freq PRN Reason Stop Dose Admin Acetaminophen 650 mg 07/30/16 15:50 08/04/16 06:26 Tylenol - PO 650 mg Q6H PRN Administration FEVER OR PAIN Albuterol/Ipratropium 1 amp 08/04/16 13:11 08/05/16 11:45 Duoneb - NEB 1 amp Q4H PRN Administration SHORTNESS OF BREATH Atorvastatin Calcium 10 mg 07/27/16 22:00 08/05/16 21:31 Lipitor - PO 10 mg HS [facility] Administration Calcitriol 0.5 mcg 07/27/16 18:00 08/06/16 10:26 Rocaltrol - PO 0.5 mcg DAILY [facility] Administration Calcium Acetate 1,334 mg 08/05/16 17:30 08/06/16 12:14 Phoslo - PO 1,334 mg TIDCM [facility] Administration Diltiazem HCl 60 mg 07/29/16 14:00 08/06/16 10:25 Cardizem - PO 60 mg QID [facility] Administration Heparin Sodium (Porcine) 5,000 unit 08/05/16 12:58 Heparin - IVPUSH PRN PRN Heparin Sodium (Porcine) 1,000 unit 08/05/16 12:58 Heparin - IVPUSH PRN PRN Hydralazine HCl 25 mg 07/27/16 18:30 08/06/16 10:25 Apresoline - PO 25 mg BID [facility] Administration Heparin Sodium (Porcine) 25, 500 mls @ 20 mls/hr 08/05/16 13:00 08/05/16 22:51 000 unit/ Sodium Chloride IV 700 unit/hr TITR [facility] Titration Protocol 1,000 UNIT/HR Insulin Aspart 1 vial 08/04/16 12:30 08/06/16 10:26 Novolog Vial Sliding Scale - SQ 8 units Q4HPO [facility] Administration Protocol Isosorbide Mononitrate 30 mg 07/27/16 18:30 08/06/16 10:25 Imdur - PO 30 mg DAILY [facility] Administration Methylprednisolone Sodium Succinate 40 mg 08/06/16 10:45 08/06/16 10:45 Solu-Medrol - IVPB 40 mg BID [facility] Administration Ondansetron HCl 4 mg 08/03/16 18:45 Zofran Injection IVPUSH Q4H PRN NAUSEA AND/OR VOMITING Polyethylene Glycol 17 gm 07/29/16 15:15 08/06/16 10:26 Miralax (For Daily Use) - PO 17 gm DAILY [facility] Administration Ranitidine HCl 75 mg 08/05/16 10:00 08/06/16 10:26 Zantac - PO 75 mg DAILY [facility] Administration Laboratory Tests 08/01/16 08/03/16 08/06/16 13:02 13:10 05:35 Phosphorus 5.8 H D Urine Total Protein Pending Urine PEP Interpret Pending EITAN M-Constantin Not observed KRISTEN Screen Negative c-ANCA Pending Proteinase 3 (PR3) Pending p-ANCA Pending Atypical p-ANCA Pending Myeloperoxidase Ab Pending Double Strand DNA Ab <1 Glomerular Base Memb Ab 3 Impression 1. CKD 2. HTN 3. DM 4. dyspnea 5. hyperlipidemia 6. anemia 7. hyponatremia 8. pulmonary htn Plan - cont with lasix - renal function is improving - repeat labs in am - titrat down the sterodis - will order a lasix dose - elevated BUN in part from sterids - sodium is improved - renal workup is in progress - will follow Dr Fleming
[2016-08-06] MEDS ORDERED: POTASSIUM CHLORIDE TABS 20 MEQ TABLET.ER (FP) PO ONE (14:15)
[2016-08-06] MEDS: FUROSEMIDE 100 MG/10 ML INJECTABLE VIAL IVPB SCH (14:59)
[2016-08-06] MEDS: HEPARIN - 25,000 UNIT in SODIUM CHLORIDE 495 ML IV SCH (16:44)
--- NOTE | 2016-08-06 17:09 | PN ---
GI Progress Note Subjective: Family present. They say that she complained of lower abdominal pain with a bowel movement. Described as somewhat strained bowel movements. No vomiting - Objective Vital Signs: Vital Signs Temperature 98.2 F 08/06/16 10:00 Pulse Rate 114 H 08/06/16 10:25 Respiratory Rate 22 08/06/16 10:00 Blood Pressure 145/85 08/06/16 10:00 O2 Sat by Pulse Oximetry (%) 98 08/06/16 10:25 Constitutional: Calm Eyes: No: Sclera Icterus Cardiovascular: Yes: Pulse Irregular Respiratory: Yes: Rhonchi (b/l, somewhat improved. Wheezing improved) Gastrointestinal Inspection: No: Distention ...Auscultate: Yes: Normoactive Bowel Sounds ...Palpate: Yes: Soft. No: Tenderness Neurological: Yes: Alert Labs: CBC, BMP 08/06/16 05:35 08/06/16 05:35 INR, PTT INR 1.27 (0.82-1.09) H 08/06/16 05:35 Problem List - Problems (1) Lack of appetite Assessment/Plan: Improved Also with elevated lipase.? if secondary to januvia and lingering lipase secondary to renal insufficiency. ? if seondary to corticosteroid use. On full liquids. Code(s): R63.0 - ANOREXIA (2) Constipation Assessment/Plan: Increase MiraLAX to 17g PO BID Code(s): K59.00 - CONSTIPATION, UNSPECIFIED
[2016-08-06] MEDS: ATORVASTATIN CA 10 MG TABLET (FP) PO SCH (21:26)
[2016-08-07 00:07] LABS: ALBUMIN FOR UPE 65.4 % (.); GAMMA GLOBULIN % 13.6 % (.); M-SPIKE, % Not Observed % (Not Observed)
[2016-08-07] MEDS: INSULIN SLIDING SCALE (NOVOLOG) 1 VIAL SQ SCH ×6 (03:45→21:39)
[2016-08-07] MEDS: ACETAMINOPHEN 325 MG TABLET (FP) PO PRN (04:25)
[2016-08-07] MEDS ORDERED: FUROSEMIDE 40 MG/4 ML INJECTABLE VIAL ONE (06:17)
[2016-08-07] MEDS: FUROSEMIDE 100 MG/10 ML INJECTABLE VIAL IVPB SCH (06:23)
[2016-08-07 07:31] LABS: MCH 27.9 pg (25.7-33.7); MCHC 34.1 g/dl (32.0-36.0); MEAN CELL VOLUME 81.9 fl (80-96); MEAN PLT VOLUME 8.3 fl (7.5-11.1); PLATELET COUNT 241 K/MM3 (134-434); RDW 13.4 % (11.6-15.6)
[2016-08-07] MEDS: CALCIUM ACETATE 667 MG CAPSULE (FP) PO SCH ×3 (08:03→18:02)
[2016-08-07 08:21] LABS: BILIRUBIN,TOTAL 0.3 mg/dL (0.2-1.0); TOT PROT 6.1 g/dl (6.4-8.2)
[2016-08-07 08:35] LABS: CALCIUM 8.8 mg/dL (8.5-10.1); CREATININE 3.4 mg/dL (0.55-1.02); PHOSPHOROUS 4.3 mg/dL (2.5-4.9)
--- NOTE | 2016-08-07 09:04 | PN ---
Progress Note (short form) - Note Progress Note: Still with abd pain Tolerating liquid diet Had BM BGM fluctuating Vital Signs Period Temp Pulse Resp BP Sys/Clayton Pulse Ox Last 24 Hr 97.4 F-98.2 F 79-114 20-22 132-154/56-85 98-98 PE: AOX3 Neck: Supple, No JVD HEENT: PERRL, EOMI Lungs: CTA CVS: S1S2 Abd: Benign, +BS Mild LLQ and epigastric tenderness Ext: 1+Edema Neuro: No focal deficit CMP Sodium 138 mmol/L (136-145) 08/07/16 05:35 Potassium 3.4 mmol/L (3.5-5.1) L 08/07/16 05:35 Chloride 95 mmol/L (98-107) L 08/07/16 05:35 Carbon Dioxide 33 mmol/L (21-32) H 08/07/16 05:35 Anion Gap 10 (8-16) 08/07/16 05:35 BUN 122 mg/dL (7-18) H* 08/07/16 05:35 Creatinine 3.4 mg/dL (0.55-1.02) H 08/07/16 05:35 Creat Clearance w eGFR 12.87 (>60) 08/07/16 05:35 POC Glucometer 209 UNITS (()) 08/07/16 05:56 Random Glucose 205 mg/dL (74-106) H 08/07/16 05:35 Calcium 8.8 mg/dL (8.5-10.1) 08/07/16 05:35 Phosphorus 4.3 mg/dL (2.5-4.9) D 08/07/16 05:35 Magnesium 2.4 mg/dL (1.8-2.4) 08/06/16 05:35 Total Bilirubin 0.3 mg/dL (0.2-1.0) D 08/07/16 05:35 AST 10 U/L (15-37) L D 08/07/16 05:35 ALT 36 U/L (12-78) D 08/07/16 05:35 Alkaline Phosphatase 64 U/L (45-117) 08/07/16 05:35 Creatine Kinase 143 IU/L (26-192) 07/28/16 06:00 CK-MB (CK-2) 3.794 ng/ml (0.5-3.6) H 07/27/16 18:55 Troponin I < 0.02 ng/ml (0.00-0.05) 07/28/16 06:00 B-Natriuretic Peptide 1614.88 pg/ml (5-450) H 07/27/16 07:56 Prot Electrophoresis (.) 08/01/16 13:02 Serum Total Protein 6.9 g/dL (6.0-8.5) 08/01/16 13:02 Total Protein 6.1 g/dl (6.4-8.2) L 08/07/16 05:35 Albumin 3.0 g/dl (3.4-5.0) L 08/07/16 05:35 Globulin 3.6 g/dL (2.2-3.9) 08/01/16 13:02 Albumin/Globulin Ratio 0.9 (0.7-1.7) 08/01/16 13:02 Kqbef-0-Fkshniafm 0.3 gm/dL (0.0-0.4) 08/01/16 13:02 Gxvdq-6-Nwynsketa (%) 0.8 % (.) 08/01/16 12:00 Uniqi-6-Pgaptsqto 1.1 gm/dL (0.4-1.0) H 08/01/16 13:02 Qexun-1-Eyhchxfrq (%) 3.7 % (.) 08/01/16 12:00 Beta Globulins 1.0 gm/dL (0.7-1.3) 08/01/16 13:02 Beta Globulins (%) 16.5 % (.) 08/01/16 12:00 Gamma Globulins 1.2 gm/dL (0.4-1.8) 08/01/16 13:02 Gamma Globulins (%) 13.6 % (.) 08/01/16 12:00 M-Constantin % Not observed % (Not Observed) 08/01/16 12:00 Total Amylase 230 U/L (25-115) H 08/04/16 05:45 Lipase 2800 U/L (73-393) H 08/06/16 05:35 TSH 3.03 uIU/ml (0.358-3.74) 07/27/16 18:55 Current Medications Generic Name Dose Route Start Last Admin Trade Name Freq PRN Reason Stop Dose Admin Acetaminophen 650 mg 07/30/16 15:50 08/07/16 04:25 Tylenol - PO 650 mg Q6H PRN Administration FEVER OR PAIN Albuterol/Ipratropium 1 amp 08/04/16 13:11 08/05/16 11:45 Duoneb - NEB 1 amp Q4H PRN Administration SHORTNESS OF BREATH Atorvastatin Calcium 10 mg 07/27/16 22:00 08/06/16 21:26 Lipitor - PO 10 mg HS VANI Administration Calcitriol 0.5 mcg 07/27/16 18:00 08/06/16 10:26 Rocaltrol - PO 0.5 mcg DAILY VANI Administration Calcium Acetate 1,334 mg 08/05/16 17:30 08/07/16 08:03 Phoslo - PO 1,334 mg TIDCM VANI Administration Diltiazem HCl 60 mg 07/29/16 14:00 08/06/16 21:26 Cardizem - PO 60 mg QID VANI Administration Furosemide 80 mg 08/06/16 14:00 08/07/16 06:23 Lasix Injection - IVPB 80 mg BID@0600,1400 VANI Administration Heparin Sodium (Porcine) 5,000 unit 08/05/16 12:58 Heparin - IVPUSH PRN PRN Heparin Sodium (Porcine) 1,000 unit 08/05/16 12:58 Heparin - IVPUSH PRN PRN Hydralazine HCl 25 mg 07/27/16 18:30 08/06/16 21:26 Apresoline - PO 25 mg BID VANI Administration Heparin Sodium (Porcine) 25, 500 mls @ 20 mls/hr 08/05/16 13:00 08/06/16 16:44 000 unit/ Sodium Chloride IV 14 mls/hr TITR VANI Administration Protocol 1,000 UNIT/HR Insulin Aspart 1 vial 08/04/16 12:30 08/07/16 06:24 Novolog Vial Sliding Scale - SQ 4 units Q4HPO [facility] Administration Protocol Isosorbide Mononitrate 30 mg 07/27/16 18:30 08/06/16 10:25 Imdur - PO 30 mg DAILY VANI Administration Methylprednisolone Sodium Succinate 40 mg 08/07/16 10:00 Solu-Medrol - IVPB DAILY [facility] Ondansetron HCl 4 mg 08/03/16 18:45 Zofran Injection IVPUSH Q4H PRN NAUSEA AND/OR VOMITING Polyethylene Glycol 17 gm 08/06/16 22:00 08/06/16 21:27 Miralax (For Daily Use) - PO Not Given BID VANI Ranitidine HCl 75 mg 08/05/16 10:00 08/06/16 10:26 Zantac - PO 75 mg DAILY VANI Administration AP: DM: Fluctuating blood sugar On Methylprednisolone 40 daily Monitor BGM Q4 hrs N0 Levemir for now Novolog Coverage Q4hrs Will F/U Elevated lipase . Normal Pancreas on CT ?Pancreatitis Pt has multiple possible reasons for elevated Lipase including renal failure and use of Januvia, Methylprednosolone and Furosemide. Off Januvia now. CHF Acute on Chronic renal insufficiency. HTN HLD Problem List - Problems (1) CKD (chronic kidney disease) Code(s): N18.9 - CHRONIC KIDNEY DISEASE, UNSPECIFIED Qualifiers: Chronic kidney disease stage: unspecified stage Qualified Code(s): N18.9 - Chronic kidney disease, unspecified (2) Hypertension Code(s): I10 - ESSENTIAL (PRIMARY) HYPERTENSION (3) SOB (shortness of breath) on exertion Code(s): R06.02 - SHORTNESS OF BREATH
[2016-08-07 09:07] LABS: PLATELET ESTIMATE ADEQUATE (NORMAL)
[2016-08-07] MEDS: dilTIAZem HCL 60 MG TABLET (FP) PO SCH ×2 (09:56→16:44)
[2016-08-07] MEDS: POLYETHYLENE GLYCOL 3350 119 GM BTL PO SCH (09:56)
[2016-08-07] MEDS: hydrALAZINE HCL 25 MG TABLET (FP) PO SCH ×2 (09:56→21:36)
[2016-08-07] MEDS: ISOSORBIDE MONONITRATE 30 MG TAB.SR.24H (FP) PO SCH (09:56)
[2016-08-07] MEDS: RANITIDINE HCL 150 MG TABLET (FP) PO SCH (09:57)
[2016-08-07] MEDS: CALCITRIOL 0.25 MCG CAPSULE (FP) PO SCH (09:57)
[2016-08-07] MEDS ORDERED: methylPREDNISolone NA SUCC 40 MG/1 ML VIAL IVPB SCH (10:00)
[2016-08-07] MEDS ORDERED: INSULIN (NOVOLOG) ASPART 100 UNITS/ML 10ML VIAL ONE (10:08)
--- NOTE | 2016-08-07 10:15 | PN ---
Progress Note, Physician Chief Complaint: Pt seen and examined Pt is on IV heparin abdominal distention present,lack of appetite Cardiology,RENAl,pul GI note appreciated Elevated Lipase level Januvia on hold Leukocutosis Rpt blood cul pending Urine cul shows lactose fermenting nega bacilli - Current Medication List Current Medications: Active Medications Acetaminophen (Tylenol -) 650 mg PO Q6H PRN PRN Reason: FEVER OR PAIN Last Admin: 08/07/16 04:25 Dose: 650 mg Albuterol/Ipratropium (Duoneb -) 1 amp NEB Q4H PRN PRN Reason: SHORTNESS OF BREATH Last Admin: 08/05/16 11:45 Dose: 1 amp Atorvastatin Calcium (Lipitor -) 10 mg PO HS [facility] Last Admin: 08/06/16 21:26 Dose: 10 mg Calcitriol (Rocaltrol -) 0.5 mcg PO DAILY [facility] Last Admin: 08/07/16 09:57 Dose: 0.5 mcg Calcium Acetate (Phoslo -) 1,334 mg PO TIDCM [facility] Last Admin: 08/07/16 08:03 Dose: 1,334 mg Diltiazem HCl (Cardizem -) 60 mg PO QID [facility] Last Admin: 08/07/16 09:56 Dose: 60 mg Furosemide (Lasix Injection -) 80 mg IVPB BID@0600,1400 [facility] Last Admin: 08/07/16 06:23 Dose: 80 mg Heparin Sodium (Porcine) (Heparin -) 5,000 unit IVPUSH PRN PRN Heparin Sodium (Porcine) (Heparin -) 1,000 unit IVPUSH PRN PRN Hydralazine HCl (Apresoline -) 25 mg PO BID [facility] Last Admin: 08/07/16 09:56 Dose: 25 mg Heparin Sodium (Porcine) 25, (000 unit/ Sodium Chloride) 500 mls @ 20 mls/hr IV TITR VANI; 1,000 UNIT/HR PRN Reason: Protocol Last Admin: 08/06/16 16:44 Dose: 14 mls/hr Insulin Aspart (Novolog Vial Sliding Scale -) 1 vial SQ Q4HPO VANI PRN Reason: Protocol Last Admin: 08/07/16 06:24 Dose: 4 units Isosorbide Mononitrate (Imdur -) 30 mg PO DAILY [facility] Last Admin: 08/07/16 09:56 Dose: 30 mg Methylprednisolone Sodium Succinate (Solu-Medrol -) 40 mg IVPB DAILY [facility] Last Admin: 08/07/16 09:57 Dose: 40 mg Ondansetron HCl (Zofran Injection) 4 mg IVPUSH Q4H PRN PRN Reason: NAUSEA AND/OR VOMITING Polyethylene Glycol (Miralax (For Daily Use) -) 17 gm PO BID [facility] Last Admin: 08/07/16 09:56 Dose: Not Given Ranitidine HCl (Zantac -) 75 mg PO DAILY [facility] Last Admin: 08/07/16 09:57 Dose: 75 mg - Objective Vital Signs: Vital Signs Temperature 98 F 08/07/16 05:33 Pulse Rate 93 H 08/07/16 05:33 Respiratory Rate 20 08/07/16 05:33 Blood Pressure 154/75 08/07/16 05:33 O2 Sat by Pulse Oximetry (%) 98 08/06/16 22:00 Constitutional: Yes: No Distress Eyes: Yes: Conjunctiva Clear HENT: Yes: Atraumatic Neck: Yes: Supple, Trachea Midline Cardiovascular: Yes: Regular Rate and Rhythm Respiratory: Yes: Regular, Diminished (Lung base) Gastrointestinal: Yes: Normal Bowel Sounds, Soft, Abdomen, Obese Genitourinary: Yes: [place] Present Edema: Yes Edema: LLE: Trace, RLE: Trace Neurological: Yes: WNL, Alert Psychiatric: Yes: Alert, Oriented Labs: CBC, BMP 08/07/16 05:35 08/07/16 05:35 INR, PTT INR 1.27 (0.82-1.09) H 08/06/16 05:35 Laboratory Results - last 24 hr 08/01/16 08/06/16 08/06/16 12:00 05:35 10:23 WBC RBC Hgb Hct MCV MCHC RDW Plt Count MPV Neutrophils % 92.0 H Lymphocytes % 5.0 L D Monocytes % 2.0 L Myelocytes 1 Differential Comment Manual diff done Platelet Estimate Adequate PTT (Actin FS) Sodium Potassium Chloride Carbon Dioxide Anion Gap BUN Creatinine Creat Clearance w eGFR POC Glucometer 256 Random Glucose Calcium Phosphorus Total Bilirubin AST ALT Alkaline Phosphatase Total Protein Albumin Lpkde-7-Cxasitjfw (%) 0.8 Sgkws-5-Zqlntywva (%) 3.7 Beta Globulins (%) 16.5 Gamma Globulins (%) 13.6 M-Constantin % Not observed Urine Color Urine Appearance Urine pH Ur Specific [place] Urine Protein Urine Glucose (UA) Urine Ketones Urine Blood Urine Nitrite Urine Bilirubin Urine Urobilinogen Ur Leukocyte Esterase Urine RBC Urine WBC Calcium Oxalate Crystal Amorphous Urates Urine Bacteria Urine Total Protein 311.0 Urine PEP Interpret 65.4 Ref Test Comments 08/06/16 08/06/16 08/06/16 12:30 16:38 18:31 WBC RBC Hgb Hct MCV MCHC RDW Plt Count MPV Neutrophils % Lymphocytes % Monocytes % Myelocytes Differential Comment Platelet Estimate PTT (Actin FS) Sodium Potassium Chloride Carbon Dioxide Anion Gap BUN Creatinine Creat Clearance w eGFR POC Glucometer 384 412 Random Glucose Calcium Phosphorus Total Bilirubin AST ALT Alkaline Phosphatase Total Protein Albumin Gdomu-1-Anmggmbxr (%) Qtwea-9-Mmkukzjet (%) Beta Globulins (%) Gamma Globulins (%) M-Constantin % Urine Color Ltyellow Urine Appearance Slcloudy Urine pH 6.0 Ur Specific [place] 1.008 Urine Protein 1+ H D Urine Glucose (UA) Negative Urine Ketones Negative Urine Blood 1+ H Urine Nitrite Negative Urine Bilirubin Negative Urine Urobilinogen Negative Ur Leukocyte Esterase 1+ H Urine RBC 2 Urine WBC 12 Calcium Oxalate Crystal Rare Amorphous Urates Many Urine Bacteria Moderate Urine Total Protein Urine PEP Interpret Ref Test Comments 08/06/16 08/07/16 08/07/16 21:59 05:35 05:35 WBC 25.0 H RBC 3.04 L Hgb 8.5 L Hct 24.9 L MCV 81.9 MCHC 34.1 RDW 13.4 Plt Count 241 MPV 8.3 Neutrophils % 83.0 H Lymphocytes % Y Monocytes % 17.0 H D Myelocytes Differential Comment Manual diff done Platelet Estimate Adequate PTT (Actin FS) 60.1 H Sodium Potassium Chloride Carbon Dioxide Anion Gap BUN Creatinine Creat Clearance w eGFR POC Glucometer 372 Random Glucose Calcium Phosphorus Total Bilirubin AST ALT Alkaline Phosphatase Total Protein Albumin Nifwz-1-Qusbdlbfi (%) Wvzfc-0-Qwihklduz (%) Beta Globulins (%) Gamma Globulins (%) M-Constantin % Urine Color Urine Appearance Urine pH Ur Specific [place] Urine Protein Urine Glucose (UA) Urine Ketones Urine Blood Urine Nitrite Urine Bilirubin Urine Urobilinogen Ur Leukocyte Esterase Urine RBC Urine WBC Calcium Oxalate Crystal Amorphous Urates Urine Bacteria Urine Total Protein Urine PEP Interpret Ref Test Comments 08/07/16 08/07/16 05:35 05:56 WBC RBC Hgb Hct MCV MCHC RDW Plt Count MPV Neutrophils % Lymphocytes % Monocytes % Myelocytes Differential Comment Platelet Estimate PTT (Actin FS) Sodium 138 Potassium 3.4 L Chloride 95 L Carbon Dioxide 33 H Anion Gap 10 BUN 122 H* Creatinine 3.4 H Creat Clearance w eGFR 12.87 POC Glucometer 209 Random Glucose 205 H Calcium 8.8 Phosphorus 4.3 D Total Bilirubin 0.3 D AST 10 L D ALT 36 D Alkaline Phosphatase 64 Total Protein 6.1 L Albumin 3.0 L Mfpuw-8-Ozjjmhhap (%) Sgbym-1-Ehpfpvxos (%) Beta Globulins (%) Gamma Globulins (%) M-Constantin % Urine Color Urine Appearance Urine pH Ur Specific [place] Urine Protein Urine Glucose (UA) Urine Ketones Urine Blood Urine Nitrite Urine Bilirubin Urine Urobilinogen Ur Leukocyte Esterase Urine RBC Urine WBC Calcium Oxalate Crystal Amorphous Urates Urine Bacteria Urine Total Protein Urine PEP Interpret Ref Test Comments Assessment/Plan Acute on chronic ckd PAF abdominal distention elevated lipase/ pancreatitis ? due to [place] SOB/acute on chronic CHF HTN,Hypercholestrolemia Pulmonary vascular congestion DM PLAN Continue bronchodialators Continue BP medications Monitor BUN/creatinine Monitor sugar Will f/u cardiology and renal ,endocrine,pul rec regarding Medication Heparin as per protocol corey on hold
[2016-08-07] MEDS: ALBUTEROL SO4 2.5/IPRATROPIUM 0.5 INH SOL 3 ML VIAL.NEB. NEB PRN ×2 (10:20→21:40)
--- NOTE | 2016-08-07 10:40 | PN ---
Progress Note, Physician History of Present Illness: PULMONARY ALERT,FEELING BETTER,-RESP DISTRESS - Current Medication List Current Medications: Active Medications Acetaminophen (Tylenol -) 650 mg PO Q6H PRN PRN Reason: FEVER OR PAIN Last Admin: 08/07/16 04:25 Dose: 650 mg Albuterol/Ipratropium (Duoneb -) 1 amp NEB Q4H PRN PRN Reason: SHORTNESS OF BREATH Last Admin: 08/05/16 11:45 Dose: 1 amp Atorvastatin Calcium (Lipitor -) 10 mg PO HS [facility] Last Admin: 08/06/16 21:26 Dose: 10 mg Calcitriol (Rocaltrol -) 0.5 mcg PO DAILY [facility] Last Admin: 08/07/16 09:57 Dose: 0.5 mcg Calcium Acetate (Phoslo -) 1,334 mg PO TIDCM [facility] Last Admin: 08/07/16 08:03 Dose: 1,334 mg Diltiazem HCl (Cardizem -) 60 mg PO QID [facility] Last Admin: 08/07/16 09:56 Dose: 60 mg Furosemide (Lasix Injection -) 80 mg IVPB BID@0600,1400 [facility] Last Admin: 08/07/16 06:23 Dose: 80 mg Heparin Sodium (Porcine) (Heparin -) 5,000 unit IVPUSH PRN PRN Heparin Sodium (Porcine) (Heparin -) 1,000 unit IVPUSH PRN PRN Hydralazine HCl (Apresoline -) 25 mg PO BID [facility] Last Admin: 08/07/16 09:56 Dose: 25 mg Heparin Sodium (Porcine) 25, (000 unit/ Sodium Chloride) 500 mls @ 20 mls/hr IV TITR VANI; 1,000 UNIT/HR PRN Reason: Protocol Last Admin: 08/06/16 16:44 Dose: 14 mls/hr Insulin Aspart (Novolog Vial Sliding Scale -) 1 vial SQ Q4HPO VANI PRN Reason: Protocol Last Admin: 08/07/16 10:10 Dose: 8 units Isosorbide Mononitrate (Imdur -) 30 mg PO DAILY [facility] Last Admin: 08/07/16 09:56 Dose: 30 mg Methylprednisolone Sodium Succinate (Solu-Medrol -) 40 mg IVPB DAILY [facility] Last Admin: 08/07/16 09:57 Dose: 40 mg Ondansetron HCl (Zofran Injection) 4 mg IVPUSH Q4H PRN PRN Reason: NAUSEA AND/OR VOMITING Polyethylene Glycol (Miralax (For Daily Use) -) 17 gm PO BID [facility] Last Admin: 08/07/16 09:56 Dose: Not Given Ranitidine HCl (Zantac -) 75 mg PO DAILY [facility] Last Admin: 08/07/16 09:57 Dose: 75 mg - Objective Vital Signs: Vital Signs Temperature 98 F 08/07/16 05:33 Pulse Rate 93 H 08/07/16 05:33 Respiratory Rate 20 08/07/16 05:33 Blood Pressure 154/75 08/07/16 05:33 O2 Sat by Pulse Oximetry (%) 98 08/06/16 22:00 Constitutional: Yes: Well Nourished, Calm Eyes: Yes: WNL HENT: Yes: WNL Neck: Yes: WNL Cardiovascular: Yes: Pulse Irregular, S1, S2 Respiratory: Yes: Rales ([place] RALES WITH FEW SCATTERED WHEEZES) Gastrointestinal: Yes: Normal Bowel Sounds, Soft Extremities: Yes: WNL Edema: Yes Labs: CBC, BMP 08/07/16 05:35 08/07/16 05:35 INR, PTT INR 1.27 (0.82-1.09) H 08/06/16 05:35 Problem List - Problems (1) Acute on chronic diastolic CHF (congestive heart failure) Code(s): I50.33 - ACUTE ON CHRONIC DIASTOLIC (CONGESTIVE) HEART FAILURE (2) CKD (chronic kidney disease) Code(s): N18.9 - CHRONIC KIDNEY DISEASE, UNSPECIFIED Qualifiers: Chronic kidney disease stage: unspecified stage Qualified Code(s): N18.9 - Chronic kidney disease, unspecified (3) Diabetes 1.5, managed as type 1 Code(s): E13.9 - OTHER SPECIFIED DIABETES MELLITUS WITHOUT COMPLICATIONS (4) Hypertension Code(s): I10 - ESSENTIAL (PRIMARY) HYPERTENSION (5) Pulmonary vascular congestion Code(s): R09.89 - OTH SYMPTOMS AND SIGNS INVOLVING THE CIRC AND RESP SYSTEMS (6) SOB (shortness of breath) on exertion Code(s): R06.02 - SHORTNESS OF BREATH (7) Pulmonary hypertension Code(s): I27.2 - OTHER SECONDARY PULMONARY HYPERTENSION Assessment/Plan IMP DECOMPENSATED DIASTOLIC CHF clinically improving PUL HTN ACUTE ON CHRONIC KIDNEY DISEASE DM HTN AFIB PLAN INHALED BRONCHODILATORS SUPPLEMENTAL O2 DVT PROPHYLAXIS MONITOR RENAL FUNCTION ANTICOAGULATION RATE CONTROL DAILY WTS F/U CHEST X-RAYS LASIX CONTINUE SOLUMEDROL TAPER DR ESPOSITO Problem List - Problems (1) Acute on chronic diastolic CHF (congestive heart failure) Code(s): I50.33 - ACUTE ON CHRONIC DIASTOLIC (CONGESTIVE) HEART FAILURE (2) CKD (chronic kidney disease) Code(s): N18.9 - CHRONIC KIDNEY DISEASE, UNSPECIFIED Qualifiers: Chronic kidney disease stage: unspecified stage Qualified Code(s): N18.9 - Chronic kidney disease, unspecified (3) Diabetes 1.5, managed as type 1 Code(s): E13.9 - OTHER SPECIFIED DIABETES MELLITUS WITHOUT COMPLICATIONS (4) Hypertension Code(s): I10 - ESSENTIAL (PRIMARY) HYPERTENSION (5) Pulmonary vascular congestion Code(s): R09.89 - OTH SYMPTOMS AND SIGNS INVOLVING THE CIRC AND RESP SYSTEMS (6) SOB (shortness of breath) on exertion Code(s): R06.02 - SHORTNESS OF BREATH (7) Pulmonary hypertension Code(s): I27.2 - OTHER SECONDARY PULMONARY HYPERTENSION
--- NOTE | 2016-08-07 11:34 | PN ---
Progress Note (short form) - Note Progress Note: breathing improved less sob no abdominal pain Vital Signs Period Temp Pulse Resp BP Sys/Clayton Pulse Ox Last 24 Hr 97.4 F-98.1 F 74-99 20-20 132-154/56-75 97-98 cor-rrr lungs clear abd soft,nt ext _edema blount CBC, BMP 08/07/16 05:35 08/07/16 05:35 l Microbiology 08/06/16 12:30 Urine - Urine [place] Urine Culture - Preliminary Lactose Fermenting Neg Bacilli 08/02/16 12:00 Blood - Peripheral Venous Blood Culture - Preliminary NO GROWTH OBTAINED AFTER 96 HOURS, INCUBATION TO CONTINUE FOR 1 DAYS. 08/02/16 11:15 Blood - Peripheral Venous Blood Culture - Preliminary NO GROWTH OBTAINED AFTER 96 HOURS, INCUBATION TO CONTINUE FOR 1 DAYS. a/p leukocytosis- ?steroids, ?UTI check ua and urine culture, r/o catheter related uti blood cultures sent start rocephin for UTI consider removal blount if okay with renal pancreatitis- no abd pain or vomiting , no nausea afib diabetes CKD
[2016-08-07] MEDS: cefTRIAXone 1 GM/50 ML BAG (PRE-DOCKED) IVPB SCH (12:35)
--- NOTE | 2016-08-07 14:26 | PN ---
Progress Note, Physician Chief Complaint: Pt's daughter at bedside. Pt slept poorly due to abdominal discomfort, but was not dyspneic. Now OOB in chair; no chest pain. alert. History of Present Illness: 86y woman (b. Maira) with PM hx of [id number] HTN; DM;hyperlipidemia ; CKD, who now presents with SOB. The patient has been feeling SOB with SOTO which began two weeks ago; she was admitted to [facility] for a cardiac workup, had a negative EKG (per daughter)and was d/chinmay home from ER. The pt fu with PMD a few days ago and was given a nebulizer. The pt states her sob worsened significantly last night; here was no significant improvement with the nebulizer. Pt states she gets the wheezing and sob when she ambulates short distances as well as up stairs, which is new (pt's daughter says she was able to walk slowly in the house on a regular basis without dyspnea until the past few weeks). The pt denies any associated cp (no cp since last admission to [facility]), fever/chills. pt does endorse a mild nonproductive cough, orthopnea, mild lower extermity edema; denies fever. Stress test 2 months ago negative for myocardial ischemia or arrhythmias. PMD dr. Mendoza Cartoon Artist: Dr. Ayala. - Current Medication List Current Medications: Active Medications Acetaminophen (Tylenol -) 650 mg PO Q6H PRN PRN Reason: FEVER OR PAIN Last Admin: 08/07/16 04:25 Dose: 650 mg Albuterol/Ipratropium (Duoneb -) 1 amp NEB Q4H PRN PRN Reason: SHORTNESS OF BREATH Last Admin: 08/07/16 10:20 Dose: 1 amp Atorvastatin Calcium (Lipitor -) 10 mg PO HS VANI Last Admin: 08/06/16 21:26 Dose: 10 mg Calcitriol (Rocaltrol -) 0.5 mcg PO DAILY VANI Last Admin: 08/07/16 09:57 Dose: 0.5 mcg Calcium Acetate (Phoslo -) 1,334 mg PO TIDCM VANI Last Admin: 08/07/16 12:16 Dose: 1,334 mg Ceftriaxone Sodium (Rocephin 1gm Ivpb (Pre-Docked)) 1 gm IVPB DAILY VANI PRN Reason: Protocol Last Admin: 08/07/16 12:35 Dose: 1 gm Diltiazem HCl (Cardizem -) 60 mg PO QID [facility] Last Admin: 08/07/16 09:56 Dose: 60 mg Furosemide (Lasix Injection -) 80 mg IVPB BID@0600,1400 [facility] Last Admin: 08/07/16 06:23 Dose: 80 mg Heparin Sodium (Porcine) (Heparin -) 5,000 unit IVPUSH PRN PRN Heparin Sodium (Porcine) (Heparin -) 1,000 unit IVPUSH PRN PRN Hydralazine HCl (Apresoline -) 25 mg PO BID [facility] Last Admin: 08/07/16 09:56 Dose: 25 mg Heparin Sodium (Porcine) 25, (000 unit/ Sodium Chloride) 500 mls @ 20 mls/hr IV TITR VANI; 1,000 UNIT/HR PRN Reason: Protocol Last Admin: 08/06/16 16:44 Dose: 14 mls/hr Insulin Aspart (Novolog Vial Sliding Scale -) 1 vial SQ Q4HPO [facility] PRN Reason: Protocol Last Admin: 08/07/16 10:10 Dose: 8 units Isosorbide Mononitrate (Imdur -) 30 mg PO DAILY [facility] Last Admin: 08/07/16 09:56 Dose: 30 mg Methylprednisolone Sodium Succinate (Solu-Medrol -) 40 mg IVPB DAILY [facility] Last Admin: 08/07/16 09:57 Dose: 40 mg Ondansetron HCl (Zofran Injection) 4 mg IVPUSH Q4H PRN PRN Reason: NAUSEA AND/OR VOMITING Polyethylene Glycol (Miralax (For Daily Use) -) 17 gm PO BID [facility] Last Admin: 08/07/16 09:56 Dose: Not Given Ranitidine HCl (Zantac -) 75 mg PO DAILY [facility] Last Admin: 08/07/16 09:57 Dose: 75 mg - Objective Vital Signs: Vital Signs Temperature 97.8 F 08/07/16 10:00 Pulse Rate 74 08/07/16 10:15 Respiratory Rate 20 08/07/16 10:00 Blood Pressure 155/78 08/07/16 10:00 O2 Sat by Pulse Oximetry (%) 97 08/07/16 10:15 Constitutional: Yes: Anxious Eyes: Yes: WNL HENT: Yes: WNL Neck: Yes: WNL Cardiovascular: Yes: Pulse Irregular, S1 (varies in intensity) Respiratory: Yes: Diminished Gastrointestinal: Yes: Soft, Distention. No: Tenderness ...Rectal Exam: Yes: Deferred Genitourinary: No: Anuria Breast(s): Yes: WNL Musculoskeletal: Yes: Muscle Weakness Extremities: Yes: Cool Edema: Yes Edema: LLE: Trace, RLE: Trace Peripheral Pulses WNL: No Peripheral Pulses: Left Doralis Pedis: 1+, Right Dorsalis Pedis: 1+ Integumentary: Yes: WNL Neurological: Yes: Alert, Oriented Labs: CBC, BMP 08/07/16 05:35 08/07/16 05:35 INR, PTT INR 1.27 (0.82-1.09) H 08/06/16 05:35 Abnormal Lab Results 08/07/16 08/07/16 08/07/16 05:35 05:35 05:35 WBC 25.0 H RBC 3.04 L Hgb 8.5 L Hct 24.9 L Neutrophils % 83.0 H Monocytes % 17.0 H D PTT (Actin FS) 60.1 H Potassium 3.4 L Chloride 95 L Carbon Dioxide 33 H BUN 122 H* Creatinine 3.4 H Random Glucose 205 H AST 10 L D Total Protein 6.1 L Albumin 3.0 L - ....Imaging Other: Image Reviewed (telemetry:AF; periods of RVR) Problem List - Problems (1) CKD (chronic kidney disease) Assessment/Plan: Increasing BUN/Cr has led to stopping losartan. Furosemide held; f/u electrolytes, BUN/Cr, daily weight, Is and Os. Family defers hemodialysis presently. Code(s): N18.9 - CHRONIC KIDNEY DISEASE, UNSPECIFIED Qualifiers: Chronic kidney disease stage: unspecified stage Qualified Code(s): N18.9 - Chronic kidney disease, unspecified (2) Hypertension Assessment/Plan: Now well-controlled on diltiazem (changed to 240 mg CD daily on 08/08/2016), Hydralazine + Imdur, and amlodipine. Losartan held due to deteriorating renal function. F/u BP and HR. ECHO: normal LVEF; moderate-severe pulmonary HTN. Code(s): I10 - ESSENTIAL (PRIMARY) HYPERTENSION (3) Pulmonary vascular congestion Code(s): R09.89 - OTH SYMPTOMS AND SIGNS INVOLVING THE CIRC AND RESP SYSTEMS (4) SOB (shortness of breath) on exertion Assessment/Plan: leukocytosis (on steroids); afebrile; still with productive cough. Furosemide restarted; may require hemodialysis (family presently not in favor of this). Code(s): R06.02 - SHORTNESS OF BREATH (5) Acute on chronic diastolic CHF (congestive heart failure) Code(s): I50.33 - ACUTE ON CHRONIC DIASTOLIC (CONGESTIVE) HEART FAILURE (6) Diabetes Assessment/Plan: markedly elevated glucose; now on steroids again for pulmonary dysfunction. F/u with layboy tender. Code(s): E11.9 - TYPE 2 DIABETES MELLITUS WITHOUT COMPLICATIONS (7) Atrial fibrillation Assessment/Plan: On diltiazem for HR control (changed to diltiazem CD for easier compliance; pt has also been complaining of abdominal discomfort, and fewer pills may be better ); f/u HR and BP.. Still on IV heparin for systemic anticoagulation; would recommend starting PO systemic anticoaguant such as warfarin or NOAC (eg apixaban or rivaroxaban), unless surgery is planned in the near future. Code(s): I48.91 - UNSPECIFIED ATRIAL FIBRILLATION (8) Pulmonary hypertension Assessment/Plan: Moderate to severe pulmonary HTN; pt with mild MR and LA, (+) diastolic dysfunction; leukocytosis (on steroids earlier). Consider PE, though on IV heparin. Code(s): I27.2 - OTHER SECONDARY PULMONARY HYPERTENSION
[2016-08-07] MEDS ORDERED: POTASSIUM CHLORIDE TABS 20 MEQ TABLET.ER (FP) PO ONE (15:00)
--- NOTE | 2016-08-07 15:05 | PN ---
Progress Note, Physician History of Present Illness: Pt seen and examined at bedside. She is awake and alert. She feels that her breathing is improving. - Current Medication List Current Medications: Active Medications Acetaminophen (Tylenol -) 650 mg PO Q6H PRN PRN Reason: FEVER OR PAIN Last Admin: 08/07/16 04:25 Dose: 650 mg Albuterol/Ipratropium (Duoneb -) 1 amp NEB Q4H PRN PRN Reason: SHORTNESS OF BREATH Last Admin: 08/07/16 10:20 Dose: 1 amp Atorvastatin Calcium (Lipitor -) 10 mg PO HS [facility] Last Admin: 08/06/16 21:26 Dose: 10 mg Calcitriol (Rocaltrol -) 0.5 mcg PO DAILY [facility] Last Admin: 08/07/16 09:57 Dose: 0.5 mcg Calcium Acetate (Phoslo -) 1,334 mg PO TIDCM [facility] Last Admin: 08/07/16 12:16 Dose: 1,334 mg Ceftriaxone Sodium (Rocephin 1gm Ivpb (Pre-Docked)) 1 gm IVPB DAILY [facility] PRN Reason: Protocol Last Admin: 08/07/16 12:35 Dose: 1 gm Diltiazem HCl (Cardizem Cd -) 240 mg PO DAILY [facility] Furosemide (Lasix Injection -) 80 mg IVPB BID@0600,1400 [facility] Last Admin: 08/07/16 06:23 Dose: 80 mg Heparin Sodium (Porcine) (Heparin -) 5,000 unit IVPUSH PRN PRN Heparin Sodium (Porcine) (Heparin -) 1,000 unit IVPUSH PRN PRN Hydralazine HCl (Apresoline -) 25 mg PO BID [facility] Last Admin: 08/07/16 09:56 Dose: 25 mg Heparin Sodium (Porcine) 25, (000 unit/ Sodium Chloride) 500 mls @ 20 mls/hr IV TITR VANI; 1,000 UNIT/HR PRN Reason: Protocol Last Admin: 08/06/16 16:44 Dose: 14 mls/hr Insulin Aspart (Novolog Vial Sliding Scale -) 1 vial SQ Q4HPO [facility]ANI PRN Reason: Protocol Last Admin: 08/07/16 14:56 Dose: 10 units Isosorbide Mononitrate (Imdur -) 30 mg PO DAILY [facility] Last Admin: 08/07/16 09:56 Dose: 30 mg Methylprednisolone Sodium Succinate (Solu-Medrol -) 40 mg IVPB DAILY [facility] Last Admin: 08/07/16 09:57 Dose: 40 mg Ondansetron HCl (Zofran Injection) 4 mg IVPUSH Q4H PRN PRN Reason: NAUSEA AND/OR VOMITING Polyethylene Glycol (Miralax (For Daily Use) -) 17 gm PO BID [facility] [place] Last Admin: 08/07/16 09:56 Dose: Not Given Ranitidine HCl (Zantac -) 75 mg PO DAILY [facility] Last Admin: 08/07/16 09:57 Dose: 75 mg - Objective Vital Signs: Vital Signs Temperature 97.8 F 08/07/16 10:00 Pulse Rate 91 H 08/07/16 14:00 Respiratory Rate 20 08/07/16 14:00 Blood Pressure 145/81 08/07/16 14:00 O2 Sat by Pulse Oximetry (%) 97 08/07/16 10:15 Constitutional: Yes: Calm Eyes: Yes: Conjunctiva Clear HENT: Yes: Atraumatic Neck: Yes: Supple Cardiovascular: Yes: S1, S2 Respiratory: Yes: On Nasal O2 Gastrointestinal: Yes: Soft, Abdomen, Obese Genitourinary: Yes: [place] Present Musculoskeletal: Yes: WNL Edema: No Neurological: Yes: Oriented Psychiatric: Yes: Oriented Labs: CBC, BMP 08/07/16 05:35 08/07/16 05:35 INR, PTT INR 1.27 (0.82-1.09) H 08/06/16 05:35 Problem List - Problems (1) CKD (chronic kidney disease) Code(s): N18.9 - CHRONIC KIDNEY DISEASE, UNSPECIFIED Qualifiers: Chronic kidney disease stage: unspecified stage Qualified Code(s): N18.9 - Chronic kidney disease, unspecified (2) Pulmonary vascular congestion Code(s): R09.89 - OTH SYMPTOMS AND SIGNS INVOLVING THE CIRC AND RESP SYSTEMS (3) SOB (shortness of breath) on exertion Code(s): R06.02 - SHORTNESS OF BREATH (4) Hypertension Code(s): I10 - ESSENTIAL (PRIMARY) HYPERTENSION (5) Diabetes 1.5, managed as type 1 Code(s): E13.9 - OTHER SPECIFIED DIABETES MELLITUS WITHOUT COMPLICATIONS Assessment/Plan Current Medications Generic Name Dose Route Start Last Admin Trade Name Freq PRN Reason Stop Dose Admin Acetaminophen 650 mg 07/30/16 15:50 08/07/16 04:25 Tylenol - PO 650 mg Q6H PRN Administration FEVER OR PAIN Albuterol/Ipratropium 1 amp 08/04/16 13:11 08/07/16 10:20 Duoneb - NEB 1 amp Q4H PRN Administration SHORTNESS OF BREATH Atorvastatin Calcium 10 mg 07/27/16 22:00 08/06/16 21:26 Lipitor - PO 10 mg HS VANI Administration Calcitriol 0.5 mcg 07/27/16 18:00 08/07/16 09:57 Rocaltrol - PO 0.5 mcg DAILY VANI Administration Calcium Acetate 1,334 mg 08/05/16 17:30 08/07/16 12:16 Phoslo - PO 1,334 mg TIDCM VANI Administration Ceftriaxone Sodium 1 gm 08/07/16 12:15 08/07/16 12:35 Rocephin 1gm Ivpb (Pre-Docked) IVPB 1 gm DAILY [facility] Administration Protocol Diltiazem HCl 240 mg 08/08/16 10:00 Cardizem Cd - PO DAILY VANI Furosemide 80 mg 08/06/16 14:00 08/07/16 06:23 Lasix Injection - IVPB 80 mg BID@0600,1400 VANI Administration Heparin Sodium (Porcine) 5,000 unit 08/05/16 12:58 Heparin - IVPUSH PRN PRN Heparin Sodium (Porcine) 1,000 unit 08/05/16 12:58 Heparin - IVPUSH PRN PRN Hydralazine HCl 25 mg 07/27/16 18:30 08/07/16 09:56 Apresoline - PO 25 mg BID VANI Administration Heparin Sodium (Porcine) 25, 500 mls @ 20 mls/hr 08/05/16 13:00 08/06/16 16:44 000 unit/ Sodium Chloride IV 14 mls/hr TITR VANI Administration Protocol 1,000 UNIT/HR Insulin Aspart 1 vial 08/04/16 12:30 08/07/16 14:56 Novolog Vial Sliding Scale - SQ 10 units Q4HPO VANI Administration Protocol Isosorbide Mononitrate 30 mg 07/27/16 18:30 08/07/16 09:56 Imdur - PO 30 mg DAILY VANI Administration Methylprednisolone Sodium Succinate 40 mg 08/07/16 10:00 08/07/16 09:57 Solu-Medrol - IVPB 40 mg DAILY [facility]ANI Administration Ondansetron HCl 4 mg 08/03/16 18:45 Zofran Injection IVPUSH Q4H PRN NAUSEA AND/OR VOMITING Polyethylene Glycol 17 gm 08/06/16 22:00 08/07/16 09:56 Miralax (For Daily Use) - PO Not Given BID VANI Ranitidine HCl 75 mg 08/05/16 10:00 08/07/16 09:57 Zantac - PO 75 mg DAILY VANI Administration Impression 1. CKD 2. HTN 3. DM 4. dyspnea 5. hyperlipidemia 6. anemia 7. hyponatremia 8. pulmonary htn Plan - pt recieved 80 mg of lasix this morning - will replace potassium - renal function is improving - steroid taper - repeat labs in am - renal function is improving - sodium is improved - renal workup is in progress - will follow Dr Fleming
[2016-08-07] MEDS: POTASSIUM CHLORIDE TABS 20 MEQ TABLET.ER (FP) PO ONE ×2 (16:40→18:02)
--- NOTE | 2016-08-07 16:58 | PN ---
GI Progress Note Subjective: Abdominal pain improved 3 soft BM's ovenight, 1 today and patient did not want to take MiraLAX this morning No vomiting Noted to have UTI - Objective Vital Signs: Vital Signs Temperature 97.8 F 08/07/16 10:00 Pulse Rate 91 H 08/07/16 14:00 Respiratory Rate 20 08/07/16 14:00 Blood Pressure 145/81 08/07/16 14:00 O2 Sat by Pulse Oximetry (%) 97 08/07/16 10:15 Constitutional: Calm Cardiovascular: Yes: Pulse Irregular (regular rate) Respiratory: Yes: Wheezes (improved bilaiterally) Gastrointestinal Inspection: No: Distention ...Auscultate: Yes: Normoactive Bowel Sounds ...Palpate: No: Tenderness Labs: CBC, BMP 08/07/16 05:35 08/07/16 05:35 INR, PTT INR 1.27 (0.82-1.09) H 08/06/16 05:35 Problem List - Problems (1) Lack of appetite Assessment/Plan: Abdominal pain improved, no further vomiting Advance diet in AM to diabetic/renal Code(s): R63.0 - ANOREXIA (2) Constipation Assessment/Plan: Will cut back on the MiraLAX Given worsened leukocytosis and softer BM's last night, ordered stool for C. Diff Code(s): K59.00 - CONSTIPATION, UNSPECIFIED
[2016-08-07] MEDS ORDERED: PT OWN MED DRAWER 7, Y5N ONE (17:27)
[2016-08-07] MEDS: HEPARIN - 25,000 UNIT in SODIUM CHLORIDE 495 ML IV SCH (17:31)
[2016-08-07] MEDS: ATORVASTATIN CA 10 MG TABLET (FP) PO SCH (21:36)
[2016-08-07] MEDS: APIXABAN 2.5 MG TABLET PO SCH (21:36)
[2016-08-07] MEDS ORDERED: APIXABAN 2.5 MG TABLET PO SCH (22:00)
[2016-08-08 00:08] LABS: C-ANCA <1:20 titer (Neg:<1:20); MYELOPEROXIDASE ANTIBODY <9.0 U/mL (0.0-9.0); P-ANCA <1:20 titer (Neg:<1:20); PROTEINASE-3 ANTIBODY <3.5 U/mL (0.0-3.5)
[2016-08-08] MEDS: INSULIN SLIDING SCALE (NOVOLOG) 1 VIAL SQ SCH ×6 (02:00→22:08)
[2016-08-08 07:21] LABS: MCH 27.5 pg (25.7-33.7); MCHC 33.5 g/dl (32.0-36.0); MEAN CELL VOLUME 82.1 fl (80-96); MEAN PLT VOLUME 8.2 fl (7.5-11.1); PLATELET COUNT 223 K/MM3 (134-434); RDW 12.9 % (11.6-15.6); WHITE BLOOD COUNT 20.9 K/mm3 (4.0-10.0)
[2016-08-08 07:27] LABS: INR 1.44 (0.82-1.09)
[2016-08-08 07:37] LABS: ACTIVATED PTT 75.7 SECONDS (26.9-34.4)
[2016-08-08] MEDS: CALCIUM ACETATE 667 MG CAPSULE (FP) PO SCH ×3 (08:10→17:22)
[2016-08-08 08:26] LABS: ALBUMIN 2.7 g/dl (3.4-5.0); BILIRUBIN,TOTAL 0.3 mg/dL (0.2-1.0); CALCIUM 9.5 mg/dL (8.5-10.1); CREATININE 3.1 mg/dL (0.55-1.02); TOT PROT 5.4 g/dl (6.4-8.2)
--- NOTE | 2016-08-08 08:54 | PN ---
Progress Note (short form) - Note Progress Note: Still with abd pain No nausea or vomiting Moved bowels Tolerating diet Apetite better BGM fluctuating Vital Signs Period Temp Pulse Resp BP Sys/[place] Pulse Ox Last 24 Hr 97.4 F-98 F 74-116 20-20 134-173/74-97 97-100 PE: AOX3 Neck: Supple, No JVD HEENT: PERRL, EOMI Lungs: CTA CVS: S1S2 Abd: Benign, +BS Ext: 1+Edema Neuro: No focal deficit CMP Sodium 138 mmol/L (136-145) 08/07/16 05:35 Potassium 3.4 mmol/L (3.5-5.1) L 08/07/16 05:35 Chloride 95 mmol/L (98-107) L 08/07/16 05:35 Carbon Dioxide 33 mmol/L (21-32) H 08/07/16 05:35 Anion Gap 10 (8-16) 08/07/16 05:35 BUN 122 mg/dL (7-18) H* 08/07/16 05:35 Creatinine 3.4 mg/dL (0.55-1.02) H 08/07/16 05:35 Creat Clearance w eGFR 12.87 (>60) 08/07/16 05:35 POC Glucometer 236 UNITS (()) 08/08/16 05:03 Random Glucose 205 mg/dL (74-106) H 08/07/16 05:35 Calcium 8.8 mg/dL (8.5-10.1) 08/07/16 05:35 Phosphorus 4.3 mg/dL (2.5-4.9) D 08/07/16 05:35 Magnesium 2.4 mg/dL (1.8-2.4) 08/06/16 05:35 Total Bilirubin 0.3 mg/dL (0.2-1.0) D 08/07/16 05:35 AST 10 U/L (15-37) L D 08/07/16 05:35 ALT 36 U/L (12-78) D 08/07/16 05:35 Alkaline Phosphatase 64 U/L (45-117) 08/07/16 05:35 Creatine Kinase 143 IU/L (26-192) 07/28/16 06:00 CK-MB (CK-2) 3.794 ng/ml (0.5-3.6) H 07/27/16 18:55 Troponin I < 0.02 ng/ml (0.00-0.05) 07/28/16 06:00 B-Natriuretic Peptide 1614.88 pg/ml (5-450) H 07/27/16 07:56 Prot Electrophoresis (.) 08/01/16 13:02 Serum Total Protein 6.9 g/dL (6.0-8.5) 08/01/16 13:02 Total Protein 6.1 g/dl (6.4-8.2) L 08/07/16 05:35 Albumin 3.0 g/dl (3.4-5.0) L 08/07/16 05:35 Globulin 3.6 g/dL (2.2-3.9) 08/01/16 13:02 Albumin/Globulin Ratio 0.9 (0.7-1.7) 08/01/16 13:02 Zjviv-0-Abgammkqj 0.3 gm/dL (0.0-0.4) 08/01/16 13:02 Sdurj-9-Exkpiibwb (%) 0.8 % (.) 08/01/16 12:00 Eholw-3-Fofjdqmhs 1.1 gm/dL (0.4-1.0) H 08/01/16 13:02 Vdhgp-8-Edspagpmf (%) 3.7 % (.) 08/01/16 12:00 Beta Globulins 1.0 gm/dL (0.7-1.3) 08/01/16 13:02 Beta Globulins (%) 16.5 % (.) 08/01/16 12:00 Gamma Globulins 1.2 gm/dL (0.4-1.8) 08/01/16 13:02 Gamma Globulins (%) 13.6 % (.) 08/01/16 12:00 M-Constantin % Not observed % (Not Observed) 08/01/16 12:00 Total Amylase 230 U/L (25-115) H 08/04/16 05:45 Lipase 2800 U/L (73-393) H 08/06/16 05:35 TSH 3.03 uIU/ml (0.358-3.74) 07/27/16 18:55 Current Medications Generic Name Dose Route Start Last Admin Trade Name Freq PRN Reason Stop Dose Admin Acetaminophen 650 mg 07/30/16 15:50 08/07/16 04:25 Tylenol - PO 650 mg Q6H PRN Administration FEVER OR PAIN Albuterol/Ipratropium 1 amp 08/04/16 13:11 08/07/16 21:40 Duoneb - NEB 1 amp Q4H PRN Administration SHORTNESS OF BREATH Apixaban 2.5 mg 08/07/16 18:45 08/07/16 21:36 Eliquis - PO 2.5 mg BID VANI Administration Atorvastatin Calcium 10 mg 07/27/16 22:00 08/07/16 21:36 Lipitor - PO 10 mg HS VANI Administration Calcitriol 0.5 mcg 07/27/16 18:00 08/07/16 09:57 Rocaltrol - PO 0.5 mcg DAILY VANI Administration Calcium Acetate 1,334 mg 08/05/16 17:30 08/08/16 08:10 Phoslo - PO 1,334 mg TIDCM VANI Administration Ceftriaxone Sodium 1 gm 08/07/16 12:15 08/07/16 12:35 Rocephin 1gm Ivpb (Pre-Docked) IVPB 1 gm DAILY VANI Administration Protocol Diltiazem HCl 240 mg 08/08/16 10:00 Cardizem Cd - PO DAILY [facility]ANI Furosemide 80 mg 08/08/16 10:00 Lasix Injection - IVPB DAILY [facility] Hydralazine HCl 25 mg 07/27/16 18:30 08/07/16 21:36 Apresoline - PO 25 mg BID VANI Administration Insulin Aspart 1 vial 08/04/16 12:30 08/08/16 06:03 Novolog Vial Sliding Scale - SQ 6 units Q4HPO VANI Administration Protocol Isosorbide Mononitrate 30 mg 07/27/16 18:30 08/07/16 09:56 Imdur - PO 30 mg DAILY [facility]ANI Administration Ondansetron HCl 4 mg 08/03/16 18:45 Zofran Injection IVPUSH Q4H PRN NAUSEA AND/OR VOMITING Polyethylene Glycol 17 gm 08/08/16 10:00 Miralax (For Daily Use) - PO DAILY [facility] Prednisone 30 mg 08/08/16 10:00 Deltasone - PO DAILY [facility]ANI Ranitidine HCl 75 mg 08/05/16 10:00 08/07/16 09:57 Zantac - PO 75 mg DAILY [facility]ANI Administration AP: DM: Fluctuating blood sugar On Prednosone 30mg daily Monitor BGM Q4 hrs Start Levemir 15 units stat and daily Novolog Coverage Q4hrs Will F/U Elevated lipase . Normal Pancreas on CT ?Pancreatitis Pt has multiple possible reasons for elevated Lipase including renal failure and use of Januvia, Methylprednosolone and Furosemide. Off Januvia now. CHF Acute on Chronic renal insufficiency. HTN HLD Problem List - Problems (1) CKD (chronic kidney disease) Code(s): N18.9 - CHRONIC KIDNEY DISEASE, UNSPECIFIED Qualifiers: Chronic kidney disease stage: unspecified stage Qualified Code(s): N18.9 - Chronic kidney disease, unspecified (2) Hypertension Code(s): I10 - ESSENTIAL (PRIMARY) HYPERTENSION (3) SOB (shortness of breath) on exertion Code(s): R06.02 - SHORTNESS OF BREATH
[2016-08-08] MEDS: APIXABAN 2.5 MG TABLET PO SCH ×2 (09:21→22:09)
[2016-08-08] MEDS: cefTRIAXone 1 GM/50 ML BAG (PRE-DOCKED) IVPB SCH (09:21)
[2016-08-08] MEDS: hydrALAZINE HCL 25 MG TABLET (FP) PO SCH ×2 (09:21→22:09)
[2016-08-08] MEDS: ISOSORBIDE MONONITRATE 30 MG TAB.SR.24H (FP) PO SCH (09:22)
[2016-08-08] MEDS: CALCITRIOL 0.25 MCG CAPSULE (FP) PO SCH (09:22)
[2016-08-08] MEDS: RANITIDINE HCL 150 MG TABLET (FP) PO SCH (09:22)
[2016-08-08] MEDS: FUROSEMIDE 100 MG/10 ML INJECTABLE VIAL IVPB SCH (09:23)
[2016-08-08 09:52] LABS: METAMYELOCYTE 1 % (0-2)
[2016-08-08 09:53] LABS: HYPOCHROMIA 1+
[2016-08-08 09:59] LABS: SCHISTOCYTES 1+
[2016-08-08] MEDS ORDERED: predniSONE 10 MG TABLET (UD) PO SCH (10:00)
--- NOTE | 2016-08-08 10:05 | PN ---
Progress Note, Physician Chief Complaint: Pt seen and examined Pt is on elequis abdominal distention present,lack of appetite Cardiology,RENAl,pul GI note appreciated Lipase level coming down Januvia on hold Leukocutosis Rpt blood cul pending Urine cul shows lactose fermenting nega bacilli - Current Medication List Current Medications: Active Medications Acetaminophen (Tylenol -) 650 mg PO Q6H PRN PRN Reason: FEVER OR PAIN Last Admin: 08/07/16 04:25 Dose: 650 mg Albuterol/Ipratropium (Duoneb -) 1 amp NEB Q4H PRN PRN Reason: SHORTNESS OF BREATH Last Admin: 08/07/16 21:40 Dose: 1 amp Apixaban (Eliquis -) 2.5 mg PO BID [facility] Last Admin: 08/08/16 09:21 Dose: 2.5 mg Atorvastatin Calcium (Lipitor -) 10 mg PO HS [facility] Last Admin: 08/07/16 21:36 Dose: 10 mg Calcitriol (Rocaltrol -) 0.5 mcg PO DAILY [facility] Last Admin: 08/08/16 09:22 Dose: 0.5 mcg Calcium Acetate (Phoslo -) 1,334 mg PO TIDCM [facility] Last Admin: 08/08/16 08:10 Dose: 1,334 mg Ceftriaxone Sodium (Rocephin 1gm Ivpb (Pre-Docked)) 1 gm IVPB DAILY [facility] PRN Reason: Protocol Last Admin: 08/08/16 09:21 Dose: 1 gm Diltiazem HCl (Cardizem Cd -) 240 mg PO DAILY [facility] Last Admin: 08/08/16 09:22 Dose: 240 mg Furosemide (Lasix Injection -) 80 mg IVPB DAILY [facility] Last Admin: 08/08/16 09:23 Dose: 80 mg Hydralazine HCl (Apresoline -) 25 mg PO BID [facility] Last Admin: 08/08/16 09:21 Dose: 25 mg Insulin Aspart (Novolog Vial Sliding Scale -) 1 vial SQ Q4HPO [facility] PRN Reason: Protocol Last Admin: 08/08/16 09:28 Dose: 8 units Insulin Detemir (Levemir Vial) 15 units SQ ACBK [facility] Isosorbide Mononitrate (Imdur -) 30 mg PO DAILY [facility] Last Admin: 08/08/16 09:22 Dose: 30 mg Ondansetron HCl (Zofran Injection) 4 mg IVPUSH Q4H PRN PRN Reason: NAUSEA AND/OR VOMITING Polyethylene Glycol (Miralax (For Daily Use) -) 17 gm PO DAILY [facility] Prednisone (Deltasone -) 30 mg PO DAILY [facility] Last Admin: 08/08/16 09:21 Dose: 30 mg Ranitidine HCl (Zantac -) 75 mg PO DAILY [facility] Last Admin: 08/08/16 09:22 Dose: 75 mg - Objective Vital Signs: Vital Signs Temperature 97.8 F 08/08/16 06:00 Pulse Rate 98 H 08/08/16 06:00 Respiratory Rate 20 08/08/16 06:00 Blood Pressure 149/86 08/08/16 06:00 O2 Sat by Pulse Oximetry (%) 100 08/08/16 05:39 Constitutional: Yes: No Distress Eyes: Yes: Conjunctiva Clear HENT: Yes: Atraumatic, Normocephalic Neck: Yes: Supple, Trachea Midline Cardiovascular: Yes: Pulse Irregular Respiratory: Yes: Regular, Diminished Gastrointestinal: Yes: Normal Bowel Sounds, Abdomen, Obese Edema: Yes Edema: LLE: Trace, RLE: Trace Peripheral Pulses WNL: Yes Neurological: Yes: Alert, Oriented Psychiatric: Yes: Alert, Oriented Labs: CBC, BMP 08/08/16 05:35 08/08/16 05:35 INR, PTT INR 1.44 (0.82-1.09) H 08/08/16 05:35 Laboratory Results - last 24 hr 08/03/16 08/07/16 08/07/16 13:10 10:03 14:55 WBC RBC Hgb Hct MCV MCHC RDW Plt Count MPV Neutrophils % Lymphocytes % Monocytes % Band Neutrophils Metamyelocytes Differential Comment Hypochromic-Microcytic Schistocytes Morphology Comment INR PTT (Actin FS) Sodium Potassium Chloride Carbon Dioxide Anion Gap BUN Creatinine Creat Clearance w eGFR POC Glucometer 274 332 Random Glucose Calcium Magnesium Total Bilirubin AST ALT Alkaline Phosphatase Total Protein Albumin Lipase c-ANCA <1:20 Proteinase 3 (PR3) <3.5 p-ANCA <1:20 Atypical p-ANCA <1:20 Myeloperoxidase Ab <9.0 08/07/16 08/07/16 08/08/16 17:23 21:38 01:15 WBC RBC Hgb Hct MCV MCHC RDW Plt Count MPV Neutrophils % Lymphocytes % Monocytes % Band Neutrophils Metamyelocytes Differential Comment Hypochromic-Microcytic Schistocytes Morphology Comment INR PTT (Actin FS) Sodium Potassium Chloride Carbon Dioxide Anion Gap BUN Creatinine Creat Clearance w eGFR POC Glucometer 386 360 288 Random Glucose Calcium Magnesium Total Bilirubin AST ALT Alkaline Phosphatase Total Protein Albumin Lipase c-ANCA Proteinase 3 (PR3) p-ANCA Atypical p-ANCA Myeloperoxidase Ab 08/08/16 08/08/16 08/08/16 05:03 05:35 05:35 WBC 20.9 H RBC 2.72 L Hgb 7.5 L D Hct 22.3 L MCV 82.1 MCHC 33.5 RDW 12.9 Plt Count 223 MPV 8.2 Neutrophils % 82.0 Lymphocytes % 5.0 L Monocytes % 10.0 Band Neutrophils 2.0 Metamyelocytes 1 Differential Comment Manual diff done Hypochromic-Microcytic 1+ Schistocytes 1+ Morphology Comment Slide scanned INR PTT (Actin FS) Sodium 141 Potassium 4.2 D Chloride 95 L Carbon Dioxide 35 H Anion Gap 11 BUN 109 H* Creatinine 3.1 H Creat Clearance w eGFR 14.31 POC Glucometer 236 Random Glucose 217 H Calcium 9.5 Magnesium 2.0 Total Bilirubin 0.3 AST 11 L ALT 28 D Alkaline Phosphatase 55 Total Protein 5.4 L Albumin 2.7 L Lipase 661 H c-ANCA Proteinase 3 (PR3) p-ANCA Atypical p-ANCA Myeloperoxidase Ab 08/08/16 08/08/16 05:35 09:27 WBC RBC Hgb Hct MCV MCHC RDW Plt Count MPV Neutrophils % Lymphocytes % Monocytes % Band Neutrophils Metamyelocytes Differential Comment Hypochromic-Microcytic Schistocytes Morphology Comment INR 1.44 H PTT (Actin FS) 75.7 H Sodium Potassium Chloride Carbon Dioxide Anion Gap BUN Creatinine Creat Clearance w eGFR POC Glucometer 285 Random Glucose Calcium Magnesium Total Bilirubin AST ALT Alkaline Phosphatase Total Protein Albumin Lipase c-ANCA Proteinase 3 (PR3) p-ANCA Atypical p-ANCA Myeloperoxidase Ab Assessment/Plan Acute on chronic ckd Anemia PAF abdominal distention elevated lipase/ pancreatitis ? due to Januvia SOB/acute on chronic CHF HTN,Hypercholestrolemia Pulmonary vascular congestion DM PLAN Continue bronchodialators Continue BP medications Monitor BUN/creatinine Monitor sugar Will f/u cardiology and renal ,endocrine,pul rec regarding Medication januvia on hold
--- NOTE | 2016-08-08 10:46 | PN ---
Progress Note, Physician History of Present Illness: pulmonary alert,feeling better,dyspnea improving - Current Medication List Current Medications: Active Medications Acetaminophen (Tylenol -) 650 mg PO Q6H PRN PRN Reason: FEVER OR PAIN Last Admin: 08/07/16 04:25 Dose: 650 mg Albuterol/Ipratropium (Duoneb -) 1 amp NEB Q4H PRN PRN Reason: SHORTNESS OF BREATH Last Admin: 08/07/16 21:40 Dose: 1 amp Apixaban (Eliquis -) 2.5 mg PO BID [facility] Last Admin: 08/08/16 09:21 Dose: 2.5 mg Atorvastatin Calcium (Lipitor -) 10 mg PO HS [facility] Last Admin: 08/07/16 21:36 Dose: 10 mg Calcitriol (Rocaltrol -) 0.5 mcg PO DAILY [facility] Last Admin: 08/08/16 09:22 Dose: 0.5 mcg Calcium Acetate (Phoslo -) 1,334 mg PO TIDCM [facility] Last Admin: 08/08/16 08:10 Dose: 1,334 mg Ceftriaxone Sodium (Rocephin 1gm Ivpb (Pre-Docked)) 1 gm IVPB DAILY [facility] PRN Reason: Protocol Last Admin: 08/08/16 09:21 Dose: 1 gm Diltiazem HCl (Cardizem Cd -) 240 mg PO DAILY [facility] Last Admin: 08/08/16 09:22 Dose: 240 mg Furosemide (Lasix Injection -) 80 mg IVPB DAILY [facility] Last Admin: 08/08/16 09:23 Dose: 80 mg Hydralazine HCl (Apresoline -) 25 mg PO BID [facility] Last Admin: 08/08/16 09:21 Dose: 25 mg Insulin Aspart (Novolog Vial Sliding Scale -) 1 vial SQ Q4HPO [facility] PRN Reason: Protocol Last Admin: 08/08/16 09:28 Dose: 8 units Insulin Detemir (Levemir Vial) 15 units SQ ACBK [facility] Isosorbide Mononitrate (Imdur -) 30 mg PO DAILY [facility] Last Admin: 08/08/16 09:22 Dose: 30 mg Ondansetron HCl (Zofran Injection) 4 mg IVPUSH Q4H PRN PRN Reason: NAUSEA AND/OR VOMITING Polyethylene Glycol (Miralax (For Daily Use) -) 17 gm PO DAILY [facility] Prednisone (Deltasone -) 30 mg PO DAILY [facility] Last Admin: 08/08/16 09:21 Dose: 30 mg Ranitidine HCl (Zantac -) 75 mg PO DAILY [facility] Last Admin: 08/08/16 09:22 Dose: 75 mg - Objective Vital Signs: Vital Signs Temperature 97.8 F 08/08/16 06:00 Pulse Rate 98 H 08/08/16 06:00 Respiratory Rate 20 08/08/16 06:00 Blood Pressure 149/86 08/08/16 06:00 O2 Sat by Pulse Oximetry (%) 100 08/08/16 05:39 Constitutional: Yes: Well Nourished, Calm Eyes: Yes: WNL HENT: Yes: WNL Neck: Yes: WNL Cardiovascular: Yes: Pulse Irregular, S1, S2 Respiratory: Yes: Rales (bibasilar rales) Gastrointestinal: Yes: Normal Bowel Sounds, Soft Extremities: Yes: WNL Edema: No Labs: CBC, BMP 08/08/16 05:35 08/08/16 05:35 INR, PTT INR 1.44 (0.82-1.09) H 08/08/16 05:35 Problem List - Problems (1) Acute on chronic diastolic CHF (congestive heart failure) Code(s): I50.33 - ACUTE ON CHRONIC DIASTOLIC (CONGESTIVE) HEART FAILURE (2) CKD (chronic kidney disease) Code(s): N18.9 - CHRONIC KIDNEY DISEASE, UNSPECIFIED Qualifiers: Chronic kidney disease stage: unspecified stage Qualified Code(s): N18.9 - Chronic kidney disease, unspecified (3) Diabetes 1.5, managed as type 1 Code(s): E13.9 - OTHER SPECIFIED DIABETES MELLITUS WITHOUT COMPLICATIONS (4) Hypertension Code(s): I10 - ESSENTIAL (PRIMARY) HYPERTENSION (5) Pulmonary vascular congestion Code(s): R09.89 - OTH SYMPTOMS AND SIGNS INVOLVING THE CIRC AND RESP SYSTEMS (6) SOB (shortness of breath) on exertion Code(s): R06.02 - SHORTNESS OF BREATH (7) Pulmonary hypertension Code(s): I27.2 - OTHER SECONDARY PULMONARY HYPERTENSION Assessment/Plan IMP DECOMPENSATED DIASTOLIC CHF clinically improving PUL HTN ACUTE ON CHRONIC KIDNEY DISEASE IMPROVING DM HTN AFIB PLAN INHALED BRONCHODILATORS SUPPLEMENTAL O2 DVT PROPHYLAXIS MONITOR RENAL FUNCTION ANTICOAGULATION DAILY WTS F/U CHEST X-RAYS LASIX PREDNISONE DR ESPOSITO Problem List - Problems (1) Acute on chronic diastolic CHF (congestive heart failure) Code(s): I50.33 - ACUTE ON CHRONIC DIASTOLIC (CONGESTIVE) HEART FAILURE (2) CKD (chronic kidney disease) Code(s): N18.9 - CHRONIC KIDNEY DISEASE, UNSPECIFIED Qualifiers: Chronic kidney disease stage: unspecified stage Qualified Code(s): N18.9 - Chronic kidney disease, unspecified (3) Diabetes 1.5, managed as type 1 Code(s): E13.9 - OTHER SPECIFIED DIABETES MELLITUS WITHOUT COMPLICATIONS (4) Hypertension Code(s): I10 - ESSENTIAL (PRIMARY) HYPERTENSION (5) Pulmonary vascular congestion Code(s): R09.89 - OTH SYMPTOMS AND SIGNS INVOLVING THE CIRC AND RESP SYSTEMS (6) SOB (shortness of breath) on exertion Code(s): R06.02 - SHORTNESS OF BREATH (7) Pulmonary hypertension Code(s): I27.2 - OTHER SECONDARY PULMONARY HYPERTENSION
[2016-08-08] MEDS: INSULIN DETEMIR 100 UNITS/ML MDV SQ SCH (11:31)
[2016-08-08] MEDS: POLYETHYLENE GLYCOL 3350 119 GM BTL PO SCH (11:32)
[2016-08-08] MEDS ORDERED: INSULIN DETEMIR 100 UNITS/ML MDV SQ ONE (11:52)
--- NOTE | 2016-08-08 12:13 | PN ---
Progress Note, Physician History of Present Illness: Pt seen and examined at bedside. She is awake and alert. She denies shortness of breath or chest pain. - Current Medication List Current Medications: Active Medications Acetaminophen (Tylenol -) 650 mg PO Q6H PRN PRN Reason: FEVER OR PAIN Last Admin: 08/07/16 04:25 Dose: 650 mg Albuterol/Ipratropium (Duoneb -) 1 amp NEB Q4H PRN PRN Reason: SHORTNESS OF BREATH Last Admin: 08/07/16 21:40 Dose: 1 amp Apixaban (Eliquis -) 2.5 mg PO BID [facility] Last Admin: 08/08/16 09:21 Dose: 2.5 mg Atorvastatin Calcium (Lipitor -) 10 mg PO HS [facility] Last Admin: 08/07/16 21:36 Dose: 10 mg Calcitriol (Rocaltrol -) 0.5 mcg PO DAILY [facility] Last Admin: 08/08/16 09:22 Dose: 0.5 mcg Calcium Acetate (Phoslo -) 1,334 mg PO TIDCM [facility] Last Admin: 08/08/16 11:38 Dose: 1,334 mg Ceftriaxone Sodium (Rocephin 1gm Ivpb (Pre-Docked)) 1 gm IVPB DAILY [facility] PRN Reason: Protocol Last Admin: 08/08/16 09:21 Dose: 1 gm Diltiazem HCl (Cardizem Cd -) 240 mg PO DAILY [facility] Last Admin: 08/08/16 09:22 Dose: 240 mg Furosemide (Lasix Injection -) 80 mg IVPB DAILY [facility] Last Admin: 08/08/16 09:23 Dose: 80 mg Hydralazine HCl (Apresoline -) 25 mg PO BID [facility] Last Admin: 08/08/16 09:21 Dose: 25 mg Insulin Aspart (Novolog Vial Sliding Scale -) 1 vial SQ Q4HPO [facility] PRN Reason: Protocol Last Admin: 08/08/16 09:28 Dose: 8 units Insulin Detemir (Levemir Vial) 15 units SQ ACBK [facility] Last Admin: 08/08/16 11:31 Dose: 15 units Isosorbide Mononitrate (Imdur -) 30 mg PO DAILY [facility] Last Admin: 08/08/16 09:22 Dose: 30 mg Ondansetron HCl (Zofran Injection) 4 mg IVPUSH Q4H PRN PRN Reason: NAUSEA AND/OR VOMITING Polyethylene Glycol (Miralax (For Daily Use) -) 17 gm PO DAILY [facility] Last Admin: 08/08/16 11:32 Dose: 17 grams Prednisone (Deltasone -) 30 mg PO DAILY [facility] Last Admin: 08/08/16 09:21 Dose: 30 mg Ranitidine HCl (Zantac -) 75 mg PO DAILY [facility] Last Admin: 08/08/16 09:22 Dose: 75 mg - Objective Vital Signs: Vital Signs Temperature 98.6 F 08/08/16 09:00 Pulse Rate 100 H 08/08/16 09:00 Respiratory Rate 20 08/08/16 09:00 Blood Pressure 139/87 08/08/16 09:00 O2 Sat by Pulse Oximetry (%) 100 08/08/16 09:00 Constitutional: Yes: Calm Eyes: Yes: Conjunctiva Clear HENT: Yes: Atraumatic Cardiovascular: Yes: S1, S2 Respiratory: Yes: On Nasal O2 Gastrointestinal: Yes: Soft Musculoskeletal: Yes: WNL Extremities: Yes: WNL Neurological: Yes: Oriented Psychiatric: Yes: Oriented Labs: CBC, BMP 08/08/16 05:35 08/08/16 05:35 INR, PTT INR 1.44 (0.82-1.09) H 08/08/16 05:35 Problem List - Problems (1) CKD (chronic kidney disease) Code(s): N18.9 - CHRONIC KIDNEY DISEASE, UNSPECIFIED Qualifiers: Chronic kidney disease stage: unspecified stage Qualified Code(s): N18.9 - Chronic kidney disease, unspecified (2) Pulmonary vascular congestion Code(s): R09.89 - OTH SYMPTOMS AND SIGNS INVOLVING THE CIRC AND RESP SYSTEMS (3) SOB (shortness of breath) on exertion Code(s): R06.02 - SHORTNESS OF BREATH (4) Hypertension Code(s): I10 - ESSENTIAL (PRIMARY) HYPERTENSION (5) Diabetes 1.5, managed as type 1 Code(s): E13.9 - OTHER SPECIFIED DIABETES MELLITUS WITHOUT COMPLICATIONS Assessment/Plan Current Medications Generic Name Dose Route Start Last Admin Trade Name Freq PRN Reason Stop Dose Admin Acetaminophen 650 mg 07/30/16 15:50 08/07/16 04:25 Tylenol - PO 650 mg Q6H PRN Administration FEVER OR PAIN Albuterol/Ipratropium 1 amp 02/18/17 13:11 08/07/16 21:40 Duoneb - NEB 1 amp Q4H PRN Administration SHORTNESS OF BREATH Apixaban 2.5 mg 08/07/16 18:45 08/08/16 09:21 Eliquis - PO 2.5 mg BID [facility] Administration Atorvastatin Calcium 10 mg 07/27/16 22:00 08/07/16 21:36 Lipitor - PO 10 mg HS [facility] Administration Calcitriol 0.5 mcg 07/27/16 18:00 08/08/16 09:22 Rocaltrol - PO 0.5 mcg DAILY [facility] Administration Calcium Acetate 1,334 mg 08/05/16 17:30 08/08/16 11:38 Phoslo - PO 1,334 mg TIDCM [facility] Administration Ceftriaxone Sodium 1 gm 08/07/16 12:15 08/08/16 09:21 Rocephin 1gm Ivpb (Pre-Docked) IVPB 1 gm DAILY [facility] Administration Protocol Diltiazem HCl 240 mg 08/08/16 10:00 08/08/16 09:22 Cardizem Cd - PO 240 mg DAILY [facility] Administration Furosemide 80 mg 08/08/16 10:00 08/08/16 09:23 Lasix Injection - IVPB 80 mg DAILY [facility] Administration Hydralazine HCl 25 mg 07/27/16 18:30 08/08/16 09:21 Apresoline - PO 25 mg BID [facility] Administration Insulin Aspart 1 vial 08/04/16 12:30 08/08/16 09:28 Novolog Vial Sliding Scale - SQ 8 units Q4HPO [facility] Administration Protocol Insulin Detemir 15 units 08/08/16 09:00 08/08/16 11:31 Levemir Vial SQ 15 units ACBK [facility] Administration Isosorbide Mononitrate 30 mg 07/27/16 18:30 08/08/16 09:22 Imdur - PO 30 mg DAILY [facility] Administration Ondansetron HCl 4 mg 08/03/16 18:45 Zofran Injection IVPUSH Q4H PRN NAUSEA AND/OR VOMITING Polyethylene Glycol 17 gm 08/08/16 10:00 08/08/16 11:32 Miralax (For Daily Use) - PO 17 grams DAILY [facility] Administration Prednisone 30 mg 08/08/16 10:00 08/08/16 09:21 Deltasone - PO 30 mg DAILY [facility] Administration Ranitidine HCl 75 mg 08/05/16 10:00 08/08/16 09:22 Zantac - PO 75 mg DAILY [facility] Administration Impression 1. CKD 2. HTN 3. DM 4. dyspnea 5. hyperlipidemia 6. anemia 7. hyponatremia 8. pulmonary htn Plan - cont with IV lasix - renal function is improving - cont with steroid taper - check weights - repeat labs in am - sodium is improved - renal workup is in progress, will follow - will follow Dr Fleming
--- NOTE | 2016-08-08 13:13 | PN ---
Progress Note (short form) - Note Progress Note: breathing improved less sob no abdominal pain blount removed yesterday Vital Signs Period Temp Pulse Resp BP Sys/[place] Pulse Ox Last 24 Hr 97.4 F-98.6 F 90-116 18-20 134-173/74-97 98-100 cor-rrr lungs decreased bs at bases abd softer, less distended ext less edema CBC, BMP 08/08/16 05:35 08/08/16 05:35 Microbiology 08/06/16 12:40 Blood - Peripheral Venous Blood Culture - Preliminary NO GROWTH OBTAINED AFTER 48 HOURS, INCUBATION TO CONTINUE FOR 3 DAYS. 08/06/16 12:43 Blood - Peripheral Venous Blood Culture - Preliminary NO GROWTH OBTAINED AFTER 48 HOURS, INCUBATION TO CONTINUE FOR 3 DAYS. 08/06/16 12:30 Urine - Urine Blount Urine Culture - Final Klebsiella Pneumoniae 08/02/16 12:00 Blood - Peripheral Venous Blood Culture - Final NO GROWTH AFTER 5 DAYS INCUBATION 08/02/16 11:15 Blood - Peripheral Venous Blood Culture - Final NO GROWTH AFTER 5 DAYS INCUBATION Current Medications Acetaminophen (Tylenol -) 650 mg PO Q6H PRN PRN Reason: FEVER OR PAIN Last Admin: 08/07/16 04:25 Dose: 650 mg Albuterol/Ipratropium (Duoneb -) 1 amp NEB Q4H PRN PRN Reason: SHORTNESS OF BREATH Last Admin: 08/07/16 21:40 Dose: 1 amp Apixaban (Eliquis -) 2.5 mg PO BID [facility] Last Admin: 08/08/16 09:21 Dose: 2.5 mg Atorvastatin Calcium (Lipitor -) 10 mg PO HS [facility] Last Admin: 08/07/16 21:36 Dose: 10 mg Calcitriol (Rocaltrol -) 0.5 mcg PO DAILY [facility] Last Admin: 08/08/16 09:22 Dose: 0.5 mcg Calcium Acetate (Phoslo -) 1,334 mg PO TIDCM [facility] Last Admin: 08/08/16 11:38 Dose: 1,334 mg Ceftriaxone Sodium (Rocephin 1gm Ivpb (Pre-Docked)) 1 gm IVPB DAILY [facility] PRN Reason: Protocol Last Admin: 08/08/16 09:21 Dose: 1 gm Diltiazem HCl (Cardizem Cd -) 240 mg PO DAILY [facility] Last Admin: 08/08/16 09:22 Dose: 240 mg Furosemide (Lasix Injection -) 80 mg IVPB DAILY [facility] Last Admin: 08/08/16 09:23 Dose: 80 mg Hydralazine HCl (Apresoline -) 25 mg PO BID [facility] Last Admin: 08/08/16 09:21 Dose: 25 mg Insulin Aspart (Novolog Vial Sliding Scale -) 1 vial SQ Q4HPO [facility] PRN Reason: Protocol Last Admin: 08/08/16 09:28 Dose: 8 units Insulin Detemir (Levemir Vial) 15 units SQ ACBK [facility] Last Admin: 08/08/16 11:31 Dose: 15 units Isosorbide Mononitrate (Imdur -) 30 mg PO DAILY [facility] Last Admin: 08/08/16 09:22 Dose: 30 mg Ondansetron HCl (Zofran Injection) 4 mg IVPUSH Q4H PRN PRN Reason: NAUSEA AND/OR VOMITING Polyethylene Glycol (Miralax (For Daily Use) -) 17 gm PO DAILY [facility] Last Admin: 08/08/16 11:32 Dose: 17 grams Prednisone (Deltasone -) 20 mg PO DAILY [facility] Ranitidine HCl (Zantac -) 75 mg PO DAILY [facility] Last Admin: 08/08/16 09:22 Dose: 75 mg a/p leukocytosis- ?steroids, ?UTI improviing joribsdian uti mine d/chinmay switch to ancef daily- afib diabetes CKD
[2016-08-08] MEDS ORDERED: INSULIN (NOVOLOG) ASPART 100 UNITS/ML 10ML VIAL ONE ×2 (13:27→14:13)
--- NOTE | 2016-08-08 14:28 | PN ---
Progress Note, Physician Chief Complaint: Pt's daughter at bedside. Had a good night's sleep. History of Present Illness: 86y woman (b. Maira) with PM hx of [id number] HTN; DM;hyperlipidemia ; CKD, who now presents with SOB. The patient has been feeling SOB with SOTO which began two weeks ago; she was admitted to [facility] for a cardiac workup, had a negative EKG (per daughter)and was d/chinmay home from ER. The pt fu with PMD a few days ago and was given a nebulizer. The pt states her sob worsened significantly last night; here was no significant improvement with the nebulizer. Pt states she gets the wheezing and sob when she ambulates short distances as well as up stairs, which is new (pt's daughter says she was able to walk slowly in the house on a regular basis without dyspnea until the past few weeks). The pt denies any associated cp (no cp since last admission to [facility]), fever/chills. pt does endorse a mild nonproductive cough, orthopnea, mild lower extermity edema; denies fever. Stress test 2 months ago negative for myocardial ischemia or arrhythmias. PMD dr. Mendoza Digital Sales Executive: Dr. Ayala. - Current Medication List Current Medications: Active Medications Acetaminophen (Tylenol -) 650 mg PO Q6H PRN PRN Reason: FEVER OR PAIN Last Admin: 08/07/16 04:25 Dose: 650 mg Albuterol/Ipratropium (Duoneb -) 1 amp NEB Q4H PRN PRN Reason: SHORTNESS OF BREATH Last Admin: 08/07/16 21:40 Dose: 1 amp Apixaban (Eliquis -) 2.5 mg PO BID [facility] Last Admin: 08/08/16 09:21 Dose: 2.5 mg Atorvastatin Calcium (Lipitor -) 10 mg PO HS [facility] Last Admin: 08/07/16 21:36 Dose: 10 mg Calcitriol (Rocaltrol -) 0.5 mcg PO DAILY [facility] Last Admin: 08/08/16 09:22 Dose: 0.5 mcg Calcium Acetate (Phoslo -) 1,334 mg PO TIDCM [facility] Last Admin: 08/08/16 11:38 Dose: 1,334 mg Diltiazem HCl (Cardizem Cd -) 240 mg PO DAILY [facility] Last Admin: 08/08/16 09:22 Dose: 240 mg Furosemide (Lasix Injection -) 80 mg IVPB DAILY [facility] Last Admin: 08/08/16 09:23 Dose: 80 mg Hydralazine HCl (Apresoline -) 25 mg PO BID [facility] Last Admin: 08/08/16 09:21 Dose: 25 mg Cefazolin Sodium (Ancef 1 Gm Premixed Ivpb -) 50 mls @ 100 mls/hr IVPB DAILY [facility] Insulin Aspart (Novolog Vial Sliding Scale -) 1 vial SQ Q4HPO [facility] PRN Reason: Protocol Last Admin: 08/08/16 14:02 Dose: 10 units Insulin Detemir (Levemir Vial) 15 units SQ ACBK [facility] Last Admin: 08/08/16 11:31 Dose: 15 units Isosorbide Mononitrate (Imdur -) 30 mg PO DAILY [facility] Last Admin: 08/08/16 09:22 Dose: 30 mg Ondansetron HCl (Zofran Injection) 4 mg IVPUSH Q4H PRN PRN Reason: NAUSEA AND/OR VOMITING Polyethylene Glycol (Miralax (For Daily Use) -) 17 gm PO DAILY [facility] Last Admin: 08/08/16 11:32 Dose: 17 grams Prednisone (Deltasone -) 20 mg PO DAILY [facility] Ranitidine HCl (Zantac -) 75 mg PO DAILY [facility] Last Admin: 08/08/16 09:22 Dose: 75 mg - Objective Vital Signs: Vital Signs Temperature 98.6 F 08/08/16 09:00 Pulse Rate 92 H 08/08/16 14:00 Respiratory Rate 20 08/08/16 14:00 Blood Pressure 122/76 08/08/16 14:00 O2 Sat by Pulse Oximetry (%) 100 08/08/16 09:00 Constitutional: Yes: Calm Eyes: Yes: WNL HENT: Yes: WNL Neck: Yes: WNL Cardiovascular: Yes: Pulse Irregular Respiratory: Yes: WNL Gastrointestinal: Yes: Soft ...Rectal Exam: Yes: Deferred Genitourinary: No: Anuria Breast(s): Yes: WNL Musculoskeletal: Yes: Muscle Weakness Extremities: Yes: Cool Edema: No Peripheral Pulses WNL: No Peripheral Pulses: Left Doralis Pedis: 1+, Right Dorsalis Pedis: 1+ Integumentary: Yes: WNL Neurological: Yes: Alert, Oriented, Weakness Labs: CBC, BMP 08/08/16 05:35 08/08/16 05:35 INR, PTT INR 1.44 (0.82-1.09) H 08/08/16 05:35 Problem List - Problems (1) CKD (chronic kidney disease) Assessment/Plan: Increasing BUN/Cr has led to stopping losartan. Furosemide per ID. Family defers hemodialysis presently. Code(s): N18.9 - CHRONIC KIDNEY DISEASE, UNSPECIFIED Qualifiers: Qualified Code(s): N18.9 - Chronic kidney disease, unspecified (2) Hypertension Assessment/Plan: Now well-controlled on diltiazem (changed to 240 mg CD daily on 08/08/2016), Hydralazine + Imdur, and amlodipine. Losartan held due to deteriorating renal function. F/u BP and HR. ECHO: normal LVEF; moderate-severe pulmonary HTN. Code(s): I10 - ESSENTIAL (PRIMARY) HYPERTENSION (3) Pulmonary vascular congestion Code(s): R09.89 - OTH SYMPTOMS AND SIGNS INVOLVING THE CIRC AND RESP SYSTEMS (4) SOB (shortness of breath) on exertion Assessment/Plan: leukocytosis (on steroids); afebrile; still with productive cough. Furosemide restarted; may require hemodialysis (family presently not in favor of this). f/u with clinical research spec. Code(s): R06.02 - SHORTNESS OF BREATH (5) Acute on chronic diastolic CHF (congestive heart failure) Code(s): I50.33 - ACUTE ON CHRONIC DIASTOLIC (CONGESTIVE) HEART FAILURE (6) Diabetes Assessment/Plan: markedly elevated glucose; now on steroids again for pulmonary dysfunction. F/u with account collector. Code(s): E11.9 - TYPE 2 DIABETES MELLITUS WITHOUT COMPLICATIONS (7) Atrial fibrillation Assessment/Plan: On diltiazem for HR control. NOAC for anticoagulation. Code(s): I48.91 - UNSPECIFIED ATRIAL FIBRILLATION (8) Pulmonary hypertension Assessment/Plan: Moderate to severe pulmonary HTN; pt with mild MR and SD, (+) diastolic dysfunction; leukocytosis (on steroids earlier). Code(s): I27.2 - OTHER SECONDARY PULMONARY HYPERTENSION (9) Anemia Assessment/Plan: On apixaban for AF. Gradual decline in Hb since admission; no overt bleed. F/u with GI, business operations consultant. Code(s): D64.9 - ANEMIA, UNSPECIFIED
[2016-08-08] MEDS ORDERED: predniSONE 20 MG TABLET (UD) PO SCH (15:15)
--- NOTE | 2016-08-08 16:04 | EKG ---
Test Reason : Blood Pressure : / mmHG Vent. Rate : 091 BPM Atrial Rate : 097 BPM P-R Int : 000 ms QRS Dur : 082 ms QT Int : 348 ms P-R-T Axes : 000 033 044 degrees QTc Int : 428 ms ATRIAL FIBRILLATION NONSPECIFIC T WAVE ABNORMALITY ABNORMAL ECG WHEN COMPARED WITH ECG OF 03-AUG-2016 08:49, ATRIAL FIBRILLATION HAS REPLACED SINUS RHYTHM NONSPECIFIC T WAVE ABNORMALITY NOW EVIDENT IN INFERIOR LEADS NONSPECIFIC T WAVE ABNORMALITY NOW EVIDENT IN LATERAL LEADS Confirmed by CHARLA BURTON MD ([id number]) on 08/08/2016 4:03:56 PM Referred By: Barbie MONTERO Confirmed By:CHARLA BURTON MD
--- NOTE | 2016-08-08 20:27 | CONSULT ---
Consult - text type - Consultation Consultation Note: Patient seen and examined 86F admitted on 07/27 for SOB. She is being evaluated by pulmonary and cardiology and being treated for COPD / CHF / episodes of A. Fib w/ RVR. She is being evaluated by Nephrology for renal failure . She is having small formed bowel movements. There has been no reported rectal bleeding or melena. She has never had an upper endoscopy or colonoscopy. HEr shortness of breath has much improved sibnce admission. She is comfortable - History Source History Provided By: Family Member, Medical Record Limitations to Obtaining History: Language Barrier - Past Medical History Cardio/Vascular: Yes: CHF (diastolic), HTN, Hyperlipdemia Renal/: Yes: Renal Inusuff ...: No Endocrine: Yes: Diabetes Mellitus - Smoking History Smoking history: Never smoked - Social History Usual Living Arrangement: With Child ADL: Family Assistance Place of : Other ([place]) Came to [place]year[place] multiple years prior - Allergies Allergies/Adverse Reactions: Allergies Allergy/AdvReac Type Severity Reaction Status Date / Time No Known Allergies Allergy Verified 07/27/16 07:19 - Home Medications Home Medications: Ambulatory Orders Amlodipine Besylate 10 mg PO DAILY 07/27/16 Calcitriol [Rocaltrol] 0.5 mcg PO DAILY 07/27/16 Glipizide [Glipizide ER] 5 mg PO DAILY 07/27/16 Linagliptin [Tradjenta] 5 mg PO DAILY 07/27/16 Losartan/Hydrochlorothiazide [Losartan-Hctz 100-25 mg Tab] 1 tablet PO DAILY 04/02 Metoprolol Succinate [Toprol Xl] 100 mg PO DAILY 07/27/16 Simvastatin [Zocor] 10 mg PO HS 07/27/16 Family Disease History - Family Disease History Family Disease History: Other: Son (1 son: healthy), Daughter (5 daughters: some with DM II) Physical Exam-GI Vital Signs: AFVSS HEENT: JAVI, EOM Intact Oropharynx: No thrush, No mucositis Neck: Supple Cor: RSR, No murmurs, No gallops Lungs: Clear to P&A Abd: Soft, Normal bowel sounds, No organomegaly Ext:No significant edema A/P 86 y/o patient with HTN, DM, CKD, CHF, afib, now with gradually dropping Hemoglobin, worsening renal function. Was being treated for CHF/COPD anemia of chronic disease due to worsening renal function +/- gi bleed check stool occult On apixaban for afib-- will discuss with cardiology transfuse PRBCS with lasix diuresis for Hgb <7 discussed with daughter at bedside
[2016-08-08] MEDS: ATORVASTATIN CA 10 MG TABLET (FP) PO SCH (22:09)
[2016-08-09] MEDS: INSULIN SLIDING SCALE (NOVOLOG) 1 VIAL SQ SCH ×5 (06:12→21:58)
[2016-08-09] MEDS: INSULIN DETEMIR 100 UNITS/ML MDV SQ SCH (06:26)
[2016-08-09 08:10] LABS: FERRITIN 89.957 ng/ml (6.9-282.5)
[2016-08-09 08:11] LABS: MCH 27.4 pg (25.7-33.7); MCHC 33.1 g/dl (32.0-36.0); MEAN CELL VOLUME 82.9 fl (80-96); MEAN PLT VOLUME 8.2 fl (7.5-11.1); PLATELET COUNT 218 K/MM3 (134-434); RDW 13.4 % (11.6-15.6); WHITE BLOOD COUNT 22.6 K/mm3 (4.0-10.0)
[2016-08-09] MEDS ORDERED: PT OWN MED DRAWER 7, Y5N ONE (08:46)
--- NOTE | 2016-08-09 09:09 | PN ---
Progress Note (short form) - Note Progress Note: Feels better Abd pain improving No nausea or vomiting Moved bowels Tolerating diet BGM fluctuating, with 70s in a.m. Vital Signs Period Temp Pulse Resp BP Sys/Cl[place]ton Pulse Ox Last 24 Hr 97.3 F-97.8 F 92-101 20-20 109-144/56-79 99-100 PE: AOX3 Neck: Supple, No JVD HEENT: PERRL, EOMI Lungs: CTA CVS: S1S2 Abd: Benign, +BS Ext: 1+Edema Neuro: No focal deficit CMP Sodium 141 mmol/L (136-145) 08/08/16 05:35 Potassium 4.2 mmol/L (3.5-5.1) D 08/08/16 05:35 Chloride 95 mmol/L (98-107) L 08/08/16 05:35 Carbon Dioxide 35 mmol/L (21-32) H 08/08/16 05:35 Anion Gap 11 (8-16) 08/08/16 05:35 BUN 109 mg/dL (7-18) H* 08/08/16 05:35 Creatinine 3.1 mg/dL (0.55-1.02) H 08/08/16 05:35 Creat Clearance w eGFR 14.31 (>60) 08/08/16 05:35 POC Glucometer 77 UNITS (()) 08/09/16 05:46 Random Glucose 217 mg/dL (74-106) H 08/08/16 05:35 Calcium 9.5 mg/dL (8.5-10.1) 08/08/16 05:35 Phosphorus 4.3 mg/dL (2.5-4.9) D 08/07/16 05:35 Magnesium 2.0 mg/dL (1.8-2.4) 08/08/16 05:35 Ferritin 89.957 ng/ml (6.9-282.5) 08/09/16 05:35 Total Bilirubin 0.3 mg/dL (0.2-1.0) 08/08/16 05:35 AST 11 U/L (15-37) L 08/08/16 05:35 ALT 28 U/L (12-78) D 08/08/16 05:35 Alkaline Phosphatase 55 U/L (45-117) 08/08/16 05:35 Creatine Kinase 143 IU/L (26-192) 07/28/16 06:00 CK-MB (CK-2) 3.794 ng/ml (0.5-3.6) H 07/27/16 18:55 Troponin I < 0.02 ng/ml (0.00-0.05) 07/28/16 06:00 B-Natriuretic Peptide 1614.88 pg/ml (5-450) H 07/27/16 07:56 Prot Electrophoresis (.) 08/01/16 13:02 Serum Total Protein 6.9 g/dL (6.0-8.5) 08/01/16 13:02 Total Protein 5.4 g/dl (6.4-8.2) L 08/08/16 05:35 Albumin 2.7 g/dl (3.4-5.0) L 08/08/16 05:35 Globulin 3.6 g/dL (2.2-3.9) 08/01/16 13:02 Albumin/Globulin Ratio 0.9 (0.7-1.7) 08/01/16 13:02 Ofhpe-5-Ihwprafim 0.3 gm/dL (0.0-0.4) 08/01/16 13:02 Avuxf-1-Qmjcbaavz (%) 0.8 % (.) 08/01/16 12:00 Cgtub-7-Nvaeqkpvc 1.1 gm/dL (0.4-1.0) H 08/01/16 13:02 Fvquq-8-Aqnrlbdta (%) 3.7 % (.) 08/01/16 12:00 Beta Globulins 1.0 gm/dL (0.7-1.3) 08/01/16 13:02 Beta Globulins (%) 16.5 % (.) 08/01/16 12:00 Gamma Globulins 1.2 gm/dL (0.4-1.8) 08/01/16 13:02 Gamma Globulins (%) 13.6 % (.) 08/01/16 12:00 M-Constantin % Not observed % (Not Observed) 08/01/16 12:00 Total Amylase 230 U/L (25-115) H 08/04/16 05:45 Lipase 661 U/L (73-393) H 08/08/16 05:35 TSH 3.03 uIU/ml (0.358-3.74) 07/27/16 18:55 Current Medications Generic Name Dose Route Start Last Admin Trade Name Freprema PRN Reason Stop Dose Admin Acetaminophen 650 mg 07/30/16 15:50 08/07/16 04:25 Tylenol - PO 650 mg Q6H PRN Administration FEVER OR PAIN Albuterol/Ipratropium 1 amp 08/04/16 13:11 08/07/16 21:40 Duoneb - NEB 1 amp Q4H PRN Administration SHORTNESS OF BREATH Apixaban 2.5 mg 08/07/16 18:45 08/08/16 22:09 Eliquis - PO 2.5 mg BID [facility] Administration Atorvastatin Calcium 10 mg 07/27/16 22:00 08/08/16 22:09 Lipitor - PO 10 mg HS [facility] Administration Calcitriol 0.5 mcg 07/27/16 18:00 08/08/16 09:22 Rocaltrol - PO 0.5 mcg DAILY [facility] Administration Calcium Acetate 1,334 mg 08/05/16 17:30 08/08/16 17:22 Phoslo - PO 1,334 mg TIDCM [facility] Administration Diltiazem HCl 240 mg 08/08/16 10:00 08/08/16 09:22 Cardizem Cd - PO 240 mg DAILY [facility] Administration Furosemide 80 mg 08/08/16 10:00 08/08/16 09:23 Lasix Injection - IVPB 80 mg DAILY [facility] Administration Hydralazine HCl 25 mg 07/27/16 18:30 08/08/16 22:09 Apresoline - PO 25 mg BID [facility] Administration Cefazolin Sodium 50 mls @ 100 mls/hr 08/09/16 10:00 Ancef 1gm Ivpb (Pre-Docked) IVPB DAILY [facility] Insulin Aspart 1 vial 08/04/16 12:30 08/09/16 06:12 Novolog Vial Sliding Scale - SQ Not Given Q4HPO [facility] Protocol Insulin Detemir 15 units 08/08/16 09:00 08/09/16 06:26 Levemir Vial SQ Not Given ACBK [facility] Isosorbide Mononitrate 30 mg 07/27/16 18:30 08/08/16 09:22 Imdur - PO 30 mg DAILY [facility] Administration Ondansetron HCl 4 mg 08/03/16 18:45 Zofran Injection IVPUSH Q4H PRN NAUSEA AND/OR VOMITING Polyethylene Glycol 17 gm 08/08/16 10:00 08/08/16 11:32 Miralax (For Daily Use) - PO 17 grams DAILY [facility] Administration Prednisone 20 mg 08/09/16 10:00 Deltasone - PO DAILY [facility] Ranitidine HCl 75 mg 08/05/16 10:00 08/08/16 09:22 Zantac - PO 75 mg DAILY [facility] Administration AP: DM: Fluctuating blood sugar On Prednosone 20 mg daily Monitor BGM Q4 hrs DC Levemir Novolog Coverage Q4hrs Will F/U Elevated lipase . Improving. 661 yesterday. Normal Pancreas on CT ?Pancreatitis Pt has multiple possible reasons for elevated Lipase including renal failure and use of Januvia, Methylprednosolone and Furosemide. Off Januvia now. Anemia/Drop in H/H: Hematology consult noted CHF Acute on Chronic renal insufficiency. HTN HLD Problem List - Problems (1) CKD (chronic kidney disease) Code(s): N18.9 - CHRONIC KIDNEY DISEASE, UNSPECIFIED Qualifiers: Chronic kidney disease stage: unspecified stage Qualified Code(s): N18.9 - Chronic kidney disease, unspecified (2) Hypertension Code(s): I10 - ESSENTIAL (PRIMARY) HYPERTENSION (3) SOB (shortness of breath) on exertion Code(s): R06.02 - SHORTNESS OF BREATH
[2016-08-09] MEDS: CALCIUM ACETATE 667 MG CAPSULE (FP) PO SCH ×3 (09:15→17:52)
[2016-08-09] MEDS: CEFAZOLIN (PRE-DOCKED) 50 ML IVPB SCH (09:15)
[2016-08-09] MEDS: ISOSORBIDE MONONITRATE 30 MG TAB.SR.24H (FP) PO SCH (09:16)
[2016-08-09] MEDS: RANITIDINE HCL 150 MG TABLET (FP) PO SCH (09:16)
[2016-08-09] MEDS: hydrALAZINE HCL 25 MG TABLET (FP) PO SCH ×2 (09:16→21:57)
[2016-08-09] MEDS: CALCITRIOL 0.25 MCG CAPSULE (FP) PO SCH (09:17)
[2016-08-09] MEDS ORDERED: predniSONE 20 MG TABLET (UD) PO SCH (10:00)
[2016-08-09] MEDS: POLYETHYLENE GLYCOL 3350 119 GM BTL PO SCH (10:00)
--- NOTE | 2016-08-09 10:02 | PN ---
Progress Note, Physician Chief Complaint: Pt seen and examined abdominal distention present,lack of appetite Cardiology,RENAl,pul GI note appreciated HB/hct low,6.0/20.7 Hematology note appreciated Stool guiac test ordered - Current Medication List Current Medications: Active Medications Acetaminophen (Tylenol -) 650 mg PO Q6H PRN PRN Reason: FEVER OR PAIN Last Admin: 08/07/16 04:25 Dose: 650 mg Albuterol/Ipratropium (Duoneb -) 1 amp NEB Q4H PRN PRN Reason: SHORTNESS OF BREATH Last Admin: 08/07/16 21:40 Dose: 1 amp Apixaban (Eliquis -) 2.5 mg PO BID [facility] Last Admin: 08/08/16 22:09 Dose: 2.5 mg Atorvastatin Calcium (Lipitor -) 10 mg PO HS [facility] Last Admin: 08/08/16 22:09 Dose: 10 mg Calcitriol (Rocaltrol -) 0.5 mcg PO DAILY [facility] Last Admin: 08/09/16 09:17 Dose: 0.5 mcg Calcium Acetate (Phoslo -) 1,334 mg PO TIDCM [facility] Last Admin: 08/09/16 09:15 Dose: 1,334 mg Diltiazem HCl (Cardizem Cd -) 240 mg PO DAILY [facility] Last Admin: 08/09/16 09:16 Dose: 240 mg Furosemide (Lasix Injection -) 80 mg IVPB DAILY [facility] Last Admin: 08/08/16 09:23 Dose: 80 mg Hydralazine HCl (Apresoline -) 25 mg PO BID [facility] Last Admin: 08/09/16 09:16 Dose: 25 mg Cefazolin Sodium (Ancef 1gm Ivpb (Pre-Docked)) 50 mls @ 100 mls/hr IVPB DAILY [facility] Last Admin: 08/09/16 09:15 Dose: 100 mls/hr Insulin Aspart (Novolog Vial Sliding Scale -) 1 vial SQ Q4HPO [facility] PRN Reason: Protocol Last Admin: 08/09/16 06:12 Dose: Not Given Isosorbide Mononitrate (Imdur -) 30 mg PO DAILY [facility] Last Admin: 08/09/16 09:16 Dose: 30 mg Ondansetron HCl (Zofran Injection) 4 mg IVPUSH Q4H PRN PRN Reason: NAUSEA AND/OR VOMITING Polyethylene Glycol (Miralax (For Daily Use) -) 17 gm PO DAILY [facility] Last Admin: 08/08/16 11:32 Dose: 17 grams Prednisone (Deltasone -) 20 mg PO DAILY [facility] Last Admin: 08/09/16 09:16 Dose: 20 mg Ranitidine HCl (Zantac -) 75 mg PO DAILY [facility] Last Admin: 08/09/16 09:16 Dose: 75 mg - Objective Vital Signs: Vital Signs Temperature 97.3 F L 08/09/16 08:40 Pulse Rate 101 H 08/09/16 08:40 Respiratory Rate 20 08/09/16 08:40 Blood Pressure 144/63 08/09/16 08:40 O2 Sat by Pulse Oximetry (%) 100 08/09/16 09:00 Constitutional: Yes: No Distress Eyes: Yes: Conjunctiva Clear HENT: Yes: Atraumatic, Normocephalic Neck: Yes: Supple, Trachea Midline Cardiovascular: Yes: Regular Rate and Rhythm Respiratory: Yes: Regular, CTA Bilaterally Gastrointestinal: Yes: Normal Bowel Sounds, Soft Peripheral Pulses WNL: Yes Neurological: Yes: Alert, Oriented Psychiatric: Yes: Alert Labs: CBC, BMP 08/09/16 07:50 08/08/16 05:35 INR, PTT INR 1.44 (0.82-1.09) H 08/08/16 05:35 Assessment/Plan Acute on chronic ckd PAF abdominal distention Anemia SOB/acute on chronic CHF HTN,Hypercholestrolemia Pulmonary vascular congestion DM PLAN Continue bronchodialators Continue BP medications Monitor BUN/creatinine Monitor sugar Will f/u cardiology and renal ,endocrine,pul rec regarding Medication will f/u hematology and cardiology rec regarding blood transfusion
[2016-08-09] MEDS: APIXABAN 2.5 MG TABLET PO SCH (11:00)
[2016-08-09 12:03] LABS: METAMYELOCYTE 1 % (0-2)
[2016-08-09 12:04] LABS: ALBUMIN 2.6 g/dl (3.4-5.0); BILIRUBIN,TOTAL 0.3 mg/dL (0.2-1.0); CALCIUM 9.1 mg/dL (8.5-10.1); CREATININE 2.8 mg/dL (0.55-1.02); TOT PROT 5.3 g/dl (6.4-8.2)
--- NOTE | 2016-08-09 14:15 | PN ---
Progress Note, Physician History of Present Illness: Pt seen and examined at bedside. She is awake and alert. She appears comfortable. - Current Medication List Current Medications: Active Medications Acetaminophen (Tylenol -) 650 mg PO Q6H PRN PRN Reason: FEVER OR PAIN Last Admin: 08/07/16 04:25 Dose: 650 mg Apixaban (Eliquis -) 2.5 mg PO BID [facility] Last Admin: 08/09/16 11:00 Dose: Not Given Atorvastatin Calcium (Lipitor -) 10 mg PO HS [facility] Last Admin: 08/08/16 22:09 Dose: 10 mg Calcitriol (Rocaltrol -) 0.5 mcg PO DAILY [facility] Last Admin: 08/09/16 09:17 Dose: 0.5 mcg Calcium Acetate (Phoslo -) 1,334 mg PO TIDCM [facility] Last Admin: 08/09/16 11:58 Dose: 1,334 mg Diltiazem HCl (Cardizem Cd -) 240 mg PO DAILY [facility] Last Admin: 08/09/16 09:16 Dose: 240 mg Furosemide (Lasix Injection -) 80 mg IVPB DAILY [facility] Last Admin: 08/08/16 09:23 Dose: 80 mg Hydralazine HCl (Apresoline -) 25 mg PO BID [facility] Last Admin: 08/09/16 09:16 Dose: 25 mg Cefazolin Sodium (Ancef 1gm Ivpb (Pre-Docked)) 50 mls @ 100 mls/hr IVPB DAILY [facility] Last Admin: 08/09/16 09:15 Dose: 100 mls/hr Insulin Aspart (Novolog Vial Sliding Scale -) 1 vial SQ Q4HPO [facility] PRN Reason: Protocol Last Admin: 08/09/16 11:30 Dose: 8 units Isosorbide Mononitrate (Imdur -) 30 mg PO DAILY [facility] Last Admin: 08/09/16 09:16 Dose: 30 mg Ondansetron HCl (Zofran Injection) 4 mg IVPUSH Q4H PRN PRN Reason: NAUSEA AND/OR VOMITING Polyethylene Glycol (Miralax (For Daily Use) -) 17 gm PO DAILY [facility] Last Admin: 08/09/16 10:00 Dose: 17 grams Prednisone (Deltasone -) 20 mg PO DAILY [facility] Last Admin: 08/09/16 09:16 Dose: 20 mg Ranitidine HCl (Zantac -) 75 mg PO DAILY [facility] Last Admin: 08/09/16 09:16 Dose: 75 mg - Objective Vital Signs: Vital Signs Temperature 97.7 F 08/09/16 11:53 Pulse Rate 83 08/09/16 11:53 Respiratory Rate 20 08/09/16 11:53 Blood Pressure 145/72 08/09/16 11:53 O2 Sat by Pulse Oximetry (%) 100 08/09/16 09:00 Constitutional: Yes: Calm Eyes: Yes: Conjunctiva Clear HENT: Yes: Atraumatic Neck: Yes: Supple Cardiovascular: Yes: S1, S2 Respiratory: Yes: On Nasal O2 Gastrointestinal: Yes: Soft, Abdomen, Obese Genitourinary: Yes: WNL Musculoskeletal: Yes: WNL Edema: Yes Edema: LLE: Trace, RLE: Trace Neurological: Yes: Oriented Psychiatric: Yes: Oriented Labs: CBC, BMP 08/09/16 07:50 08/09/16 10:00 INR, PTT INR 1.44 (0.82-1.09) H 08/08/16 05:35 Problem List - Problems (1) CKD (chronic kidney disease) Code(s): N18.9 - CHRONIC KIDNEY DISEASE, UNSPECIFIED Qualifiers: Chronic kidney disease stage: unspecified stage Qualified Code(s): N18.9 - Chronic kidney disease, unspecified (2) Pulmonary vascular congestion Code(s): R09.89 - OTH SYMPTOMS AND SIGNS INVOLVING THE CIRC AND RESP SYSTEMS (3) SOB (shortness of breath) on exertion Code(s): R06.02 - SHORTNESS OF BREATH (4) Hypertension Code(s): I10 - ESSENTIAL (PRIMARY) HYPERTENSION (5) Diabetes 1.5, managed as type 1 Code(s): E13.9 - OTHER SPECIFIED DIABETES MELLITUS WITHOUT COMPLICATIONS Assessment/Plan Current Medications Generic Name Dose Route Start Last Admin Trade Name Freq PRN Reason Stop Dose Admin Acetaminophen 650 mg 07/30/16 15:50 08/07/16 04:25 Tylenol - PO 650 mg Q6H PRN Administration FEVER OR PAIN Apixaban 2.5 mg 08/07/16 18:45 08/09/16 11:00 Eliquis - PO Not Given BID [facility] Atorvastatin Calcium 10 mg 07/27/16 22:00 08/08/16 22:09 Lipitor - PO 10 mg HS [facility] Administration Calcitriol 0.5 mcg 07/27/16 18:00 08/09/16 09:17 Rocaltrol - PO 0.5 mcg DAILY [facility] Administration Calcium Acetate 1,334 mg 08/05/16 17:30 08/09/16 11:58 Phoslo - PO 1,334 mg TIDCM [facility] Administration Diltiazem HCl 240 mg 08/08/16 10:00 08/09/16 09:16 Cardizem Cd - PO 240 mg DAILY [facility] Administration Furosemide 80 mg 08/08/16 10:00 08/08/16 09:23 Lasix Injection - IVPB 80 mg DAILY [facility] Administration Hydralazine HCl 25 mg 07/27/16 18:30 08/09/16 09:16 Apresoline - PO 25 mg BID [facility] Administration Cefazolin Sodium 50 mls @ 100 mls/hr 08/09/16 10:00 08/09/16 09:15 Ancef 1gm Ivpb (Pre-Docked) IVPB 100 mls/hr DAILY [facility] Administration Insulin Aspart 1 vial 08/04/16 12:30 08/09/16 11:30 Novolog Vial Sliding Scale - SQ 8 units Q4HPO [facility] Administration Protocol Isosorbide Mononitrate 30 mg 07/27/16 18:30 08/09/16 09:16 Imdur - PO 30 mg DAILY [facility] Administration Ondansetron HCl 4 mg 08/03/16 18:45 Zofran Injection IVPUSH Q4H PRN NAUSEA AND/OR VOMITING Polyethylene Glycol 17 gm 08/08/16 10:00 08/09/16 10:00 Miralax (For Daily Use) - PO 17 grams DAILY [facility] Administration Prednisone 20 mg 08/09/16 10:00 08/09/16 09:16 Deltasone - PO 20 mg DAILY [facility] Administration Ranitidine HCl 75 mg 08/05/16 10:00 08/09/16 09:16 Zantac - PO 75 mg DAILY [facility] Administration Impression 1. CKD 2. HTN 3. DM 4. dyspnea 5. hyperlipidemia 6. anemia 7. hyponatremia 8. pulmonary htn Plan - pt is getting a unit of blood - give the dose of lasix after blood, spoke to nurse - renal function is improving - cont with steroids taper - repeat labs in am - sodium is improved - renal workup is in progress - will follow Dr Fleming
--- NOTE | 2016-08-09 14:43 | PN ---
Progress Note (short form) - Note Progress Note: PULMONARY Denies shortness of breath or chest pain. No cough or wheezing. Last Vital Signs Temp Pulse Resp BP Pulse Ox 97.7 F 83 20 145/72 100 08/09/16 11:53 08/09/16 11:53 08/09/16 11:53 08/09/16 11:53 08/09/16 09:00 Gen: NAD at rest Heart: RRR Lung: decreased breath sounds at the bases Abd: soft, nontender Ext: no edema CBC, BMP 08/09/16 07:50 08/09/16 10:00 Active Medications Acetaminophen (Tylenol -) 650 mg PO Q6H PRN PRN Reason: FEVER OR PAIN Last Admin: 08/07/16 04:25 Dose: 650 mg Apixaban (Eliquis -) 2.5 mg PO BID [facility] Last Admin: 08/09/16 11:00 Dose: Not Given Atorvastatin Calcium (Lipitor -) 10 mg PO HS [facility] Last Admin: 08/08/16 22:09 Dose: 10 mg Calcitriol (Rocaltrol -) 0.5 mcg PO DAILY [facility] Last Admin: 08/09/16 09:17 Dose: 0.5 mcg Calcium Acetate (Phoslo -) 1,334 mg PO TIDCM [facility] Last Admin: 08/09/16 11:58 Dose: 1,334 mg Diltiazem HCl (Cardizem Cd -) 240 mg PO DAILY [facility] Last Admin: 08/09/16 09:16 Dose: 240 mg Furosemide (Lasix Injection -) 80 mg IVPB DAILY [facility] Last Admin: 08/08/16 09:23 Dose: 80 mg Hydralazine HCl (Apresoline -) 25 mg PO BID [facility] Last Admin: 08/09/16 09:16 Dose: 25 mg Cefazolin Sodium (Ancef 1gm Ivpb (Pre-Docked)) 50 mls @ 100 mls/hr IVPB DAILY [facility] Last Admin: 08/09/16 09:15 Dose: 100 mls/hr Insulin Aspart (Novolog Vial Sliding Scale -) 1 vial SQ Q4HPO [facility] PRN Reason: Protocol Last Admin: 08/09/16 11:30 Dose: 8 units Isosorbide Mononitrate (Imdur -) 30 mg PO DAILY [facility] Last Admin: 08/09/16 09:16 Dose: 30 mg Ondansetron HCl (Zofran Injection) 4 mg IVPUSH Q4H PRN PRN Reason: NAUSEA AND/OR VOMITING Polyethylene Glycol (Miralax (For Daily Use) -) 17 gm PO DAILY [facility] Last Admin: 08/09/16 10:00 Dose: 17 grams Prednisone (Deltasone -) 10 mg PO DAILY [facility] Ranitidine HCl (Zantac -) 75 mg PO DAILY [facility] Last Admin: 08/09/16 09:16 Dose: 75 mg A/P Acute on Chronic LV Diastolic Heart Failure Pulmonary HTN Acute on Chronic Renal Failure Atrial Fibrillation Anemia HTN DM - continue lasix - monitor urine output, creatinine - transfuse PRBC - monitor H/H - rate controlled - continue anticoagulation - O2 to keep SpO2 >90% - inhaled bronchodilators as needed - taper off prednisone
[2016-08-09] MEDS ORDERED: predniSONE 5 MG TABLET (UD) PO SCH (15:15)
--- NOTE | 2016-08-09 15:30 | PN ---
Progress Note (short form) - Note Progress Note: ID Appears comfortable Cefazolin Selected Entries 08/09/16 11:53 Temperature 97.7 F Pulse Rate 83 Respiratory 20 Rate Blood Pressure 145/72 Microbiology 08/06/16 12:30 Urine - Urine [place] Urine Culture - Final Klebsiella Pneumoniae 08/02/16 12:00 Blood - Peripheral Venous Blood Culture - Final NO GROWTH AFTER 5 DAYS INCUBATION 08/02/16 11:15 Blood - Peripheral Venous Blood Culture - Final NO GROWTH AFTER 5 DAYS INCUBATION 08/06/16 12:43 Blood - Peripheral Venous Blood Culture - Preliminary NO GROWTH OBTAINED AFTER 72 HOURS, INCUBATION TO CONTINUE FOR 2 DAYS. 08/06/16 12:40 Blood - Peripheral Venous Blood Culture - Preliminary NO GROWTH OBTAINED AFTER 72 HOURS, INCUBATION TO CONTINUE FOR 2 DAYS. Laboratory Tests 08/09/16 08/09/16 05:35 07:50 WBC 22.6 H Hgb 6.9 L* Hct 20.7 L Plt Count 218 BUN 107 H* Creatinine 2.8 H Assessment Klebseiella UTI Plan Can switch to oral kelflex 500mg bid today or tomorrow few days Alex CEE
[2016-08-09] MEDS: predniSONE 10 MG TABLET (UD) PO SCH (16:15)
[2016-08-09] MEDS: FUROSEMIDE 100 MG/10 ML INJECTABLE VIAL IVPB SCH (16:16)
--- NOTE | 2016-08-09 17:03 | PN ---
GI Progress Note Subjective: H/H dropped again today No BM No melena has been reported No abdominal pain Initial rectal exam had revealed light brown guaiac negative stool - Objective Vital Signs: Vital Signs Temperature 97.7 F 08/09/16 15:00 Pulse Rate 83 08/09/16 15:00 Respiratory Rate 20 08/09/16 15:00 Blood Pressure 135/65 08/09/16 15:00 O2 Sat by Pulse Oximetry (%) 100 08/09/16 09:00 Constitutional: Calm Eyes: No: Sclera Icterus Cardiovascular: Yes: Regular Rate and Rhythm Respiratory: Yes: Diminished (improved wheezing) Gastrointestinal Inspection: No: Distention ...Auscultate: Yes: Normoactive Bowel Sounds ...Palpate: No: Tenderness ...Rectal Exam: Yes: Other (dark stool, guaiac +) Labs: CBC, BMP 08/09/16 07:50 08/09/16 10:00 INR, PTT INR 1.44 (0.82-1.09) H 08/08/16 05:35 Problem List - Problems (1) Lack of appetite Assessment/Plan: Improved however now with drop in H/H and dark guaiac positive stool in the setting of anticoagulation. This is a change from previous rectal exam that revealed light brown guaiac negative stool. I discussed this with her family and I explained this suggests intestinal bleeding. this is likely precipitated by anticoagulation and corticosteroid therapy. I explained to her family that we will try conservative measures at this point given her tenuous respiratory status however when optimized from a cardiopulmonary standppoint she will likely need upper endoscopy for starters. For now: Changing to clear liquids PPI drip and stopping zantac Guzman mancuso. discussed with Dr. Garcia Monitor H/H Code(s): R63.0 - ANOREXIA (2) Constipation Code(s): K59.00 - CONSTIPATION, UNSPECIFIED
[2016-08-09] MEDS ORDERED: PANTOPRAZOLE SODIUM 80 MG in SODIUM CHLORIDE 100 ML IVPB ONE (17:30)
[2016-08-09] MEDS ORDERED: INSULIN (NOVOLOG) ASPART 100 UNITS/ML 10ML VIAL ONE (18:01)
--- NOTE | 2016-08-09 18:45 | PN ---
Progress Note (short form) - Note Progress Note: Patient seen and examined comfortable no complaints Last Vital Signs Temp Pulse Resp BP Pulse Ox 97.7 F 83 20 135/65 100 08/09/16 15:00 08/09/16 15:00 08/09/16 15:00 08/09/16 15:00 08/09/16 09:00 HEENT: JAVI, EOM Intact Cor: RSR, No murmurs, No gallops Lungs: Clear to P&A Abd: Soft, Normal bowel sounds, No organomegaly Ext:No significant edema Skin: No rashes, Integument intact Abnormal Lab Results 08/09/16 08/09/16 08/09/16 05:35 07:50 09:30 WBC 22.6 H RBC 2.50 L Hgb 6.9 L* Hct 20.7 L Myelocytes 4 H D Chloride 94 L Carbon Dioxide 36 H BUN 107 H* Creatinine 2.8 H AST 13 L Total Protein 5.3 L Albumin 2.6 L Crossmatch See Detail Current Medications Acetaminophen (Tylenol -) 650 mg PO Q6H PRN PRN Reason: FEVER OR PAIN Last Admin: 08/07/16 04:25 Dose: 650 mg Atorvastatin Calcium (Lipitor -) 10 mg PO HS [facility] Last Admin: 08/08/16 22:09 Dose: 10 mg Calcitriol (Rocaltrol -) 0.5 mcg PO DAILY [facility] Last Admin: 08/09/16 09:17 Dose: 0.5 mcg Calcium Acetate (Phoslo -) 1,334 mg PO TIDCM [facility] Last Admin: 08/09/16 17:52 Dose: 1,334 mg Diltiazem HCl (Cardizem Cd -) 240 mg PO DAILY [facility] Last Admin: 08/09/16 09:16 Dose: 240 mg Furosemide (Lasix Injection -) 80 mg IVPB DAILY [facility] Last Admin: 08/09/16 16:16 Dose: 80 mg Hydralazine HCl (Apresoline -) 25 mg PO BID [facility] Last Admin: 08/09/16 09:16 Dose: 25 mg Cefazolin Sodium (Ancef 1gm Ivpb (Pre-Docked)) 50 mls @ 100 mls/hr IVPB DAILY [facility] Last Admin: 08/09/16 09:15 Dose: 100 mls/hr Pantoprazole Sodium 80 mg/ (Sodium Chloride) 100 mls @ 10 mls/hr IVPB Q10H [facility] PRN Reason: 8 MG/HR Insulin Aspart (Novolog Vial Sliding Scale -) 1 vial SQ Q4HPO [facility] PRN Reason: Protocol Last Admin: 08/09/16 17:53 Dose: 8 units Isosorbide Mononitrate (Imdur -) 30 mg PO DAILY [facility] Last Admin: 08/09/16 09:16 Dose: 30 mg Ondansetron HCl (Zofran Injection) 4 mg IVPUSH Q4H PRN PRN Reason: NAUSEA AND/OR VOMITING Polyethylene Glycol (Miralax (For Daily Use) -) 17 gm PO DAILY [facility] Last Admin: 08/09/16 10:00 Dose: 17 grams Prednisone (Deltasone -) 10 mg PO DAILY [facility] Last Admin: 08/09/16 16:15 Dose: 10 mg A/P 86 y/o patient with HTN, DM, CKD, CHF, afib, now with gradually dropping Hemoglobin, worsening renal function anemia of chronic disease due to worsening renal function/CHF + gi bleed f/u iron studies. B!2, folate TSH--nl SIFE --neg. On apixaban for afib-- holding. cardiology/gi team in agreement transfused 1 unit PRBCs today with lasix recheck CBC in am
[2016-08-09 20:03] LABS: MCH 28.3 pg (25.7-33.7); MCHC 33.3 g/dl (32.0-36.0); MEAN CELL VOLUME 84.9 fl (80-96); NEUTROPHILS 89.7 % (42.8-82.8); PLATELET COUNT 243 K/MM3 (134-434); RDW 13.8 % (11.6-15.6)
[2016-08-09 20:05] LABS: WHITE BLOOD COUNT 21.1 K/mm3 (4.0-10.0)
[2016-08-09] MEDS: ATORVASTATIN CA 10 MG TABLET (FP) PO SCH (21:58)
[2016-08-09] MEDS: PANTOPRAZOLE SODIUM 80 MG in SODIUM CHLORIDE 100 ML IVPB SCH (22:28)
[2016-08-10] MEDS: INSULIN SLIDING SCALE (NOVOLOG) 1 VIAL SQ SCH ×4 (01:12→17:40)
[2016-08-10 06:06] LABS: SERUM IRON 78 ug/dL (27-139); TOTAL IRON BINDING CAPACITY 223 ug/dL (250-450); UIBC 145 ug/dL (118-369)
[2016-08-10] MEDS: PANTOPRAZOLE SODIUM 80 MG in SODIUM CHLORIDE 100 ML IVPB SCH ×2 (06:09→18:31)
[2016-08-10 07:30] LABS: MCH 28.2 pg (25.7-33.7); MCHC 33.9 g/dl (32.0-36.0); MEAN CELL VOLUME 83.1 fl (80-96); MEAN PLT VOLUME 7.9 fl (7.5-11.1); PLATELET COUNT 218 K/MM3 (134-434); RDW 13.6 % (11.6-15.6); WHITE BLOOD COUNT 20.6 K/mm3 (4.0-10.0)
[2016-08-10 08:02] LABS: FREE T4 1.02 ng/dl (0.76-1.46)
[2016-08-10 08:10] LABS: ALBUMIN 2.7 g/dl (3.4-5.0); BILIRUBIN,TOTAL 0.4 mg/dL (0.2-1.0); CALCIUM 9.7 mg/dL (8.5-10.1); CREATININE 2.8 mg/dL (0.55-1.02); MAGNESIUM 1.5 mg/dL (1.8-2.4); THYROID STIMULATING HORMONE 1.1 uIU/ml (0.358-3.74); TOT PROT 5.5 g/dl (6.4-8.2)
[2016-08-10 08:36] LABS: METAMYELOCYTE 2 % (0-2)
[2016-08-10 08:37] LABS: PLATELET ESTIMATE ADEQUATE (NORMAL)
--- NOTE | 2016-08-10 09:05 | PN ---
Progress Note (short form) - Note Progress Note: Feels better Abd pain improving No nausea or vomiting Moved bowels Tolerating diet Apetite better BGM fluctuating Vital Signs Period Temp Pulse Resp BP Sys/[place] Pulse Ox Last 24 Hr 97.7 F-98.2 F 79-94 18-20 131-145/51-72 98-98 PE: AOX3 Neck: Supple, No JVD HEENT: PERRL, EOMI Lungs: CTA CVS: S1S2 Abd: Benign, +BS Ext: 1+Edema Neuro: No focal deficit CMP Sodium 141 mmol/L (136-145) 08/10/16 06:50 Potassium 3.5 mmol/L (3.5-5.1) 08/10/16 06:50 Chloride 92 mmol/L (98-107) L 08/10/16 06:50 Carbon Dioxide 38 mmol/L (21-32) H 08/10/16 06:50 Anion Gap 11 (8-16) 08/10/16 06:50 BUN 89 mg/dL (7-18) H 08/10/16 06:50 Creatinine 2.8 mg/dL (0.55-1.02) H 08/10/16 06:50 Creat Clearance w eGFR 16.10 (>60) 08/10/16 06:50 POC Glucometer 129 UNITS (()) 08/10/16 05:27 Random Glucose 98 mg/dL (74-106) 08/10/16 06:50 Calcium 9.7 mg/dL (8.5-10.1) 08/10/16 06:50 Phosphorus 4.3 mg/dL (2.5-4.9) D 08/07/16 05:35 Magnesium 1.5 mg/dL (1.8-2.4) L D 08/10/16 06:50 Iron 78 ug/dL (27-139) 08/09/16 05:35 TIBC 223 ug/dL (250-450) L 08/09/16 05:35 Iron Saturation 35 % (15-55) 08/09/16 05:35 Ferritin 89.957 ng/ml (6.9-282.5) 08/09/16 05:35 Total Bilirubin 0.4 mg/dL (0.2-1.0) D 08/10/16 06:50 AST 17 U/L (15-37) D 08/10/16 06:50 ALT 32 U/L (12-78) 08/10/16 06:50 Alkaline Phosphatase 59 U/L (45-117) 08/10/16 06:50 Creatine Kinase 143 IU/L (26-192) 07/28/16 06:00 CK-MB (CK-2) 3.794 ng/ml (0.5-3.6) H 07/27/16 18:55 Troponin I < 0.02 ng/ml (0.00-0.05) 07/28/16 06:00 B-Natriuretic Peptide 1614.88 pg/ml (5-450) H 07/27/16 07:56 Prot Electrophoresis (.) 08/01/16 13:02 Serum Total Protein 6.9 g/dL (6.0-8.5) 08/01/16 13:02 Total Protein 5.5 g/dl (6.4-8.2) L 08/10/16 06:50 Albumin 2.7 g/dl (3.4-5.0) L 08/10/16 06:50 Globulin 3.6 g/dL (2.2-3.9) 08/01/16 13:02 Albumin/Globulin Ratio 0.9 (0.7-1.7) 08/01/16 13:02 Tzoky-3-Inhniaxfk 0.3 gm/dL (0.0-0.4) 08/01/16 13:02 Sntti-3-Opcylmsnj (%) 0.8 % (.) 08/01/16 12:00 Zgjkw-1-Gafgigizx 1.1 gm/dL (0.4-1.0) H 08/01/16 13:02 Simcd-1-Riextdvxr (%) 3.7 % (.) 08/01/16 12:00 Beta Globulins 1.0 gm/dL (0.7-1.3) 08/01/16 13:02 Beta Globulins (%) 16.5 % (.) 08/01/16 12:00 Gamma Globulins 1.2 gm/dL (0.4-1.8) 08/01/16 13:02 Gamma Globulins (%) 13.6 % (.) 08/01/16 12:00 M-Constantin % Not observed % (Not Observed) 08/01/16 12:00 Total Amylase 230 U/L (25-115) H 08/04/16 05:45 Lipase 661 U/L (73-393) H 08/08/16 05:35 Vitamin B12 775 pg/ml (180-914) 08/10/16 06:50 TSH 1.10 uIU/ml (0.358-3.74) D 08/10/16 06:50 Free T4 1.02 ng/dl (0.76-1.46) 08/10/16 06:50 Current Medications Generic Name Dose Route Start Last Admin Trade Name Freq PRN Reason Stop Dose Admin Acetaminophen 650 mg 07/30/16 15:50 08/07/16 04:25 Tylenol - PO 650 mg Q6H PRN Administration FEVER OR PAIN Atorvastatin Calcium 10 mg 07/27/16 22:00 08/09/16 21:58 Lipitor - PO 10 mg HS [facility] Administration Calcitriol 0.5 mcg 07/27/16 18:00 08/09/16 09:17 Rocaltrol - PO 0.5 mcg DAILY [facility] Administration Calcium Acetate 1,334 mg 08/05/16 17:30 08/09/16 17:52 Phoslo - PO 1,334 mg TIDCM [facility] Administration Diltiazem HCl 240 mg 08/08/16 10:00 08/09/16 09:16 Cardizem Cd - PO 240 mg DAILY [facility] Administration Furosemide 80 mg 08/08/16 10:00 08/09/16 16:16 Lasix Injection - IVPB 80 mg DAILY [facility] Administration Hydralazine HCl 25 mg 07/27/16 18:30 08/09/16 21:57 Apresoline - PO 25 mg BID [facility] Administration Cefazolin Sodium 50 mls @ 100 mls/hr 08/09/16 10:00 08/09/16 09:15 Ancef 1gm Ivpb (Pre-Docked) IVPB 100 mls/hr DAILY [facility] Administration Pantoprazole Sodium 80 mg/ 100 mls @ 10 mls/hr 08/09/16 18:00 08/10/16 06:09 Sodium Chloride IVPB 10 mls/hr Q10H [facility] Administration 8 MG/HR Insulin Aspart 1 vial 08/04/16 12:30 08/10/16 06:10 Novolog Vial Sliding Scale - SQ Not Given Q4HPO [facility] Protocol Isosorbide Mononitrate 30 mg 07/27/16 18:30 08/09/16 09:16 Imdur - PO 30 mg DAILY [facility] Administration Ondansetron HCl 4 mg 08/03/16 18:45 Zofran Injection IVPUSH Q4H PRN NAUSEA AND/OR VOMITING Polyethylene Glycol 17 gm 08/08/16 10:00 08/09/16 10:00 Miralax (For Daily Use) - PO 17 grams DAILY [facility] Administration Prednisone 10 mg 08/09/16 15:15 08/09/16 16:15 Deltasone - PO 10 mg DAILY [facility] Administration AP: DM: Fluctuating blood sugar On Prednosone 10 mg daily Monitor BGM QACHS Start Levemir 10 units daily Novolog Coverage ACHS Will F/U Elevated lipase . Improving. 661 yesterday. Normal Pancreas on CT ?Pancreatitis Pt has multiple possible reasons for elevated Lipase including renal failure and use of Januvia, Methylprednosolone and Furosemide. Off Januvia now. Anemia/Drop in H/H: Hematology consult noted CHF Acute on Chronic renal insufficiency. Improving Creatinine HTN HLD Problem List - Problems (1) CKD (chronic kidney disease) Code(s): N18.9 - CHRONIC KIDNEY DISEASE, UNSPECIFIED Qualifiers: Qualified Code(s): N18.9 - Chronic kidney disease, unspecified (2) Hypertension Code(s): I10 - ESSENTIAL (PRIMARY) HYPERTENSION (3) SOB (shortness of breath) on exertion Code(s): R06.02 - SHORTNESS OF BREATH
[2016-08-10] MEDS: hydrALAZINE HCL 25 MG TABLET (FP) PO SCH ×2 (09:10→22:08)
[2016-08-10] MEDS: ISOSORBIDE MONONITRATE 30 MG TAB.SR.24H (FP) PO SCH (09:10)
[2016-08-10] MEDS: predniSONE 10 MG TABLET (UD) PO SCH (09:10)
[2016-08-10] MEDS: CEFAZOLIN (PRE-DOCKED) 50 ML IVPB SCH (09:10)
[2016-08-10] MEDS: CALCIUM ACETATE 667 MG CAPSULE (FP) PO SCH ×3 (09:10→17:05)
[2016-08-10] MEDS ORDERED: INSULIN (NOVOLOG) ASPART 100 UNITS/ML 10ML VIAL ONE ×2 (09:26→21:23)
[2016-08-10] MEDS: CALCITRIOL 0.25 MCG CAPSULE (FP) PO SCH (09:36)
[2016-08-10] MEDS: INSULIN DETEMIR 100 UNITS/ML MDV SQ SCH (09:36)
--- NOTE | 2016-08-10 10:07 | PN ---
Progress Note, Physician Chief Complaint: Pt seen and examined S/p blood transfusion Elequis on hold abdominal distention present,lack of appetite Cardiology,RENAl,pul GI note appreciated Hematology note appreciated - Current Medication List Current Medications: Active Medications Acetaminophen (Tylenol -) 650 mg PO Q6H PRN PRN Reason: FEVER OR PAIN Last Admin: 08/07/16 04:25 Dose: 650 mg Atorvastatin Calcium (Lipitor -) 10 mg PO HS [facility] Last Admin: 08/09/16 21:58 Dose: 10 mg Calcitriol (Rocaltrol -) 0.5 mcg PO DAILY [facility] Last Admin: 08/10/16 09:36 Dose: 0.5 mcg Calcium Acetate (Phoslo -) 1,334 mg PO TIDCM [facility] Last Admin: 08/10/16 09:10 Dose: 1,334 mg Diltiazem HCl (Cardizem Cd -) 240 mg PO DAILY [facility] Last Admin: 08/10/16 09:10 Dose: 240 mg Furosemide (Lasix Injection -) 80 mg IVPB DAILY [facility] Last Admin: 08/09/16 16:16 Dose: 80 mg Hydralazine HCl (Apresoline -) 25 mg PO BID [facility] Last Admin: 08/10/16 09:10 Dose: 25 mg Cefazolin Sodium (Ancef 1gm Ivpb (Pre-Docked)) 50 mls @ 100 mls/hr IVPB DAILY [facility] Last Admin: 08/10/16 09:10 Dose: 100 mls/hr Pantoprazole Sodium 80 mg/ (Sodium Chloride) 100 mls @ 10 mls/hr IVPB Q10H [facility] PRN Reason: 8 MG/HR Last Admin: 08/10/16 06:09 Dose: 10 mls/hr Insulin Aspart (Novolog Vial Sliding Scale -) 1 vial SQ TIDAC [facility] PRN Reason: Protocol Insulin Aspart (Novolog Vial Sliding Scale -) 1 vial SQ HS [facility] PRN Reason: Protocol Insulin Detemir (Levemir Vial) 10 units SQ DAILY@0700 [facility] Last Admin: 08/10/16 09:36 Dose: 10 units Isosorbide Mononitrate (Imdur -) 30 mg PO DAILY [facility] Last Admin: 08/10/16 09:10 Dose: 30 mg Ondansetron HCl (Zofran Injection) 4 mg IVPUSH Q4H PRN PRN Reason: NAUSEA AND/OR VOMITING Polyethylene Glycol (Miralax (For Daily Use) -) 17 gm PO DAILY [facility] Last Admin: 08/09/16 10:00 Dose: 17 grams Prednisone (Deltasone -) 10 mg PO DAILY [facility] Last Admin: 08/10/16 09:10 Dose: 10 mg - Objective Vital Signs: Vital Signs Temperature 97.7 F 08/10/16 05:58 Pulse Rate 79 08/10/16 05:58 Respiratory Rate 18 08/10/16 05:58 Blood Pressure 141/55 08/10/16 05:58 O2 Sat by Pulse Oximetry (%) 100 08/10/16 09:00 Constitutional: Yes: No Distress Eyes: Yes: Conjunctiva Clear HENT: Yes: Atraumatic, Normocephalic Neck: Yes: Supple, Trachea Midline Cardiovascular: Yes: Regular Rate and Rhythm Respiratory: Yes: Regular, Diminished Gastrointestinal: Yes: Normal Bowel Sounds, Soft Peripheral Pulses WNL: Yes Neurological: Yes: Oriented Labs: CBC, BMP 08/10/16 06:50 08/10/16 06:50 INR, PTT INR 1.44 (0.82-1.09) H 08/08/16 05:35 Laboratory Results - last 24 hr 08/09/16 08/09/16 08/09/16 05:35 05:35 05:35 WBC RBC Hgb Hct MCV MCHC RDW Plt Count MPV Neutrophils % Lymphocytes % Monocytes % Metamyelocytes Myelocytes Differential Comment Platelet Estimate Sodium 142 Cancelled Potassium 3.5 Cancelled Chloride 94 L Cancelled Carbon Dioxide 36 H Cancelled Anion Gap 12 Cancelled BUN 107 H* Cancelled Creatinine 2.8 H Cancelled Creat Clearance w eGFR 16.10 Cancelled POC Glucometer Random Glucose 92 D Cancelled Calcium 9.1 Cancelled Magnesium Iron 78 TIBC 223 L Iron Saturation 35 Total Bilirubin 0.3 Cancelled AST 13 L Cancelled ALT 30 Cancelled Alkaline Phosphatase 51 Cancelled Total Protein 5.3 L Cancelled Albumin 2.6 L Cancelled Vitamin B12 TSH Free T4 Blood Type Antibody Screen Crossmatch Spec Expiration Date 08/09/16 08/09/16 08/09/16 07:50 09:25 09:30 WBC RBC Hgb Hct MCV MCHC RDW Plt Count MPV Neutrophils % 74.0 Lymphocytes % 12.0 D Monocytes % 9.0 Metamyelocytes 1 Myelocytes 4 H D Differential Comment Manual diff done Platelet Estimate Sodium Potassium Chloride Carbon Dioxide Anion Gap BUN Creatinine Creat Clearance w eGFR POC Glucometer Random Glucose Calcium Magnesium Iron TIBC Iron Saturation Total Bilirubin AST ALT Alkaline Phosphatase Total Protein Albumin Vitamin B12 TSH Free T4 Blood Type B POSITIVE B POSITIVE Antibody Screen Negative Crossmatch See Detail Spec Expiration Date 08/09/16 08/09/16 08/09/16 10:00 11:02 14:49 WBC RBC Hgb Hct MCV MCHC RDW Plt Count MPV Neutrophils % Lymphocytes % Monocytes % Metamyelocytes Myelocytes Differential Comment Platelet Estimate Sodium Cancelled Potassium Cancelled Chloride Cancelled Carbon Dioxide Cancelled Anion Gap Cancelled BUN Cancelled Creatinine Cancelled Creat Clearance w eGFR Cancelled POC Glucometer 255 339 Random Glucose Cancelled Calcium Cancelled Magnesium Iron TIBC Iron Saturation Total Bilirubin Cancelled AST Cancelled ALT Cancelled Alkaline Phosphatase Cancelled Total Protein Cancelled Albumin Cancelled Vitamin B12 TSH Free T4 Blood Type Antibody Screen Crossmatch Spec Expiration Date 08/09/16 08/09/16 08/09/16 17:50 19:40 21:57 WBC 21.1 H RBC 3.22 L D Hgb 9.1 L D Hct 27.3 L D MCV 84.9 MCHC 33.3 RDW 13.8 Plt Count 243 MPV 8.0 Neutrophils % 89.7 H D Lymphocytes % Y Monocytes % Metamyelocytes Myelocytes Differential Comment Platelet Estimate Sodium Potassium Chloride Carbon Dioxide Anion Gap BUN Creatinine Creat Clearance w eGFR POC Glucometer 282 342 Random Glucose Calcium Magnesium Iron TIBC Iron Saturation Total Bilirubin AST ALT Alkaline Phosphatase Total Protein Albumin Vitamin B12 TSH Free T4 Blood Type Antibody Screen Crossmatch Spec Expiration Date 08/10/16 08/10/16 08/10/16 01:11 05:27 06:50 WBC 20.6 H RBC 3.15 L Hgb 8.9 L Hct 26.2 L MCV 83.1 MCHC 33.9 RDW 13.6 Plt Count 218 MPV 7.9 Neutrophils % 76.0 Lymphocytes % 11.0 Monocytes % 11.0 H Metamyelocytes 2 D Myelocytes Differential Comment Manual diff done Platelet Estimate Adequate Sodium Potassium Chloride Carbon Dioxide Anion Gap BUN Creatinine Creat Clearance w eGFR POC Glucometer 329 129 Random Glucose Calcium Magnesium Iron TIBC Iron Saturation Total Bilirubin AST ALT Alkaline Phosphatase Total Protein Albumin Vitamin B12 TSH Free T4 Blood Type Antibody Screen Crossmatch Spec Expiration Date 08/10/16 08/10/16 08/10/16 06:50 06:50 09:33 WBC RBC Hgb Hct MCV MCHC RDW Plt Count MPV Neutrophils % Lymphocytes % Monocytes % Metamyelocytes Myelocytes Differential Comment Platelet Estimate Sodium 141 Potassium 3.5 Chloride 92 L Carbon Dioxide 38 H Anion Gap 11 BUN 89 H Creatinine 2.8 H Creat Clearance w eGFR 16.10 POC Glucometer 342 Random Glucose 98 Calcium 9.7 Magnesium 1.5 L D Iron TIBC Iron Saturation Total Bilirubin 0.4 D AST 17 D ALT 32 Alkaline Phosphatase 59 Total Protein 5.5 L Albumin 2.7 L Vitamin B12 775 TSH 1.10 D Free T4 1.02 Blood Type Antibody Screen Crossmatch Spec Expiration Date Assessment/Plan Acute on chronic ckd PAF UTI abdominal distention Anemia,s/p blood transfusion SOB/acute on chronic CHF HTN,Hypercholestrolemia Pulmonary vascular congestion DM ELEQUIS ON HOLD PLAN Continue bronchodialators Continue BP medications Monitor BUN/creatinine,CBC Monitor sugar Will f/u cardiology and renal ,endocrine,pul rec regarding Medication will f/u hematology and cardiology rec regarding blood transfusion
[2016-08-10] MEDS: FUROSEMIDE 100 MG/10 ML INJECTABLE VIAL IVPB SCH (11:06)
--- NOTE | 2016-08-10 12:12 | PN ---
Progress Note (short form) - Note Progress Note: PULMONARY OOB TO CHAIR/EATING/NOT WEARING O2/LESS ABD PAIN FAMILY PRESENT VSS/AFEBRILE ANICTERIC DIMINSHED BREATH SOUNDS BILATERALLY S1S2 OBESE EDEMA LOWER EXT DIMINISHED LABS/MEDS/NOTES/IMAGING/MICRO REVIEWED WBC 20.6K HH 8.9/26.2 LIPASE 661 BUN 89 CR 2.8 IMP IMPROVED DIASTOLIC CHF PUL HTN ACUTE ON CHRONIC KIDNEY DISEASE IMPROVING W LASIX ABD PAIN DM POORLY CONTROLLED(STEROIDS) HTN AFIB RESOLVING ABD PAIN W DECREASING LIPASE PLAN IV LASIX PER RENAL INHALED BRONCHODILATORS/STEROIDS SUPPLEMENTAL O2 MONITOR RENAL FUNCTION ANTICOAGULATION RATE CONTROL DAILY [facility] GI FOLLOW UP CLOSE MONITORING ON TELE John WEST MD
[2016-08-10] MEDS: CEPHALEXIN MONOHYDRATE 500 MG CAPSULE (UD) PO SCH ×2 (13:09→22:08)
[2016-08-10] MEDS: POLYETHYLENE GLYCOL 3350 119 GM BTL PO SCH (13:10)
[2016-08-10] MEDS ORDERED: MAGNESIUM SULF 50% (8.12 MEQ/2 ML-1 GM VIAL) IVPB ONE (13:15)
--- NOTE | 2016-08-10 15:19 | PN ---
Progress Note, Physician History of Present Illness: Pt seen and examined at bedside. She is awake and appears comfortable. - Current Medication List Current Medications: Active Medications Acetaminophen (Tylenol -) 650 mg PO Q6H PRN PRN Reason: FEVER OR PAIN Last Admin: 08/07/16 04:25 Dose: 650 mg Atorvastatin Calcium (Lipitor -) 10 mg PO HS [facility] Last Admin: 08/09/16 21:58 Dose: 10 mg Calcitriol (Rocaltrol -) 0.5 mcg PO DAILY [facility] Last Admin: 08/10/16 09:36 Dose: 0.5 mcg Calcium Acetate (Phoslo -) 1,334 mg PO TIDCM [facility] Last Admin: 08/10/16 13:09 Dose: 1,334 mg Cephalexin HCl (Keflex -) 500 mg PO BID [facility] Last Admin: 08/10/16 13:09 Dose: 500 mg Diltiazem HCl (Cardizem Cd -) 240 mg PO DAILY [facility] Last Admin: 08/10/16 09:10 Dose: 240 mg Furosemide (Lasix Injection -) 80 mg IVPB DAILY [facility] Last Admin: 08/10/16 11:06 Dose: 80 mg Hydralazine HCl (Apresoline -) 25 mg PO BID [facility] Last Admin: 08/10/16 09:10 Dose: 25 mg Pantoprazole Sodium 80 mg/ (Sodium Chloride) 100 mls @ 10 mls/hr IVPB Q10H [facility] PRN Reason: 8 MG/HR Last Admin: 08/10/16 06:09 Dose: 10 mls/hr Insulin Aspart (Novolog Vial Sliding Scale -) 1 vial SQ TIDAC [facility] PRN Reason: Protocol Last Admin: 08/10/16 12:22 Dose: 10 units Insulin Aspart (Novolog Vial Sliding Scale -) 1 vial SQ HS [facility] PRN Reason: Protocol Insulin Detemir (Levemir Vial) 10 units SQ DAILY@0700 [facility] Last Admin: 08/10/16 09:36 Dose: 10 units Isosorbide Mononitrate (Imdur -) 30 mg PO DAILY [facility] Last Admin: 08/10/16 09:10 Dose: 30 mg Ondansetron HCl (Zofran Injection) 4 mg IVPUSH Q4H PRN PRN Reason: NAUSEA AND/OR VOMITING Polyethylene Glycol (Miralax (For Daily Use) -) 17 gm PO DAILY [facility] Last Admin: 08/10/16 13:10 Dose: 17 grams Prednisone (Deltasone -) 10 mg PO DAILY [facility] Last Admin: 08/10/16 09:10 Dose: 10 mg - Objective Vital Signs: Vital Signs Temperature 97.4 F L 08/10/16 13:52 Pulse Rate 82 08/10/16 13:52 Respiratory Rate 20 08/10/16 13:52 Blood Pressure 157/77 08/10/16 13:52 O2 Sat by Pulse Oximetry (%) 98 08/10/16 10:40 Constitutional: Yes: Calm Eyes: Yes: Conjunctiva Clear HENT: Yes: Atraumatic Cardiovascular: Yes: S1, S2 Respiratory: Yes: On Nasal O2 Gastrointestinal: Yes: Soft, Abdomen, Obese Genitourinary: Yes: WNL Musculoskeletal: Yes: WNL Edema: Yes Edema: LLE: Trace, RLE: Trace Neurological: Yes: Oriented Psychiatric: Yes: Oriented Labs: CBC, BMP 08/10/16 06:50 08/10/16 06:50 INR, PTT INR 1.44 (0.82-1.09) H 08/08/16 05:35 Problem List - Problems (1) CKD (chronic kidney disease) Code(s): N18.9 - CHRONIC KIDNEY DISEASE, UNSPECIFIED Qualifiers: Qualified Code(s): N18.9 - Chronic kidney disease, unspecified (2) Pulmonary vascular congestion Code(s): R09.89 - OTH SYMPTOMS AND SIGNS INVOLVING THE CIRC AND RESP SYSTEMS (3) SOB (shortness of breath) on exertion Code(s): R06.02 - SHORTNESS OF BREATH (4) Hypertension Code(s): I10 - ESSENTIAL (PRIMARY) HYPERTENSION (5) Diabetes 1.5, managed as type 1 Code(s): E13.9 - OTHER SPECIFIED DIABETES MELLITUS WITHOUT COMPLICATIONS Assessment/Plan Current Medications Generic Name Dose Route Start Last Admin Trade Name Freq PRN Reason Stop Dose Admin Acetaminophen 650 mg 07/30/16 15:50 08/07/16 04:25 Tylenol - PO 650 mg Q6H PRN Administration FEVER OR PAIN Atorvastatin Calcium 10 mg 07/27/16 22:00 08/09/16 21:58 Lipitor - PO 10 mg HS [facility] Administration Calcitriol 0.5 mcg 07/27/16 18:00 08/10/16 09:36 Rocaltrol - PO 0.5 mcg DAILY [facility] Administration Calcium Acetate 1,334 mg 08/05/16 17:30 08/10/16 13:09 Phoslo - PO 1,334 mg TIDCM [facility] Administration Cephalexin HCl 500 mg 08/10/16 11:30 08/10/16 13:09 Keflex - PO 500 mg BID [facility] Administration Diltiazem HCl 240 mg 08/08/16 10:00 08/10/16 09:10 Cardizem Cd - PO 240 mg DAILY [facility] Administration Furosemide 80 mg 08/08/16 10:00 08/10/16 11:06 Lasix Injection - IVPB 80 mg DAILY [facility] Administration Hydralazine HCl 25 mg 07/27/16 18:30 08/10/16 09:10 Apresoline - PO 25 mg BID [facility] Administration Pantoprazole Sodium 80 mg/ 100 mls @ 10 mls/hr 08/09/16 18:00 08/10/16 06:09 Sodium Chloride IVPB 10 mls/hr Q10H [facility] Administration 8 MG/HR Insulin Aspart 1 vial 08/10/16 11:00 08/10/16 12:22 Novolog Vial Sliding Scale - SQ 10 units TIDAC [facility] Administration Protocol Insulin Aspart 1 vial 08/10/16 22:00 Novolog Vial Sliding Scale - SQ HS [facility] Protocol Insulin Detemir 10 units 08/10/16 09:15 08/10/16 09:36 Levemir Vial SQ 10 units DAILY@0700 [facility] Administration Isosorbide Mononitrate 30 mg 07/27/16 18:30 08/10/16 09:10 Imdur - PO 30 mg DAILY [facility] Administration Ondansetron HCl 4 mg 08/03/16 18:45 Zofran Injection IVPUSH Q4H PRN NAUSEA AND/OR VOMITING Polyethylene Glycol 17 gm 08/08/16 10:00 08/10/16 13:10 Miralax (For Daily Use) - PO 17 grams DAILY [facility] Administration Prednisone 10 mg 08/09/16 15:15 08/10/16 09:10 Deltasone - PO 10 mg DAILY [facility] Administration Impression 1. CKD 2. HTN 3. DM 4. dyspnea 5. hyperlipidemia 6. anemia 7. hyponatremia 8. pulmonary htn Plan - cont with lasix daily - taper steroids - repeat labs in am - check phos and mag - will replace mag - sodium is improved - discussed with cardio - will follow Dr Fleming
[2016-08-10] MEDS ORDERED: POTASSIUM CHLORIDE TABS 20 MEQ TABLET.ER (FP) PO ONE (15:45)
[2016-08-10] MEDS ORDERED: PT OWN MED DRAWER 7, Y5N ONE (15:45)
--- NOTE | 2016-08-10 19:26 | PN ---
Progress Note (short form) - Note Progress Note: GI Note: had brown stool today. wants more to eat. no vomiting Abd: distended but nontender, BS active , tympanitic Hb 8.9 Impression: Resolving stress gastritis bleed Plan: Full liquids. Continue PPI drip Discussed with family
[2016-08-10] MEDS ORDERED: INSULIN SLIDING SCALE (NOVOLOG) 1 VIAL SQ SCH (22:00)
[2016-08-10] MEDS: ATORVASTATIN CA 10 MG TABLET (FP) PO SCH (22:08)
--- NOTE | 2016-08-10 23:41 | PN ---
Progress Note (short form) - Note Progress Note: Patient seen and examined comfortable burning at iv site Last Vital Signs Temp Pulse Resp BP Pulse Ox 97.7 F 83 20 135/65 100 08/09/16 15:00 08/09/16 15:00 08/09/16 15:00 08/09/16 15:00 08/09/16 09:00 HEENT: JAVI, EOM Intact Cor: RSR, No murmurs, No gallops Lungs: Clear to P&A Abd: Soft, Normal bowel sounds, No organomegaly Ext:No significant edema Skin: No rashes, Integument intact Abnormal Lab Results 08/09/16 08/09/16 08/09/16 05:35 07:50 09:30 WBC 22.6 H RBC 2.50 L Hgb 6.9 L* Hct 20.7 L Myelocytes 4 H D Chloride 94 L Carbon Dioxide 36 H BUN 107 H* Creatinine 2.8 H AST 13 L Total Protein 5.3 L Albumin 2.6 L Crossmatch See Detail Current Medications Acetaminophen (Tylenol -) 650 mg PO Q6H PRN PRN Reason: FEVER OR PAIN Last Admin: 08/07/16 04:25 Dose: 650 mg Atorvastatin Calcium (Lipitor -) 10 mg PO HS [facility] Last Admin: 08/08/16 22:09 Dose: 10 mg Calcitriol (Rocaltrol -) 0.5 mcg PO DAILY [facility] Last Admin: 08/09/16 09:17 Dose: 0.5 mcg Calcium Acetate (Phoslo -) 1,334 mg PO TIDCM [facility] Last Admin: 08/09/16 17:52 Dose: 1,334 mg Diltiazem HCl (Cardizem Cd -) 240 mg PO DAILY [facility] Last Admin: 08/09/16 09:16 Dose: 240 mg Furosemide (Lasix Injection -) 80 mg IVPB DAILY [facility] Last Admin: 08/09/16 16:16 Dose: 80 mg Hydralazine HCl (Apresoline -) 25 mg PO BID [facility] Last Admin: 08/09/16 09:16 Dose: 25 mg Cefazolin Sodium (Ancef 1gm Ivpb (Pre-Docked)) 50 mls @ 100 mls/hr IVPB DAILY [facility] Last Admin: 08/09/16 09:15 Dose: 100 mls/hr Pantoprazole Sodium 80 mg/ (Sodium Chloride) 100 mls @ 10 mls/hr IVPB Q10H [facility] PRN Reason: 8 MG/HR Insulin Aspart (Novolog Vial Sliding Scale -) 1 vial SQ Q4HPO [facility] PRN Reason: Protocol Last Admin: 08/09/16 17:53 Dose: 8 units Isosorbide Mononitrate (Imdur -) 30 mg PO DAILY [facility] Last Admin: 08/09/16 09:16 Dose: 30 mg Ondansetron HCl (Zofran Injection) 4 mg IVPUSH Q4H PRN PRN Reason: NAUSEA AND/OR VOMITING Polyethylene Glycol (Miralax (For Daily Use) -) 17 gm PO DAILY [facility] Last Admin: 08/09/16 10:00 Dose: 17 grams Prednisone (Deltasone -) 10 mg PO DAILY [facility] Last Admin: 08/09/16 16:15 Dose: 10 mg A/P 86 y/o patient with HTN, DM, CKD, CHF, afib, now with gradually dropping Hemoglobin, worsening renal function anemia of chronic disease due to worsening renal function/CHF + gi bleed f/u iron studies. B!2, folate TSH--nl SIFE --neg. On apixaban for afib-- holding. cardiology/gi team in agreement transfused 1 unit PRBCs 08/09 hgb 8.9
[2016-08-11] MEDS: PANTOPRAZOLE SODIUM 80 MG in SODIUM CHLORIDE 100 ML IVPB SCH ×3 (00:32→22:00)
[2016-08-11] MEDS ORDERED: DEXTROSE 50%-WATER 50 ML DISP.SYRIN IVPUSH ONE (03:28)
[2016-08-11] MEDS ORDERED: DEXTROSE 50%-WATER 50 ML DISP.SYRIN ONE (03:32)
[2016-08-11] MEDS: INSULIN DETEMIR 100 UNITS/ML MDV SQ SCH (06:39)
[2016-08-11] MEDS: INSULIN SLIDING SCALE (NOVOLOG) 1 VIAL SQ SCH ×5 (06:40→22:03)
[2016-08-11 07:20] LABS: MCH 28.2 pg (25.7-33.7); MCHC 33.6 g/dl (32.0-36.0)
[2016-08-11 07:56] LABS: ALBUMIN 2.5 g/dl (3.4-5.0); CALCIUM 9.3 mg/dL (8.5-10.1); CREATININE 2.8 mg/dL (0.55-1.02); MAGNESIUM 1.8 mg/dL (1.8-2.4); PHOSPHOROUS 3.5 mg/dL (2.5-4.9); TOT PROT 5.1 g/dl (6.4-8.2)
[2016-08-11 07:59] LABS: BILIRUBIN,TOTAL 0.4 mg/dL (0.2-1.0)
--- NOTE | 2016-08-11 08:40 | PN ---
Progress Note (short form) - Note Progress Note: PULMONARY Denies shortness of breath or chest pain. No cough or wheezing. Dark stools this AM per daughter at bedside. Last Vital Signs Temp Pulse Resp BP Pulse Ox 97.3 F L 75 20 130/61 99 08/11/16 06:00 08/11/16 06:00 08/11/16 06:00 08/11/16 06:00 08/10/16 21:00 Gen: NAD at rest Heart: RRR Lung: decreased breath sounds at the bases, bibasilar rales which clear with coughing Abd: soft, nontender Ext: no edema CBC, BMP 08/11/16 06:00 08/11/16 06:00 Active Medications Acetaminophen (Tylenol -) 650 mg PO Q6H PRN PRN Reason: FEVER OR PAIN Last Admin: 08/07/16 04:25 Dose: 650 mg Atorvastatin Calcium (Lipitor -) 10 mg PO HS [facility] Last Admin: 08/10/16 22:08 Dose: 10 mg Calcitriol (Rocaltrol -) 0.5 mcg PO DAILY [facility] Last Admin: 08/10/16 09:36 Dose: 0.5 mcg Calcium Acetate (Phoslo -) 1,334 mg PO TIDCM [facility] Last Admin: 08/10/16 17:05 Dose: 1,334 mg Cephalexin HCl (Keflex -) 500 mg PO BID [facility] Last Admin: 08/10/16 22:08 Dose: 500 mg Diltiazem HCl (Cardizem Cd -) 240 mg PO DAILY [facility] Last Admin: 08/10/16 09:10 Dose: 240 mg Furosemide (Lasix Injection -) 80 mg IVPB DAILY [facility] Last Admin: 08/10/16 11:06 Dose: 80 mg Hydralazine HCl (Apresoline -) 25 mg PO BID [facility] Last Admin: 08/10/16 22:08 Dose: 25 mg Pantoprazole Sodium 80 mg/ (Sodium Chloride) 100 mls @ 10 mls/hr IVPB Q10H [facility] PRN Reason: 8 MG/HR Last Admin: 08/11/16 00:32 Dose: 10 mls/hr Insulin Aspart (Novolog Vial Sliding Scale -) 1 vial SQ TIDAC [facility] PRN Reason: Protocol Last Admin: 08/11/16 06:40 Dose: Not Given Insulin Aspart (Novolog Vial Sliding Scale -) 1 vial SQ HS [facility] PRN Reason: Protocol Last Admin: 08/10/16 22:08 Dose: 4 units Insulin Detemir (Levemir Vial) 10 units SQ DAILY@0700 [facility] Last Admin: 08/11/16 06:39 Dose: Not Given Isosorbide Mononitrate (Imdur -) 30 mg PO DAILY [facility] Last Admin: 08/10/16 09:10 Dose: 30 mg Ondansetron HCl (Zofran Injection) 4 mg IVPUSH Q4H PRN PRN Reason: NAUSEA AND/OR VOMITING Polyethylene Glycol (Miralax (For Daily Use) -) 17 gm PO DAILY [facility] Last Admin: 08/10/16 13:10 Dose: 17 grams Prednisone (Deltasone -) 10 mg PO DAILY [facility] Last Admin: 08/10/16 09:10 Dose: 10 mg A/P Acute on Chronic LV Diastolic Heart Failure Pulmonary HTN Acute on Chronic Renal Failure Atrial Fibrillation Anemia HTN DM GI Bleed Anemia - continue lasix - monitor urine output, creatinine - transfuse PRBC - monitor H/H - protonix - rate controlled - continue anticoagulation - O2 to keep SpO2 >90% - inhaled bronchodilators as needed - taper off prednisone - will order CXR as none done recently - clinical status appears improved, no pulmonary contraindications for EGD
--- NOTE | 2016-08-11 08:56 | PN ---
Progress Note, Physician Chief Complaint: Pt seen and examined rpt hb/hct stable Elequis on hold gi bleed,anemia abdominal distention present,lack of appetite Cardiology,RENAl,pul GI note appreciated Hematology note appreciated - Current Medication List Current Medications: Active Medications Acetaminophen (Tylenol -) 650 mg PO Q6H PRN PRN Reason: FEVER OR PAIN Last Admin: 08/07/16 04:25 Dose: 650 mg Atorvastatin Calcium (Lipitor -) 10 mg PO HS [facility] Last Admin: 08/10/16 22:08 Dose: 10 mg Calcitriol (Rocaltrol -) 0.5 mcg PO DAILY [facility] Last Admin: 08/10/16 09:36 Dose: 0.5 mcg Calcium Acetate (Phoslo -) 1,334 mg PO TIDCM [facility] Last Admin: 08/10/16 17:05 Dose: 1,334 mg Cephalexin HCl (Keflex -) 500 mg PO BID [facility] Last Admin: 08/10/16 22:08 Dose: 500 mg Diltiazem HCl (Cardizem Cd -) 240 mg PO DAILY [facility] Last Admin: 08/10/16 09:10 Dose: 240 mg Furosemide (Lasix Injection -) 80 mg IVPB DAILY [facility] Last Admin: 08/10/16 11:06 Dose: 80 mg Hydralazine HCl (Apresoline -) 25 mg PO BID [facility] Last Admin: 08/10/16 22:08 Dose: 25 mg Pantoprazole Sodium 80 mg/ (Sodium Chloride) 100 mls @ 10 mls/hr IVPB Q10H [facility] PRN Reason: 8 MG/HR Last Admin: 08/11/16 00:32 Dose: 10 mls/hr Insulin Aspart (Novolog Vial Sliding Scale -) 1 vial SQ TIDAC [facility] PRN Reason: Protocol Last Admin: 08/11/16 06:40 Dose: Not Given Insulin Aspart (Novolog Vial Sliding Scale -) 1 vial SQ HS [facility] PRN Reason: Protocol Last Admin: 08/10/16 22:08 Dose: 4 units Insulin Detemir (Levemir Vial) 10 units SQ DAILY@0700 [facility] Last Admin: 08/11/16 06:39 Dose: Not Given Isosorbide Mononitrate (Imdur -) 30 mg PO DAILY [facility] Last Admin: 08/10/16 09:10 Dose: 30 mg Ondansetron HCl (Zofran Injection) 4 mg IVPUSH Q4H PRN PRN Reason: NAUSEA AND/OR VOMITING Polyethylene Glycol (Miralax (For Daily Use) -) 17 gm PO DAILY [facility] Last Admin: 08/10/16 13:10 Dose: 17 grams Prednisone (Deltasone -) 10 mg PO DAILY [facility] Last Admin: 08/10/16 09:10 Dose: 10 mg - Objective Vital Signs: Vital Signs Temperature 97.3 F L 08/11/16 06:00 Pulse Rate 75 08/11/16 06:00 Respiratory Rate 20 08/11/16 06:00 Blood Pressure 130/61 08/11/16 06:00 O2 Sat by Pulse Oximetry (%) 99 08/10/16 21:00 Constitutional: Yes: No Distress Eyes: Yes: Conjunctiva Clear HENT: Yes: Atraumatic, Normocephalic Neck: Yes: Supple Cardiovascular: Yes: Regular Rate and Rhythm Respiratory: Yes: CTA Bilaterally Gastrointestinal: Yes: Normal Bowel Sounds, Soft Edema: LLE: Trace, RLE: Trace Neurological: Yes: Alert Psychiatric: Yes: Alert, Oriented Labs: CBC, BMP 08/11/16 06:00 08/11/16 06:00 INR, PTT INR 1.44 (0.82-1.09) H 08/08/16 05:35 Assessment/Plan Acute on chronic ckd PAF UTI GI bleed Anemia,s/p blood transfusion SOB/acute on chronic CHF HTN,Hypercholestrolemia Pulmonary vascular congestion DM ELEQUIS ON HOLD PLAN Continue bronchodialators Continue BP medications Monitor BUN/creatinine,CBC Monitor sugar Will f/u cardiology and renal ,endocrine,pul rec regarding Medication will f/u hematology and cardiology rec regarding blood transfusion
[2016-08-11 09:15] LABS: WHITE BLOOD COUNT 22.5 K/mm3 (4.0-10.0)
[2016-08-11 09:16] LABS: MEAN CELL VOLUME 84.1 fl (80-96); PLATELET COUNT 210 K/MM3 (134-434); RDW 13.8 % (11.6-15.6)
[2016-08-11 09:17] LABS: MEAN PLT VOLUME 7.7 fl (7.5-11.1)
[2016-08-11 10:13] LABS: HEMATOCRIT 26.1 % (34.0-46.6)
[2016-08-11] MEDS ORDERED: PT OWN MED DRAWER 7, Y5N ONE ×2 (10:31→20:28)
[2016-08-11] MEDS: hydrALAZINE HCL 25 MG TABLET (FP) PO SCH ×2 (10:46→22:02)
[2016-08-11] MEDS: CALCIUM ACETATE 667 MG CAPSULE (FP) PO SCH ×2 (10:46→13:53)
[2016-08-11] MEDS: CEPHALEXIN MONOHYDRATE 500 MG CAPSULE (UD) PO SCH ×2 (10:46→22:02)
[2016-08-11] MEDS: FUROSEMIDE 100 MG/10 ML INJECTABLE VIAL IVPB SCH (10:46)
[2016-08-11] MEDS: predniSONE 10 MG TABLET (UD) PO SCH (10:46)
[2016-08-11] MEDS: ISOSORBIDE MONONITRATE 30 MG TAB.SR.24H (FP) PO SCH (10:46)
[2016-08-11] MEDS: CALCITRIOL 0.25 MCG CAPSULE (FP) PO SCH (10:47)
[2016-08-11] MEDS: POLYETHYLENE GLYCOL 3350 119 GM BTL PO SCH (10:48)
[2016-08-11 13:11] LABS: ANISOCYTOSIS 1+; HYPOCHROMIA 1+; PLATELET COMMENT2 NO CLOTTING DETECTED; PLATELET ESTIMATE ADEQUATE (NORMAL)
--- NOTE | 2016-08-11 15:24 | PN ---
Progress Note, Physician History of Present Illness: Pt seen and examined at bedside. She is awake and alert. She is now off of oxygen. - Current Medication List Current Medications: Active Medications Acetaminophen (Tylenol -) 650 mg PO Q6H PRN PRN Reason: FEVER OR PAIN Last Admin: 08/07/16 04:25 Dose: 650 mg Atorvastatin Calcium (Lipitor -) 10 mg PO HS [facility] Last Admin: 08/10/16 22:08 Dose: 10 mg Calcitriol (Rocaltrol -) 0.5 mcg PO DAILY [facility] Last Admin: 08/11/16 10:47 Dose: 0.5 mcg Calcium Acetate (Phoslo -) 1,334 mg PO TIDCM [facility] Last Admin: 08/11/16 13:53 Dose: 1,334 mg Cephalexin HCl (Keflex -) 500 mg PO BID [facility] Last Admin: 08/11/16 10:46 Dose: 500 mg Diltiazem HCl (Cardizem Cd -) 240 mg PO DAILY [facility] Last Admin: 08/11/16 10:46 Dose: 240 mg Furosemide (Lasix Injection -) 80 mg IVPB DAILY [facility] Last Admin: 08/11/16 10:46 Dose: 80 mg Hydralazine HCl (Apresoline -) 25 mg PO BID [facility] Last Admin: 08/11/16 10:46 Dose: 25 mg Pantoprazole Sodium 80 mg/ (Sodium Chloride) 100 mls @ 10 mls/hr IVPB Q10H [facility] PRN Reason: 8 MG/HR Last Admin: 08/11/16 10:47 Dose: 10 mls/hr Insulin Aspart (Novolog Vial Sliding Scale -) 1 vial SQ TIDAC [facility] PRN Reason: Protocol Last Admin: 08/11/16 11:35 Dose: 12 units Insulin Aspart (Novolog Vial Sliding Scale -) 1 vial SQ HS [facility] PRN Reason: Protocol Last Admin: 08/10/16 22:08 Dose: 4 units Insulin Detemir (Levemir Vial) 10 units SQ DAILY@0700 [facility] Last Admin: 08/11/16 06:39 Dose: Not Given Isosorbide Mononitrate (Imdur -) 30 mg PO DAILY [facility] Last Admin: 08/11/16 10:46 Dose: 30 mg Ondansetron HCl (Zofran Injection) 4 mg IVPUSH Q4H PRN PRN Reason: NAUSEA AND/OR VOMITING Polyethylene Glycol (Miralax (For Daily Use) -) 17 gm PO DAILY [facility] Last Admin: 08/11/16 10:48 Dose: 17 grams Prednisone (Deltasone -) 10 mg PO DAILY [facility] Last Admin: 08/11/16 10:46 Dose: 10 mg - Objective Vital Signs: Vital Signs Temperature 97.3 F L 08/11/16 14:17 Pulse Rate 90 08/11/16 14:17 Respiratory Rate 20 08/11/16 14:17 Blood Pressure 122/61 08/11/16 14:17 O2 Sat by Pulse Oximetry (%) 99 08/10/16 21:00 Constitutional: Yes: Calm Eyes: Yes: Conjunctiva Clear HENT: Yes: Atraumatic Neck: Yes: Supple Cardiovascular: Yes: S1, S2 Respiratory: Yes: CTA Bilaterally Gastrointestinal: Yes: Soft, Abdomen, Obese Genitourinary: Yes: WNL Musculoskeletal: Yes: WNL Edema: Yes Edema: LLE: Trace, RLE: Trace Neurological: Yes: Oriented Psychiatric: Yes: Oriented Labs: CBC, BMP 08/11/16 06:00 08/11/16 06:00 INR, PTT INR 1.44 (0.82-1.09) H 08/08/16 05:35 Problem List - Problems (1) CKD (chronic kidney disease) Code(s): N18.9 - CHRONIC KIDNEY DISEASE, UNSPECIFIED Qualifiers: Qualified Code(s): N18.9 - Chronic kidney disease, unspecified (2) Pulmonary vascular congestion Code(s): R09.89 - OTH SYMPTOMS AND SIGNS INVOLVING THE CIRC AND RESP SYSTEMS (3) SOB (shortness of breath) on exertion Code(s): R06.02 - SHORTNESS OF BREATH (4) Hypertension Code(s): I10 - ESSENTIAL (PRIMARY) HYPERTENSION (5) Diabetes 1.5, managed as type 1 Code(s): E13.9 - OTHER SPECIFIED DIABETES MELLITUS WITHOUT COMPLICATIONS Assessment/Plan Current Medications Generic Name Dose Route Start Last Admin Trade Name Freq PRN Reason Stop Dose Admin Acetaminophen 650 mg 07/30/16 15:50 08/07/16 04:25 Tylenol - PO 650 mg Q6H PRN Administration FEVER OR PAIN Atorvastatin Calcium 10 mg 07/27/16 22:00 08/10/16 22:08 Lipitor - PO 10 mg HS [facility] Administration Calcitriol 0.5 mcg 07/27/16 18:00 08/11/16 10:47 Rocaltrol - PO 0.5 mcg DAILY [facility] Administration Calcium Acetate 1,334 mg 08/05/16 17:30 08/11/16 13:53 Phoslo - PO 1,334 mg TIDCM [facility] Administration Cephalexin HCl 500 mg 08/10/16 11:30 08/11/16 10:46 Keflex - PO 500 mg BID [facility] Administration Diltiazem HCl 240 mg 08/08/16 10:00 08/11/16 10:46 Cardizem Cd - PO 240 mg DAILY [facility] Administration Furosemide 80 mg 08/08/16 10:00 08/11/16 10:46 Lasix Injection - IVPB 80 mg DAILY [facility] Administration Hydralazine HCl 25 mg 07/27/16 18:30 08/11/16 10:46 Apresoline - PO 25 mg BID [facility] Administration Pantoprazole Sodium 80 mg/ 100 mls @ 10 mls/hr 08/09/16 18:00 08/11/16 10:47 Sodium Chloride IVPB 10 mls/hr Q10H [facility] Administration 8 MG/HR Insulin Aspart 1 vial 08/10/16 11:00 08/11/16 11:35 Novolog Vial Sliding Scale - SQ 12 units TIDAC [facility] Administration Protocol Insulin Aspart 1 vial 08/10/16 22:00 08/10/16 22:08 Novolog Vial Sliding Scale - SQ 4 units HS [facility] Administration Protocol Insulin Detemir 10 units 08/10/16 09:15 08/11/16 06:39 Levemir Vial SQ Not Given DAILY@0700 [facility] Isosorbide Mononitrate 30 mg 07/27/16 18:30 08/11/16 10:46 Imdur - PO 30 mg DAILY [facility] Administration Ondansetron HCl 4 mg 08/03/16 18:45 Zofran Injection IVPUSH Q4H PRN NAUSEA AND/OR VOMITING Polyethylene Glycol 17 gm 08/08/16 10:00 08/11/16 10:48 Miralax (For Daily Use) - PO 17 grams DAILY [facility] Administration Prednisone 10 mg 08/09/16 15:15 08/11/16 10:46 Deltasone - PO 10 mg DAILY [facility] Administration Laboratory Tests 08/11/16 06:00 Phosphorus 3.5 Magnesium 1.8 Impression 1. CKD 2. HTN 3. DM 4. dyspnea 5. hyperlipidemia 6. anemia 7. hyponatremia 8. pulmonary htn Plan - will hold phoslo for now - cont lasix - renal function stabilizing - taper steroids - repeat labs in am - sodium is improved - will follow Dr Fleming
--- NOTE | 2016-08-11 16:26 | PN ---
Progress Note (short form) - Note Progress Note: Feels better Tolerating diet Apetite better BGM fluctuating Vital Signs Period Temp Pulse Resp BP Sys/Clayton Pulse Ox Last 24 Hr 97.2 F-97.3 F 72-90 20-20 122-136/56-61 99 PE: AOX3 Neck: Supple, No JVD HEENT: PERRL, EOMI Lungs: CTA CVS: S1S2 Abd: Benign, +BS Ext: 1+Edema Neuro: No focal deficit CMP Sodium 135 mmol/L (136-145) L 08/11/16 06:00 Potassium 4.1 mmol/L (3.5-5.1) 08/11/16 06:00 Chloride 88 mmol/L (98-107) L 08/11/16 06:00 Carbon Dioxide 40 mmol/L (21-32) H 08/11/16 06:00 Anion Gap 7 (8-16) L 08/11/16 06:00 BUN 74 mg/dL (7-18) H 08/11/16 06:00 Creatinine 2.8 mg/dL (0.55-1.02) H 08/11/16 06:00 Creat Clearance w eGFR 16.10 (>60) 08/11/16 06:00 POC Glucometer 363 UNITS (()) 08/11/16 11:33 Random Glucose 197 mg/dL (74-106) H D 08/11/16 06:00 Calcium 9.3 mg/dL (8.5-10.1) 08/11/16 06:00 Phosphorus 3.5 mg/dL (2.5-4.9) 08/11/16 06:00 Magnesium 1.8 mg/dL (1.8-2.4) 08/11/16 06:00 Iron 78 ug/dL (27-139) 08/09/16 05:35 TIBC 223 ug/dL (250-450) L 08/09/16 05:35 Iron Saturation 35 % (15-55) 08/09/16 05:35 Ferritin 89.957 ng/ml (6.9-282.5) 08/09/16 05:35 Total Bilirubin 0.4 mg/dL (0.2-1.0) 08/11/16 06:00 AST 20 U/L (15-37) 08/11/16 06:00 ALT 26 U/L (12-78) 08/11/16 06:00 Alkaline Phosphatase 62 U/L (45-117) 08/11/16 06:00 LD Total 280 U/L (84-246) H 08/11/16 06:00 Creatine Kinase 143 IU/L (26-192) 07/28/16 06:00 CK-MB (CK-2) 3.794 ng/ml (0.5-3.6) H 07/27/16 18:55 Troponin I < 0.02 ng/ml (0.00-0.05) 07/28/16 06:00 B-Natriuretic Peptide 1614.88 pg/ml (5-450) H 07/27/16 07:56 Prot Electrophoresis (.) 08/01/16 13:02 Serum Total Protein 6.9 g/dL (6.0-8.5) 08/01/16 13:02 Total Protein 5.1 g/dl (6.4-8.2) L 08/11/16 06:00 Albumin 2.5 g/dl (3.4-5.0) L 08/11/16 06:00 Globulin 3.6 g/dL (2.2-3.9) 08/01/16 13:02 Albumin/Globulin Ratio 0.9 (0.7-1.7) 08/01/16 13:02 Lppor-7-Aunyzbdyh 0.3 gm/dL (0.0-0.4) 08/01/16 13:02 Lpfgs-0-Mlhsrkwzs (%) 0.8 % (.) 08/01/16 12:00 Xmqee-6-Angwceydb 1.1 gm/dL (0.4-1.0) H 08/01/16 13:02 Ypklk-8-Aisyhvcam (%) 3.7 % (.) 08/01/16 12:00 Beta Globulins 1.0 gm/dL (0.7-1.3) 08/01/16 13:02 Beta Globulins (%) 16.5 % (.) 08/01/16 12:00 Gamma Globulins 1.2 gm/dL (0.4-1.8) 08/01/16 13:02 Gamma Globulins (%) 13.6 % (.) 08/01/16 12:00 M-Constantin % Not observed % (Not Observed) 08/01/16 12:00 Total Amylase 230 U/L (25-115) H 08/04/16 05:45 Lipase 661 U/L (73-393) H 08/08/16 05:35 Vitamin B12 775 pg/ml (180-914) 08/10/16 06:50 Folate 1119 ng/mL (>498) 08/10/16 06:50 Folate Hemolysate 292.1 ng/mL (Not Estab.) 08/10/16 06:50 TSH 1.10 uIU/ml (0.358-3.74) D 08/10/16 06:50 Free T4 1.02 ng/dl (0.76-1.46) 08/10/16 06:50 Current Medications Generic Name Dose Route Start Last Admin Trade Name Freq PRN Reason Stop Dose Admin Acetaminophen 650 mg 07/30/16 15:50 08/07/16 04:25 Tylenol - PO 650 mg Q6H PRN Administration FEVER OR PAIN Atorvastatin Calcium 10 mg 07/27/16 22:00 08/10/16 22:08 Lipitor - PO 10 mg HS VANI Administration Calcitriol 0.5 mcg 07/27/16 18:00 08/11/16 10:47 Rocaltrol - PO 0.5 mcg DAILY VANI Administration Cephalexin HCl 500 mg 08/10/16 11:30 08/11/16 10:46 Keflex - PO 500 mg BID VANI Administration Diltiazem HCl 240 mg 08/08/16 10:00 08/11/16 10:46 Cardizem Cd - PO 240 mg DAILY VANI Administration Furosemide 80 mg 08/08/16 10:00 08/11/16 10:46 Lasix Injection - IVPB 80 mg DAILY VANI Administration Hydralazine HCl 25 mg 07/27/16 18:30 08/11/16 10:46 Apresoline - PO 25 mg BID VANI Administration Pantoprazole Sodium 80 mg/ 100 mls @ 10 mls/hr 08/09/16 18:00 08/11/16 10:47 Sodium Chloride IVPB 10 mls/hr Q10H VANI Administration 8 MG/HR Insulin Aspart 1 vial 08/10/16 11:00 08/11/16 11:35 Novolog Vial Sliding Scale - SQ 12 units TIDAC VANI Administration Protocol Insulin Aspart 1 vial 08/10/16 22:00 08/10/16 22:08 Novolog Vial Sliding Scale - SQ 4 units HS VANI Administration Protocol Insulin Detemir 10 units 08/10/16 09:15 08/11/16 06:39 Levemir Vial SQ Not Given DAILY@0700 VANI Isosorbide Mononitrate 30 mg 07/27/16 18:30 08/11/16 10:46 Imdur - PO 30 mg DAILY VANI Administration Ondansetron HCl 4 mg 08/03/16 18:45 Zofran Injection IVPUSH Q4H PRN NAUSEA AND/OR VOMITING Polyethylene Glycol 17 gm 08/08/16 10:00 08/11/16 10:48 Miralax (For Daily Use) - PO 17 grams DAILY VANI Administration AP: DM: Fluctuating blood sugar, 47 in morning Off Prednosone Monitor BGM QACHS Dc Levemir 10 units QD Decrease bedtime Novolog Coverage Novolog Coverage ACHS Will F/U Elevated lipase . Improving. 661 . Normal Pancreas on CT ?Pancreatitis Pt has multiple possible reasons for elevated Lipase including renal failure and use of Januvia, Methylprednosolone and Furosemide. Off Januvia now. Anemia/Drop in H/H: Hematology consult noted CHF Acute on Chronic renal insufficiency. Improving Creatinine HTN HLD Problem List - Problems (1) CKD (chronic kidney disease) Code(s): N18.9 - CHRONIC KIDNEY DISEASE, UNSPECIFIED Qualifiers: Qualified Code(s): N18.9 - Chronic kidney disease, unspecified (2) Hypertension Code(s): I10 - ESSENTIAL (PRIMARY) HYPERTENSION (3) SOB (shortness of breath) on exertion Code(s): R06.02 - SHORTNESS OF BREATH
--- NOTE | 2016-08-11 16:27 | PN ---
Progress Note (short form) - Note Progress Note: Patient seen and examined comfortable burning at iv site Last Vital Signs Temp Pulse Resp BP Pulse Ox 97.3 F L 90 20 122/61 99 08/11/16 14:17 08/11/16 14:17 08/11/16 14:17 08/11/16 14:17 08/10/16 21:00 HEENT: JAVI, EOM Intact Cor: RSR, No murmurs, No gallops Lungs: Clear to P&A Abd: Soft, Normal bowel sounds, mildly distended Ext:No significant edema Abnormal Lab Results 08/10/16 08/11/16 08/11/16 06:50 06:00 06:00 WBC 22.5 H RBC 3.19 L Hgb 9.0 L Hct 26.1 L 26.8 L Sodium 135 L Chloride 88 L Carbon Dioxide 40 H Anion Gap 7 L BUN 74 H Creatinine 2.8 H Random Glucose 197 H D LD Total 280 H Total Protein 5.1 L Albumin 2.5 L Current Medications Acetaminophen (Tylenol -) 650 mg PO Q6H PRN PRN Reason: FEVER OR PAIN Last Admin: 08/07/16 04:25 Dose: 650 mg Atorvastatin Calcium (Lipitor -) 10 mg PO HS [facility] Last Admin: 08/10/16 22:08 Dose: 10 mg Calcitriol (Rocaltrol -) 0.5 mcg PO DAILY [facility] Last Admin: 08/11/16 10:47 Dose: 0.5 mcg Cephalexin HCl (Keflex -) 500 mg PO BID [facility] Last Admin: 08/11/16 10:46 Dose: 500 mg Diltiazem HCl (Cardizem Cd -) 240 mg PO DAILY [facility] Last Admin: 08/11/16 10:46 Dose: 240 mg Furosemide (Lasix Injection -) 80 mg IVPB DAILY [facility] Last Admin: 08/11/16 10:46 Dose: 80 mg Hydralazine HCl (Apresoline -) 25 mg PO BID [facility] Last Admin: 08/11/16 10:46 Dose: 25 mg Pantoprazole Sodium 80 mg/ (Sodium Chloride) 100 mls @ 10 mls/hr IVPB Q10H VANI PRN Reason: 8 MG/HR Last Admin: 08/11/16 10:47 Dose: 10 mls/hr Insulin Aspart (Novolog Vial Sliding Scale -) 1 vial SQ TIDAC VANI PRN Reason: Protocol Last Admin: 08/11/16 11:35 Dose: 12 units Insulin Aspart (Novolog Vial Sliding Scale -) 1 vial SQ HS [facility] PRN Reason: Protocol Isosorbide Mononitrate (Imdur -) 30 mg PO DAILY [facility] Last Admin: 08/11/16 10:46 Dose: 30 mg Ondansetron HCl (Zofran Injection) 4 mg IVPUSH Q4H PRN PRN Reason: NAUSEA AND/OR VOMITING Polyethylene Glycol (Miralax (For Daily Use) -) 17 gm PO DAILY [facility] Last Admin: 08/11/16 10:48 Dose: 17 grams Prednisone (Deltasone -) 5 mg PO ONCE ONE Stop: 08/12/16 08:01 A/P 86 y/o patient with HTN, DM, CKD, CHF, afib, now with gradually dropping Hemoglobin, worsening renal function anemia of chronic disease due to worsening renal function/CHF + gi bleed iron studies s/o anemia of chronic disease TSH--nl SIFE --neg. B12/folate nl On apixaban for afib-- holding. cardiology/gi team in agreement transfused 1 unit PRBCs 08/09 hgb 8.9 increased WBC --? reactive check JAK2/bcr;abl
[2016-08-11] MEDS ORDERED: INSULIN (NOVOLOG) ASPART 100 UNITS/ML 10ML VIAL SQ ONE ×2 (19:00→20:45)
[2016-08-11] MEDS ORDERED: INSULIN (NOVOLOG) ASPART 100 UNITS/ML 10ML VIAL ONE (20:32)
[2016-08-11] MEDS: ATORVASTATIN CA 10 MG TABLET (FP) PO SCH (22:02)
[2016-08-12] MEDS: PANTOPRAZOLE SODIUM 80 MG in SODIUM CHLORIDE 100 ML IVPB SCH ×3 (06:01→17:43)
[2016-08-12] MEDS: INSULIN SLIDING SCALE (NOVOLOG) 1 VIAL SQ SCH ×4 (06:29→21:48)
[2016-08-12] MEDS ORDERED: INSULIN (NOVOLOG) ASPART 100 UNITS/ML 10ML VIAL ONE ×3 (06:45→20:47)
[2016-08-12] MEDS ORDERED: PT OWN MED DRAWER 7, Y5N ONE (06:46)
[2016-08-12 07:13] LABS: MCH 28.4 pg (25.7-33.7); MEAN CELL VOLUME 83.7 fl (80-96); MEAN PLT VOLUME 7.7 fl (7.5-11.1); PLATELET COUNT 238 K/MM3 (134-434); RDW 13.5 % (11.6-15.6); WHITE BLOOD COUNT 22.7 K/mm3 (4.0-10.0)
[2016-08-12 07:58] LABS: ALBUMIN 2.7 g/dl (3.4-5.0)
[2016-08-12] MEDS ORDERED: predniSONE 5 MG TABLET (UD) PO ONE (08:00)
[2016-08-12 08:02] LABS: BILIRUBIN,TOTAL 0.5 mg/dL (0.2-1.0); PHOSPHOROUS 3.4 mg/dL (2.5-4.9); TOT PROT 5.5 g/dl (6.4-8.2)
[2016-08-12] MEDS: ISOSORBIDE MONONITRATE 30 MG TAB.SR.24H (FP) PO SCH (09:36)
[2016-08-12] MEDS: FUROSEMIDE 100 MG/10 ML INJECTABLE VIAL IVPB SCH (09:37)
[2016-08-12] MEDS: CEPHALEXIN MONOHYDRATE 500 MG CAPSULE (UD) PO SCH ×2 (09:37→21:47)
[2016-08-12] MEDS: hydrALAZINE HCL 25 MG TABLET (FP) PO SCH ×2 (09:37→21:46)
[2016-08-12] MEDS: CALCITRIOL 0.25 MCG CAPSULE (FP) PO SCH (09:38)
[2016-08-12] MEDS: POLYETHYLENE GLYCOL 3350 119 GM BTL PO SCH (09:38)
--- NOTE | 2016-08-12 10:01 | PN ---
Progress Note (short form) - Note Progress Note: PULMONARY Denies shortness of breath or chest pain. No cough or wheezing. Saturating 95% on room air. CXR with bibasilar atelectasis Last Vital Signs Temp Pulse Resp BP Pulse Ox 97.8 F 92 H 18 127/64 98 08/12/16 06:25 08/12/16 06:25 08/12/16 06:25 08/12/16 06:25 08/11/16 21:00 Gen: NAD at rest Heart: RRR Lung: decreased breath sounds at the bases, bibasilar rales which clear with coughing Abd: soft, nontender Ext: no edema CBC, BMP 08/12/16 06:00 08/12/16 06:00 Active Medications Acetaminophen (Tylenol -) 650 mg PO Q6H PRN PRN Reason: FEVER OR PAIN Last Admin: 08/07/16 04:25 Dose: 650 mg Atorvastatin Calcium (Lipitor -) 10 mg PO HS [facility] Last Admin: 08/11/16 22:02 Dose: 10 mg Calcitriol (Rocaltrol -) 0.5 mcg PO DAILY [facility] Last Admin: 08/12/16 09:38 Dose: 0.5 mcg Cephalexin HCl (Keflex -) 500 mg PO BID [facility] Last Admin: 08/12/16 09:37 Dose: 500 mg Diltiazem HCl (Cardizem Cd -) 240 mg PO DAILY [facility] Last Admin: 08/12/16 09:37 Dose: 240 mg Furosemide (Lasix Injection -) 80 mg IVPB DAILY [facility] Last Admin: 08/12/16 09:37 Dose: 80 mg Hydralazine HCl (Apresoline -) 25 mg PO BID [facility] Last Admin: 08/12/16 09:37 Dose: 25 mg Pantoprazole Sodium 80 mg/ (Sodium Chloride) 100 mls @ 10 mls/hr IVPB Q10H VANI PRN Reason: 8 MG/HR Last Admin: 08/12/16 09:38 Dose: 10 mls/hr Insulin Aspart (Novolog Vial Sliding Scale -) 1 vial SQ TIDAC VANI PRN Reason: Protocol Last Admin: 08/12/16 06:29 Dose: 6 units Insulin Aspart (Novolog Vial Sliding Scale -) 1 vial SQ HS VANI PRN Reason: Protocol Last Admin: 08/11/16 22:03 Dose: Not Given Isosorbide Mononitrate (Imdur -) 30 mg PO DAILY [facility] Last Admin: 08/12/16 09:36 Dose: 30 mg Ondansetron HCl (Zofran Injection) 4 mg IVPUSH Q4H PRN PRN Reason: NAUSEA AND/OR VOMITING Polyethylene Glycol (Miralax (For Daily Use) -) 17 gm PO DAILY [facility] Last Admin: 08/12/16 09:38 Dose: 17 grams A/P Acute on Chronic LV Diastolic Heart Failure Pulmonary HTN Acute on Chronic Renal Failure Atrial Fibrillation Anemia HTN DM GI Bleed Anemia - continue lasix - monitor urine output, creatinine - transfuse PRBC - monitor H/H - protonix - rate controlled - continue anticoagulation - O2 to keep SpO2 >90% - inhaled bronchodilators as needed - incentive spirometry - clinical status appears improved, no pulmonary contraindications for EGD
--- NOTE | 2016-08-12 13:24 | PN ---
Progress Note, Physician Chief Complaint: Pt seen and examined SOB improved rpt hb/hct stable Elequis on hold gi bleed,anemia Cardiology,RENAl,pul GI note appreciated Hematology note appreciated - Current Medication List Current Medications: Active Medications Acetaminophen (Tylenol -) 650 mg PO Q6H PRN PRN Reason: FEVER OR PAIN Last Admin: 08/07/16 04:25 Dose: 650 mg Atorvastatin Calcium (Lipitor -) 10 mg PO HS [facility] Last Admin: 08/11/16 22:02 Dose: 10 mg Calcitriol (Rocaltrol -) 0.5 mcg PO DAILY [facility] Last Admin: 08/12/16 09:38 Dose: 0.5 mcg Cephalexin HCl (Keflex -) 500 mg PO BID [facility] Last Admin: 08/12/16 09:37 Dose: 500 mg Diltiazem HCl (Cardizem Cd -) 240 mg PO DAILY [facility] Last Admin: 08/12/16 09:37 Dose: 240 mg Furosemide (Lasix Injection -) 80 mg IVPB DAILY [facility] Last Admin: 08/12/16 09:37 Dose: 80 mg Hydralazine HCl (Apresoline -) 25 mg PO BID [facility] Last Admin: 08/12/16 09:37 Dose: 25 mg Pantoprazole Sodium 80 mg/ (Sodium Chloride) 100 mls @ 10 mls/hr IVPB Q10H VANI PRN Reason: 8 MG/HR Last Admin: 08/12/16 09:38 Dose: 10 mls/hr Insulin Aspart (Novolog Vial Sliding Scale -) 1 vial SQ TIDAC VANI PRN Reason: Protocol Last Admin: 08/12/16 12:18 Dose: 8 units Insulin Aspart (Novolog Vial Sliding Scale -) 1 vial SQ HS [facility] PRN Reason: Protocol Last Admin: 08/11/16 22:03 Dose: Not Given Isosorbide Mononitrate (Imdur -) 30 mg PO DAILY [facility] Last Admin: 08/12/16 09:36 Dose: 30 mg Ondansetron HCl (Zofran Injection) 4 mg IVPUSH Q4H PRN PRN Reason: NAUSEA AND/OR VOMITING Polyethylene Glycol (Miralax (For Daily Use) -) 17 gm PO DAILY [facility] Last Admin: 08/12/16 09:38 Dose: 17 grams - Objective Vital Signs: Vital Signs Temperature 97.9 F 08/12/16 10:00 Pulse Rate 81 08/12/16 10:00 Respiratory Rate 18 08/12/16 10:00 Blood Pressure 145/63 08/12/16 10:00 O2 Sat by Pulse Oximetry (%) 96 08/12/16 09:00 Constitutional: Yes: No Distress Eyes: Yes: Conjunctiva Clear HENT: Yes: Atraumatic, Normocephalic Neck: Yes: Supple, Trachea Midline Cardiovascular: Yes: Regular Rate and Rhythm Respiratory: Yes: Regular, Diminished (lung base) Gastrointestinal: Yes: Normal Bowel Sounds, Soft Edema: Yes Peripheral Pulses WNL: Yes Neurological: Yes: Alert, Oriented Psychiatric: Yes: Alert, Oriented Labs: CBC, BMP 08/12/16 06:00 08/12/16 06:00 INR, PTT INR 1.44 (0.82-1.09) H 08/08/16 05:35 Assessment/Plan Acute on chronic ckd PAF UTI GI bleed Anemia,s/p blood transfusion hb/hct improved SOB/acute on chronic CHF HTN,Hypercholestrolemia Pulmonary vascular congestion,pul hypertension DM PLAN Continue bronchodialators Continue BP medications Monitor BUN/creatinine,CBC Monitor sugar Will f/u cardiology and renal ,endocrine,pul rec regarding Medication
--- NOTE | 2016-08-12 14:13 | PN ---
Progress Note (short form) - Note Progress Note: Feels better Denies any abd pain No nausea or vomiting Moved bowels today, No black stools or blood in stool Tolerating diet BGM fluctuating. Got Prednisone 5 today Vital Signs Period Temp Pulse Resp BP Sys/Clayton Pulse Ox Last 24 Hr 97.3 F-97.9 F 81-92 18-20 122-145/57-79 96-98 PE: AOX3 Neck: Supple, No JVD HEENT: PERRL, EOMI Lungs: CTA CVS: S1S2 Abd: Benign, +BS Ext: No edema Neuro: No focal deficit CMP Sodium 132 mmol/L (136-145) L 08/12/16 06:00 Potassium 4.1 mmol/L (3.5-5.1) 08/12/16 06:00 Chloride 84 mmol/L (98-107) L 08/12/16 06:00 Carbon Dioxide 39 mmol/L (21-32) H 08/12/16 06:00 Anion Gap 9 (8-16) 08/12/16 06:00 BUN 71 mg/dL (7-18) H 08/12/16 06:00 Creatinine 3.0 mg/dL (0.55-1.02) H 08/12/16 06:00 Creat Clearance w eGFR 14.87 (>60) 08/12/16 06:00 POC Glucometer 281 UNITS (()) 08/12/16 12:02 Random Glucose 237 mg/dL (74-106) H D 08/12/16 06:00 Calcium 9.0 mg/dL (8.5-10.1) 08/12/16 06:00 Phosphorus 3.4 mg/dL (2.5-4.9) 08/12/16 06:00 Magnesium 1.8 mg/dL (1.8-2.4) 08/11/16 06:00 Iron 78 ug/dL (27-139) 08/09/16 05:35 TIBC 223 ug/dL (250-450) L 08/09/16 05:35 Iron Saturation 35 % (15-55) 08/09/16 05:35 Ferritin 89.957 ng/ml (6.9-282.5) 08/09/16 05:35 Total Bilirubin 0.5 mg/dL (0.2-1.0) D 08/12/16 06:00 AST 17 U/L (15-37) 08/12/16 06:00 ALT 21 U/L (12-78) 08/12/16 06:00 Alkaline Phosphatase 75 U/L (45-117) D 08/12/16 06:00 LD Total 280 U/L (84-246) H 08/11/16 06:00 Creatine Kinase 143 IU/L (26-192) 07/28/16 06:00 CK-MB (CK-2) 3.794 ng/ml (0.5-3.6) H 07/27/16 18:55 Troponin I < 0.02 ng/ml (0.00-0.05) 07/28/16 06:00 B-Natriuretic Peptide 1614.88 pg/ml (5-450) H 07/27/16 07:56 Prot Electrophoresis (.) 08/01/16 13:02 Serum Total Protein 6.9 g/dL (6.0-8.5) 08/01/16 13:02 Total Protein 5.5 g/dl (6.4-8.2) L 08/12/16 06:00 Albumin 2.7 g/dl (3.4-5.0) L 08/12/16 06:00 Globulin 3.6 g/dL (2.2-3.9) 08/01/16 13:02 Albumin/Globulin Ratio 0.9 (0.7-1.7) 08/01/16 13:02 Rztug-2-Hcwzkpxwi 0.3 gm/dL (0.0-0.4) 08/01/16 13:02 Lzaeb-6-Uyphwuzsd (%) 0.8 % (.) 08/01/16 12:00 Tjvdc-1-Iixbrexzl 1.1 gm/dL (0.4-1.0) H 08/01/16 13:02 Hozow-3-Aycscoxxv (%) 3.7 % (.) 08/01/16 12:00 Beta Globulins 1.0 gm/dL (0.7-1.3) 08/01/16 13:02 Beta Globulins (%) 16.5 % (.) 08/01/16 12:00 Gamma Globulins 1.2 gm/dL (0.4-1.8) 08/01/16 13:02 Gamma Globulins (%) 13.6 % (.) 08/01/16 12:00 M-Constantin % Not observed % (Not Observed) 08/01/16 12:00 Total Amylase 230 U/L (25-115) H 08/04/16 05:45 Lipase 661 U/L (73-393) H 08/08/16 05:35 Vitamin B12 775 pg/ml (180-914) 08/10/16 06:50 Folate 1119 ng/mL (>498) 08/10/16 06:50 Folate Hemolysate 292.1 ng/mL (Not Estab.) 08/10/16 06:50 TSH 1.10 uIU/ml (0.358-3.74) D 08/10/16 06:50 Free T4 1.02 ng/dl (0.76-1.46) 08/10/16 06:50 Current Medications Generic Name Dose Route Start Last Admin Trade Name Freq PRN Reason Stop Dose Admin Acetaminophen 650 mg 07/30/16 15:50 08/07/16 04:25 Tylenol - PO 650 mg Q6H PRN Administration FEVER OR PAIN Atorvastatin Calcium 10 mg 07/27/16 22:00 08/11/16 22:02 Lipitor - PO 10 mg HS VANI Administration Calcitriol 0.5 mcg 07/27/16 18:00 08/12/16 09:38 Rocaltrol - PO 0.5 mcg DAILY VANI Administration Cephalexin HCl 500 mg 08/10/16 11:30 08/12/16 09:37 Keflex - PO 500 mg BID VANI Administration Diltiazem HCl 240 mg 08/08/16 10:00 08/12/16 09:37 Cardizem Cd - PO 240 mg DAILY VANI Administration Furosemide 80 mg 08/08/16 10:00 08/12/16 09:37 Lasix Injection - IVPB 80 mg DAILY VANI Administration Hydralazine HCl 25 mg 07/27/16 18:30 08/12/16 09:37 Apresoline - PO 25 mg BID VANI Administration Pantoprazole Sodium 80 mg/ 100 mls @ 10 mls/hr 08/09/16 18:00 08/12/16 09:38 Sodium Chloride IVPB 10 mls/hr Q10H VANI Administration 8 MG/HR Insulin Aspart 1 vial 08/10/16 11:00 08/12/16 12:18 Novolog Vial Sliding Scale - SQ 8 units TIDAC VANI Administration Protocol Insulin Aspart 1 vial 08/11/16 16:30 08/11/16 22:03 Novolog Vial Sliding Scale - SQ Not Given HS VANI Protocol Isosorbide Mononitrate 30 mg 07/27/16 18:30 08/12/16 09:36 Imdur - PO 30 mg DAILY VANI Administration Ondansetron HCl 4 mg 08/03/16 18:45 Zofran Injection IVPUSH Q4H PRN NAUSEA AND/OR VOMITING Polyethylene Glycol 17 gm 08/08/16 10:00 08/12/16 09:38 Miralax (For Daily Use) - PO 17 grams DAILY VANI Administration AP: DM: Fluctuating blood sugar Got Prednosone 5 mg today. Monitor BGM QACHS Start Levemir 8 units daily at HS, Hold if BGM <150 Novolog Coverage QACHS Will F/U Elevated lipase . Improving. 661 yesterday. Normal Pancreas on CT ?Pancreatitis Pt has multiple possible reasons for elevated Lipase including renal failure and use of Januvia, Methylprednosolone and Furosemide. Off Januvia now. Anemia/Drop in H/H: Stable now CHF Acute on Chronic renal insufficiency: Improving renal function HTN HLD Problem List - Problems (1) CKD (chronic kidney disease) Code(s): N18.9 - CHRONIC KIDNEY DISEASE, UNSPECIFIED Qualifiers: Qualified Code(s): N18.9 - Chronic kidney disease, unspecified (2) Hypertension Code(s): I10 - ESSENTIAL (PRIMARY) HYPERTENSION (3) SOB (shortness of breath) on exertion Code(s): R06.02 - SHORTNESS OF BREATH
--- NOTE | 2016-08-12 17:02 | PN ---
Progress Note, Physician History of Present Illness: Pt seen and examined at bedside. She is awake and alert. She feels that her breathing is improved. Her family are at bedside. - Current Medication List Current Medications: Active Medications Acetaminophen (Tylenol -) 650 mg PO Q6H PRN PRN Reason: FEVER OR PAIN Last Admin: 08/07/16 04:25 Dose: 650 mg Atorvastatin Calcium (Lipitor -) 10 mg PO HS [facility] Last Admin: 08/11/16 22:02 Dose: 10 mg Calcitriol (Rocaltrol -) 0.5 mcg PO DAILY [facility] Last Admin: 08/12/16 09:38 Dose: 0.5 mcg Cephalexin HCl (Keflex -) 500 mg PO BID [facility] Last Admin: 08/12/16 09:37 Dose: 500 mg Diltiazem HCl (Cardizem Cd -) 240 mg PO DAILY [facility] Last Admin: 08/12/16 09:37 Dose: 240 mg Furosemide (Lasix Injection -) 80 mg IVPB DAILY [facility] Last Admin: 08/12/16 09:37 Dose: 80 mg Hydralazine HCl (Apresoline -) 25 mg PO BID [facility] Last Admin: 08/12/16 09:37 Dose: 25 mg Pantoprazole Sodium 80 mg/ (Sodium Chloride) 100 mls @ 10 mls/hr IVPB Q10H [facility] PRN Reason: 8 MG/HR Last Admin: 08/12/16 09:38 Dose: 10 mls/hr Insulin Aspart (Novolog Vial Sliding Scale -) 1 vial SQ HS [facility] PRN Reason: Protocol Last Admin: 08/11/16 22:03 Dose: Not Given Insulin Aspart (Novolog Vial Sliding Scale -) 1 vial SQ TIDAC [facility] PRN Reason: Protocol Insulin Detemir (Levemir Vial) 8 units SQ HS [facility] Isosorbide Mononitrate (Imdur -) 30 mg PO DAILY [facility] Last Admin: 08/12/16 09:36 Dose: 30 mg Ondansetron HCl (Zofran Injection) 4 mg IVPUSH Q4H PRN PRN Reason: NAUSEA AND/OR VOMITING Polyethylene Glycol (Miralax (For Daily Use) -) 17 gm PO DAILY [facility] Last Admin: 08/12/16 09:38 Dose: 17 grams - Objective Vital Signs: Vital Signs Temperature 97.9 F 08/12/16 14:51 Pulse Rate 87 08/12/16 14:51 Respiratory Rate 20 08/12/16 14:51 Blood Pressure 129/61 08/12/16 14:51 O2 Sat by Pulse Oximetry (%) 96 08/12/16 09:00 Constitutional: Yes: Calm Eyes: Yes: Conjunctiva Clear HENT: Yes: Atraumatic Neck: Yes: Supple Cardiovascular: Yes: S2, S3 Respiratory: Yes: CTA Bilaterally Gastrointestinal: Yes: Soft, Abdomen, Obese Genitourinary: Yes: WNL Musculoskeletal: Yes: WNL Edema: No Neurological: Yes: Oriented Psychiatric: Yes: Oriented Labs: CBC, BMP 08/12/16 06:00 08/12/16 06:00 INR, PTT INR 1.44 (0.82-1.09) H 08/08/16 05:35 Problem List - Problems (1) CKD (chronic kidney disease) Code(s): N18.9 - CHRONIC KIDNEY DISEASE, UNSPECIFIED Qualifiers: Qualified Code(s): N18.9 - Chronic kidney disease, unspecified (2) Pulmonary vascular congestion Code(s): R09.89 - OTH SYMPTOMS AND SIGNS INVOLVING THE CIRC AND RESP SYSTEMS (3) SOB (shortness of breath) on exertion Code(s): R06.02 - SHORTNESS OF BREATH (4) Hypertension Code(s): I10 - ESSENTIAL (PRIMARY) HYPERTENSION (5) Diabetes 1.5, managed as type 1 Code(s): E13.9 - OTHER SPECIFIED DIABETES MELLITUS WITHOUT COMPLICATIONS Assessment/Plan Current Medications Generic Name Dose Route Start Last Admin Trade Name Freq PRN Reason Stop Dose Admin Acetaminophen 650 mg 07/30/16 15:50 08/07/16 04:25 Tylenol - PO 650 mg Q6H PRN Administration FEVER OR PAIN Atorvastatin Calcium 10 mg 07/27/16 22:00 08/11/16 22:02 Lipitor - PO 10 mg HS AVNI Administration Calcitriol 0.5 mcg 07/27/16 18:00 08/12/16 09:38 Rocaltrol - PO 0.5 mcg DAILY VANI Administration Cephalexin HCl 500 mg 08/10/16 11:30 08/12/16 09:37 Keflex - PO 500 mg BID VANI Administration Diltiazem HCl 240 mg 08/08/16 10:00 08/12/16 09:37 Cardizem Cd - PO 240 mg DAILY VANI Administration Furosemide 80 mg 08/08/16 10:00 08/12/16 09:37 Lasix Injection - IVPB 80 mg DAILY VANI Administration Hydralazine HCl 25 mg 07/27/16 18:30 08/12/16 09:37 Apresoline - PO 25 mg BID VANI Administration Pantoprazole Sodium 80 mg/ 100 mls @ 10 mls/hr 08/09/16 18:00 08/12/16 09:38 Sodium Chloride IVPB 10 mls/hr Q10H VANI Administration 8 MG/HR Insulin Aspart 1 vial 08/11/16 16:30 08/11/16 22:03 Novolog Vial Sliding Scale - SQ Not Given HS [facility] Protocol Insulin Aspart 1 vial 08/12/16 14:14 Novolog Vial Sliding Scale - SQ TIDAC [facility] Protocol Insulin Detemir 8 units 08/12/16 22:00 Levemir Vial SQ HS [facility] Isosorbide Mononitrate 30 mg 07/27/16 18:30 08/12/16 09:36 Imdur - PO 30 mg DAILY VANI Administration Ondansetron HCl 4 mg 08/03/16 18:45 Zofran Injection IVPUSH Q4H PRN NAUSEA AND/OR VOMITING Polyethylene Glycol 17 gm 08/08/16 10:00 08/12/16 09:38 Miralax (For Daily Use) - PO 17 grams DAILY VANI Administration Laboratory Tests 08/12/16 06:00 Phosphorus 3.4 Impression 1. CKD 2. HTN 3. DM 4. dyspnea 5. hyperlipidemia 6. anemia 7. hyponatremia 8. pulmonary htn Plan - monitor bmp - cont with lasix - will trasnsition to PO likely tomorrow - will need better glucose control - monitor hg - pt now off of steroids - will follow Dr Fleming
--- NOTE | 2016-08-12 18:41 | PN ---
Progress Note, Physician Chief Complaint: Pt's daughter at bedside. Asymptomatic. History of Present Illness: 86y woman (b. Maira) with PM hx of epexjjpni-[id number] HTN; DM;hyperlipidemia ; CKD, who now presents with SOB. The patient has been feeling SOB with SOTO which began two weeks ago; she was admitted to [facility] for a cardiac workup, had a negative EKG (per daughter)and was d/chinmay home from ER. The pt fu with PMD a few days ago and was given a nebulizer. The pt states her sob worsened significantly last night; here was no significant improvement with the nebulizer. Pt states she gets the wheezing and sob when she ambulates short distances as well as up stairs, which is new (pt's daughter says she was able to walk slowly in the house on a regular basis without dyspnea until the past few weeks). The pt denies any associated cp (no cp since last admission to [place]), fever/chills. pt does endorse a mild nonproductive cough, orthopnea, mild lower extermity edema; denies fever. Stress test 2 months ago negative for myocardial ischemia or arrhythmias. PMD dr. Mendoza Revenue Tax Specialist: Dr. Ayala. - Current Medication List Current Medications: Active Medications Acetaminophen (Tylenol -) 650 mg PO Q6H PRN PRN Reason: FEVER OR PAIN Last Admin: 08/07/16 04:25 Dose: 650 mg Atorvastatin Calcium (Lipitor -) 10 mg PO HS [facility] Last Admin: 08/11/16 22:02 Dose: 10 mg Calcitriol (Rocaltrol -) 0.5 mcg PO DAILY [facility] Last Admin: 08/12/16 09:38 Dose: 0.5 mcg Cephalexin HCl (Keflex -) 500 mg PO BID [facility] Last Admin: 08/12/16 09:37 Dose: 500 mg Diltiazem HCl (Cardizem Cd -) 240 mg PO DAILY [facility] Last Admin: 08/12/16 09:37 Dose: 240 mg Furosemide (Lasix Injection -) 80 mg IVPB DAILY [facility] Last Admin: 08/12/16 09:37 Dose: 80 mg Hydralazine HCl (Apresoline -) 25 mg PO BID [facility] Last Admin: 08/12/16 09:37 Dose: 25 mg Pantoprazole Sodium 80 mg/ (Sodium Chloride) 100 mls @ 10 mls/hr IVPB Q10H [facility]ANI PRN Reason: 8 MG/HR Last Admin: 08/12/16 17:43 Dose: 10 mls/hr Insulin Aspart (Novolog Vial Sliding Scale -) 1 vial SQ HS [facility] PRN Reason: Protocol Last Admin: 08/11/16 22:03 Dose: Not Given Insulin Aspart (Novolog Vial Sliding Scale -) 1 vial SQ TIDAC VANI PRN Reason: Protocol Last Admin: 08/12/16 17:44 Dose: 14 unit Insulin Detemir (Levemir Vial) 8 units SQ HS [facility] Isosorbide Mononitrate (Imdur -) 30 mg PO DAILY [facility] Last Admin: 08/12/16 09:36 Dose: 30 mg Ondansetron HCl (Zofran Injection) 4 mg IVPUSH Q4H PRN PRN Reason: NAUSEA AND/OR VOMITING Polyethylene Glycol (Miralax (For Daily Use) -) 17 gm PO DAILY [facility] Last Admin: 08/12/16 09:38 Dose: 17 grams - Objective Vital Signs: Vital Signs Temperature 97.6 F 08/12/16 17:15 Pulse Rate 68 08/12/16 17:15 Respiratory Rate 18 08/12/16 17:15 Blood Pressure 143/62 08/12/16 17:15 O2 Sat by Pulse Oximetry (%) 96 08/12/16 09:00 Constitutional: Yes: Calm Eyes: Yes: WNL HENT: Yes: WNL Neck: Yes: WNL Cardiovascular: Yes: Regular Rate and Rhythm Respiratory: Yes: Regular Gastrointestinal: Yes: Soft ...Rectal Exam: Yes: Deferred Genitourinary: No: Anuria Breast(s): Yes: WNL Extremities: Yes: Cool Edema: No Peripheral Pulses WNL: Yes Integumentary: Yes: WNL Neurological: Yes: Alert, Oriented, Weakness Psychiatric: Yes: WNL Labs: CBC, BMP 08/12/16 06:00 08/12/16 06:00 INR, PTT INR 1.44 (0.82-1.09) H 08/08/16 05:35 - ....Imaging Chest X-ray: Image Reviewed (left basal atelectasis (minimal)) Problem List - Problems (1) CKD (chronic kidney disease) Assessment/Plan: Increasing BUN/Cr has led to stopping losartan. Furosemide IV 80 mg daily. f/u electrolytes, BUN/Cr, daily weight, Is and Os. Family defers hemodialysis presently. Code(s): N18.9 - CHRONIC KIDNEY DISEASE, UNSPECIFIED Qualifiers: Qualified Code(s): N18.9 - Chronic kidney disease, unspecified (2) Hypertension Assessment/Plan: Now well-controlled on diltiazem (changed to 240 mg CD daily on 08/08/2016), Hydralazine + Imdur, and amlodipine. Losartan held due to deteriorating renal function. F/u BP and HR. ECHO: normal LVEF; moderate-severe pulmonary HTN. Code(s): I10 - ESSENTIAL (PRIMARY) HYPERTENSION (3) Pulmonary vascular congestion Code(s): R09.89 - OTH SYMPTOMS AND SIGNS INVOLVING THE CIRC AND RESP SYSTEMS (4) SOB (shortness of breath) on exertion Assessment/Plan: leukocytosis (on steroids); afebrile; still with productive cough. Furosemide restarted; may require hemodialysis (family presently not in favor of this). Code(s): R06.02 - SHORTNESS OF BREATH (5) Acute on chronic diastolic CHF (congestive heart failure) Code(s): I50.33 - ACUTE ON CHRONIC DIASTOLIC (CONGESTIVE) HEART FAILURE (6) Diabetes Assessment/Plan: markedly elevated glucose; now on steroids again for pulmonary dysfunction. F/u with music coordinator. Code(s): E11.9 - TYPE 2 DIABETES MELLITUS WITHOUT COMPLICATIONS (7) Atrial fibrillation Assessment/Plan: On diltiazem for HR control (changed to diltiazem CD for easier compliance; pt has also been complaining of abdominal discomfort, and fewer pills may be better ); f/u HR and BP.. Stool quiac +. Will discuss possiblitiy of restarting NOAC with seconds grader. Code(s): I48.91 - UNSPECIFIED ATRIAL FIBRILLATION (8) Pulmonary hypertension Assessment/Plan: Moderate to severe pulmonary HTN; pt with mild MR and [place], (+) diastolic dysfunction; leukocytosis (on steroids earlier). Code(s): I27.2 - OTHER SECONDARY PULMONARY HYPERTENSION (9) Anemia Assessment/Plan: On apixaban for AF (held earler per GI, but Gradual decline in Hb since admission; no overt bleed. F/u with GI, seconds grader. Code(s): D64.9 - ANEMIA, UNSPECIFIED
--- NOTE | 2016-08-12 19:10 | PN ---
Progress Note, Physician Chief Complaint: Pt's daughters are at bedside. Asymptomatic; OOB in chair. History of Present Illness: 86y woman (b. Maira) with PM hx of [id number] HTN; DM;hyperlipidemia ; CKD, who now presents with SOB. The patient has been feeling SOB with SOTO which began two weeks ago; she was admitted to [facility] for a cardiac workup, had a negative EKG (per daughter)and was d/chinmay home from ER. The pt fu with PMD a few days ago and was given a nebulizer. The pt states her sob worsened significantly last night; here was no significant improvement with the nebulizer. Pt states she gets the wheezing and sob when she ambulates short distances as well as up stairs, which is new (pt's daughter says she was able to walk slowly in the house on a regular basis without dyspnea until the past few weeks). The pt denies any associated cp (no cp since last admission to [place]), fever/chills. pt does endorse a mild nonproductive cough, orthopnea, mild lower extermity edema; denies fever. Stress test 2 months ago negative for myocardial ischemia or arrhythmias. PMD dr. Mendoza Metaphysician: Dr. Ayala. - Current Medication List Current Medications: Active Medications Acetaminophen (Tylenol -) 650 mg PO Q6H PRN PRN Reason: FEVER OR PAIN Last Admin: 08/07/16 04:25 Dose: 650 mg Atorvastatin Calcium (Lipitor -) 10 mg PO HS [facility] Last Admin: 08/11/16 22:02 Dose: 10 mg Calcitriol (Rocaltrol -) 0.5 mcg PO DAILY [facility] Last Admin: 08/12/16 09:38 Dose: 0.5 mcg Cephalexin HCl (Keflex -) 500 mg PO BID [facility] Last Admin: 08/12/16 09:37 Dose: 500 mg Diltiazem HCl (Cardizem Cd -) 240 mg PO DAILY [facility] Last Admin: 08/12/16 09:37 Dose: 240 mg Furosemide (Lasix Injection -) 80 mg IVPB DAILY [facility] Last Admin: 08/12/16 09:37 Dose: 80 mg Hydralazine HCl (Apresoline -) 25 mg PO BID [facility] Last Admin: 08/12/16 09:37 Dose: 25 mg Pantoprazole Sodium 80 mg/ (Sodium Chloride) 100 mls @ 10 mls/hr IVPB Q10H [facility]ANI PRN Reason: 8 MG/HR Last Admin: 08/12/16 17:43 Dose: 10 mls/hr Insulin Aspart (Novolog Vial Sliding Scale -) 1 vial SQ HS [facility] PRN Reason: Protocol Last Admin: 08/11/16 22:03 Dose: Not Given Insulin Aspart (Novolog Vial Sliding Scale -) 1 vial SQ TIDAC [facility]ANI PRN Reason: Protocol Last Admin: 08/12/16 17:44 Dose: 14 unit Insulin Detemir (Levemir Vial) 8 units SQ HS [facility] Isosorbide Mononitrate (Imdur -) 30 mg PO DAILY [facility] Last Admin: 08/12/16 09:36 Dose: 30 mg Ondansetron HCl (Zofran Injection) 4 mg IVPUSH Q4H PRN PRN Reason: NAUSEA AND/OR VOMITING Polyethylene Glycol (Miralax (For Daily Use) -) 17 gm PO DAILY [facility] Last Admin: 08/12/16 09:38 Dose: 17 grams - Objective Vital Signs: Vital Signs Temperature 97.6 F 08/12/16 17:15 Pulse Rate 68 08/12/16 17:15 Respiratory Rate 18 08/12/16 17:15 Blood Pressure 143/62 08/12/16 17:15 O2 Sat by Pulse Oximetry (%) 96 08/12/16 09:00 Constitutional: Yes: Calm Eyes: Yes: WNL HENT: Yes: WNL Neck: Yes: WNL Labs: CBC, BMP 08/12/16 06:00 08/12/16 06:00 INR, PTT INR 1.44 (0.82-1.09) H 08/08/16 05:35 Problem List - Problems (1) CKD (chronic kidney disease) Assessment/Plan: Increasing BUN/Cr has led to stopping losartan. Furosemide IV 80 mg daily. f/u electrolytes, BUN/Cr, daily weight, Is and Os. Family defers hemodialysis presently. Code(s): N18.9 - CHRONIC KIDNEY DISEASE, UNSPECIFIED Qualifiers: Qualified Code(s): N18.9 - Chronic kidney disease, unspecified (2) Hypertension Assessment/Plan: Now well-controlled on diltiazem (changed to 240 mg CD daily on 08/08/2016), Hydralazine + Imdur, and amlodipine. Losartan held due to deteriorating renal function. F/u BP and HR. ECHO: normal LVEF; moderate-severe pulmonary HTN. Code(s): I10 - ESSENTIAL (PRIMARY) HYPERTENSION (3) Pulmonary vascular congestion Code(s): R09.89 - OTH SYMPTOMS AND SIGNS INVOLVING THE CIRC AND RESP SYSTEMS (4) SOB (shortness of breath) on exertion Assessment/Plan: leukocytosis (on steroids); afebrile; still with productive cough. Furosemide restarted; may require hemodialysis (family presently not in favor of this). f/u with senior principal architect. Code(s): R06.02 - SHORTNESS OF BREATH (5) Acute on chronic diastolic CHF (congestive heart failure) Code(s): I50.33 - ACUTE ON CHRONIC DIASTOLIC (CONGESTIVE) HEART FAILURE (6) Diabetes Assessment/Plan: markedly elevated glucose; now on steroids again for pulmonary dysfunction. F/u with shell trim tool setter. Code(s): E11.9 - TYPE 2 DIABETES MELLITUS WITHOUT COMPLICATIONS (7) Atrial fibrillation Assessment/Plan: On diltiazem for HR control Stool quaiac +.yesterday, but negative today. Hb stable. As discussed with Dr. Lisa, no present GI workup is contemplated, and Hb is stable post-PRBCs: pt may be restarted on Apixaban. Dr. Henson and I went over this in detail today. Discussed the pros and cons of anticoaguation with daughters, who telephoned other pertinent family members. They agreed on restart of apixaban. Check quiac tomorrow. F/u with GI, hematology. EKG in am. Code(s): I48.91 - UNSPECIFIED ATRIAL FIBRILLATION (8) Pulmonary hypertension Assessment/Plan: Moderate to severe pulmonary HTN; pt with mild MR and [place], (+) diastolic dysfunction; leukocytosis (on steroids earlier). Code(s): I27.2 - OTHER SECONDARY PULMONARY HYPERTENSION (9) Anemia Assessment/Plan: Restarted apixaban for AF. Stable Hb since unit of PRBC several days ago; quaiac negative today. F/u with GI, government property inspector Code(s): D64.9 - ANEMIA, UNSPECIFIED
[2016-08-12] MEDS: APIXABAN 2.5 MG TABLET PO SCH (21:47)
[2016-08-12] MEDS: ATORVASTATIN CA 10 MG TABLET (FP) PO SCH (21:47)
[2016-08-12] MEDS: INSULIN DETEMIR 100 UNITS/ML MDV SQ SCH (21:48)
--- NOTE | 2016-08-12 22:13 | PN ---
Progress Note (short form) - Note Progress Note: Patient seen and examined comfortable Last Vital Signs Temp Pulse Resp BP Pulse Ox 97.6 F 70 18 150/68 96 08/12/16 17:15 08/12/16 21:57 08/12/16 21:57 08/12/16 21:57 08/12/16 09:00 HEENT: JAVI, EOM Intact Cor: RSR, No murmurs, No gallops Lungs: Clear to P&A Abd: Soft, Normal bowel sounds, mildly distended Ext:No significant edema Abnormal Lab Results 08/09/16 08/12/16 08/12/16 09:30 06:00 06:00 WBC 22.7 H RBC 3.35 L Hgb 9.5 L Hct 28.0 L Sodium 132 L Chloride 84 L Carbon Dioxide 39 H BUN 71 H Creatinine 3.0 H Random Glucose 237 H D Total Protein 5.5 L Albumin 2.7 L Crossmatch See Detail Current Medications Acetaminophen (Tylenol -) 650 mg PO Q6H PRN PRN Reason: FEVER OR PAIN Last Admin: 08/07/16 04:25 Dose: 650 mg Apixaban (Eliquis -) 2.5 mg PO BID [facility] Last Admin: 08/12/16 21:47 Dose: 2.5 mg Atorvastatin Calcium (Lipitor -) 10 mg PO HS [facility] Last Admin: 08/12/16 21:47 Dose: 10 mg Calcitriol (Rocaltrol -) 0.5 mcg PO DAILY [facility] Last Admin: 08/12/16 09:38 Dose: 0.5 mcg Cephalexin HCl (Keflex -) 500 mg PO BID [facility] Last Admin: 08/12/16 21:47 Dose: 500 mg Diltiazem HCl (Cardizem Cd -) 240 mg PO DAILY [facility] Last Admin: 08/12/16 09:37 Dose: 240 mg Furosemide (Lasix Injection -) 80 mg IVPB DAILY [facility] Last Admin: 08/12/16 09:37 Dose: 80 mg Hydralazine HCl (Apresoline -) 25 mg PO BID [facility] Last Admin: 08/12/16 21:46 Dose: 25 mg Pantoprazole Sodium 80 mg/ (Sodium Chloride) 100 mls @ 10 mls/hr IVPB Q10H [facility]ANI PRN Reason: 8 MG/HR Last Admin: 08/12/16 17:43 Dose: 10 mls/hr Insulin Aspart (Novolog Vial Sliding Scale -) 1 vial SQ HS [facility] PRN Reason: Protocol Last Admin: 08/12/16 21:48 Dose: 2 units Insulin Aspart (Novolog Vial Sliding Scale -) 1 vial SQ TIDAC VANI PRN Reason: Protocol Last Admin: 08/12/16 17:44 Dose: 14 unit Insulin Detemir (Levemir Vial) 8 units SQ HS [facility] Last Admin: 08/12/16 21:48 Dose: 8 units Isosorbide Mononitrate (Imdur -) 30 mg PO DAILY [facility] Last Admin: 08/12/16 09:36 Dose: 30 mg Ondansetron HCl (Zofran Injection) 4 mg IVPUSH Q4H PRN PRN Reason: NAUSEA AND/OR VOMITING Polyethylene Glycol (Miralax (For Daily Use) -) 17 gm PO DAILY [facility] Last Admin: 08/12/16 09:38 Dose: 17 grams A/P 86 y/o patient with HTN, DM, CKD, CHF, afib, now with gradually dropping Hemoglobin, worsening renal function anemia of chronic disease due to worsening renal function/CHF + gi bleed iron studies s/o anemia of chronic disease TSH--nl SIFE --neg. B12/folate nl transfused 1 unit PRBCs 08/09 hgb9.5 increased WBC --? reactive ?steroids
[2016-08-13] MEDS: PANTOPRAZOLE SODIUM 80 MG in SODIUM CHLORIDE 100 ML IVPB SCH ×3 (03:30→23:12)
[2016-08-13] MEDS: INSULIN SLIDING SCALE (NOVOLOG) 1 VIAL SQ SCH ×4 (06:37→22:40)
[2016-08-13] MEDS ORDERED: INSULIN (NOVOLOG) ASPART 100 UNITS/ML 10ML VIAL ONE ×3 (06:42→18:00)
--- NOTE | 2016-08-13 07:01 | PN ---
Progress Note, Physician Chief Complaint: Pt feels weak; no chest pain or dyspnea. One daughter is at bedside. History of Present Illness: 86y woman (b. Maira) with PM hx of dlcvyfqsd-[id number] HTN; DM;hyperlipidemia ; CKD, who now presents with SOB. The patient has been feeling SOB with SOTO which began two weeks ago; she was admitted to [facility] for a cardiac workup, had a negative EKG (per daughter)and was d/chinmay home from ER. The pt fu with PMD a few days ago and was given a nebulizer. The pt states her sob worsened significantly last night; here was no significant improvement with the nebulizer. Pt states she gets the wheezing and sob when she ambulates short distances as well as up stairs, which is new (pt's daughter says she was able to walk slowly in the house on a regular basis without dyspnea until the past few weeks). The pt denies any associated cp (no cp since last admission to [place]), fever/chills. pt does endorse a mild nonproductive cough, orthopnea, mild lower extermity edema; denies fever. Stress test 2 months ago negative for myocardial ischemia or arrhythmias. PMD dr. Mendoza Horticultural Technical Officer: Dr. Ayala. - Current Medication List Current Medications: Active Medications Acetaminophen (Tylenol -) 650 mg PO Q6H PRN PRN Reason: FEVER OR PAIN Last Admin: 08/07/16 04:25 Dose: 650 mg Apixaban (Eliquis -) 2.5 mg PO BID [facility] Last Admin: 08/12/16 21:47 Dose: 2.5 mg Atorvastatin Calcium (Lipitor -) 10 mg PO HS [facility] Last Admin: 08/12/16 21:47 Dose: 10 mg Calcitriol (Rocaltrol -) 0.5 mcg PO DAILY [facility] Last Admin: 08/12/16 09:38 Dose: 0.5 mcg Cephalexin HCl (Keflex -) 500 mg PO BID [facility] Last Admin: 08/12/16 21:47 Dose: 500 mg Diltiazem HCl (Cardizem Cd -) 240 mg PO DAILY [facility] Last Admin: 08/12/16 09:37 Dose: 240 mg Furosemide (Lasix Injection -) 80 mg IVPB DAILY [facility] Last Admin: 08/12/16 09:37 Dose: 80 mg Hydralazine HCl (Apresoline -) 25 mg PO BID [facility] Last Admin: 08/12/16 21:46 Dose: 25 mg Pantoprazole Sodium 80 mg/ (Sodium Chloride) 100 mls @ 10 mls/hr IVPB Q10H [facility] PRN Reason: 8 MG/HR Last Admin: 08/13/16 03:30 Dose: 10 mls/hr Insulin Aspart (Novolog Vial Sliding Scale -) 1 vial SQ HS [facility] PRN Reason: Protocol Last Admin: 08/12/16 21:48 Dose: 2 units Insulin Aspart (Novolog Vial Sliding Scale -) 1 vial SQ TIDAC [facility]ANI PRN Reason: Protocol Last Admin: 08/13/16 06:37 Dose: 6 unit Insulin Detemir (Levemir Vial) 8 units SQ HS [facility] Last Admin: 08/12/16 21:48 Dose: 8 units Isosorbide Mononitrate (Imdur -) 30 mg PO DAILY [facility] Last Admin: 08/12/16 09:36 Dose: 30 mg Ondansetron HCl (Zofran Injection) 4 mg IVPUSH Q4H PRN PRN Reason: NAUSEA AND/OR VOMITING Polyethylene Glycol (Miralax (For Daily Use) -) 17 gm PO DAILY [facility] Last Admin: 08/12/16 09:38 Dose: 17 grams - Objective Vital Signs: Vital Signs Temperature 97.9 F 08/13/16 05:38 Pulse Rate 71 08/13/16 05:38 Respiratory Rate 18 08/13/16 05:38 Blood Pressure 121/80 08/13/16 05:38 O2 Sat by Pulse Oximetry (%) 96 08/12/16 21:00 Constitutional: Yes: Anxious Eyes: Yes: WNL HENT: Yes: WNL Neck: Yes: WNL Cardiovascular: Yes: Pulse Irregular Respiratory: Yes: Regular Gastrointestinal: Yes: Soft ...Rectal Exam: No: Deferred Genitourinary: Yes: Anuria Breast(s): Yes: WNL Musculoskeletal: Yes: Muscle Weakness Extremities: Yes: Cool Edema: No Peripheral Pulses WNL: Yes Neurological: Yes: Alert, Weakness Psychiatric: Yes: Alert Labs: CBC, BMP 08/12/16 06:00 08/12/16 06:00 INR, PTT INR 1.44 (0.82-1.09) H 08/08/16 05:35 Problem List - Problems (1) CKD (chronic kidney disease) Assessment/Plan: Increasing BUN/Cr has led to stopping losartan. Furosemide per ID. Family defers hemodialysis presently. Code(s): N18.9 - CHRONIC KIDNEY DISEASE, UNSPECIFIED Qualifiers: Qualified Code(s): N18.9 - Chronic kidney disease, unspecified (2) Hypertension Assessment/Plan: Now well-controlled on diltiazem (changed to 240 mg CD daily on 08/08/2016), Hydralazine + Imdur, and amlodipine. Losartan held due to deteriorating renal function. F/u BP and HR. ECHO: normal LVEF; moderate-severe pulmonary HTN. Code(s): I10 - ESSENTIAL (PRIMARY) HYPERTENSION (3) Pulmonary vascular congestion Code(s): R09.89 - OTH SYMPTOMS AND SIGNS INVOLVING THE CIRC AND RESP SYSTEMS (4) SOB (shortness of breath) on exertion Assessment/Plan: leukocytosis (on steroids); afebrile; still with productive cough. Furosemide restarted; may require hemodialysis (family presently not in favor of this). f/u with fence gate assembler. Code(s): R06.02 - SHORTNESS OF BREATH (5) Acute on chronic diastolic CHF (congestive heart failure) Code(s): I50.33 - ACUTE ON CHRONIC DIASTOLIC (CONGESTIVE) HEART FAILURE (6) Diabetes Assessment/Plan: markedly elevated glucose; now on steroids again for pulmonary dysfunction. F/u with hand flesher. Code(s): E11.9 - TYPE 2 DIABETES MELLITUS WITHOUT COMPLICATIONS (7) Atrial fibrillation Assessment/Plan: On diltiazem for HR control F/u with GI and hematology regarding restart of apixaban. Code(s): I48.91 - UNSPECIFIED ATRIAL FIBRILLATION (8) Pulmonary hypertension Assessment/Plan: Moderate to severe pulmonary HTN; pt with mild MR and [place], (+) diastolic dysfunction; leukocytosis (on steroids earlier). Code(s): I27.2 - OTHER SECONDARY PULMONARY HYPERTENSION (9) Anemia Assessment/Plan: s/p PRBCs. F/u with GI, powder core tester Code(s): D64.9 - ANEMIA, UNSPECIFIED
--- NOTE | 2016-08-13 07:10 | PN ---
Progress Note, Physician Chief Complaint: Pt's daughter at bedside. No chest pain, palpitations, or dyspnea. Mild abdominal discomfort. History of Present Illness: 86y woman (b. Maira) with PM hx of brjnrueld-vc-xbultgy HTN; DM;hyperlipidemia ; CKD, who now presents with SOB. The patient has been feeling SOB with SOTO which began two weeks ago; she was admitted to [facility] for a cardiac workup, had a negative EKG (per daughter)and was d/chinmay home from ER. The pt fu with PMD a few days ago and was given a nebulizer. The pt states her sob worsened significantly last night; here was no significant improvement with the nebulizer. Pt states she gets the wheezing and sob when she ambulates short distances as well as up stairs, which is new (pt's daughter says she was able to walk slowly in the house on a regular basis without dyspnea until the past few weeks). The pt denies any associated cp (no cp since last admission to [place]), fever/chills. pt does endorse a mild nonproductive cough, orthopnea, mild lower extermity edema; denies fever. Stress test 2 months ago negative for myocardial ischemia or arrhythmias. PMD dr. Mendoza Irradiated Fuel Handler: Dr. Ayala. - Current Medication List Current Medications: Active Medications Acetaminophen (Tylenol -) 650 mg PO Q6H PRN PRN Reason: FEVER OR PAIN Last Admin: 08/07/16 04:25 Dose: 650 mg Apixaban (Eliquis -) 2.5 mg PO BID [facility] Last Admin: 08/12/16 21:47 Dose: 2.5 mg Atorvastatin Calcium (Lipitor -) 10 mg PO HS [facility] Last Admin: 08/12/16 21:47 Dose: 10 mg Calcitriol (Rocaltrol -) 0.5 mcg PO DAILY [facility] Last Admin: 08/12/16 09:38 Dose: 0.5 mcg Cephalexin HCl (Keflex -) 500 mg PO BID [facility] Last Admin: 08/12/16 21:47 Dose: 500 mg Diltiazem HCl (Cardizem Cd -) 240 mg PO DAILY [facility] Last Admin: 08/12/16 09:37 Dose: 240 mg Furosemide (Lasix Injection -) 80 mg IVPB DAILY [facility] Last Admin: 08/12/16 09:37 Dose: 80 mg Hydralazine HCl (Apresoline -) 25 mg PO BID [facility] Last Admin: 08/12/16 21:46 Dose: 25 mg Pantoprazole Sodium 80 mg/ (Sodium Chloride) 100 mls @ 10 mls/hr IVPB Q10H [facility] PRN Reason: 8 MG/HR Last Admin: 08/13/16 03:30 Dose: 10 mls/hr Insulin Aspart (Novolog Vial Sliding Scale -) 1 vial SQ HS [facility] PRN Reason: Protocol Last Admin: 08/12/16 21:48 Dose: 2 units Insulin Aspart (Novolog Vial Sliding Scale -) 1 vial SQ TIDAC [facility] PRN Reason: Protocol Last Admin: 08/13/16 06:37 Dose: 6 unit Insulin Detemir (Levemir Vial) 8 units SQ HS [facility] Last Admin: 08/12/16 21:48 Dose: 8 units Isosorbide Mononitrate (Imdur -) 30 mg PO DAILY [facility] Last Admin: 08/12/16 09:36 Dose: 30 mg Ondansetron HCl (Zofran Injection) 4 mg IVPUSH Q4H PRN PRN Reason: NAUSEA AND/OR VOMITING Polyethylene Glycol (Miralax (For Daily Use) -) 17 gm PO DAILY [facility] Last Admin: 08/12/16 09:38 Dose: 17 grams - Objective Vital Signs: Vital Signs Temperature 97.9 F 08/13/16 05:38 Pulse Rate 71 08/13/16 05:38 Respiratory Rate 18 08/13/16 05:38 Blood Pressure 121/80 08/13/16 05:38 O2 Sat by Pulse Oximetry (%) 96 08/12/16 21:00 Constitutional: Yes: Calm Eyes: Yes: WNL HENT: Yes: WNL Neck: Yes: WNL Respiratory: Yes: Regular Gastrointestinal: No: Tenderness ...Rectal Exam: Yes: Deferred Genitourinary: No: Anuria Breast(s): Yes: WNL Musculoskeletal: Yes: Muscle Weakness Extremities: Yes: Cool Edema: No Peripheral Pulses WNL: No Peripheral Pulses: Left Doralis Pedis: 1+, Right Dorsalis Pedis: 1+ Neurological: Yes: Alert, Oriented, Weakness Psychiatric: Yes: Alert, Oriented, Other (anxious/?depressed) Labs: CBC, BMP 08/12/16 06:00 08/12/16 06:00 INR, PTT INR 1.44 (0.82-1.09) H 08/08/16 05:35 Problem List - Problems (1) CKD (chronic kidney disease) Assessment/Plan: Increasing BUN/Cr has led to stopping losartan. Furosemide per ID. Family defers hemodialysis presently. Code(s): N18.9 - CHRONIC KIDNEY DISEASE, UNSPECIFIED Qualifiers: Qualified Code(s): N18.9 - Chronic kidney disease, unspecified (2) Hypertension Assessment/Plan: Now well-controlled on diltiazem (changed to 240 mg CD daily on 08/08/2016), Hydralazine + Imdur, and amlodipine. Losartan held due to deteriorating renal function. F/u BP and HR. ECHO: normal LVEF; moderate-severe pulmonary HTN. Code(s): I10 - ESSENTIAL (PRIMARY) HYPERTENSION (3) Pulmonary vascular congestion Code(s): R09.89 - OTH SYMPTOMS AND SIGNS INVOLVING THE CIRC AND RESP SYSTEMS (4) SOB (shortness of breath) on exertion Assessment/Plan: leukocytosis (on steroids); afebrile; still with productive cough. Furosemide restarted; may require hemodialysis (family presently not in favor of this). f/u with caisson worker. Code(s): R06.02 - SHORTNESS OF BREATH (5) Acute on chronic diastolic CHF (congestive heart failure) Code(s): I50.33 - ACUTE ON CHRONIC DIASTOLIC (CONGESTIVE) HEART FAILURE (6) Diabetes Code(s): E11.9 - TYPE 2 DIABETES MELLITUS WITHOUT COMPLICATIONS (7) Atrial fibrillation Assessment/Plan: On diltiazem for HR control. NOAC for anticoagulation. Code(s): I48.91 - UNSPECIFIED ATRIAL FIBRILLATION (8) Pulmonary hypertension Assessment/Plan: Moderate to severe pulmonary HTN; pt with mild MR and SD, (+) diastolic dysfunction; leukocytosis (on steroids earlier). Code(s): I27.2 - OTHER SECONDARY PULMONARY HYPERTENSION (9) Anemia Assessment/Plan: Gradual decline in Hb since admission; no overt bleed. F/u with GI, inspector automatic typewriter. Code(s): D64.9 - ANEMIA, UNSPECIFIED
[2016-08-13 08:01] LABS: MCH 28.5 pg (25.7-33.7); MEAN CELL VOLUME 83.8 fl (80-96); MEAN PLT VOLUME 7.6 fl (7.5-11.1); PLATELET COUNT 215 K/MM3 (134-434); RDW 13.6 % (11.6-15.6); WHITE BLOOD COUNT 17.7 K/mm3 (4.0-10.0)
[2016-08-13 08:24] LABS: ALBUMIN 2.6 g/dl (3.4-5.0); BILIRUBIN,TOTAL 0.5 mg/dL (0.2-1.0); CALCIUM 8.2 mg/dL (8.5-10.1); TOT PROT 5.2 g/dl (6.4-8.2)
[2016-08-13 09:36] LABS: PLATELET ESTIMATE ADEQUATE (NORMAL)
--- NOTE | 2016-08-13 09:54 | PN ---
Progress Note, Physician Chief Complaint: Pt seen and examined SOB improved rpt hb/hct stable gi bleed,anemia Cardiology,RENAl,pul GI note appreciated Hematology note appreciated - Current Medication List Current Medications: Active Medications Acetaminophen (Tylenol -) 650 mg PO Q6H PRN PRN Reason: FEVER OR PAIN Last Admin: 08/07/16 04:25 Dose: 650 mg Apixaban (Eliquis -) 2.5 mg PO BID [facility] Last Admin: 08/12/16 21:47 Dose: 2.5 mg Atorvastatin Calcium (Lipitor -) 10 mg PO [facility] Last Admin: 08/12/16 21:47 Dose: 10 mg Calcitriol (Rocaltrol -) 0.5 mcg PO DAILY [facility] Last Admin: 08/12/16 09:38 Dose: 0.5 mcg Cephalexin HCl (Keflex -) 500 mg PO BID [facility] Last Admin: 08/12/16 21:47 Dose: 500 mg Diltiazem HCl (Cardizem Cd -) 240 mg PO DAILY [facility] Last Admin: 08/12/16 09:37 Dose: 240 mg Furosemide (Lasix Injection -) 80 mg IVPB DAILY [facility] Last Admin: 08/12/16 09:37 Dose: 80 mg Hydralazine HCl (Apresoline -) 25 mg PO BID [facility] Last Admin: 08/12/16 21:46 Dose: 25 mg Pantoprazole Sodium 80 mg/ (Sodium Chloride) 100 mls @ 10 mls/hr IVPB Q10H [facility] PRN Reason: 8 MG/HR Last Admin: 08/13/16 03:30 Dose: 10 mls/hr Insulin Aspart (Novolog Vial Sliding Scale -) 1 vial SQ HS [facility] PRN Reason: Protocol Last Admin: 08/12/16 21:48 Dose: 2 units Insulin Aspart (Novolog Vial Sliding Scale -) 1 vial SQ TIDAC [facility] PRN Reason: Protocol Last Admin: 08/13/16 06:37 Dose: 6 unit Insulin Detemir (Levemir Vial) 8 units SQ HS [facility] Last Admin: 08/12/16 21:48 Dose: 8 units Isosorbide Mononitrate (Imdur -) 30 mg PO DAILY [facility] Last Admin: 08/12/16 09:36 Dose: 30 mg Ondansetron HCl (Zofran Injection) 4 mg IVPUSH Q4H PRN PRN Reason: NAUSEA AND/OR VOMITING Polyethylene Glycol (Miralax (For Daily Use) -) 17 gm PO DAILY [facility] Last Admin: 08/12/16 09:38 Dose: 17 grams - Objective Vital Signs: Vital Signs Temperature 97.9 F 08/13/16 05:38 Pulse Rate 71 08/13/16 05:38 Respiratory Rate 18 08/13/16 05:38 Blood Pressure 121/80 08/13/16 05:38 O2 Sat by Pulse Oximetry (%) 96 08/12/16 21:00 Constitutional: Yes: No Distress Eyes: Yes: Conjunctiva Clear HENT: Yes: Atraumatic, Normocephalic Neck: Yes: Supple, Trachea Midline Cardiovascular: Yes: Regular Rate and Rhythm Respiratory: Yes: Regular, Diminished (lung base) Gastrointestinal: Yes: Normal Bowel Sounds, Soft Edema: Yes Edema: LLE: Trace, RLE: Trace Peripheral Pulses WNL: Yes Neurological: Yes: Alert, Oriented Labs: CBC, BMP 08/13/16 06:45 08/13/16 06:45 INR, PTT INR 1.44 (0.82-1.09) H 08/08/16 05:35 Laboratory Results - last 24 hr 08/09/16 08/12/16 08/12/16 09:30 12:02 14:45 WBC RBC Hgb Hct MCV MCHC RDW Plt Count MPV Neutrophils % Lymphocytes % Monocytes % Eosinophils % Differential Comment Platelet Estimate Sodium Potassium Chloride Carbon Dioxide Anion Gap BUN Creatinine Creat Clearance w eGFR POC Glucometer 281 Random Glucose Calcium Total Bilirubin AST ALT Alkaline Phosphatase Total Protein Albumin Lipase Stool Occult Blood Negative Blood Type B POSITIVE Antibody Screen Negative Crossmatch See Detail Spec Expiration Date 08/12/16 08/12/16 08/13/16 17:40 21:44 05:49 WBC RBC Hgb Hct MCV MCHC RDW Plt Count MPV Neutrophils % Lymphocytes % Monocytes % Eosinophils % Differential Comment Platelet Estimate Sodium Potassium Chloride Carbon Dioxide Anion Gap BUN Creatinine Creat Clearance w eGFR POC Glucometer 362 241 180 Random Glucose Calcium Total Bilirubin AST ALT Alkaline Phosphatase Total Protein Albumin Lipase Stool Occult Blood Blood Type Antibody Screen Crossmatch Spec Expiration Date 08/13/16 08/13/16 06:45 06:45 WBC 17.7 H RBC 3.03 L Hgb 8.6 L Hct 25.4 L MCV 83.8 MCHC 34.0 RDW 13.6 Plt Count 215 MPV 7.6 Neutrophils % 85.0 H Lymphocytes % 8.0 Monocytes % 4.0 Eosinophils % 3.0 D Differential Comment Manual diff done Platelet Estimate Adequate Sodium 132 L Potassium 3.7 Chloride 85 L Carbon Dioxide 37 H Anion Gap 10 BUN 60 H Creatinine 3.0 H Creat Clearance w eGFR 14.87 POC Glucometer Random Glucose 162 H D Calcium 8.2 L Total Bilirubin 0.5 AST 16 ALT 21 Alkaline Phosphatase 66 Total Protein 5.2 L Albumin 2.6 L Lipase 422 H Stool Occult Blood Blood Type Antibody Screen Crossmatch Spec Expiration Date Assessment/Plan Acute on chronic ckd PAF UTI Anemia,s/p blood transfusion hb/hct improved SOB/acute on chronic CHF HTN,Hypercholestrolemia Pulmonary vascular congestion,pul hypertension DM PLAN Continue bronchodialators Continue BP medications Monitor BUN/creatinine,CBC Monitor sugar Will f/u cardiology and renal ,endocrine,pul rec regarding Medication
[2016-08-13] MEDS ORDERED: PT OWN MED DRAWER 7, Y5N ONE (11:04)
[2016-08-13] MEDS: hydrALAZINE HCL 25 MG TABLET (FP) PO SCH ×2 (11:16→22:35)
[2016-08-13] MEDS: CALCITRIOL 0.25 MCG CAPSULE (FP) PO SCH (11:16)
[2016-08-13] MEDS: ISOSORBIDE MONONITRATE 30 MG TAB.SR.24H (FP) PO SCH (11:17)
[2016-08-13] MEDS: APIXABAN 2.5 MG TABLET PO SCH (11:17)
[2016-08-13] MEDS: CEPHALEXIN MONOHYDRATE 500 MG CAPSULE (UD) PO SCH ×2 (11:17→22:35)
[2016-08-13] MEDS: FUROSEMIDE 100 MG/10 ML INJECTABLE VIAL IVPB SCH (11:18)
[2016-08-13] MEDS: POLYETHYLENE GLYCOL 3350 119 GM BTL PO SCH (11:19)
--- NOTE | 2016-08-13 11:37 | EKG ---
Test Reason : Blood Pressure : / mmHG Vent. Rate : 064 BPM Atrial Rate : 064 BPM P-R Int : 246 ms QRS Dur : 084 ms QT Int : 446 ms P-R-T Axes : 037 031 043 degrees QTc Int : 460 ms SINUS RHYTHM WITH 1ST DEGREE A-V BLOCK OTHERWISE NORMAL ECG WHEN COMPARED WITH ECG OF 08-AUG-2016 15:06, SINUS RHYTHM HAS REPLACED ATRIAL FIBRILLATION Confirmed by BRYANNA CEE, DIMAS ([id number]) on 08/13/2016 11:37:40 AM Referred By: Barbie MONTERO Confirmed By:DIMAS GOULD MD
--- NOTE | 2016-08-13 13:42 | PN ---
Progress Note (short form) - Note Progress Note: Feels better Moved bowels today, No black stools or blood in stool Tolerating liquid diet BGM improving off Prednisone Vital Signs Period Temp Pulse Resp BP Sys/[place] Pulse Ox Last 24 Hr 97.6 F-97.9 F 68-87 18-20 121-150/61-80 96 PE: AOX3 Neck: Supple, No JVD HEENT: PERRL, EOMI Lungs: CTA CVS: S1S2 Abd: Benign, +BS Ext: No edema Neuro: No focal deficit CMP Sodium 132 mmol/L (136-145) L 08/13/16 06:45 Potassium 3.7 mmol/L (3.5-5.1) 08/13/16 06:45 Chloride 85 mmol/L (98-107) L 08/13/16 06:45 Carbon Dioxide 37 mmol/L (21-32) H 08/13/16 06:45 Anion Gap 10 (8-16) 08/13/16 06:45 BUN 60 mg/dL (7-18) H 08/13/16 06:45 Creatinine 3.0 mg/dL (0.55-1.02) H 08/13/16 06:45 Creat Clearance w eGFR 14.87 (>60) 08/13/16 06:45 POC Glucometer 194 UNITS (()) 08/13/16 11:14 Random Glucose 162 mg/dL (74-106) H D 08/13/16 06:45 Calcium 8.2 mg/dL (8.5-10.1) L 08/13/16 06:45 Phosphorus 3.4 mg/dL (2.5-4.9) 08/12/16 06:00 Magnesium 1.8 mg/dL (1.8-2.4) 08/11/16 06:00 Iron 78 ug/dL (27-139) 08/09/16 05:35 TIBC 223 ug/dL (250-450) L 08/09/16 05:35 Iron Saturation 35 % (15-55) 08/09/16 05:35 Ferritin 89.957 ng/ml (6.9-282.5) 08/09/16 05:35 Total Bilirubin 0.5 mg/dL (0.2-1.0) 08/13/16 06:45 AST 16 U/L (15-37) 08/13/16 06:45 ALT 21 U/L (12-78) 08/13/16 06:45 Alkaline Phosphatase 66 U/L (45-117) 08/13/16 06:45 LD Total 280 U/L (84-246) H 08/11/16 06:00 Creatine Kinase 143 IU/L (26-192) 07/28/16 06:00 CK-MB (CK-2) 3.794 ng/ml (0.5-3.6) H 07/27/16 18:55 Troponin I < 0.02 ng/ml (0.00-0.05) 07/28/16 06:00 B-Natriuretic Peptide 1614.88 pg/ml (5-450) H 07/27/16 07:56 Prot Electrophoresis (.) 08/01/16 13:02 Serum Total Protein 6.9 g/dL (6.0-8.5) 08/01/16 13:02 Total Protein 5.2 g/dl (6.4-8.2) L 08/13/16 06:45 Albumin 2.6 g/dl (3.4-5.0) L 08/13/16 06:45 Globulin 3.6 g/dL (2.2-3.9) 08/01/16 13:02 Albumin/Globulin Ratio 0.9 (0.7-1.7) 08/01/16 13:02 Wdwhp-2-Pizkgfwiu 0.3 gm/dL (0.0-0.4) 08/01/16 13:02 Wglnc-9-Zratrxktk (%) 0.8 % (.) 08/01/16 12:00 Kogrz-7-Ylzzidjzh 1.1 gm/dL (0.4-1.0) H 08/01/16 13:02 Xtame-0-Qracoeabf (%) 3.7 % (.) 08/01/16 12:00 Beta Globulins 1.0 gm/dL (0.7-1.3) 08/01/16 13:02 Beta Globulins (%) 16.5 % (.) 08/01/16 12:00 Gamma Globulins 1.2 gm/dL (0.4-1.8) 08/01/16 13:02 Gamma Globulins (%) 13.6 % (.) 08/01/16 12:00 M-Constantin % Not observed % (Not Observed) 08/01/16 12:00 Total Amylase 230 U/L (25-115) H 08/04/16 05:45 Lipase 422 U/L (73-393) H 08/13/16 06:45 Vitamin B12 775 pg/ml (180-914) 08/10/16 06:50 Folate 1119 ng/mL (>498) 08/10/16 06:50 Folate Hemolysate 292.1 ng/mL (Not Estab.) 08/10/16 06:50 TSH 1.10 uIU/ml (0.358-3.74) D 08/10/16 06:50 Free T4 1.02 ng/dl (0.76-1.46) 08/10/16 06:50 Current Medications Generic Name Dose Route Start Last Admin Trade Name Freq PRN Reason Stop Dose Admin Acetaminophen 650 mg 07/30/16 15:50 08/07/16 04:25 Tylenol - PO 650 mg Q6H PRN Administration FEVER OR PAIN Apixaban 2.5 mg 08/12/16 22:00 08/13/16 11:17 Eliquis - PO 2.5 mg BID [facility] Administration Atorvastatin Calcium 10 mg 07/27/16 22:00 08/12/16 21:47 Lipitor - PO 10 mg HS [facility] Administration Calcitriol 0.5 mcg 07/27/16 18:00 08/13/16 11:16 Rocaltrol - PO 0.5 mcg DAILY [facility] Administration Cephalexin HCl 500 mg 08/10/16 11:30 08/13/16 11:17 Keflex - PO 500 mg BID [facility] Administration Diltiazem HCl 240 mg 08/08/16 10:00 08/13/16 11:16 Cardizem Cd - PO 240 mg DAILY [facility] Administration Furosemide 80 mg 08/08/16 10:00 08/13/16 11:18 Lasix Injection - IVPB 80 mg DAILY [facility] Administration Hydralazine HCl 25 mg 07/27/16 18:30 08/13/16 11:16 Apresoline - PO 25 mg BID [facility] Administration Pantoprazole Sodium 80 mg/ 100 mls @ 10 mls/hr 08/09/16 18:00 08/13/16 13:20 Sodium Chloride IVPB 10 mls/hr Q10H [facility] Administration 8 MG/HR Insulin Aspart 1 vial 08/11/16 16:30 08/12/16 21:48 Novolog Vial Sliding Scale - SQ 2 units HS [facility] Administration Protocol Insulin Aspart 1 vial 08/12/16 14:14 08/13/16 12:27 Novolog Vial Sliding Scale - SQ 6 unit TIDAC [facility] Administration Protocol Insulin Detemir 8 units 08/12/16 22:00 08/12/16 21:48 Levemir Vial SQ 8 units HS [facility] Administration Isosorbide Mononitrate 30 mg 07/27/16 18:30 08/13/16 11:17 Imdur - PO 30 mg DAILY [facility] Administration Ondansetron HCl 4 mg 08/03/16 18:45 Zofran Injection IVPUSH Q4H PRN NAUSEA AND/OR VOMITING Polyethylene Glycol 17 gm 08/08/16 10:00 08/13/16 11:19 Miralax (For Daily Use) - PO Not Given DAILY [facility] AP: DM: Improving blood sugar Monitor BGM QACHS Levemir 8 units daily at HS, Hold if BGM <150 Novolog Coverage QACHS Will F/U Elevated lipase . Improving. 422 toda. Normal Pancreas on CT ?Pancreatitis Pt has multiple possible reasons for elevated Lipase including renal failure and use of Januvia, Methylprednosolone and Furosemide. Off Januvia now. Anemia/Drop in H/H: Stable now, stress Gastritis CHF Acute on Chronic renal insufficiency: Improving renal function HTN HLD Problem List - Problems (1) CKD (chronic kidney disease) Code(s): N18.9 - CHRONIC KIDNEY DISEASE, UNSPECIFIED Qualifiers: Qualified Code(s): N18.9 - Chronic kidney disease, unspecified (2) Hypertension Code(s): I10 - ESSENTIAL (PRIMARY) HYPERTENSION (3) SOB (shortness of breath) on exertion Code(s): R06.02 - SHORTNESS OF BREATH
--- NOTE | 2016-08-13 13:43 | PN ---
Progress Note, Physician History of Present Illness: 86y woman (b. Maira) with PM hx of lqfikyfgy-rj-rxtnucy HTN; DM;hyperlipidemia ; CKD, who now presents with sob. The patient has been feeling SOB with SOTO which began two weeks ago; she was admitted to [facility] for a cardiac workup, had a negative EKG (per daughter)and was d/chinmay home from ER. The pt fu with PMD a few days ago and was given a nebulizer. The pt states her sob worsened significantly last night; here was no significant improvement with the nebulizer. Pt states she gets the wheezing and sob when she ambulates short distances as well as up stairs, which is new (pt's daughter says she was able to walk slowly in the house on a regular basis without dyspnea until the past few weeks). The pt denies any associated cp (no cp since last admission to [place]), fever/chills. pt does endorse a mild nonproductive cough, orthopnea, mild lower extermity edema; denies fever. Stress test 2 months ago negative for myocardial ischemia or arrhythmias. - Current Medication List Current Medications: Active Medications Acetaminophen (Tylenol -) 650 mg PO Q6H PRN PRN Reason: FEVER OR PAIN Last Admin: 08/07/16 04:25 Dose: 650 mg Apixaban (Eliquis -) 2.5 mg PO BID [facility] Last Admin: 08/13/16 11:17 Dose: 2.5 mg Atorvastatin Calcium (Lipitor -) 10 mg PO HS [facility] Last Admin: 08/12/16 21:47 Dose: 10 mg Calcitriol (Rocaltrol -) 0.5 mcg PO DAILY [facility] Last Admin: 08/13/16 11:16 Dose: 0.5 mcg Cephalexin HCl (Keflex -) 500 mg PO BID [facility] Last Admin: 08/13/16 11:17 Dose: 500 mg Diltiazem HCl (Cardizem Cd -) 240 mg PO DAILY [facility] Last Admin: 08/13/16 11:16 Dose: 240 mg Furosemide (Lasix Injection -) 80 mg IVPB DAILY [facility] Last Admin: 08/13/16 11:18 Dose: 80 mg Hydralazine HCl (Apresoline -) 25 mg PO BID [facility] Last Admin: 08/13/16 11:16 Dose: 25 mg Pantoprazole Sodium 80 mg/ (Sodium Chloride) 100 mls @ 10 mls/hr IVPB Q10H [facility] PRN Reason: 8 MG/HR Last Admin: 08/13/16 13:20 Dose: 10 mls/hr Insulin Aspart (Novolog Vial Sliding Scale -) 1 vial SQ HS [facility] PRN Reason: Protocol Last Admin: 08/12/16 21:48 Dose: 2 units Insulin Aspart (Novolog Vial Sliding Scale -) 1 vial SQ TIDAC [facility] PRN Reason: Protocol Last Admin: 08/13/16 12:27 Dose: 6 unit Insulin Detemir (Levemir Vial) 8 units SQ HS [facility] Last Admin: 08/12/16 21:48 Dose: 8 units Isosorbide Mononitrate (Imdur -) 30 mg PO DAILY [facility] Last Admin: 08/13/16 11:17 Dose: 30 mg Ondansetron HCl (Zofran Injection) 4 mg IVPUSH Q4H PRN PRN Reason: NAUSEA AND/OR VOMITING Polyethylene Glycol (Miralax (For Daily Use) -) 17 gm PO DAILY [facility] Last Admin: 08/13/16 11:19 Dose: Not Given - Objective Vital Signs: Vital Signs Temperature 97.9 F 08/13/16 05:38 Pulse Rate 71 08/13/16 05:38 Respiratory Rate 18 08/13/16 05:38 Blood Pressure 121/80 08/13/16 05:38 O2 Sat by Pulse Oximetry (%) 96 08/12/16 21:00 Eyes: Yes: WNL, Conjunctiva Clear, EOM Intact HENT: Yes: WNL, Atraumatic, Normocephalic Neck: Yes: WNL, Supple, Trachea Midline Cardiovascular: Yes: WNL, Regular Rate and Rhythm Respiratory: Yes: WNL, Regular, CTA Bilaterally Gastrointestinal: Yes: WNL, Normal Bowel Sounds Genitourinary: Yes: WNL Musculoskeletal: Yes: WNL Extremities: Yes: WNL Edema: No Edema: LLE: 1+, RLE: 1+ Integumentary: Yes: WNL Neurological: Yes: WNL, Alert, Oriented ...Motor Strength: WNL Psychiatric: Yes: WNL Labs: CBC, BMP 08/13/16 06:45 08/13/16 06:45 INR, PTT INR 1.44 (0.82-1.09) H 02/22/17 05:35 Problem List - Problems (1) Acute on chronic diastolic CHF (congestive heart failure) Code(s): I50.33 - ACUTE ON CHRONIC DIASTOLIC (CONGESTIVE) HEART FAILURE (2) CKD (chronic kidney disease) Code(s): N18.9 - CHRONIC KIDNEY DISEASE, UNSPECIFIED Qualifiers: Qualified Code(s): N18.9 - Chronic kidney disease, unspecified (3) Diabetes 1.5, managed as type 1 Code(s): E13.9 - OTHER SPECIFIED DIABETES MELLITUS WITHOUT COMPLICATIONS (4) Hypertension Code(s): I10 - ESSENTIAL (PRIMARY) HYPERTENSION (5) Pulmonary hypertension Code(s): I27.2 - OTHER SECONDARY PULMONARY HYPERTENSION (6) Pulmonary vascular congestion Code(s): R09.89 - OTH SYMPTOMS AND SIGNS INVOLVING THE CIRC AND RESP SYSTEMS (7) SOB (shortness of breath) on exertion Code(s): R06.02 - SHORTNESS OF BREATH Assessment/Plan (1) CKD (chronic kidney disease) Assessment/Plan: Increasing BUN/Cr has led to stopping losartan. Furosemide IV 80 mg daily. f/u electrolytes, BUN/Cr, daily weight, Is and Os. Family defers hemodialysis presently. Code(s): N18.9 - CHRONIC KIDNEY DISEASE, UNSPECIFIED Qualifiers: Qualified Code(s): N18.9 - Chronic kidney disease, unspecified (2) Hypertension Assessment/Plan: Now well-controlled on diltiazem (changed to 240 mg CD daily on 08/08/2016), Hydralazine + Imdur, and amlodipine. Losartan held due to deteriorating renal function. F/u BP and HR. ECHO: normal LVEF; moderate-severe pulmonary HTN. Code(s): I10 - ESSENTIAL (PRIMARY) HYPERTENSION (3) Pulmonary vascular congestion Code(s): R09.89 - OTH SYMPTOMS AND SIGNS INVOLVING THE CIRC AND RESP SYSTEMS (4) SOB (shortness of breath) on exertion Assessment/Plan: leukocytosis (on steroids); afebrile; still with productive cough. Furosemide restarted; may require hemodialysis (family presently not in favor of this). f/u with international marketing coordinator. Code(s): R06.02 - SHORTNESS OF BREATH (5) Acute on chronic diastolic CHF (congestive heart failure) Code(s): I50.33 - ACUTE ON CHRONIC DIASTOLIC (CONGESTIVE) HEART FAILURE (6) Diabetes Assessment/Plan: markedly elevated glucose; now on steroids again for pulmonary dysfunction. F/u with street contractor. Code(s): E11.9 - TYPE 2 DIABETES MELLITUS WITHOUT COMPLICATIONS (7) Atrial fibrillation Assessment/Plan: On diltiazem for HR control Stool quaiac +.yesterday, but negative today. Hb stable. As discussed with Dr. Lisa, no present GI workup is contemplated, and Hb is stable post-PRBCs: pt may be restarted on Apixaban. Dr. Henson and I went over this in detail today. Discussed the pros and cons of anticoaguation with daughters, who telephoned other pertinent family members. They agreed on restart of apixaban. Check quiac tomorrow. F/u with GI, hematology. EKG in am. Code(s): I48.91 - UNSPECIFIED ATRIAL FIBRILLATION (8) Pulmonary hypertension Assessment/Plan: Moderate to severe pulmonary HTN; pt with mild MR and [place], (+) diastolic dysfunction; leukocytosis (on steroids earlier). Code(s): I27.2 - OTHER SECONDARY PULMONARY HYPERTENSION (9) Anemia Assessment/Plan: Restarted apixaban for AF. Stable Hb since unit of PRBC several days ago; quaiac negative today. F/u with GI, insurance office manager Code(s): D64.9 - ANEMIA, UNSPECIFIED
--- NOTE | 2016-08-13 16:05 | PN ---
GI Progress Note Subjective: Dark BM today, guaiac + from specimen sent today Eliquis was started back over the weekend - Objective Vital Signs: Vital Signs Temperature 97.6 F 08/13/16 15:15 Pulse Rate 72 08/13/16 15:15 Respiratory Rate 18 08/13/16 15:15 Blood Pressure 121/80 08/13/16 05:38 O2 Sat by Pulse Oximetry (%) 96 08/12/16 21:00 Constitutional: Calm Eyes: No: Sclera Icterus Cardiovascular: Yes: Regular Rate and Rhythm Respiratory: Yes: CTA Bilaterally Gastrointestinal Inspection: No: Distention ...Auscultate: Yes: Normoactive Bowel Sounds ...Palpate: Yes: Tenderness (mild TTP epigastrium) ...Percussion: No: Tympanitic Neurological: Yes: Alert Labs: CBC, BMP 08/13/16 06:45 08/13/16 06:45 INR, PTT INR 1.44 (0.82-1.09) H 08/08/16 05:35 Laboratory Tests 08/12/16 08/13/16 06:00 06:45 Hgb 9.5 L 8.6 L Assessment/Plan GI Bleed: H/H dwindled with continued dark BM's Discussed the above with Ms. box's daughter who was present bedside. Discussed the possibility of having upper endoscopy performed for further evaluation. Discussed potential risks of the procedure like but not limited to bleeding, perforation requiring surgery to repair, infection,sedation medication effects all of which could be potentially life threatening. Her daughter would like to discuss things with the rest of her family prior to making a decision regarding EGD. I gave her my office number if either her or her other family members needed to discuss things further with me. Would D/C PPI drip in AM and change to PO protonix Full liquids Monitor H/H Hold Eliquis again. Discussed with Dr. Garcia
--- NOTE | 2016-08-13 16:56 | PN ---
Progress Note, Physician History of Present Illness: Pt seen and examined at bedside. No acute change. - Current Medication List Current Medications: Active Medications Acetaminophen (Tylenol -) 650 mg PO Q6H PRN PRN Reason: FEVER OR PAIN Last Admin: 08/07/16 04:25 Dose: 650 mg Atorvastatin Calcium (Lipitor -) 10 mg PO HS [facility] Last Admin: 08/12/16 21:47 Dose: 10 mg Calcitriol (Rocaltrol -) 0.5 mcg PO DAILY [facility] Last Admin: 08/13/16 11:16 Dose: 0.5 mcg Cephalexin HCl (Keflex -) 500 mg PO BID [facility] Last Admin: 08/13/16 11:17 Dose: 500 mg Diltiazem HCl (Cardizem Cd -) 240 mg PO DAILY [facility] Last Admin: 08/13/16 11:16 Dose: 240 mg Furosemide (Lasix Injection -) 80 mg IVPB DAILY [facility] Last Admin: 08/13/16 11:18 Dose: 80 mg Hydralazine HCl (Apresoline -) 25 mg PO BID [facility] Last Admin: 08/13/16 11:16 Dose: 25 mg Pantoprazole Sodium 80 mg/ (Sodium Chloride) 100 mls @ 10 mls/hr IVPB Q10H VANI PRN Reason: 8 MG/HR Last Admin: 08/13/16 13:20 Dose: 10 mls/hr Insulin Aspart (Novolog Vial Sliding Scale -) 1 vial SQ HS [facility] PRN Reason: Protocol Last Admin: 08/12/16 21:48 Dose: 2 units Insulin Aspart (Novolog Vial Sliding Scale -) 1 vial SQ TIDAC [facility] PRN Reason: Protocol Last Admin: 08/13/16 12:27 Dose: 6 unit Insulin Detemir (Levemir Vial) 8 units SQ HS [facility] Last Admin: 08/12/16 21:48 Dose: 8 units Isosorbide Mononitrate (Imdur -) 30 mg PO DAILY [facility] Last Admin: 08/13/16 11:17 Dose: 30 mg Ondansetron HCl (Zofran Injection) 4 mg IVPUSH Q4H PRN PRN Reason: NAUSEA AND/OR VOMITING Polyethylene Glycol (Miralax (For Daily Use) -) 17 gm PO DAILY [facility] Last Admin: 08/13/16 11:19 Dose: Not Given - Objective Vital Signs: Vital Signs Temperature 97.6 F 08/13/16 15:15 Pulse Rate 72 08/13/16 15:15 Respiratory Rate 18 08/13/16 15:15 Blood Pressure 147/80 08/13/16 09:00 O2 Sat by Pulse Oximetry (%) 99 08/13/16 09:00 Constitutional: Yes: Calm Eyes: Yes: Conjunctiva Clear HENT: Yes: Atraumatic Neck: Yes: Supple Cardiovascular: Yes: S1, S2 Respiratory: Yes: CTA Bilaterally Gastrointestinal: Yes: Soft, Abdomen, Obese Genitourinary: Yes: WNL Extremities: Yes: WNL Edema: No Neurological: Yes: Oriented Psychiatric: Yes: Oriented Labs: CBC, BMP 08/13/16 06:45 08/13/16 06:45 INR, PTT INR 1.44 (0.82-1.09) H 08/08/16 05:35 Problem List - Problems (1) CKD (chronic kidney disease) Code(s): N18.9 - CHRONIC KIDNEY DISEASE, UNSPECIFIED Qualifiers: Qualified Code(s): N18.9 - Chronic kidney disease, unspecified (2) Pulmonary vascular congestion Code(s): R09.89 - OTH SYMPTOMS AND SIGNS INVOLVING THE CIRC AND RESP SYSTEMS (3) SOB (shortness of breath) on exertion Code(s): R06.02 - SHORTNESS OF BREATH (4) Hypertension Code(s): I10 - ESSENTIAL (PRIMARY) HYPERTENSION (5) Diabetes 1.5, managed as type 1 Code(s): E13.9 - OTHER SPECIFIED DIABETES MELLITUS WITHOUT COMPLICATIONS Assessment/Plan Current Medications Generic Name Dose Route Start Last Admin Trade Name Freq PRN Reason Stop Dose Admin Acetaminophen 650 mg 07/30/16 15:50 08/07/16 04:25 Tylenol - PO 650 mg Q6H PRN Administration FEVER OR PAIN Atorvastatin Calcium 10 mg 07/27/16 22:00 08/12/16 21:47 Lipitor - PO 10 mg HS VANI Administration Calcitriol 0.5 mcg 07/27/16 18:00 08/13/16 11:16 Rocaltrol - PO 0.5 mcg DAILY VANI Administration Cephalexin HCl 500 mg 08/10/16 11:30 08/13/16 11:17 Keflex - PO 500 mg BID VANI Administration Diltiazem HCl 240 mg 08/08/16 10:00 08/13/16 11:16 Cardizem Cd - PO 240 mg DAILY VANI Administration Furosemide 80 mg 08/08/16 10:00 08/13/16 11:18 Lasix Injection - IVPB 80 mg DAILY [facility]ANI Administration Hydralazine HCl 25 mg 07/27/16 18:30 08/13/16 11:16 Apresoline - PO 25 mg BID VANI Administration Pantoprazole Sodium 80 mg/ 100 mls @ 10 mls/hr 08/09/16 18:00 08/13/16 13:20 Sodium Chloride IVPB 10 mls/hr Q10H VANI Administration 8 MG/HR Insulin Aspart 1 vial 08/11/16 16:30 08/12/16 21:48 Novolog Vial Sliding Scale - SQ 2 units HS VANI Administration Protocol Insulin Aspart 1 vial 08/12/16 14:14 08/13/16 12:27 Novolog Vial Sliding Scale - SQ 6 unit TIDAC VANI Administration Protocol Insulin Detemir 8 units 08/12/16 22:00 08/12/16 21:48 Levemir Vial SQ 8 units HS VANI Administration Isosorbide Mononitrate 30 mg 07/27/16 18:30 08/13/16 11:17 Imdur - PO 30 mg DAILY [facility]ANI Administration Ondansetron HCl 4 mg 08/03/16 18:45 Zofran Injection IVPUSH Q4H PRN NAUSEA AND/OR VOMITING Polyethylene Glycol 17 gm 08/08/16 10:00 08/13/16 11:19 Miralax (For Daily Use) - PO Not Given DAILY VANI Impression 1. CKD 2. HTN 3. DM 4. dyspnea 5. hyperlipidemia 6. anemia 7. hyponatremia 8. pulmonary htn Plan - cont with diuretics - pt has appetite, discussed diet with GI - monitor hg - repeat labs in am - no acute change in management from renal perspective - will discuss with cardio today - will need better glucose control - will follow Dr Fleming
[2016-08-13] MEDS ORDERED: ALBUTEROL SO4 2.5/IPRATROPIUM 0.5 INH SOL 3 ML VIAL.NEB. NEB PRN (17:36)
--- NOTE | 2016-08-13 17:36 | PN ---
Progress Note, Physician History of Present Illness: pulmonary alert,oob-chair,-sob,-congestion - Current Medication List Current Medications: Active Medications Acetaminophen (Tylenol -) 650 mg PO Q6H PRN PRN Reason: FEVER OR PAIN Last Admin: 08/07/16 04:25 Dose: 650 mg Atorvastatin Calcium (Lipitor -) 10 mg PO HS [facility] Last Admin: 08/12/16 21:47 Dose: 10 mg Calcitriol (Rocaltrol -) 0.5 mcg PO DAILY [facility] Last Admin: 08/13/16 11:16 Dose: 0.5 mcg Cephalexin HCl (Keflex -) 500 mg PO BID [facility] Last Admin: 08/13/16 11:17 Dose: 500 mg Diltiazem HCl (Cardizem Cd -) 240 mg PO DAILY [facility] Last Admin: 08/13/16 11:16 Dose: 240 mg Furosemide (Lasix Injection -) 80 mg IVPB DAILY [facility] Last Admin: 08/13/16 11:18 Dose: 80 mg Hydralazine HCl (Apresoline -) 25 mg PO BID [facility] Last Admin: 08/13/16 11:16 Dose: 25 mg Pantoprazole Sodium 80 mg/ (Sodium Chloride) 100 mls @ 10 mls/hr IVPB Q10H [facility] PRN Reason: 8 MG/HR Last Admin: 08/13/16 13:20 Dose: 10 mls/hr Insulin Aspart (Novolog Vial Sliding Scale -) 1 vial SQ HS [facility] PRN Reason: Protocol Last Admin: 08/12/16 21:48 Dose: 2 units Insulin Aspart (Novolog Vial Sliding Scale -) 1 vial SQ TIDAC [facility] PRN Reason: Protocol Last Admin: 08/13/16 12:27 Dose: 6 unit Insulin Detemir (Levemir Vial) 8 units SQ HS [facility] Last Admin: 08/12/16 21:48 Dose: 8 units Isosorbide Mononitrate (Imdur -) 30 mg PO DAILY [facility] Last Admin: 08/13/16 11:17 Dose: 30 mg Ondansetron HCl (Zofran Injection) 4 mg IVPUSH Q4H PRN PRN Reason: NAUSEA AND/OR VOMITING Polyethylene Glycol (Miralax (For Daily Use) -) 17 gm PO DAILY [facility] Last Admin: 08/13/16 11:19 Dose: Not Given - Objective Vital Signs: Vital Signs Temperature 97.6 F 08/13/16 15:15 Pulse Rate 72 08/13/16 15:15 Respiratory Rate 18 08/13/16 15:15 Blood Pressure 147/80 08/13/16 09:00 O2 Sat by Pulse Oximetry (%) 99 08/13/16 09:00 Constitutional: Yes: Well Nourished, Calm Eyes: Yes: WNL HENT: Yes: WNL Neck: Yes: WNL Cardiovascular: Yes: Pulse Irregular, S1, S2 Respiratory: No: Rales (few bibasilar crackles) Gastrointestinal: Yes: Normal Bowel Sounds, Soft Extremities: Yes: WNL Edema: No Labs: CBC, BMP 08/13/16 06:45 08/13/16 06:45 INR, PTT INR 1.44 (0.82-1.09) H 08/08/16 05:35 Problem List - Problems (1) Acute on chronic diastolic CHF (congestive heart failure) Code(s): I50.33 - ACUTE ON CHRONIC DIASTOLIC (CONGESTIVE) HEART FAILURE (2) CKD (chronic kidney disease) Code(s): N18.9 - CHRONIC KIDNEY DISEASE, UNSPECIFIED Qualifiers: Qualified Code(s): N18.9 - Chronic kidney disease, unspecified (3) Diabetes 1.5, managed as type 1 Code(s): E13.9 - OTHER SPECIFIED DIABETES MELLITUS WITHOUT COMPLICATIONS (4) Hypertension Code(s): I10 - ESSENTIAL (PRIMARY) HYPERTENSION (5) Pulmonary vascular congestion Code(s): R09.89 - OTH SYMPTOMS AND SIGNS INVOLVING THE CIRC AND RESP SYSTEMS (6) SOB (shortness of breath) on exertion Code(s): R06.02 - SHORTNESS OF BREATH (7) Pulmonary hypertension Code(s): I27.2 - OTHER SECONDARY PULMONARY HYPERTENSION Assessment/Plan IMP DECOMPENSATED DIASTOLIC CHF clinically improving PUL HTN ACUTE ON CHRONIC KIDNEY DISEASE IMPROVING DM HTN AFIB ANEMIA PLAN INHALED BRONCHODILATORS SUPPLEMENTAL O2 DVT PROPHYLAXIS MONITOR RENAL FUNCTION ANTICOAGULATION DAILY WTS F/U CHEST X-RAYS RUBIN ESPOSITO Problem List - Problems (1) Acute on chronic diastolic CHF (congestive heart failure) Code(s): I50.33 - ACUTE ON CHRONIC DIASTOLIC (CONGESTIVE) HEART FAILURE (2) CKD (chronic kidney disease) Code(s): N18.9 - CHRONIC KIDNEY DISEASE, UNSPECIFIED Qualifiers: Chronic kidney disease stage: unspecified stage Qualified Code(s): N18.9 - Chronic kidney disease, unspecified (3) Diabetes 1.5, managed as type 1 Code(s): E13.9 - OTHER SPECIFIED DIABETES MELLITUS WITHOUT COMPLICATIONS (4) Hypertension Code(s): I10 - ESSENTIAL (PRIMARY) HYPERTENSION (5) Pulmonary vascular congestion Code(s): R09.89 - OTH SYMPTOMS AND SIGNS INVOLVING THE CIRC AND RESP SYSTEMS (6) SOB (shortness of breath) on exertion Code(s): R06.02 - SHORTNESS OF BREATH (7) Pulmonary hypertension Code(s): I27.2 - OTHER SECONDARY PULMONARY HYPERTENSION
--- NOTE | 2016-08-13 22:23 | PN ---
Progress Note (short form) - Note Progress Note: Patient seen and examined comfortable AFVSS HEENT: JAVI, EOM Intact Cor: RSR, No murmurs, No gallops Lungs: Clear to P&A Abd: Soft, Normal bowel sounds, mildly distended Ext:No significant edema Abnormal Lab Results 08/14/16 08/14/16 06:00 06:00 WBC 15.9 H RBC 3.16 L Hgb 9.0 L Hct 26.6 L Sodium 135 L Chloride 91 L Carbon Dioxide 35 H BUN 49 H Creatinine 3.2 H Random Glucose 144 H Calcium 8.1 L Magnesium 1.6 L Total Protein 5.5 L Albumin 2.7 L Current Medications Acetaminophen (Tylenol -) 650 mg PO Q6H PRN PRN Reason: FEVER OR PAIN Last Admin: 08/07/16 04:25 Dose: 650 mg Albuterol/Ipratropium (Duoneb -) 1 amp NEB Q4H PRN PRN Reason: SHORTNESS OF BREATH Atorvastatin Calcium (Lipitor -) 10 mg PO HS [facility] Last Admin: 08/13/16 22:35 Dose: 10 mg Calcitriol (Rocaltrol -) 0.5 mcg PO DAILY [facility] Last Admin: 08/14/16 09:59 Dose: 0.5 mcg Cephalexin HCl (Keflex -) 500 mg PO BID [facility] Last Admin: 08/14/16 09:58 Dose: 500 mg Diltiazem HCl (Cardizem Cd -) 240 mg PO DAILY [facility] Last Admin: 08/14/16 09:58 Dose: 240 mg Furosemide (Lasix Injection -) 80 mg IVPB DAILY [facility] Last Admin: 08/14/16 10:00 Dose: 80 mg Hydralazine HCl (Apresoline -) 25 mg PO BID [facility] Last Admin: 08/14/16 09:59 Dose: 25 mg Pantoprazole Sodium 80 mg/ (Sodium Chloride) 100 mls @ 10 mls/hr IVPB Q10H [facility] PRN Reason: 8 MG/HR Last Admin: 08/14/16 08:50 Dose: 10 mls/hr Insulin Aspart (Novolog Vial Sliding Scale -) 1 vial SQ HS [facility] PRN Reason: Protocol Last Admin: 08/13/16 22:40 Dose: 2 units Insulin Aspart (Novolog Vial Sliding Scale -) 1 vial SQ TIDAC [facility] PRN Reason: Protocol Insulin Detemir (Levemir Vial) 10 units SQ HS [facility] Isosorbide Mononitrate (Imdur -) 30 mg PO DAILY [facility] Last Admin: 08/14/16 09:59 Dose: 30 mg Ondansetron HCl (Zofran Injection) 4 mg IVPUSH Q4H PRN PRN Reason: NAUSEA AND/OR VOMITING Polyethylene Glycol (Miralax (For Daily Use) -) 17 gm PO DAILY [facility] Last Admin: 08/13/16 11:19 Dose: Not Given A/P 86 y/o patient with HTN, DM, CKD, CHF, afib, now with gradually dropping Hemoglobin, worsening renal function anemia of chronic disease due to worsening renal function/CHF + gi bleed iron studies s/o anemia of chronic disease TSH--nl SIFE --neg. B12/folate nl transfused 1 unit PRBCs 08/09 hgb 8.6 stool occult + discussed with gi--holding eliquis and discussing with family about possible EGD on sat/sat increased WBC --? reactive ?steroids
[2016-08-13] MEDS: ATORVASTATIN CA 10 MG TABLET (FP) PO SCH (22:35)
[2016-08-13] MEDS: INSULIN DETEMIR 100 UNITS/ML MDV SQ SCH (22:35)
[2016-08-14] MEDS ORDERED: INSULIN (NOVOLOG) ASPART 100 UNITS/ML 10ML VIAL ONE (06:31)
[2016-08-14] MEDS: INSULIN SLIDING SCALE (NOVOLOG) 1 VIAL SQ SCH ×4 (06:34→21:19)
[2016-08-14 07:43] LABS: BASOPHIL 0.4 % (0-2.0); EOSINOPHIL 2.1 % (0-4.5); MCH 28.6 pg (25.7-33.7); MEAN CELL VOLUME 84.3 fl (80-96); MEAN PLT VOLUME 7.7 fl (7.5-11.1); NEUTROPHILS 75.4 % (42.8-82.8); PLATELET COUNT 211 K/MM3 (134-434); WHITE BLOOD COUNT 15.9 K/mm3 (4.0-10.0)
[2016-08-14] MEDS: PANTOPRAZOLE SODIUM 80 MG in SODIUM CHLORIDE 100 ML IVPB SCH (08:50)
[2016-08-14 08:56] LABS: ALBUMIN 2.7 g/dl (3.4-5.0); BILIRUBIN,TOTAL 0.4 mg/dL (0.2-1.0); CALCIUM 8.1 mg/dL (8.5-10.1); CREATININE 3.2 mg/dL (0.55-1.02); MAGNESIUM 1.6 mg/dL (1.8-2.4); PHOSPHOROUS 2.8 mg/dL (2.5-4.9); TOT PROT 5.5 g/dl (6.4-8.2)
--- NOTE | 2016-08-14 09:04 | PN ---
Progress Note (short form) - Note Progress Note: Feels better Moved bowels today, No black stools or blood in stool No abd pain, No N/V Apetite good Tolerating liquid diet BGM fluctuating Vital Signs Period Temp Pulse Resp BP Sys/Cl[place] Pulse Ox Last 24 Hr 97.6 F-98.5 F 72-83 18-18 125-147/51-77 99 PE: AOX3 Neck: Supple, No JVD HEENT: PERRL, EOMI Lungs: CTA CVS: S1S2 Abd: Benign, +BS Ext: No edema Neuro: No focal deficit CBC WBC 15.9 K/mm3 (4.0-10.0) H 08/14/16 06:00 Corrected WBC (auto) 22.50 K/mm3 08/11/16 06:00 RBC 3.16 M/mm3 (3.60-5.2) L 08/14/16 06:00 Hgb 9.0 GM/dL (10.7-15.3) L 08/14/16 06:00 Hct 26.6 % (32.4-45.2) L 08/14/16 06:00 MCV 84.3 fl (80-96) 08/14/16 06:00 MCHC 34.0 g/dl (32.0-36.0) 08/14/16 06:00 RDW 14.0 % (11.6-15.6) 08/14/16 06:00 Plt Count 211 K/MM3 (134-434) 08/14/16 06:00 MPV 7.7 fl (7.5-11.1) 08/14/16 06:00 Neutrophils % 75.4 % (42.8-82.8) 08/14/16 06:00 Lymphocytes % 15.5 % (8-40) D 08/14/16 06:00 Monocytes % 6.6 % (3.8-10.2) 08/14/16 06:00 Eosinophils % 2.1 % (0-4.5) 08/14/16 06:00 Basophils % 0.4 % (0-2.0) 08/14/16 06:00 Band Neutrophils 4.0 % (0-10) D 08/11/16 06:00 Metamyelocytes 2 % (0-2) D 08/10/16 06:50 Myelocytes 4 % (0-2) H D 08/09/16 07:50 Differential Comment Manual diff done 08/13/16 06:45 Platelet Estimate Adequate (NORMAL) 08/13/16 06:45 Platelet Comment No clumping noted 08/11/16 06:00 Platelet Comment No clotting detected 08/11/16 06:00 Hypochromic-Microcytic 1+ 08/11/16 06:00 Anisocytosis 1+ 08/11/16 06:00 Schistocytes 1+ 08/08/16 05:35 Morphology Comment Slide scanned 08/08/16 05:35 Haptoglobin 124 mg/dL (34-200) 08/11/16 06:00 CMP Sodium 132 mmol/L (136-145) L 08/13/16 06:45 Potassium 3.7 mmol/L (3.5-5.1) 08/13/16 06:45 Chloride 85 mmol/L (98-107) L 08/13/16 06:45 Carbon Dioxide 37 mmol/L (21-32) H 08/13/16 06:45 Anion Gap 10 (8-16) 08/13/16 06:45 BUN 60 mg/dL (7-18) H 08/13/16 06:45 Creatinine 3.0 mg/dL (0.55-1.02) H 08/13/16 06:45 Creat Clearance w eGFR 14.87 (>60) 08/13/16 06:45 POC Glucometer 173 UNITS (()) 08/14/16 06:29 Random Glucose 162 mg/dL (74-106) H D 08/13/16 06:45 Calcium 8.2 mg/dL (8.5-10.1) L 08/13/16 06:45 Phosphorus 3.4 mg/dL (2.5-4.9) 08/12/16 06:00 Magnesium 1.8 mg/dL (1.8-2.4) 08/11/16 06:00 Iron 78 ug/dL (27-139) 08/09/16 05:35 TIBC 223 ug/dL (250-450) L 08/09/16 05:35 Iron Saturation 35 % (15-55) 08/09/16 05:35 Ferritin 89.957 ng/ml (6.9-282.5) 08/09/16 05:35 Total Bilirubin 0.5 mg/dL (0.2-1.0) 08/13/16 06:45 AST 16 U/L (15-37) 08/13/16 06:45 ALT 21 U/L (12-78) 08/13/16 06:45 Alkaline Phosphatase 66 U/L (45-117) 08/13/16 06:45 LD Total 280 U/L (84-246) H 08/11/16 06:00 Creatine Kinase 143 IU/L (26-192) 07/28/16 06:00 CK-MB (CK-2) 3.794 ng/ml (0.5-3.6) H 07/27/16 18:55 Troponin I < 0.02 ng/ml (0.00-0.05) 07/28/16 06:00 B-Natriuretic Peptide 1614.88 pg/ml (5-450) H 07/27/16 07:56 Prot Electrophoresis (.) 08/01/16 13:02 Serum Total Protein 6.9 g/dL (6.0-8.5) 08/01/16 13:02 Total Protein 5.2 g/dl (6.4-8.2) L 08/13/16 06:45 Albumin 2.6 g/dl (3.4-5.0) L 08/13/16 06:45 Globulin 3.6 g/dL (2.2-3.9) 08/01/16 13:02 Albumin/Globulin Ratio 0.9 (0.7-1.7) 08/01/16 13:02 Mvacr-3-Ojzkarpdp 0.3 gm/dL (0.0-0.4) 08/01/16 13:02 Bxerk-0-Glwizpnra (%) 0.8 % (.) 08/01/16 12:00 Udfec-2-Rgvxiffpz 1.1 gm/dL (0.4-1.0) H 08/01/16 13:02 Gnsaf-1-Mhucveeis (%) 3.7 % (.) 08/01/16 12:00 Beta Globulins 1.0 gm/dL (0.7-1.3) 08/01/16 13:02 Beta Globulins (%) 16.5 % (.) 08/01/16 12:00 Gamma Globulins 1.2 gm/dL (0.4-1.8) 08/01/16 13:02 Gamma Globulins (%) 13.6 % (.) 08/01/16 12:00 M-Constantin % Not observed % (Not Observed) 08/01/16 12:00 Total Amylase 230 U/L (25-115) H 08/04/16 05:45 Lipase 422 U/L (73-393) H 08/13/16 06:45 Vitamin B12 775 pg/ml (180-914) 08/10/16 06:50 Folate 1119 ng/mL (>498) 08/10/16 06:50 Folate Hemolysate 292.1 ng/mL (Not Estab.) 08/10/16 06:50 TSH 1.10 uIU/ml (0.358-3.74) D 08/10/16 06:50 Free T4 1.02 ng/dl (0.76-1.46) 08/10/16 06:50 Current Medications Generic Name Dose Route Start Last Admin Trade Name Freq PRN Reason Stop Dose Admin Acetaminophen 650 mg 07/30/16 15:50 08/07/16 04:25 Tylenol - PO 650 mg Q6H PRN Administration FEVER OR PAIN Albuterol/Ipratropium 1 amp 08/13/16 17:36 Duoneb - NEB Q4H PRN SHORTNESS OF BREATH Atorvastatin Calcium 10 mg 07/27/16 22:00 08/13/16 22:35 Lipitor - PO 10 mg HS VANI Administration Calcitriol 0.5 mcg 07/27/16 18:00 08/13/16 11:16 Rocaltrol - PO 0.5 mcg DAILY VANI Administration Cephalexin HCl 500 mg 08/10/16 11:30 08/13/16 22:35 Keflex - PO 500 mg BID VANI Administration Diltiazem HCl 240 mg 08/08/16 10:00 08/13/16 11:16 Cardizem Cd - PO 240 mg DAILY VANI Administration Furosemide 80 mg 08/08/16 10:00 08/13/16 11:18 Lasix Injection - IVPB 80 mg DAILY VANI Administration Hydralazine HCl 25 mg 07/27/16 18:30 08/13/16 22:35 Apresoline - PO 25 mg BID VANI Administration Pantoprazole Sodium 80 mg/ 100 mls @ 10 mls/hr 08/09/16 18:00 08/14/16 08:50 Sodium Chloride IVPB 10 mls/hr Q10H VANI Administration 8 MG/HR Insulin Aspart 1 vial 08/11/16 16:30 08/13/16 22:40 Novolog Vial Sliding Scale - SQ 2 units HS VANI Administration Protocol Insulin Aspart 1 vial 08/12/16 14:14 08/14/16 06:34 Novolog Vial Sliding Scale - SQ 6 unit TIDAC VANI Administration Protocol Insulin Detemir 8 units 08/12/16 22:00 08/13/16 22:35 Levemir Vial SQ 8 units HS VANI Administration Isosorbide Mononitrate 30 mg 07/27/16 18:30 08/13/16 11:17 Imdur - PO 30 mg DAILY VANI Administration Ondansetron HCl 4 mg 08/03/16 18:45 Zofran Injection IVPUSH Q4H PRN NAUSEA AND/OR VOMITING Polyethylene Glycol 17 gm 08/08/16 10:00 08/13/16 11:19 Miralax (For Daily Use) - PO Not Given DAILY VANI AP: DM: Fluctuating blood sugar Monitor BGM QACHS Increase Levemir 10 units daily at HS, Hold if BGM <150 Increase Novolog Coverage QACHS Will F/U Elevated lipase . Improving. 422 toda. Normal Pancreas on CT ?Pancreatitis Pt has multiple possible reasons for elevated Lipase including renal failure and use of Januvia, Methylprednosolone and Furosemide. Off Januvia now. Anemia/Drop in H/H: Stable now, stress Gastritis. Off Eliquis b/o GI bleeding with positive guaic test. CHF Acute on Chronic renal insufficiency: Improving renal function HTN HLD Problem List - Problems (1) CKD (chronic kidney disease) Code(s): N18.9 - CHRONIC KIDNEY DISEASE, UNSPECIFIED Qualifiers: Qualified Code(s): N18.9 - Chronic kidney disease, unspecified (2) Hypertension Code(s): I10 - ESSENTIAL (PRIMARY) HYPERTENSION (3) SOB (shortness of breath) on exertion Code(s): R06.02 - SHORTNESS OF BREATH
[2016-08-14] MEDS: CEPHALEXIN MONOHYDRATE 500 MG CAPSULE (UD) PO SCH ×2 (09:58→21:17)
[2016-08-14] MEDS: CALCITRIOL 0.25 MCG CAPSULE (FP) PO SCH (09:59)
[2016-08-14] MEDS: hydrALAZINE HCL 25 MG TABLET (FP) PO SCH ×2 (09:59→21:17)
[2016-08-14] MEDS: ISOSORBIDE MONONITRATE 30 MG TAB.SR.24H (FP) PO SCH (09:59)
[2016-08-14] MEDS: FUROSEMIDE 100 MG/10 ML INJECTABLE VIAL IVPB SCH (10:00)
--- NOTE | 2016-08-14 10:03 | PN ---
Progress Note, Physician Chief Complaint: Pt seen and examined SOB improved rpt hb/hct stable stool guiac positive yesterday Cardiology,RENAl,pul GI note appreciated GI rec Endoscopy as per stool guiac positive Elequis on hold - Current Medication List Current Medications: Active Medications Acetaminophen (Tylenol -) 650 mg PO Q6H PRN PRN Reason: FEVER OR PAIN Last Admin: 08/07/16 04:25 Dose: 650 mg Albuterol/Ipratropium (Duoneb -) 1 amp NEB Q4H PRN PRN Reason: SHORTNESS OF BREATH Atorvastatin Calcium (Lipitor -) 10 mg PO HS [facility] Last Admin: 08/13/16 22:35 Dose: 10 mg Calcitriol (Rocaltrol -) 0.5 mcg PO DAILY [facility] Last Admin: 08/13/16 11:16 Dose: 0.5 mcg Cephalexin HCl (Keflex -) 500 mg PO BID [facility] Last Admin: 08/13/16 22:35 Dose: 500 mg Diltiazem HCl (Cardizem Cd -) 240 mg PO DAILY [facility] Last Admin: 08/13/16 11:16 Dose: 240 mg Furosemide (Lasix Injection -) 80 mg IVPB DAILY [facility] Last Admin: 08/13/16 11:18 Dose: 80 mg Hydralazine HCl (Apresoline -) 25 mg PO BID [facility] Last Admin: 08/13/16 22:35 Dose: 25 mg Pantoprazole Sodium 80 mg/ (Sodium Chloride) 100 mls @ 10 mls/hr IVPB Q10H [facility] PRN Reason: 8 MG/HR Last Admin: 08/14/16 08:50 Dose: 10 mls/hr Insulin Aspart (Novolog Vial Sliding Scale -) 1 vial SQ HS [facility] PRN Reason: Protocol Last Admin: 08/13/16 22:40 Dose: 2 units Insulin Aspart (Novolog Vial Sliding Scale -) 1 vial SQ TIDAC [facility] PRN Reason: Protocol Insulin Detemir (Levemir Vial) 10 units SQ HS [facility] Isosorbide Mononitrate (Imdur -) 30 mg PO DAILY [facility] Last Admin: 08/13/16 11:17 Dose: 30 mg Ondansetron HCl (Zofran Injection) 4 mg IVPUSH Q4H PRN PRN Reason: NAUSEA AND/OR VOMITING Polyethylene Glycol (Miralax (For Daily Use) -) 17 gm PO DAILY [facility] Last Admin: 08/13/16 11:19 Dose: Not Given - Objective Vital Signs: Vital Signs Temperature 98.5 F 08/14/16 05:21 Pulse Rate 83 08/14/16 05:21 Respiratory Rate 18 08/14/16 05:21 Blood Pressure 125/51 08/14/16 05:21 O2 Sat by Pulse Oximetry (%) 99 08/13/16 21:00 Constitutional: Yes: No Distress Eyes: Yes: Conjunctiva Clear HENT: Yes: Atraumatic, Normocephalic Neck: Yes: Supple, Trachea Midline Cardiovascular: Yes: Regular Rate and Rhythm Respiratory: Yes: Regular, CTA Bilaterally Gastrointestinal: Yes: Normal Bowel Sounds, Soft Edema: Yes Edema: LLE: Trace, RLE: Trace Neurological: Yes: Alert, Oriented Psychiatric: Yes: Alert, Oriented Labs: CBC, BMP 08/14/16 06:00 08/14/16 06:00 INR, PTT INR 1.44 (0.82-1.09) H 08/08/16 05:35 Laboratory Results - last 24 hr 08/11/16 08/11/16 08/13/16 17:37 17:38 11:14 WBC RBC Hgb Hct MCV MCHC RDW Plt Count MPV Neutrophils % Lymphocytes % Monocytes % Eosinophils % Basophils % Sodium Potassium Chloride Carbon Dioxide Anion Gap BUN Creatinine Creat Clearance w eGFR POC Glucometer 492 501 194 Random Glucose Calcium Phosphorus Magnesium Total Bilirubin AST ALT Alkaline Phosphatase Total Protein Albumin Stool Occult Blood 08/13/16 08/13/16 08/13/16 14:00 17:10 22:37 WBC RBC Hgb Hct MCV MCHC RDW Plt Count MPV Neutrophils % Lymphocytes % Monocytes % Eosinophils % Basophils % Sodium Potassium Chloride Carbon Dioxide Anion Gap BUN Creatinine Creat Clearance w eGFR POC Glucometer 300 220 Random Glucose Calcium Phosphorus Magnesium Total Bilirubin AST ALT Alkaline Phosphatase Total Protein Albumin Stool Occult Blood Positive 08/14/16 08/14/16 08/14/16 06:00 06:00 06:29 WBC 15.9 H RBC 3.16 L Hgb 9.0 L Hct 26.6 L MCV 84.3 MCHC 34.0 RDW 14.0 Plt Count 211 MPV 7.7 Neutrophils % 75.4 Lymphocytes % 15.5 D Monocytes % 6.6 Eosinophils % 2.1 Basophils % 0.4 Sodium 135 L Potassium 3.8 Chloride 91 L Carbon Dioxide 35 H Anion Gap 9 BUN 49 H Creatinine 3.2 H Creat Clearance w eGFR 13.80 POC Glucometer 173 Random Glucose 144 H Calcium 8.1 L Phosphorus 2.8 Magnesium 1.6 L Total Bilirubin 0.4 AST 17 ALT 24 Alkaline Phosphatase 76 Total Protein 5.5 L Albumin 2.7 L Stool Occult Blood Assessment/Plan Acute on chronic ckd PAF,rate under control UTI Anemia,s/p blood transfusion hb/hct improved SOB/acute on chronic CHF HTN,Hypercholestrolemia Pulmonary vascular congestion,pul hypertension DM PLAN Continue bronchodialators Continue BP medications Monitor BUN/creatinine,CBC Monitor sugar Will f/u cardiology and renal ,endocrine,pul rec regarding Medication Elequis on hold
[2016-08-14] MEDS: POLYETHYLENE GLYCOL 3350 119 GM BTL PO SCH (11:38)
--- NOTE | 2016-08-14 13:16 | PN ---
Progress Note, Physician History of Present Illness: Pt seen and examined at bedside. She is awake and appears comfortable. She is off of oxygen. She has appetite and is asking for regular food. - Current Medication List Current Medications: Active Medications Acetaminophen (Tylenol -) 650 mg PO Q6H PRN PRN Reason: FEVER OR PAIN Last Admin: 08/07/16 04:25 Dose: 650 mg Albuterol/Ipratropium (Duoneb -) 1 amp NEB Q4H PRN PRN Reason: SHORTNESS OF BREATH Atorvastatin Calcium (Lipitor -) 10 mg PO HS [facility] Last Admin: 08/13/16 22:35 Dose: 10 mg Calcitriol (Rocaltrol -) 0.5 mcg PO DAILY [facility] Last Admin: 08/14/16 09:59 Dose: 0.5 mcg Cephalexin HCl (Keflex -) 500 mg PO BID [facility] Last Admin: 08/14/16 09:58 Dose: 500 mg Diltiazem HCl (Cardizem Cd -) 240 mg PO DAILY [facility] Last Admin: 08/14/16 09:58 Dose: 240 mg Furosemide (Lasix Injection -) 80 mg IVPB DAILY [facility] Last Admin: 08/14/16 10:00 Dose: 80 mg Hydralazine HCl (Apresoline -) 25 mg PO BID [facility] Last Admin: 08/14/16 09:59 Dose: 25 mg Insulin Aspart (Novolog Vial Sliding Scale -) 1 vial SQ HS [facility] PRN Reason: Protocol Last Admin: 08/13/16 22:40 Dose: 2 units Insulin Aspart (Novolog Vial Sliding Scale -) 1 vial SQ TIDAC [facility] PRN Reason: Protocol Last Admin: 08/14/16 11:43 Dose: 12 units Insulin Detemir (Levemir Vial) 10 units SQ HS [facility] Isosorbide Mononitrate (Imdur -) 30 mg PO DAILY [facility] Last Admin: 08/14/16 09:59 Dose: 30 mg Ondansetron HCl (Zofran Injection) 4 mg IVPUSH Q4H PRN PRN Reason: NAUSEA AND/OR VOMITING Pantoprazole Sodium (Protonix -) 40 mg PO DAILY [facility] Polyethylene Glycol (Miralax (For Daily Use) -) 17 gm PO DAILY [facility] Last Admin: 08/14/16 11:38 Dose: Not Given - Objective Vital Signs: Vital Signs Temperature 98.6 F 08/14/16 12:33 Pulse Rate 69 08/14/16 12:33 Respiratory Rate 18 08/14/16 12:33 Blood Pressure 138/64 08/14/16 12:33 O2 Sat by Pulse Oximetry (%) 99 08/14/16 09:00 Constitutional: Yes: Calm Eyes: Yes: Conjunctiva Clear HENT: Yes: Atraumatic Neck: Yes: Supple Cardiovascular: Yes: S1, S2 Respiratory: Yes: CTA Bilaterally Gastrointestinal: Yes: Soft, Abdomen, Obese Musculoskeletal: Yes: WNL Edema: No Neurological: Yes: Oriented Psychiatric: Yes: Oriented Labs: CBC, BMP 08/14/16 06:00 08/14/16 06:00 INR, PTT INR 1.44 (0.82-1.09) H 08/08/16 05:35 Problem List - Problems (1) CKD (chronic kidney disease) Code(s): N18.9 - CHRONIC KIDNEY DISEASE, UNSPECIFIED Qualifiers: Qualified Code(s): N18.9 - Chronic kidney disease, unspecified (2) Pulmonary vascular congestion Code(s): R09.89 - OTH SYMPTOMS AND SIGNS INVOLVING THE CIRC AND RESP SYSTEMS (3) SOB (shortness of breath) on exertion Code(s): R06.02 - SHORTNESS OF BREATH (4) Hypertension Code(s): I10 - ESSENTIAL (PRIMARY) HYPERTENSION (5) Diabetes 1.5, managed as type 1 Code(s): E13.9 - OTHER SPECIFIED DIABETES MELLITUS WITHOUT COMPLICATIONS Assessment/Plan Current Medications Generic Name Dose Route Start Last Admin Trade Name Freq PRN Reason Stop Dose Admin Acetaminophen 650 mg 07/30/16 15:50 08/07/16 04:25 Tylenol - PO 650 mg Q6H PRN Administration FEVER OR PAIN Albuterol/Ipratropium 1 amp 08/13/16 17:36 Duoneb - NEB Q4H PRN SHORTNESS OF BREATH Atorvastatin Calcium 10 mg 07/27/16 22:00 08/13/16 22:35 Lipitor - PO 10 mg HS [facility] Administration Calcitriol 0.5 mcg 07/27/16 18:00 08/14/16 09:59 Rocaltrol - PO 0.5 mcg DAILY [facility] Administration Cephalexin HCl 500 mg 08/10/16 11:30 08/14/16 09:58 Keflex - PO 500 mg BID [facility] Administration Diltiazem HCl 240 mg 08/08/16 10:00 08/14/16 09:58 Cardizem Cd - PO 240 mg DAILY [facility] Administration Furosemide 80 mg 08/08/16 10:00 08/14/16 10:00 Lasix Injection - IVPB 80 mg DAILY [facility] Administration Hydralazine HCl 25 mg 07/27/16 18:30 08/14/16 09:59 Apresoline - PO 25 mg BID [facility] Administration Insulin Aspart 1 vial 08/11/16 16:30 08/13/16 22:40 Novolog Vial Sliding Scale - SQ 2 units HS [facility] Administration Protocol Insulin Aspart 1 vial 08/14/16 11:00 08/14/16 11:43 Novolog Vial Sliding Scale - SQ 12 units TIDAC [facility] Administration Protocol Insulin Detemir 10 units 08/14/16 22:00 Levemir Vial SQ HS [facility] Isosorbide Mononitrate 30 mg 07/27/16 18:30 08/14/16 09:59 Imdur - PO 30 mg DAILY [facility] Administration Ondansetron HCl 4 mg 08/03/16 18:45 Zofran Injection IVPUSH Q4H PRN NAUSEA AND/OR VOMITING Pantoprazole Sodium 40 mg 08/15/16 10:00 Protonix - PO DAILY [facility] Polyethylene Glycol 17 gm 08/08/16 10:00 08/14/16 11:38 Miralax (For Daily Use) - PO Not Given DAILY [facility] Impression 1. CKD 2. HTN 3. DM 4. dyspnea 5. hyperlipidemia 6. anemia 7. hyponatremia 8. pulmonary htn Plan - GI follow up for diet - spoke to family they do not want endoscopy - will change lasix to PO - check labs in am - monitor hg - repeat labs in am - will need better glucose control - discussed diet with family - will follow Dr Fleming
--- NOTE | 2016-08-14 13:43 | PN ---
Progress Note (short form) - Note Progress Note: Spoke with family today. They have decided against upper endoscopy. This limits evaluation of a potential upper GI bleeding source I have changed Ms. Bryant to PO PPI, which should not be continued for extended period of time in the setting of preexisting renal insuffuciency (OK with a 6 week course) and per cardiology anticoagulation will be held at this point.
[2016-08-14] MEDS ORDERED: MAGNESIUM SULF 50% (8.12 MEQ/2 ML-1 GM VIAL) IVPB ONE (14:15)
--- NOTE | 2016-08-14 14:57 | PN ---
Progress Note (short form) - Note Progress Note: PULMONARY OOB TO CHAIR/ FAMILY PRESENT VSS/AFEBRILE ANICTERIC DIMINSHED BREATH SOUNDS BILATERALLY S1S2 OBESE EDEMA LOWER EXT DIMINISHED LABS/MEDS/NOTES/IMAGING/MICRO REVIEWED GI NOTES REVIEWED FAMILY REFUSING EGD IMP IMPROVED DIASTOLIC CHF PUL HTN ACUTE ON CHRONIC KIDNEY DISEASE IMPROVING W LASIX ABD PAIN DM POORLY CONTROLLED(STEROIDS) HTN AFIB GUIAC + STOOL PLAN INHALED BRONCHODILATORS/ SUPPLEMENTAL O2 PRN MONITOR RENAL FUNCTION ANTICOAGULATION ON HOLD RATE CONTROL DAILY WTS CLEARED FROM A PULMONARY STANDPOINT PLEASE CALL ALEXYS WEST MD
[2016-08-14] MEDS: FUROSEMIDE 40 MG TABLET (FP) PO SCH (15:24)
--- NOTE | 2016-08-14 16:34 | PN ---
Progress Note, Physician Chief Complaint: Pt's daughters and son at bedside. No chest pain or dyspnea. Lying in bed; easily arousable. History of Present Illness: 86y woman (b. Maira) with PM hx of [id number] HTN; DM;hyperlipidemia ; CKD, who now presents with SOB. The patient has been feeling SOB with SOTO which began two weeks ago; she was admitted to [facility] for a cardiac workup, had a negative EKG (per daughter)and was d/chinmay home from ER. The pt fu with PMD a few days ago and was given a nebulizer. The pt states her sob worsened significantly last night; here was no significant improvement with the nebulizer. Pt states she gets the wheezing and sob when she ambulates short distances as well as up stairs, which is new (pt's daughter says she was able to walk slowly in the house on a regular basis without dyspnea until the past few weeks). The pt denies any associated cp (no cp since last admission to [facility]), fever/chills. pt does endorse a mild nonproductive cough, orthopnea, mild lower extermity edema; denies fever. Stress test 2 months ago negative for myocardial ischemia or arrhythmias. PMD dr. Mendoza [employer] Supervisor: Dr. Ayala. - Current Medication List Current Medications: Active Medications Acetaminophen (Tylenol -) 650 mg PO Q6H PRN PRN Reason: FEVER OR PAIN Last Admin: 08/07/16 04:25 Dose: 650 mg Albuterol/Ipratropium (Duoneb -) 1 amp NEB Q4H PRN PRN Reason: SHORTNESS OF BREATH Atorvastatin Calcium (Lipitor -) 10 mg PO HS [facility] Last Admin: 08/13/16 22:35 Dose: 10 mg Calcitriol (Rocaltrol -) 0.5 mcg PO DAILY [facility] Last Admin: 08/14/16 09:59 Dose: 0.5 mcg Cephalexin HCl (Keflex -) 500 mg PO BID [facility] Last Admin: 08/14/16 09:58 Dose: 500 mg Diltiazem HCl (Cardizem Cd -) 240 mg PO DAILY [facility] Last Admin: 08/14/16 09:58 Dose: 240 mg Furosemide (Lasix -) 60 mg PO BID@0600,1400 [facility] Last Admin: 08/14/16 15:24 Dose: Not Given Hydralazine HCl (Apresoline -) 25 mg PO BID [facility] Last Admin: 08/14/16 09:59 Dose: 25 mg Insulin Aspart (Novolog Vial Sliding Scale -) 1 vial SQ HS [facility] PRN Reason: Protocol Last Admin: 08/13/16 22:40 Dose: 2 units Insulin Aspart (Novolog Vial Sliding Scale -) 1 vial SQ TIDAC [facility] PRN Reason: Protocol Last Admin: 08/14/16 11:43 Dose: 12 units Insulin Detemir (Levemir Vial) 10 units SQ HS [facility] Isosorbide Mononitrate (Imdur -) 30 mg PO DAILY [facility] Last Admin: 08/14/16 09:59 Dose: 30 mg Ondansetron HCl (Zofran Injection) 4 mg IVPUSH Q4H PRN PRN Reason: NAUSEA AND/OR VOMITING Pantoprazole Sodium (Protonix -) 40 mg PO DAILY [facility] Polyethylene Glycol (Miralax (For Daily Use) -) 17 gm PO DAILY [facility] Last Admin: 08/14/16 11:38 Dose: Not Given - Objective Vital Signs: Vital Signs Temperature 97.4 F L 08/14/16 13:58 Pulse Rate 72 08/14/16 13:58 Respiratory Rate 18 08/14/16 13:58 Blood Pressure 106/42 08/14/16 13:58 O2 Sat by Pulse Oximetry (%) 99 08/14/16 09:00 Constitutional: Yes: Calm Eyes: Yes: WNL Cardiovascular: Yes: Pulse Irregular Respiratory: Yes: Regular Gastrointestinal: Yes: Soft ...Rectal Exam: Yes: Deferred Genitourinary: No: Anuria Musculoskeletal: Yes: Muscle Weakness Extremities: Yes: Cool Edema: No Peripheral Pulses WNL: No Peripheral Pulses: Left Doralis Pedis: 1+, Right Dorsalis Pedis: 1+ Neurological: Yes: Alert, Weakness Psychiatric: Yes: Alert Labs: CBC, BMP 08/14/16 06:00 08/14/16 06:00 INR, PTT INR 1.44 (0.82-1.09) H 08/08/16 05:35 Abnormal Lab Results 08/14/16 08/14/16 06:00 06:00 WBC 15.9 H RBC 3.16 L Hgb 9.0 L Hct 26.6 L Sodium 135 L Chloride 91 L Carbon Dioxide 35 H BUN 49 H Creatinine 3.2 H Random Glucose 144 H Calcium 8.1 L Magnesium 1.6 L Total Protein 5.5 L Albumin 2.7 L Problem List - Problems (1) CKD (chronic kidney disease) Assessment/Plan: Gradually improving with PRBCs, motor vehicle compliance analyst imput. Furosemide per ID. Code(s): N18.9 - CHRONIC KIDNEY DISEASE, UNSPECIFIED Qualifiers: Qualified Code(s): N18.9 - Chronic kidney disease, unspecified (2) Hypertension Assessment/Plan: Now well-controlled on diltiazem (changed to 240 mg CD daily on 08/08/2016), Hydralazine + Imdur. ECHO: normal LVEF; moderate-severe pulmonary HTN. Code(s): I10 - ESSENTIAL (PRIMARY) HYPERTENSION (3) Pulmonary vascular congestion Code(s): R09.89 - OTH SYMPTOMS AND SIGNS INVOLVING THE CIRC AND RESP SYSTEMS (4) SOB (shortness of breath) on exertion Assessment/Plan: marked improvement; able to sleep nearly flat through the night without dyspnea ; no cough or tachypnea. Code(s): R06.02 - SHORTNESS OF BREATH (5) Acute on chronic diastolic CHF (congestive heart failure) Code(s): I50.33 - ACUTE ON CHRONIC DIASTOLIC (CONGESTIVE) HEART FAILURE (6) Diabetes Code(s): E11.9 - TYPE 2 DIABETES MELLITUS WITHOUT COMPLICATIONS (7) Atrial fibrillation Assessment/Plan: On diltiazem; heart rate is well-controlled (and in normal sinus rhythm on 08/13 EKG). As discussed with Dr. Leigh and Dr. Ruy Alex, pt's family does not want further workup (this includes GI procedures). Dr. Leigh will send her home on no anticoagulation because of ongoing stool quaiac +, anemia with need for PRBCs, and uncertainty as to source of GI bleed. Pt is no longer dyspneic or tachycardic. From a cardiac perspective, she may be followed as an outpatient. Code(s): I48.91 - UNSPECIFIED ATRIAL FIBRILLATION (8) Pulmonary hypertension Code(s): I27.2 - OTHER SECONDARY PULMONARY HYPERTENSION (9) Anemia Code(s): D64.9 - ANEMIA, UNSPECIFIED
--- NOTE | 2016-08-14 17:04 | PN ---
Progress Note (short form) - Note Progress Note: Patient seen and examined Spoke with daughter at bedside and prior notes reviewed. Family has decided for a conservative approach with no interventional studies.. Advise for careful follow up as patient with heme positive stool will likely require periodic transfusion therapy. Last Vital Signs Temp Pulse Resp BP Pulse Ox 97.4 F L 72 18 106/42 99 08/14/16 13:58 08/14/16 13:58 08/14/16 13:58 08/14/16 13:58 08/14/16 09:00 HEENT: JAVI, EOM Intact Cor: RSR, No murmurs, No gallops Lungs: Clear to P&A Abd: Soft, Normal bowel sounds, No organomegaly Ext:No significant edema Skin: No rashes, Integument intact CBC, BMP 08/14/16 06:00 08/14/16 06:00 Current Medications Generic Name Dose Route Start Last Admin Trade Name Freq PRN Reason Stop Dose Admin Acetaminophen 650 mg 07/30/16 15:50 08/07/16 04:25 Tylenol - PO 650 mg Q6H PRN Administration FEVER OR PAIN Albuterol/Ipratropium 1 amp 08/13/16 17:36 Duoneb - NEB Q4H PRN SHORTNESS OF BREATH Atorvastatin Calcium 10 mg 07/27/16 22:00 08/13/16 22:35 Lipitor - PO 10 mg HS [facility] Administration Calcitriol 0.5 mcg 07/27/16 18:00 08/14/16 09:59 Rocaltrol - PO 0.5 mcg DAILY [facility] Administration Cephalexin HCl 500 mg 08/10/16 11:30 08/14/16 09:58 Keflex - PO 500 mg BID [facility] Administration Diltiazem HCl 240 mg 08/08/16 10:00 08/14/16 09:58 Cardizem Cd - PO 240 mg DAILY [facility] Administration Furosemide 60 mg 08/14/16 14:00 08/14/16 15:24 Lasix - PO Not Given BID@0600,1400 [facility] Hydralazine HCl 25 mg 07/27/16 18:30 08/14/16 09:59 Apresoline - PO 25 mg BID [facility] Administration Insulin Aspart 1 vial 08/11/16 16:30 08/13/16 22:40 Novolog Vial Sliding Scale - SQ 2 units HS [facility] Administration Protocol Insulin Aspart 1 vial 08/14/16 11:00 08/14/16 11:43 Novolog Vial Sliding Scale - SQ 12 units TIDAC [facility] Administration Protocol Insulin Detemir 10 units 08/14/16 22:00 Levemir Vial SQ HS [facility] Isosorbide Mononitrate 30 mg 07/27/16 18:30 08/14/16 09:59 Imdur - PO 30 mg DAILY [facility] Administration Ondansetron HCl 4 mg 08/03/16 18:45 Zofran Injection IVPUSH Q4H PRN NAUSEA AND/OR VOMITING Pantoprazole Sodium 40 mg 08/15/16 10:00 Protonix - PO DAILY [facility] Polyethylene Glycol 17 gm 08/08/16 10:00 08/14/16 11:38 Miralax (For Daily Use) - PO Not Given DAILY [facility] Impression: Multifactorial anemia GI bleeding, - source not identified. CKD, chronic disease. Plan: Potentially could receive Procrit per renal protocol. If not, transfuse prn falling Hct.
[2016-08-14] MEDS: ATORVASTATIN CA 10 MG TABLET (FP) PO SCH (21:23)
[2016-08-14] MEDS ORDERED: INSULIN DETEMIR 100 UNITS/ML MDV SQ SCH (22:00)
[2016-08-15] MEDS: INSULIN SLIDING SCALE (NOVOLOG) 1 VIAL SQ SCH ×2 (06:13→11:27)
[2016-08-15] MEDS: FUROSEMIDE 40 MG TABLET (FP) PO SCH (06:13)
[2016-08-15 07:33] LABS: BASOPHIL 0.6 % (0-2.0); MCH 28.4 pg (25.7-33.7); MCHC 33.7 g/dl (32.0-36.0); MEAN CELL VOLUME 84.2 fl (80-96); MEAN PLT VOLUME 7.5 fl (7.5-11.1); NEUTROPHILS 74.9 % (42.8-82.8); PLATELET COUNT 204 K/MM3 (134-434); RDW 13.9 % (11.6-15.6); WHITE BLOOD COUNT 12.8 K/mm3 (4.0-10.0)
[2016-08-15 07:49] LABS: INR 1.14 (0.82-1.09); PROTHROMBIN TIME (PATIENT) 12.6 SEC (9.98-11.88)
[2016-08-15 07:51] LABS: ALBUMIN 2.6 g/dl (3.4-5.0); BILIRUBIN,TOTAL 0.3 mg/dL (0.2-1.0); CALCIUM 8.1 mg/dL (8.5-10.1); CREATININE 3.2 mg/dL (0.55-1.02); TOT PROT 5.4 g/dl (6.4-8.2)
--- NOTE | 2016-08-15 08:54 | PN ---
Progress Note, Physician Chief Complaint: Pt seen and examined,feels better,tolerated diet,ambulating in the hallway SOB improved,not on oxygen rpt hb/hct stable AF rate under control and in sinus rhythm now Anemia due to GI bleed ,source, unknown Gi rec endoscopy as per stool guiac positive Family has decided to go with conservative approch and does not want any invasive tests including endoscopy Cardiology,RENAl,pul GI note appreciated GI rec Endoscopy as per stool guiac positive Elequis on hold d/c home today - Current Medication List Current Medications: Active Medications Acetaminophen (Tylenol -) 650 mg PO Q6H PRN PRN Reason: FEVER OR PAIN Last Admin: 08/07/16 04:25 Dose: 650 mg Albuterol/Ipratropium (Duoneb -) 1 amp NEB Q4H PRN PRN Reason: SHORTNESS OF BREATH Atorvastatin Calcium (Lipitor -) 10 mg PO HS [facility] Last Admin: 08/14/16 21:23 Dose: 10 mg Calcitriol (Rocaltrol -) 0.5 mcg PO DAILY [facility] Last Admin: 08/14/16 09:59 Dose: 0.5 mcg Cephalexin HCl (Keflex -) 500 mg PO BID [facility] Last Admin: 08/14/16 21:17 Dose: 500 mg Diltiazem HCl (Cardizem Cd -) 240 mg PO DAILY [facility] Last Admin: 08/14/16 09:58 Dose: 240 mg Furosemide (Lasix -) 60 mg PO BID@0600,1400 [facility] Last Admin: 08/15/16 06:13 Dose: 60 mg Hydralazine HCl (Apresoline -) 25 mg PO BID [facility] Last Admin: 08/14/16 21:17 Dose: 25 mg Insulin Aspart (Novolog Vial Sliding Scale -) 1 vial SQ HS [facility] PRN Reason: Protocol Last Admin: 08/14/16 21:19 Dose: 8 units Insulin Aspart (Novolog Vial Sliding Scale -) 1 vial SQ TIDAC [facility] PRN Reason: Protocol Last Admin: 08/15/16 06:13 Dose: 10 units Insulin Detemir (Levemir Vial) 10 units SQ HS [facility] Last Admin: 08/14/16 21:17 Dose: 10 units Isosorbide Mononitrate (Imdur -) 30 mg PO DAILY [facility] Last Admin: 08/14/16 09:59 Dose: 30 mg Ondansetron HCl (Zofran Injection) 4 mg IVPUSH Q4H PRN PRN Reason: NAUSEA AND/OR VOMITING Pantoprazole Sodium (Protonix -) 40 mg PO DAILY [facility] Polyethylene Glycol (Miralax (For Daily Use) -) 17 gm PO DAILY [facility] Last Admin: 08/14/16 11:38 Dose: Not Given - Objective Vital Signs: Vital Signs Temperature 98.5 F 08/15/16 06:00 Pulse Rate 79 08/15/16 06:00 Respiratory Rate 20 08/15/16 06:00 Blood Pressure 111/57 08/15/16 06:00 O2 Sat by Pulse Oximetry (%) 96 08/14/16 21:00 Constitutional: Yes: No Distress Eyes: Yes: Conjunctiva Clear HENT: Yes: Atraumatic, Normocephalic Neck: Yes: Supple, Trachea Midline Cardiovascular: Yes: Regular Rate and Rhythm Respiratory: Yes: Regular, CTA Bilaterally Gastrointestinal: Yes: Normal Bowel Sounds Musculoskeletal: Yes: WNL Edema: No Peripheral Pulses WNL: Yes Neurological: Yes: WNL, Alert, Oriented Psychiatric: Yes: Alert, Oriented Labs: CBC, BMP 08/15/16 06:10 08/15/16 06:10 INR, PTT INR 1.14 (0.82-1.09) 08/15/16 06:10 Assessment/Plan Acute on chronic ckd PAF,rate under control,sinus rhythm now UTI,antibiotics last dose today GI bleed multifactorial,anemia,stool guiac positive Anemia,s/p blood transfusion hb/hct improved SOB/acute on chronic CHF HTN,Hypercholestrolemia Pulmonary vascular congestion improved,pul hypertension DM PLAN family decided to go with conservative approach and does not want any invasive proceduresi including endoscopy d/c home today Continue bronchodialators Continue BP medications Monitor BUN/creatinine,CBC as OUT patient Monitor sugar d/c antibiotics Indiraquisjanuvia on hold F/u with GI endocrine,cardiology,renal and PMD
[2016-08-15] MEDS ORDERED: PT OWN MED DRAWER 7, Y5N ONE (08:59)
[2016-08-15] MEDS: CALCITRIOL 0.25 MCG CAPSULE (FP) PO SCH (09:06)
[2016-08-15] MEDS: CEPHALEXIN MONOHYDRATE 500 MG CAPSULE (UD) PO SCH (09:08)
[2016-08-15] MEDS: ISOSORBIDE MONONITRATE 30 MG TAB.SR.24H (FP) PO SCH (09:08)
[2016-08-15] MEDS: hydrALAZINE HCL 25 MG TABLET (FP) PO SCH (09:08)
[2016-08-15] MEDS: POLYETHYLENE GLYCOL 3350 119 GM BTL PO SCH (09:12)
--- NOTE | 2016-08-15 09:15 | PN ---
Progress Note (short form) - Note Progress Note: Feels good Denies any complaints Apetite good BGM fluctuating No hypos Vital Signs Period Temp Pulse Resp BP Sys/[place] Pulse Ox Last 24 Hr 97.4 F-98.6 F 69-79 18-20 106-138/42-64 96 PE: AOX3 Neck: Supple, No JVD HEENT: PERRL, EOMI Lungs: CTA CVS: S1S2 Abd: Benign, +BS Ext: No edema Neuro: No focal deficit CBC WBC 12.8 K/mm3 (4.0-10.0) H 08/15/16 06:10 Corrected WBC (auto) 22.50 K/mm3 08/11/16 06:00 RBC 3.13 M/mm3 (3.60-5.2) L 08/15/16 06:10 Hgb 8.9 GM/dL (10.7-15.3) L 08/15/16 06:10 Hct 26.4 % (32.4-45.2) L 08/15/16 06:10 MCV 84.2 fl (80-96) 08/15/16 06:10 MCHC 33.7 g/dl (32.0-36.0) 08/15/16 06:10 RDW 13.9 % (11.6-15.6) 08/15/16 06:10 Plt Count 204 K/MM3 (134-434) 08/15/16 06:10 MPV 7.5 fl (7.5-11.1) 08/15/16 06:10 Neutrophils % 74.9 % (42.8-82.8) 08/15/16 06:10 Lymphocytes % 15.4 % (8-40) 08/15/16 06:10 Monocytes % 7.1 % (3.8-10.2) 08/15/16 06:10 Eosinophils % 2.0 % (0-4.5) 08/15/16 06:10 Basophils % 0.6 % (0-2.0) 08/15/16 06:10 Band Neutrophils 4.0 % (0-10) D 08/11/16 06:00 Metamyelocytes 2 % (0-2) D 08/10/16 06:50 Myelocytes 4 % (0-2) H D 08/09/16 07:50 Differential Comment Manual diff done 08/13/16 06:45 Platelet Estimate Adequate (NORMAL) 08/13/16 06:45 Platelet Comment No clumping noted 08/11/16 06:00 Platelet Comment No clotting detected 08/11/16 06:00 Hypochromic-Microcytic 1+ 08/11/16 06:00 Anisocytosis 1+ 08/11/16 06:00 Schistocytes 1+ 08/08/16 05:35 Morphology Comment Slide scanned 08/08/16 05:35 Haptoglobin 124 mg/dL (34-200) 08/11/16 06:00 CMP Sodium 134 mmol/L (136-145) L 08/15/16 06:10 Potassium 3.6 mmol/L (3.5-5.1) 08/15/16 06:10 Chloride 92 mmol/L (98-107) L 08/15/16 06:10 Carbon Dioxide 33 mmol/L (21-32) H 08/15/16 06:10 Anion Gap 9 (8-16) 08/15/16 06:10 BUN 44 mg/dL (7-18) H 08/15/16 06:10 Creatinine 3.2 mg/dL (0.55-1.02) H 08/15/16 06:10 Creat Clearance w eGFR 13.80 (>60) 08/15/16 06:10 POC Glucometer 216 UNITS (()) 08/15/16 06:09 Random Glucose 190 mg/dL (74-106) H D 08/15/16 06:10 Calcium 8.1 mg/dL (8.5-10.1) L 08/15/16 06:10 Phosphorus 2.8 mg/dL (2.5-4.9) 08/14/16 06:00 Magnesium 1.6 mg/dL (1.8-2.4) L 08/14/16 06:00 Iron 78 ug/dL (27-139) 08/09/16 05:35 TIBC 223 ug/dL (250-450) L 08/09/16 05:35 Iron Saturation 35 % (15-55) 08/09/16 05:35 Ferritin 89.957 ng/ml (6.9-282.5) 08/09/16 05:35 Total Bilirubin 0.3 mg/dL (0.2-1.0) D 08/15/16 06:10 AST 15 U/L (15-37) 08/15/16 06:10 ALT 24 U/L (12-78) 08/15/16 06:10 Alkaline Phosphatase 79 U/L (45-117) 08/15/16 06:10 LD Total 280 U/L (84-246) H 08/11/16 06:00 Creatine Kinase 143 IU/L (26-192) 07/28/16 06:00 CK-MB (CK-2) 3.794 ng/ml (0.5-3.6) H 07/27/16 18:55 Troponin I < 0.02 ng/ml (0.00-0.05) 07/28/16 06:00 B-Natriuretic Peptide 1614.88 pg/ml (5-450) H 07/27/16 07:56 Prot Electrophoresis (.) 08/01/16 13:02 Serum Total Protein 6.9 g/dL (6.0-8.5) 08/01/16 13:02 Total Protein 5.4 g/dl (6.4-8.2) L 08/15/16 06:10 Albumin 2.6 g/dl (3.4-5.0) L 08/15/16 06:10 Globulin 3.6 g/dL (2.2-3.9) 08/01/16 13:02 Albumin/Globulin Ratio 0.9 (0.7-1.7) 08/01/16 13:02 Qcqvu-9-Tvvlxtbca 0.3 gm/dL (0.0-0.4) 08/01/16 13:02 Uhrrd-4-Eaombcpfm (%) 0.8 % (.) 08/01/16 12:00 Qyorq-0-Ehjbfkplm 1.1 gm/dL (0.4-1.0) H 08/01/16 13:02 Xspdm-0-Momfxumfp (%) 3.7 % (.) 08/01/16 12:00 Beta Globulins 1.0 gm/dL (0.7-1.3) 08/01/16 13:02 Beta Globulins (%) 16.5 % (.) 08/01/16 12:00 Gamma Globulins 1.2 gm/dL (0.4-1.8) 08/01/16 13:02 Gamma Globulins (%) 13.6 % (.) 08/01/16 12:00 M-Constantin % Not observed % (Not Observed) 08/01/16 12:00 Total Amylase 230 U/L (25-115) H 08/04/16 05:45 Lipase 422 U/L (73-393) H 08/13/16 06:45 Vitamin B12 775 pg/ml (180-914) 08/10/16 06:50 Folate 1119 ng/mL (>498) 08/10/16 06:50 Folate Hemolysate 292.1 ng/mL (Not Estab.) 08/10/16 06:50 TSH 1.10 uIU/ml (0.358-3.74) D 08/10/16 06:50 Free T4 1.02 ng/dl (0.76-1.46) 08/10/16 06:50 Current Medications Generic Name Dose Route Start Last Admin Trade Name Freq PRN Reason Stop Dose Admin Acetaminophen 650 mg 07/30/16 15:50 08/07/16 04:25 Tylenol - PO 650 mg Q6H PRN Administration FEVER OR PAIN Albuterol/Ipratropium 1 amp 08/13/16 17:36 Duoneb - NEB Q4H PRN SHORTNESS OF BREATH Atorvastatin Calcium 10 mg 07/27/16 22:00 08/14/16 21:23 Lipitor - PO 10 mg HS VANI Administration Calcitriol 0.5 mcg 07/27/16 18:00 08/14/16 09:59 Rocaltrol - PO 0.5 mcg DAILY VANI Administration Diltiazem HCl 240 mg 08/08/16 10:00 08/14/16 09:58 Cardizem Cd - PO 240 mg DAILY VANI Administration Furosemide 60 mg 08/14/16 14:00 08/15/16 06:13 Lasix - PO 60 mg BID@0600,1400 VANI Administration Hydralazine HCl 25 mg 07/27/16 18:30 08/14/16 21:17 Apresoline - PO 25 mg BID VANI Administration Insulin Aspart 1 vial 08/11/16 16:30 08/14/16 21:19 Novolog Vial Sliding Scale - SQ 8 units HS VANI Administration Protocol Insulin Aspart 1 vial 08/14/16 11:00 08/15/16 06:13 Novolog Vial Sliding Scale - SQ 10 units TIDAC VANI Administration Protocol Insulin Detemir 10 units 08/14/16 22:00 08/14/16 21:17 Levemir Vial SQ 10 units HS VANI Administration Isosorbide Mononitrate 30 mg 07/27/16 18:30 08/14/16 09:59 Imdur - PO 30 mg DAILY VANI Administration Non-Formulary Medication 0.5 mcg 08/15/16 10:00 Calcitriol [Rocaltrol] PO DAILY VANI Pantoprazole Sodium 40 mg 08/15/16 10:00 Protonix - PO DAILY VANI Polyethylene Glycol 17 gm 08/08/16 10:00 08/14/16 11:38 Miralax (For Daily Use) - PO Not Given DAILY VANI AP: DM: Fluctuating blood sugar Monitor BGM QACHS Levemir 10 units daily at HS, Hold if BGM <150 Novolog Coverage QACHS Pt to go home on current Insulin schedule. If BGM in morning > 150 for next two day, increase Lantus to 15 units at HS. Above discussed with pt't daughter at bedside. F/U in offfice in 3 weeks. Elevated lipase . Improving. 422 toda. Normal Pancreas on CT ?Pancreatitis Pt has multiple possible reasons for elevated Lipase including renal failure and use of Januvia, Methylprednosolone and Furosemide. No Januvia or otheer DPP4s or GLP1 in the future. Discussed above with daughter at bedside. Anemia/Drop in H/H: Stable now, stress Gastritis. Off Eliquis b/o GI bleeding with positive guaic test. CHF Acute on Chronic renal insufficiency: Improving renal function HTN HLD Problem List - Problems (1) CKD (chronic kidney disease) Code(s): N18.9 - CHRONIC KIDNEY DISEASE, UNSPECIFIED Qualifiers: Qualified Code(s): N18.9 - Chronic kidney disease, unspecified (2) Hypertension Code(s): I10 - ESSENTIAL (PRIMARY) HYPERTENSION (3) SOB (shortness of breath) on exertion Code(s): R06.02 - SHORTNESS OF BREATH
[2016-08-15] MEDS ORDERED: PANTOPRAZOLE 40 MG TABLET (FP) PO SCH (10:00)
[2016-08-15] MEDS ORDERED: CALCITRIOL 0.5 MCG PO SCH (10:00)
[2016-08-15 10:22] VITALS: BP 122/59; PULSE 69; TEMP 98.7
[2016-08-15] MEDS ORDERED: INSULIN (NOVOLOG) ASPART 100 UNITS/ML 10ML VIAL ONE (11:26)
--- NOTE | 2016-08-15 13:04 | PN ---
Progress Note, Physician History of Present Illness: 86y woman (b. Maira) with PM hx of [id number] HTN; DM;hyperlipidemia ; CKD, who now presents with sob. The patient has been feeling SOB with SOTO which began two weeks ago; she was admitted to [facility] for a cardiac workup, had a negative EKG (per daughter)and was d/chinmay home from ER. The pt fu with PMD a few days ago and was given a nebulizer. The pt states her sob worsened significantly last night; here was no significant improvement with the nebulizer. Pt states she gets the wheezing and sob when she ambulates short distances as well as up stairs, which is new (pt's daughter says she was able to walk slowly in the house on a regular basis without dyspnea until the past few weeks). The pt denies any associated cp (no cp since last admission to [facility] [place]), fever/chills. pt does endorse a mild nonproductive cough, orthopnea, mild lower extermity edema; denies fever. Stress test 2 months ago negative for myocardial ischemia or arrhythmias. - Objective Vital Signs: Vital Signs Temperature 98.7 F 08/15/16 10:00 Pulse Rate 69 08/15/16 10:00 Respiratory Rate 18 08/15/16 10:00 Blood Pressure 122/59 08/15/16 10:00 O2 Sat by Pulse Oximetry (%) 98 08/15/16 09:00 Eyes: Yes: WNL, Conjunctiva Clear, EOM Intact HENT: Yes: WNL, Atraumatic, Normocephalic Neck: Yes: WNL, Supple, Trachea Midline Cardiovascular: Yes: WNL, Regular Rate and Rhythm Respiratory: Yes: WNL, Regular, CTA Bilaterally Gastrointestinal: Yes: WNL, Normal Bowel Sounds Genitourinary: Yes: WNL Musculoskeletal: Yes: WNL Extremities: Yes: WNL Edema: No Integumentary: Yes: WNL Neurological: Yes: WNL, Alert, Oriented ...Motor Strength: WNL Psychiatric: Yes: WNL Labs: CBC, BMP 08/15/16 06:10 08/15/16 06:10 INR, PTT INR 1.14 (0.82-1.09) 08/15/16 06:10 Problem List - Problems (1) Acute on chronic diastolic CHF (congestive heart failure) Code(s): I50.33 - ACUTE ON CHRONIC DIASTOLIC (CONGESTIVE) HEART FAILURE (2) CKD (chronic kidney disease) Code(s): N18.9 - CHRONIC KIDNEY DISEASE, UNSPECIFIED Qualifiers: Qualified Code(s): N18.9 - Chronic kidney disease, unspecified (3) Diabetes 1.5, managed as type 1 Code(s): E13.9 - OTHER SPECIFIED DIABETES MELLITUS WITHOUT COMPLICATIONS (4) Hypertension Code(s): I10 - ESSENTIAL (PRIMARY) HYPERTENSION (5) Pulmonary hypertension Code(s): I27.2 - OTHER SECONDARY PULMONARY HYPERTENSION (6) Pulmonary vascular congestion Code(s): R09.89 - OTH SYMPTOMS AND SIGNS INVOLVING THE CIRC AND RESP SYSTEMS (7) SOB (shortness of breath) on exertion Code(s): R06.02 - SHORTNESS OF BREATH Assessment/Plan (1) CKD (chronic kidney disease) Assessment/Plan: Increasing BUN/Cr has led to stopping losartan. Furosemide IV 80 mg daily. f/u electrolytes, BUN/Cr, daily weight, Is and Os. Family defers hemodialysis presently. Code(s): N18.9 - CHRONIC KIDNEY DISEASE, UNSPECIFIED Qualifiers: Qualified Code(s): N18.9 - Chronic kidney disease, unspecified (2) Hypertension Assessment/Plan: Now well-controlled on diltiazem (changed to 240 mg CD daily on 08/08/2016), Hydralazine + Imdur, and amlodipine. Losartan held due to deteriorating renal function. F/u BP and HR. ECHO: normal LVEF; moderate-severe pulmonary HTN. Code(s): I10 - ESSENTIAL (PRIMARY) HYPERTENSION (3) Pulmonary vascular congestion Code(s): R09.89 - OTH SYMPTOMS AND SIGNS INVOLVING THE CIRC AND RESP SYSTEMS (4) SOB (shortness of breath) on exertion Assessment/Plan: leukocytosis (on steroids); afebrile; still with productive cough. Furosemide restarted; may require hemodialysis (family presently not in favor of this). f/u with program management manager. Code(s): R06.02 - SHORTNESS OF BREATH (5) Acute on chronic diastolic CHF (congestive heart failure) Code(s): I50.33 - ACUTE ON CHRONIC DIASTOLIC (CONGESTIVE) HEART FAILURE (6) Diabetes Assessment/Plan: markedly elevated glucose; now on steroids again for pulmonary dysfunction. F/u with ichthyologist. Code(s): E11.9 - TYPE 2 DIABETES MELLITUS WITHOUT COMPLICATIONS (7) Atrial fibrillation Assessment/Plan: On diltiazem for HR control Stool quaiac +.yesterday, but negative today. Hb stable. As discussed with Dr. Lisa, no present GI workup is contemplated, and Hb is stable post-PRBCs: pt may be restarted on Apixaban. Dr. Henson and I went over this in detail today. Discussed the pros and cons of anticoaguation with daughters, who telephoned other pertinent family members. They agreed on restart of apixaban. Check quiac tomorrow. F/u with GI, hematology. EKG in am. Code(s): I48.91 - UNSPECIFIED ATRIAL FIBRILLATION (8) Pulmonary hypertension Assessment/Plan: Moderate to severe pulmonary HTN; pt with mild MR and MI, (+) diastolic dysfunction; leukocytosis (on steroids earlier). Code(s): I27.2 - OTHER SECONDARY PULMONARY HYPERTENSION (9) Anemia Assessment/Plan: Restarted apixaban for AF. Stable Hb since unit of PRBC several days ago; quaiac negative today. F/u with GI, earthmoving plant operator Code(s): D64.9 - ANEMIA, UNSPECIFIED
--- NOTE | 2016-08-18 21:11 | DS ---
Physical Examination Vital Signs: Vital Signs Temperature 98.7 F 08/15/16 10:00 Pulse Rate 69 08/15/16 10:00 Respiratory Rate 18 08/15/16 10:00 Blood Pressure 122/59 08/15/16 10:00 O2 Sat by Pulse Oximetry (%) 98 08/15/16 09:00 Labs: CBC, BMP 08/15/16 06:10 08/15/16 06:10 Discharge Summary Reason For Visit: SOB ON EXERTION,CHRONIC KIDNEY DISEASE Pulmonary vascular congestion SOB anemia due to acute blood loss Acute on chronic CHF Pul hypertension GI bleed AF HTN DM Hypercholestrolemia klebsiella UTI Hospital Course: 86 yr old [place] With PMHx of CKD,DM,HTN ,hypercholestrolemia admitted in telemetry with sob,Cough and PND,pedal odema Pt had labs which shows acute on chronic CKD,wbc was 11.6 and hb/hct 9.6/29 Chest x ray shows Pul venous congestion,Bibasilar atelectasis,and jenny pleural effusion EKG shows sinus rhythm with PACS Venous doppler both extremities shows no evidence of DVT CT chest shows atelectasis with pleural effusion Pt was followed by Cardiology ,pul,endocrine,nephrology,ID and GI Pt was treated with IV lasix,steroid,antihypertensives ,insulin,Steroids and Oxygen,daily monitoring of urine output by putting foleys During hospitalisation pt developed AF ,which treated with cardiazem and IV heparin becuse of elevated bun/cratinine Loartan held Urine cul shows Klebsiella,so treated with iv ceftrioxone and then switch to PO keflex Pt had Costipation and abdominal distension,so Gi consult done Pt had abdominal xray ,Ct abd and pelvis and azbdominal ultrasound results were unremarkable Lapase level noted to be elevated during hospitalisation.ct abdomen does't shows any evidence of pancreatitis,Impression was due to Januvia,so januvia stopped Pt started on elequis after stopping heparin Pt had gi bleed after elequis ,so medication stopped,Hb/hct dropped to 6.9/ 20.so transfosed one unit of PRBC Gi rec EGD but PT's family requested conservative measures and refused Invasive procedeurs during hospitalisation pt was stable,and pt started taking renal,cardiac diet Pt discharged home in a stable condition and rec to f/u with GI,cardiology,RENAL ,PUL.PMD ,and endocrine Condition: Stable - Instructions Disposition: HOME - Home Medications Comprehensive Discharge Medication List: Ambulatory Orders Calcitriol [Rocaltrol] 0.5 mcg PO DAILY 07/27/16 Simvastatin [Zocor] 10 mg PO HS 07/27/16 Diltiazem Cd [Cardizem Cd -] 240 mg PO DAILY #30 cap.cd.24h 08/15/16 Furosemide [Lasix -] 60 mg PO BID@0600,1400 #60 tablet 08/15/16 Hydralazine HCl [Apresoline -] 25 mg PO BID #60 tablet 08/15/16 Insulin (Levemir) [Levemir Vial] 10 units SQ HS #30 ml 08/15/16 Insulin Sliding Scale [Novolog Vial Sliding Scale -] 1 vial SQ TIDAC #30 units 08/15/16 Isosorbide Mononitrate [Imdur -] 30 mg PO DAILY #30 tab.sr.24h 08/15/16 Pantoprazole Sodium [Protonix -] 40 mg PO DAILY #45 tablet.ec 08/15/16 Polyethylene Glycol 3350 [Miralax 119 gm Btl -] 17 gm PO DAILY #30 bottle
== END 2016-08-15 11:47 | disposition home or self-care (01) | DRG 291 ==
LOC: JER 07:17 → JERBED 10:12 → J4W 16:39 → J7W 08-09 17:30
PROVIDERS: ADMIT Family Medicine; ATTEND Family Medicine
PROC: 30233N1 Transfusion of Nonautologous Red Blood Cells into Peripheral Vein, Percutaneous Approach (ICD-10-PCS; principal; 2016-08-09)
DX: I13.0 Hypertensive heart and chronic kidney disease with heart failure and stage 1 through stage 4 chronic kidney disease, or unspecified chronic kidney disease (principal); I50.33 Acute on chronic diastolic (congestive) heart failure; E87.1 Hypo-osmolality and hyponatremia; N39.0 Urinary tract infection, site not specified; K92.2 Gastrointestinal hemorrhage, unspecified; E78.5 Hyperlipidemia, unspecified; J45.909 Unspecified asthma, uncomplicated; D64.9 Anemia, unspecified; E11.22 Type 2 diabetes mellitus with diabetic chronic kidney disease; E11.65 Type 2 diabetes mellitus with hyperglycemia; N18.9 Chronic kidney disease, unspecified; I27.2 Other secondary pulmonary hypertension; I48.0 Paroxysmal atrial fibrillation; R63.0 Anorexia; Z68.28 Body mass index [BMI] 28.0-28.9, adult; I44.0 Atrioventricular block, first degree; E83.41 Hypermagnesemia; R14.0 Abdominal distension (gaseous); K59.00 Constipation, unspecified; B96.1 Klebsiella pneumoniae [K. pneumoniae] as the cause of diseases classified elsewhere; D63.8 Anemia in other chronic diseases classified elsewhere
CPT/HCPCS: 36415; 36430; 36511; 36600; 71010-TC; 71250-TC; 74020-TC; 74176-TC; 76700-TC; 76705-TC; 80048; 80053; 81003; 81015; 82150; 82272; 82436; 82550; 82553; 82570; 82607; 82728; 82747; 82803; 83010; 83516; 83520; 83540; 83550; 83615; 83690; 83735; 83880; 84100; 84133; 84155; 84156; 84157; 84165; 84300; 84439; 84443; 84484; 85014; 85025; 85027; 85610; 85730; 86038; 86225; 86256; 86704; 86706; 86708; 86850; 86880; 86900; 86901; 86922; 87040; 87086; 87186; 87340; 93005; 93010; 93306-TC; 93970-TC; 94640; 99284-25; J1644; P9038; P9058